=== PATIENT | male | born 1940 | race Caucasian/White ===

== ENCOUNTER → 2016-02-25 | Outpatient (CLI) | payer BC ==
[~2016-02-25] MED LIST: APOMINJ INJ; APOMINJ SC; ARC10 PO; ASPI81TA28 PO; BACL10TA PO; BCTCR/30 TD; BIMA0.01 OPB; BROM0.07 OPR; CARB25TA12 PO; CARB50TA3 PO; CITA20TA4 PO; CLZ750 PO; CRFUDL PO; DOCU-94 PO; DOCU100C31 PO; DUTA1CAP3 PO; ENTA200T PO; ERGO500037 PO; FERR325T5 PO; FLM4 PO; FLNIN/ NAE; FNTTP50 TD; GABA600T PO; GATI0.5S OPR; INSU3INJ3 SQ; LINA1CAP PO; LISI-461 PO; LORA-741 PO; LPD600 PO; LRS10 PO; MAGN400T6 PO; MULT-506 PO; NRN600 PO; NRV/10 PO; NTRGSL/4 SL; NVLGI SQ; ONDA4TAB46 PO; OXYC-57 PO; PANT40TA PO; POLY335019 PO; PRED1SUS3 OPR; PRT40 PO; RANI150T2 PO; RMR15 PO; RQP25 PO; RXC5 PO; SACC250C PO; SIMV-150 PO; TRIM300C14 PO; TRMO115 TOP
[2016-02-25 14:04] LABS: CHOLESTEROL/HDL RATIO 4.3
[2016-02-25 14:05] LABS: ESTIMATED AVERAGE GLUCOSE 163 mg/dl; HA1C FLAG Normal (Normal)
== END | disposition home or self-care (01) ==
LOC: C.LAB1850 12:25
PROVIDERS: ATTEND Nurse Practitioner Adult Health
DX: E11.8 Type 2 diabetes mellitus with unspecified complications (principal); E78.00 Pure hypercholesterolemia, unspecified; I10 Essential (primary) hypertension; L03.115 Cellulitis of right lower limb

== ENCOUNTER 2016-04-08 17:19 | Observation (INO) | payer BC, OTHER ==
[~2016-04-08] VITALS: Ht 177.8 cm; Wt 106.5 kg
[~2016-04-08 17:19] MED LIST changes: -APOMINJ INJ; -APOMINJ SC; -BACL10TA PO; -BCTCR/30 TD; -BROM0.07 OPR; -CRFUDL PO; -DOCU-94 PO; -ENTA200T PO; -ERGO500037 PO; -GATI0.5S OPR; -LINA1CAP PO; -LORA-741 PO; -ONDA4TAB46 PO; -OXYC-57 PO; -PANT40TA PO; -PRED1SUS3 OPR; -PRT40 PO; -TRIM300C14 PO; -TRMO115 TOP
[2016-04-08] MEDS ORDERED: SODIUM CHLORIDE 0.9% 1000ML 500 ML IV STA (18:03)
[2016-04-08] MEDS ORDERED: NITROGLYCERIN OINT 2% 1GM PACKET EXT STA (18:03)
[2016-04-08] MEDS ORDERED: OPTIRAY 320 IV PRN (18:15)
--- NOTE | 2016-04-08 18:22 | EMERGENCY ROOM VISIT NOTE ---
History Report prepared by Candice: Laly Stephenson Under the Supervision of: Dr. Amador Zepeda M.D. First contact with patient: 17:51 Stated Complaint: CHEST PAIN/SOB History of Present Illness The patient is a 75 year old male who presents to the Emergency Room with complaints of intermittent chest pain that began a few days ago. He currently rates his discomfort as a 7/10 in severity, but states that earlier today it was 8-9/10 in severity. The patient states that over the past few days he has had intermittent chest pain that he describes as a pressure and tightness and states that it worsened today. The patient additionally associates shortness of breath, weakness, and fatigue with his symptoms. He additionally notes nausea and abdominal pain today. The patient notes a cough, and notes a discoloration to his urine and dysuria. He denies his pain radiating to his neck, jaw or extremities. The patient denies any fever, diaphoresis, or difficulty eating. The patient states that he typically is constipated, but states that when he takes laxatives, he has bowel movements. The patient's states that the patient's bowel movements have been watery and loose recently. The patient notes a history of c-diff. The patient states that he was given 3 sprays of nitroglycerin and four baby aspirin which helped to alleviate his symptoms. The patient notes a history of a previous [place], but denies any history of lung diseases. Source of History: patient, spouse/significant other () Onset: few days ago Position: chest Symptom Intensity: 7/10 Quality: pressure, other (tightness) Timing: intermittent, worsening Associated Symptoms: + SOB, + abdominal pain, + fatigue, + nausea, + urinary symptoms, + weakness, No diaphoresis, No fevers, No neck pain Review of Systems See HPI for pertinent positives & negatives. A total of 10 systems reviewed and were otherwise negative. 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 Social History Smoking Status: Unknown if Ever Smoked Alcohol Use: none Drug Use: none Marital Status: Housing Status: lives with significant other Occupation Status: retired Current/Historical Medications Scheduled Amlodipine Besylate (Amlodipine Besylate), 10 MG PO DAILY Aspirin (Aspirin Ec), 81 MG PO HS Baclofen (Baclofen), 10 MG PO TID Balsalazide (Colazal), 1,500 MG PO TID Bimatoprost (Lumigan), 1 DROP OPB HS Carbidopa/Levodopa (Sinemet 25MG/100MG), 2.5 TABS PO QID Carbidopa/Levodopa (Sinemet Cr 50MG/200MG), 1 TAB PO QAM Citalopram Hydrobromide (Citalopram Hydrobromide), 20 MG PO DAILY Donepezil HCl (Donepezil HCl), 10 MG PO HS Dutasteride (Dutasteride), 0.5 MG PO QPM Fentanyl (Duragesic), 50 MCG TD [id number] Ferrous Sulfate (Ferrous Sulfate), 325 MG PO DAILY Gabapentin (Neurontin), 1,200 MG PO HS Gabapentin (Gabapentin), 600 MG PO QAM Gemfibrozil (Gemfibrozil), 600 MG PO BID Insulin Aspart (Novolog), 25 UNITS SC WM Insulin Detemir (Levemir Flextouch), 40 UNITS SQ BID Lisinopril (Lisinopril), 10 MG PO DAILY Magnesium Oxide (Mag-Ox), 400 MG PO BID Mirtazapine (Mirtazapine), 15 MG PO HS Multivitamin (Multivitamin), 1 TAB PO DAILY Polyethylene Glycol 3350 (Miralax), 17 GM PO DAILY Ranitidine HCl (Ranitidine HCl), 150 MG PO HS Ropinirole HCl (Ropinirole HCl), 0.25 MG PO TID Saccharomyces Boulardii (Florastor), 250 MG PO DAILY Simvastatin (Simvastatin), 10 MG PO HS Tamsulosin HCl (Tamsulosin HCl), 0.8 MG PO HS Scheduled PRN Docusate Sodium (Docusate Sodium), 100 MG PO BID PRN for Constipation Fluticasone Propionate (Fluticasone Propionate), 2 SPRAYS FARHEEN DAILY PRN for Allergy Symptoms Nitroglycerin (Nitrostat), 0.4 MG SL UD PRN for Chest Pain Oxycodone HCl (Oxycodone HCl), 10 MG PO Q4H PRN for Pain Allergies Coded Allergies: Diclofenac (Verified Adverse Reaction, Unknown, RASH, 08/24/15) Isopropyl Alcohol (Verified Adverse Reaction, Unknown, RASH, 06/30/15) Propylene Glycol (Verified Adverse Reaction, Unknown, RASH, 06/30/15) Physical Exam Vital Signs Date Time Temp Pulse Resp B/P Pulse Ox O2 Delivery O2 Flow Rate FiO2 04/08/16 21:00 53 16 132/64 94 Room Air 04/08/16 20:02 55 18 138/70 96 Room Air 04/08/16 19:00 55 16 152/67 96 Room Air 04/08/16 18:16 57 18 152/75 96 Room Air 04/08/16 17:38 60 04/08/16 17:34 36.7 63 18 141/68 97 Room Air 04/08/16 17:34 97 Room Air 04/08/16 17:34 96 Room Air Physical Exam GENERAL: Patient is in no acute distress. HEENT: No acute trauma, normocephalic atraumatic, mucous membranes moist, no nasal congestion, no scleral icterus. NECK: No stridor, no adenopathy, no meningismus, trachea is midline. CHEST: Tender across anterior chest wall. LUNGS: Clear to auscultation bilaterally, no wheeze, no rhonchi, breath sounds equal. HEART: Without murmurs gallops or rubs, regular rate and rhythm. ABDOMEN: Diffusely mildly tender. Soft, bowel sounds positive, no hernias, no peritonitis. EXTREMITIES: No cyanosis or edema, full range of motion of all the joints without pain or difficulty, no signs for acute trauma. NEUROLOGIC: Oriented x 3, no acute motor or sensory deficits, no focal weakness. SKIN: No rash, no jaundice, no diaphoresis. Medical Decision & Procedures ER Provider Diagnostic Interpretation: X ray results and stated below per my interpretation and radiologist interpretation. Other radiology results and stated below per my review and radiologist interpretation: SINGLE VIEW CHEST CLINICAL HISTORY: Atypical chest pain. FINDINGS: An AP, portable, upright chest radiograph is compared to study dated 12/15/2015. Correlation is made with chest CT dated the . The examination is degraded by portable technique, large body habitus, and patient rotation. The heart is enlarged. The pulmonary vasculature is noncongested. Chronic interstitial thickening similar to previous. No airspace consolidation or large pleural effusion is identified. No pneumothorax is seen. The skeletal structures are osteopenic. The bony thorax is grossly intact. Fusion hardware is noted in the lower cervical spine. IMPRESSION: Cardiomegaly with no acute cardiopulmonary abnormality. Electronically signed by: Aamdor Landers M.D. 04/08/2016 6:39 PM Dictated Date/Time: 04/08/2016 6:[address] SCAN OF THE ABDOMEN AND PELVIS WITH IV CONTRAST CLINICAL HISTORY: Generalized abdominal pain. COMPARISON STUDY: Multiple prior abdominal CT scans, most recently dated 12/29/2015. TECHNIQUE: Following the IV administration of 116 cc of Optiray 320, CT scan of the abdomen and pelvis is performed from the lung bases to the proximal femora. Images reviewed in the axial, sagittal, and coronal planes. IV contrast was administered without complication. CT DOSE: 1084.96 mGy.cm FINDINGS: Lung bases: The heart is enlarged and there is a small pericardial effusion. The coronary arteries are densely calcified. There is a small hiatal hernia. The lung bases are clear noting bibasilar atelectasis. Gynecomastia is noted. Liver: The contrast-enhanced liver is enlarged, measuring 19 cm in length. The liver demonstrates diffusely diminished attenuation consistent with hepatic steatosis. There is mild central intrahepatic biliary ductal dilatation, likely related to previous cholecystectomy. The hepatic veins and portal veins are patent. Gallbladder: Surgically absent noting clips in the gallbladder fossa. Spleen: Normal in size and attenuation. Pancreas: Moderately atrophic and grossly unremarkable. Adrenal glands: Unremarkable. Kidneys: The contrast-enhanced kidneys demonstrate cortical atrophy and are without hydronephrosis. The kidneys enhance symmetrically. Nonspecific perinephric stranding is unchanged from prior studies. Abdominal vasculature: The abdominal aorta is normal in course and caliber noting moderate atherosclerotic calcification. Bowel: Mild hyperemia and wall thickening is suggested in the distal stomach/proximal duodenum. Trace periduodenal stranding and fluid are suggested on axial image #140. There is no bowel obstruction. The appendix is well-visualized and normal. Peritoneum: There is no intraperitoneal free air or abdominal ascites. There is a small fat-containing umbilical hernia. Foci of induration within the ventral abdominal pannus are likely related to subcutaneous injections. Lymphadenopathy: Prominent lymph nodes in the mitch hepatis are unchanged from previous. Pelvic viscera: The bladder is partially decompressed but appears mildly trabeculated and circumferentially thick walled. The prostate gland is heterogeneous. There are bilateral fat-containing inguinal hernias. Skeletal structures: The skeletal structures are osteopenic. No lytic or blastic bony lesions are seen. There is mild to moderate lumbosacral spondylosis. Degenerative changes are also seen in the hips and sacroiliac joints. IMPRESSION: 1. Mild wall thickening and hyperemia are suggested in the distal stomach and proximal duodenum. Trace periduodenal stranding and fluid are suspected. This could represent a nonspecific gastritis/duodenitis or could be seen in the setting of ulcer disease. Clinical correlation will be required. Endoscopy may be required for definitive assessment. 2. No intraperitoneal free air or abdominal ascites is seen. 3. Hepatomegaly and hepatic steatosis. 4. Cardiomegaly and hiatal hernia. 5. Additional changes as detailed above. Electronically signed by: Amador Landers M.D. 04/08/2016 8:07 PM Dictated Date/Time: 04/08/2016 8:00 PM Laboratory Results 04/08/16 17:50 Red Blood Count 4.74, Mean Corpuscular Volume 90.9, Mean Corpuscular Hemoglobin 30.8, Mean Corpuscular Hemoglobin Concent 33.9, Mean Platelet Volume 10.1, Neutrophils (%) (Auto) 62.8, Lymphocytes (%) (Auto) 26.3, Monocytes (%) (Auto) 8.8, Eosinophils (%) (Auto) 1.5, Basophils (%) (Auto) 0.3, Neutrophils # (Auto) 4.77, Lymphocytes # (Auto) 1.99, Monocytes # (Auto) 0.67, Eosinophils # (Auto) 0.11, Basophils # (Auto) 0.02 04/08/16 17:50 Test 04/08/16 17:50 White Blood Count 7.58 K/uL (4.8-10.8) Red Blood Count 4.74 M/uL (4.7-6.1) Hemoglobin 14.6 g/dL (14.0-18.0) Hematocrit 43.1 % (42-52) Mean Corpuscular Volume 90.9 fL (80-100) Mean Corpuscular Hemoglobin 30.8 pg (25-34) Mean Corpuscular Hemoglobin Concent 33.9 g/dl (32-36) Platelet Count 297 K/uL (130-400) Mean Platelet Volume 10.1 fL (7.4-10.4) Neutrophils (%) (Auto) 62.8 % Lymphocytes (%) (Auto) 26.3 % Monocytes (%) (Auto) 8.8 % Eosinophils (%) (Auto) 1.5 % Basophils (%) (Auto) 0.3 % Neutrophils # (Auto) 4.77 K/uL (1.4-6.5) Lymphocytes # (Auto) 1.99 K/uL (1.2-3.4) Monocytes # (Auto) 0.67 K/uL (0.11-0.59) Eosinophils # (Auto) 0.11 K/uL (0-0.5) Basophils # (Auto) 0.02 K/uL (0-0.2) RDW Standard Deviation 41.1 fL (36.4-46.3) RDW Coefficient of Variation 12.3 % (11.5-14.5) Immature Granulocyte % (Auto) 0.3 % Immature Granulocyte # (Auto) 0.02 K/uL (0.00-0.02) Prothrombin Time 10.8 SECONDS (9.0-12.0) Prothromb Time International Ratio 1.0 (0.9-1.1) Activated Partial Thromboplast Time 26.6 SECONDS (21.0-31.0) Partial Thromboplastin Ratio 1.0 Urine Color DK YELLOW Urine Appearance CLEAR (CLEAR) Urine pH 7.5 (4.5-7.5) Urine Specific [place] 1.011 (1.000-1.030) Urine Protein NEG (NEG) Urine Glucose (UA) NEG (NEG) Urine Ketones NEG (NEG) Urine Occult Blood NEG (NEG) Urine Nitrite NEG (NEG) Urine Bilirubin NEG (NEG) Urine Urobilinogen NEG (NEG) Urine Leukocyte Esterase NEG (NEG) Anion Gap 9.0 mmol/L (3-11) Est Creatinine Clear Calc Drug Dose 97.5 ml/min Estimated GFR () 101.0 Estimated GFR (Non- 87.1 BUN/Creatinine Ratio 16.7 (10-20) Calcium Level 9.5 mg/dl (8.5-10.1) Magnesium Level 1.9 mg/dl (1.8-2.4) Total Bilirubin 0.3 mg/dl (0.2-1) Aspartate Amino Transf (AST/SGOT) 23 U/L (15-37) Alanine Aminotransferase (ALT/SGPT) 14 U/L (12-78) Alkaline Phosphatase 74 U/L (45-117) Total Protein 8.0 gm/dl (6.4-8.2) Albumin 4.0 gm/dl (3.4-5.0) Globulin 4.0 gm/dl (2.5-4.0) Albumin/Globulin Ratio 1.0 (0.9-2) Lipase 164 U/L (73-393) Thyroid Stimulating Hormone (TSH) 0.672 uIu/ml (0.300-4.500) Laboratory results reviewed by me. Medications Administered Medications (Trade) Dose Ordered Sig/Geovanny Route Start Time Stop Time Status Last Admin Dose Admin Sodium Chloride (Nss 1000ml) 500 ml @ 999 mls/hr Q31M STAT IV 04/08/16 18:03 04/08/16 18:33 DC 04/08/16 18:14 999 MLS/HR Nitroglycerin (Nitroglycerin 2% Oint) 1 inch NOW STAT EXT 04/08/16 18:03 04/08/16 18:08 DC 04/08/16 18:14 1 INCH Morphine Sulfate 4 mg 4 mg NOW STAT IV 04/08/16 19:46 04/08/16 19:47 DC 04/08/16 20:01 4 MG Pantoprazole Sodium/Dextrose (Protonix Inj/D5 100ml) 120 ml @ 400 mls/hr NOW STAT IV 04/08/16 20:22 04/08/16 20:39 DC 04/08/16 21:05 400 MLS/HR ECG Indication: chest pain, SOB/dyspnea Rate (beats per minute): 57 Rhythm: sinus bradycardia Findings: no acute ischemic change, other (old inferior infarct) ED Course 1752: The patient was evaluated in room B5. A complete history and physical exam was performed. 3: Ordered Nitroglycerin 1 inch EXT, Sodium Chloride 500 ml @ 999 mls/hr IV. 1945: Ordered Morphine Sulfate 4 mg IV. 2021: Ordered Pantoprazole Sodium 80 mg/Dextrose 120 ml @ 400 mls/hr IV. Medical Decision The patient is a 75 year old male who presents to the ED with complaints of chest pain. Differential diagnoses considered include dehydration, electrolyte imbalance, anemia, cardiac ischemia, [place], pneumothorax, CHF, UTI, c-diff colitis. There is no leukocytosis or concerning anemia. No significant electrolyte abnormality, kidney failure or hepatitis. There is no pancreatitis. EKG shows a sinus rhythm, no acute ischemia. Cardiac enzyme testing times one is not consistent with acute cardiac injury. Chest x-ray does not show pneumonia or CHF. There is no free air. Urinalysis does not show infection. Abdominal and pelvis CT shows inflammation around the stomach and duodenum consistent with possible gastritis or ulcer disease. The patient was given nitro paste, IV saline. He was given IV morphine for his abdominal pain. He received IV Protonix. The patient presents with some chest pain. His chest discomfort may actually be from the findings noted to the stomach and duodenum. He does have a history of coronary disease. I do think further care and workup in the hospital is warranted. I spoke with the patient and case management. The on-call hospitalist was consulted. Impression Primary Impression: Precordial chest pain Additional Impressions: Shortness of breath Gastritis Scribe Attestation The scribe's documentation has been prepared under my direction and personally reviewed by me in its entirety. I confirm that the note above accurately reflects all work, treatment, procedures, and medical decision making performed by me. Departure Information Dispostion Being Evaluated By Hospitalist (Dr. Ballard) Referrals RV. Thornton MD (PCP) Problem Qualifiers
[2016-04-08 18:25] LABS: BASO % 0.3 %; BASO ABS # 0.02 K/uL (0-0.2); COMPLETE YES; EOS % 1.5 %; HEMATOCRIT 43.1 % (42-52); IG% 0.3 %; LYMPH % 26.3 %; LYMPH ABS # 1.99 K/uL (1.2-3.4); MEAN CELL VOLUME 90.9 fL (80-100); MEAN CORPUSCULAR HEMOGLOBIN 30.8 pg (25-34); MEAN CORPUSCULAR HGB CONC 33.9 g/dl (32-36); MEAN PLATELET VOLUME 10.1 fL (7.4-10.4); MONO % 8.8 %; NEUT % 62.8 %; PLATELET COUNT 297 K/uL (130-400); RED BLOOD COUNT 4.74 M/uL (4.7-6.1); WHITE BLOOD COUNT 7.58 K/uL (4.8-10.8)
[2016-04-08 18:31] LABS: ALT/SGPT 14 U/L (12-78); AST/SGOT 23 U/L (15-37); BLOOD UREA NITROGEN 14 mg/dl (7-18); BUN/CREATININE RATIO 16.7 (10-20); CALCIUM 9.5 mg/dl (8.5-10.1); CARBON DIOXIDE 28 mmol/L (21-32); CHLORIDE 103 mmol/L (98-107); CREATININE 0.82 mg/dl (0.60-1.40); GLUCOSE 120 mg/dl (70-99); MAGNESIUM 1.9 mg/dl (1.8-2.4); POTASSIUM 3.9 mmol/L (3.5-5.1); SODIUM 140 mmol/L (136-145)
--- NOTE | 2016-04-08 18:40 | DIAGNOSTIC IMAGING REPORT ---
SINGLE VIEW CHEST CLINICAL HISTORY: Atypical chest pain. FINDINGS: An AP, portable, upright chest radiograph is compared to study dated 12/15/2015. Correlation is made with chest CT dated the . The examination is degraded by portable technique, large body habitus, and patient rotation. The heart is enlarged. The pulmonary vasculature is noncongested. Chronic interstitial thickening similar to previous. No airspace consolidation or large pleural effusion is identified. No pneumothorax is seen. The skeletal structures are osteopenic. The bony thorax is grossly intact. Fusion hardware is noted in the lower cervical spine. IMPRESSION: Cardiomegaly with no acute cardiopulmonary abnormality. Electronically signed by: Amador Landers M.D. 04/08/2016 6:39 PM Dictated Date/Time: 04/08/2016 6:38 PM
[2016-04-08 18:42] LABS: ALKALINE PHOSPHATASE 74 U/L (45-117); THYROID STIMULATING HORMONE 0.672 uIu/ml (0.300-4.500)
[2016-04-08 19:16] LABS: PROTHROMBIN TIME (PATIENT) 10.8 SECONDS (9.0-12.0)
[2016-04-08 19:25] LABS: URINE APPEARANCE CLEAR (CLEAR); URINE BILIRUBIN NEG (NEG); URINE COLOR DK YELLOW; URINE NITRITE NEG (NEG); URINE PH 7.5 (4.5-7.5); URINE SPECIFIC GRAVITY 1.011 (1.000-1.030); UROBILINOGEN NEG (NEG)
[2016-04-08 19:42] LABS: MANUAL MICROSCOPIC REQUIRED? NO; REVIEW REQ? NO
[2016-04-08] MEDS ORDERED: MoRPHine SULFATE 4 MG/ML 1 ML CARP\\VIAL IV STA (19:46)
--- NOTE | 2016-04-08 20:09 | DIAGNOSTIC IMAGING REPORT ---
CT SCAN OF THE ABDOMEN AND PELVIS WITH IV CONTRAST CLINICAL HISTORY: Generalized abdominal pain. COMPARISON STUDY: Multiple prior abdominal CT scans, most recently dated 12/29/2015. TECHNIQUE: Following the IV administration of 116 cc of Optiray 320, CT scan of the abdomen and pelvis is performed from the lung bases to the proximal femora. Images reviewed in the axial, sagittal, and coronal planes. IV contrast was administered without complication. CT DOSE: 1084.96 mGy.cm FINDINGS: Lung bases: The heart is enlarged and there is a small pericardial effusion. The coronary arteries are densely calcified. There is a small hiatal hernia. The lung bases are clear noting bibasilar atelectasis. Gynecomastia is noted. Liver: The contrast-enhanced liver is enlarged, measuring 19 cm in length. The liver demonstrates diffusely diminished attenuation consistent with hepatic steatosis. There is mild central intrahepatic biliary ductal dilatation, likely related to previous cholecystectomy. The hepatic veins and portal veins are patent. Gallbladder: Surgically absent noting clips in the gallbladder fossa. Spleen: Normal in size and attenuation. Pancreas: Moderately atrophic and grossly unremarkable. Adrenal glands: Unremarkable. Kidneys: The contrast-enhanced kidneys demonstrate cortical atrophy and are without hydronephrosis. The kidneys enhance symmetrically. Nonspecific perinephric stranding is unchanged from prior studies. Abdominal vasculature: The abdominal aorta is normal in course and caliber noting moderate atherosclerotic calcification. Bowel: Mild hyperemia and wall thickening is suggested in the distal stomach/proximal duodenum. Trace periduodenal stranding and fluid are suggested on axial image #140. There is no bowel obstruction. The appendix is well-visualized and normal. Peritoneum: There is no intraperitoneal free air or abdominal ascites. There is a small fat-containing umbilical hernia. Foci of induration within the ventral abdominal pannus are likely related to subcutaneous injections. Lymphadenopathy: Prominent lymph nodes in the mitch hepatis are unchanged from previous. Pelvic viscera: The bladder is partially decompressed but appears mildly trabeculated and circumferentially thick walled. The prostate gland is heterogeneous. There are bilateral fat-containing inguinal hernias. Skeletal structures: The skeletal structures are osteopenic. No lytic or blastic bony lesions are seen. There is mild to moderate lumbosacral spondylosis. Degenerative changes are also seen in the hips and sacroiliac joints. IMPRESSION: 1. Mild wall thickening and hyperemia are suggested in the distal stomach and proximal duodenum. Trace periduodenal stranding and fluid are suspected. This could represent a nonspecific gastritis/duodenitis or could be seen in the setting of ulcer disease. Clinical correlation will be required. Endoscopy may be required for definitive assessment. 2. No intraperitoneal free air or abdominal ascites is seen. 3. Hepatomegaly and hepatic steatosis. 4. Cardiomegaly and hiatal hernia. 5. Additional changes as detailed above. Electronically signed by: Amador Landers M.D. 04/08/2016 8:07 PM Dictated Date/Time: 04/08/2016 8:00 PM
[2016-04-08] MEDS ORDERED: PANTOprazole INJ 80 MG in DEXTROSE 5% 100ML 100 ML IV STA (20:22)
[2016-04-08] MEDS ORDERED: NITROGLYCERIN 0.4 MG SL PER TAB CHARGE SL PRN (21:45)
[2016-04-08] MEDS ORDERED: ALUMINUM/MAGNESIUM/SIMETH (MAALOX MAX) 30 ML UDC PO PRN (21:45)
[2016-04-08] MEDS ORDERED: MAGNESIUM HYDROXIDE SUSP 30 ML UDC PO PRN (21:45)
[2016-04-08] MEDS ORDERED: ONDANSETRON INJ 2 MG/ML 2 ML VIAL IV PRN (21:45)
--- NOTE | 2016-04-08 21:55 | History and Physical ---
History & Physical Date & Time of Service: Apr 08, 2016 at 21:48 Chief Complaint: Chest Pain/Sob Primary Care Physician: RV. Thornton MD History of Present Illness Source: patient 75 y/o M with an extensive medical history including UC, CAD, Parkinson's, morbid obesity, DMII, chronic generalized pain. Presents with intermittent epigastric or lower chest pain in addition to lower abdominal pain increasing in severity throughout the week. He states that this is accompanied by SOB and weakness. Denies radiation of the pain, nausea/vomiting or diaphoresis. His states that he is normally constipated but has had loose stools over the last 2-3 days. He was recently admitted for abdominal pain and generalized pain involving the R side of his body. He had a negative cardiac and GI workup at that time and the generalized pain was attributed to neuropathy. He does have a history of CAD and will be admitted primarily to r/o ACS. He also has a history of UC and C-diff. A CT of the abdomen was repeated in the ER revealing duodenal inflammation which was not present on a previous CT. Past Medical/Surgical History Medical Problems: (1) Cardiac stent placement Status: Resolved ACS 2013 leading to 2 LAD stents (2) Chronic acquired lymphedema Status: Chronic (3) Chronic UTI Status: Chronic (4) Ulcerative Colitis Status: Resolved (5) Coronary artery disease Status: Chronic (6) Diabetes mellitus type 2 Status: Chronic (7) Diverticulitis Status: Chronic (8) Glaucoma Status: Chronic (9) History of diverticulitis Status: Resolved (10) Hyperlipidemia Status: Chronic (11) Hypertension Status: Chronic (12) Hypertensive disorder, systemic arterial Status: Chronic (13) Morbid obesity Status: Chronic (14) Neuropathy Status: Chronic (15) Noninfectious gastroenteritis Status: Resolved (16) Urinary tract infection Status: Chronic Family History Patient reports no known family medical history. Social History Smoking Status: Never Smoker Drug Use: none Marital Status: Housing status: lives with family Occupational Status: retired Immunizations History of Influenza Vaccine: Yes Influenza Vaccine Date: Nov 16, 2012 History of Tetanus Vaccine?: Yes Tetanus Immunization Date: Jul 30, 2010 History of Pneumococcal: Yes Pneumococcal Date: Jan 17, 2008 History of Hepatitis B Vaccine: No Multi-Drug Resistant Organisms History of MDRO: Yes Type of MDRO: MRSA Allergies Coded Allergies: Diclofenac (Verified Adverse Reaction, Unknown, RASH, 7/17/16) Isopropyl Alcohol (Verified Adverse Reaction, Unknown, RASH, 06/30/15) Propylene Glycol (Verified Adverse Reaction, Unknown, RASH, 06/30/15) Home Medications Scheduled Amlodipine Besylate (Amlodipine Besylate), 10 MG PO DAILY Aspirin (Aspirin Ec), 81 MG PO HS Baclofen (Baclofen), 10 MG PO TID Balsalazide (Colazal), 1,500 MG PO TID Bimatoprost (Lumigan), 1 DROP OPB HS Carbidopa/Levodopa (Sinemet 25MG/100MG), 2.5 TABS PO QID Carbidopa/Levodopa (Sinemet Cr 50MG/200MG), 1 TAB PO QAM Citalopram Hydrobromide (Citalopram Hydrobromide), 20 MG PO DAILY Donepezil HCl (Donepezil HCl), 10 MG PO HS Dutasteride (Dutasteride), 0.5 MG PO QPM Fentanyl (Duragesic), 50 MCG TD [id number] Ferrous Sulfate (Ferrous Sulfate), 325 MG PO DAILY Gabapentin (Neurontin), 1,200 MG PO HS Gabapentin (Gabapentin), 600 MG PO QAM Gemfibrozil (Gemfibrozil), 600 MG PO BID Insulin Aspart (Novolog), 25 UNITS SC WM Insulin Detemir (Levemir Flextouch), 40 UNITS SQ BID Lisinopril (Lisinopril), 10 MG PO DAILY Magnesium Oxide (Mag-Ox), 400 MG PO BID Mirtazapine (Mirtazapine), 15 MG PO HS Multivitamin (Multivitamin), 1 TAB PO DAILY Polyethylene Glycol 3350 (Miralax), 17 GM PO DAILY Ranitidine HCl (Ranitidine HCl), 150 MG PO HS Ropinirole HCl (Ropinirole HCl), 0.25 MG PO TID Saccharomyces Boulardii (Florastor), 250 MG PO DAILY Simvastatin (Simvastatin), 10 MG PO HS Tamsulosin HCl (Tamsulosin HCl), 0.8 MG PO HS Scheduled PRN Docusate Sodium (Docusate Sodium), 100 MG PO BID PRN for Constipation Fluticasone Propionate (Fluticasone Propionate), 2 SPRAYS FARHEEN DAILY PRN for Allergy Symptoms Nitroglycerin (Nitrostat), 0.4 MG SL UD PRN for Chest Pain Oxycodone HCl (Oxycodone HCl), 10 MG PO Q4H PRN for Pain Review of Systems Constitutional: No chills, No fever, No sweats Eyes: No eye pain, No worsening of vision ENT: No hearing loss, No nasal symptoms, No unusual epistaxis Respiratory: + dyspnea at rest, + dyspnea on exertion, + shortness of breath, No cough, No sputum, No wheezing Cardiovascular: + chest pain, + edema, No PND, No orthopnea Abdomen: + diarrhea (loose stools), + pain, No nausea, No vomiting Musculoskeletal: + joint pain, + muscle pain (chronic) Genitourinary - Male: No dysuria, No hematuria, No urinary frequency, No urinary urgency Neurologic: + balance problems (due to PArkinson's and habitus), + weakness ( chronic), No memory loss Psychiatric: No depression symptoms Endocrine: + fatigue Hematologic / Lymphatic: No abnormal bleeding/bruising Integumentary: No rash Allergic / Immunologic: No environmental allergies Physical Exam Vital Signs Date Time Temp Pulse Resp B/P Pulse Ox O2 Delivery O2 Flow Rate FiO2 04/08/16 21:00 53 16 132/64 94 Room Air 04/08/16 20:02 55 18 138/70 96 Room Air 04/08/16 19:00 55 16 152/67 96 Room Air 04/08/16 18:16 57 18 152/75 96 Room Air 04/08/16 17:38 60 04/08/16 17:34 36.7 63 18 141/68 97 Room Air 04/08/16 17:34 97 Room Air 04/08/16 17:34 96 Room Air General Appearance: WD/WN, no apparent distress, + pertinent finding ( Overweight elderly male in no distress) Head: normocephalic, atraumatic Eyes: normal inspection, PERRL, EOMI ENT: normal ENT inspection, hearing grossly normal, TMs normal, pharynx normal Neck: supple, + pertinent finding (exam limited by habitus) Respiratory/Chest: chest non-tender, lungs clear, normal breath sounds Cardiovascular: regular rate, rhythm, no edema, no gallop, no JVD, + pertinent finding (marlene heart sounds) Abdomen/GI: normal bowel sounds, soft, + pertinent finding (could not elicit tenderness with palapation) Back: normal inspection, no CVA tenderness Neurologic/Psych: stock counter II-XII nml as tested, alert, normal mood/affect, oriented x 3, + pertinent finding (titubation noted ) Skin: normal color, warm/dry, no rash Diagnostics Laboratory Results Results Past 24 Hours Test 04/08/16 17:50 Range/Units White Blood Count 7.58 4.8-10.8 K/uL Red Blood Count 4.74 4.7-6.1 M/uL Hemoglobin 14.6 14.0-18.0 g/dL Hematocrit 43.1 42-52 % Mean Corpuscular Volume 90.9 80-100 fL Mean Corpuscular Hemoglobin 30.8 25-34 pg Mean Corpuscular Hemoglobin Concent 33.9 32-36 g/dl Platelet Count 297 130-400 K/uL Mean Platelet Volume 10.1 7.4-10.4 fL Neutrophils (%) (Auto) 62.8 % Lymphocytes (%) (Auto) 26.3 % Monocytes (%) (Auto) 8.8 % Eosinophils (%) (Auto) 1.5 % Basophils (%) (Auto) 0.3 % Neutrophils # (Auto) 4.77 1.4-6.5 K/uL Lymphocytes # (Auto) 1.99 1.2-3.4 K/uL Monocytes # (Auto) 0.67 0.11-0.59 K/uL Eosinophils # (Auto) 0.11 0-0.5 K/uL Basophils # (Auto) 0.02 0-0.2 K/uL RDW Standard Deviation 41.1 36.4-46.3 fL RDW Coefficient of Variation 12.3 11.5-14.5 % Immature Granulocyte % (Auto) 0.3 % Immature Granulocyte # (Auto) 0.02 0.00-0.02 K/uL Prothrombin Time 10.8 9.0-12.0 SECONDS Prothromb Time International Ratio 1.0 0.9-1.1 Activated Partial Thromboplast Time 26.6 21.0-31.0 SECONDS Partial Thromboplastin Ratio 1.0 Urine Color DK YELLOW Urine Appearance CLEAR CLEAR Urine pH 7.5 4.5-7.5 Urine Specific [place] 1.011 1.000-1.030 Urine Protein NEG NEG Urine Glucose (UA) NEG NEG Urine Ketones NEG NEG Urine Occult Blood NEG NEG Urine Nitrite NEG NEG Urine Bilirubin NEG NEG Urine Urobilinogen NEG NEG Urine Leukocyte Esterase NEG NEG Sodium Level 140 136-145 mmol/L Potassium Level 3.9 3.5-5.1 mmol/L Chloride Level 103 98-107 mmol/L Carbon Dioxide Level 28 21-32 mmol/L Anion Gap 9.0 3-11 mmol/L Blood Urea Nitrogen 14 7-18 mg/dl Creatinine 0.82 0.60-1.40 mg/dl Est Creatinine Clear Calc Drug Dose 97.5 ml/min Estimated GFR () 101.0 Estimated GFR (Non- 87.1 BUN/Creatinine Ratio 16.7 10-20 Random Glucose 120 70-99 mg/dl Calcium Level 9.5 8.5-10.1 mg/dl Magnesium Level 1.9 1.8-2.4 mg/dl Total Bilirubin 0.3 0.2-1 mg/dl Aspartate Amino Transf (AST/SGOT) 23 15-37 U/L Alanine Aminotransferase (ALT/SGPT) 14 12-78 U/L Alkaline Phosphatase 74 45-117 U/L Troponin I < 0.015 0-0.045 ng/ml Total Protein 8.0 6.4-8.2 gm/dl Albumin 4.0 3.4-5.0 gm/dl Globulin 4.0 2.5-4.0 gm/dl Albumin/Globulin Ratio 1.0 0.9-2 Lipase 164 73-393 U/L Thyroid Stimulating Hormone (TSH) 0.672 0.300-4.500 uIu/ml Diagnostic Radiology 1. Mild wall thickening and hyperemia are suggested in the distal stomach and proximal duodenum. Trace periduodenal stranding and fluid are suspected. This could represent a nonspecific gastritis/duodenitis or could be seen in the setting of ulcer disease. Clinical correlation will be required. Endoscopy may be required for definitive assessment. 2. No intraperitoneal free air or abdominal ascites is seen. 3. Hepatomegaly and hepatic steatosis. 4. Cardiomegaly and hiatal hernia. EKG NSR - borderline erika Impression Assessment and Plan 75 y/o M with an extensive medical history including UC, CAD, Parkinson's, morbid obesity, DM II, chronic generalized pain. Presents with intermittent epigastric or lower chest pain in addition to lower abdominal pain increasing in severity throughout the week. He states that this is accompanied by SOB and weakness. Denies radiation of the pain, nausea/vomiting or diaphoresis. His states that he is normally constipated but has had loose stools over the last 2-3 days. He was recently admitted for abdominal pain and generalized pain involving the R side of his body. He had a negative cardiac and GI workup at that time and the generalized pain was attributed to neuropathy. He does have a history of CAD and will be admitted primarily to r/o ACS. He also has a history of UC and C-diff. A CT of the abdomen was repeated in the ER revealing duodenal inflammation which was not present on a previous CT. 1) CP - will obtain serial troponins and monitor on telemetry - low suspicion for ACS at present and considering GI issues and CT findings we will hold ASA - cont Statin and NTG or Morphine as needed. He would not tolerate a B cruz. Cardiology consulted as this appears to be a chronic issue and he has a documented history of CAD. 2) Abdominal pain - 2 separate areas - CT reveals duodenal/gastric inflammation - gastritis vs ulcer. We will add an IV PPi to his Ranitidine and consult GI. Keep NPO after midnight. He additionally complains of lower abdominal pain which may be related to his UC however he does have loose stools and a history of C-diff so we will obtain a Toxin study. Cont Balsalazide 3) Parkinson's - cont Sinemet. 4) DM - sliding scale 5) HTN - cont Norvasc Full code - SCDs only due to potential ulcer Total time for this admit including review of extensive records, labs, imaging, EKG - discussion with ER MD and pt - 41 min Level of Care Telemetry Resuscitation Status FULL RESUSCITATION VTE Prophylaxis VTE Risk Assessment Done? Y/N: Yes Risk Level: Moderate Given or contraindicated: SCD's
[2016-04-08] MEDS ORDERED: GLUCAGON FOR INJ 1 MG VIAL SQ PRN (22:15)
[2016-04-08] MEDS ORDERED: DOCUSATE SODIUM 100 MG CAP PO PRN (22:15)
[2016-04-08] MEDS ORDERED: GLUCOSE 40% GEL 15 GM TUBE PO PRN (22:15)
[2016-04-08] MEDS ORDERED: DEXTROSE 50% 50 ML SYR IV PRN (22:15)
[2016-04-08] MEDS ORDERED: GLUCOSE 10 TABS/TUBE PO PRN (22:15)
[2016-04-08 22:35] VITALS: BP 153/56; PULSE 55; TEMP 36.7; O2SAT 97; BMI 33.8
[2016-04-08] MEDS ORDERED: IV FLUIDS COMPLETED PRN (22:45)
[2016-04-08] MEDS ORDERED: NSS + 20MEQ KCL 1000ML 1,000 ML IV SCH (23:00)
[2016-04-08] MEDS: CHECK FENTANYL PATCH PLACEMENT SCH (23:23)
[2016-04-08 23:36] VITALS: BP 120/54; PULSE 59; TEMP 36.8; O2SAT 95
[2016-04-09 04:01] VITALS: BP 126/56; PULSE 48; TEMP 36.8; O2SAT 94
[2016-04-09 06:52] VITALS: BP 140/61; PULSE 55; TEMP 36.8; O2SAT 95
[2016-04-09] MEDS: MAGNESIUM OXIDE 400 MG TAB PO SCH ×2 (07:46→20:22)
[2016-04-09] MEDS: CHECK FENTANYL PATCH PLACEMENT SCH ×2 (07:46→15:26)
[2016-04-09] MEDS: CARBIDOPA/LEVODOPA 25/100MG TAB PO SCH ×3 (07:47→20:23)
[2016-04-09] MEDS: GABAPENTIN 600 MG TAB PO SCH ×2 (07:47→20:21)
[2016-04-09] MEDS: LISINOPRIL 10 MG TAB PO SCH (07:47)
[2016-04-09] MEDS: AMLODIPINE BESYLATE 5 MG TAB PO SCH (07:47)
[2016-04-09] MEDS: BACLOFEN 10 MG TAB PO SCH ×3 (07:47→20:18)
[2016-04-09] MEDS: SACCHAROMYCES BOUL (FLORASTOR) 250 MG CAP PO SCH (07:48)
[2016-04-09] MEDS: CITALOPRAM 20 MG TAB PO SCH (07:48)
[2016-04-09] MEDS: ROPINIROLE HCL 0.25 MG TAB PO SCH ×3 (07:48→20:18)
[2016-04-09] MEDS: MoRPHine SULFATE 2 MG/ML CARP IV PRN ×3 (07:49→20:14)
[2016-04-09] MEDS: INSULIN DETEMIR FLEXPEN/FLEX TOUCH 100 UNITS/ML 3ML SQ SCH ×2 (08:03→20:00)
[2016-04-09] MEDS ORDERED: PANTOprazole SOD 40 MG TAB PO SCH (09:00)
[2016-04-09] MEDS ORDERED: BALSALAZIDE PO SCH (09:00)
[2016-04-09] MEDS ORDERED: CIPROFLOXACIN / D5W 400 MG in PREMIXED IN D5W 200 ML IV SCH (09:00)
[2016-04-09] MEDS ORDERED: METRONIDAZOLE 500 MG TAB PO SCH (09:00)
[2016-04-09] MEDS: CARBIDOPA/LEVODOPA 50/200MG EXT REL TAB PO SCH (09:22)
--- NOTE | 2016-04-09 09:28 | Cardiology Consultation ---
Cardiology Consultation Date of Consultation: Apr 09, 2016. Pt evaluation today including: conversation w/ patient, physical exam, chart review, lab review History of Present Illness THIS IS A PGY1 RESIDENT PROGRESS NOTE. THIS NOTE IS NOTE FINAL UNTIL SIGNED BY A CARDIOLOGY ATTENDING. DR. MUNIZ 75M with a PMHx of 2 LAD drug eluting stents in 2008, DM2, UC and Parkinson's presents with chest pain x 3 days rated as 7/10 that peaked at 9/10 on day of admission. Pt states that his abdominal cramping x 3 days is bothering him more and was the chief complaint that brought him into the hospital. Pt describes the chest pain as a tightness that occurs intermittently, is alleviated by rest and exacerbated by movement. The patient has also had SOB, fatigue, nausea and constipation. Pt's chest pain persists on exam this morning , he rates the pain as 7/10 now, says that nitroglycerin and morphine have a minimal effect on his chest pain. Pt states that his neck today has also started hurting him. Patient was seen and examined while on the commode. Pt reports being constipated and is hoping to find abdominal pain relief with a BM. ROS: Pt denies any swelling of the hands or feet, pt has limited mobility - uses a walker to ambulate. Cardiac Cath + Echo Report in 2013 Right radial access. 6Fr. system. LM: minimal disease. LAD: ostial 20% stenosis. Mid 50% stenosis prior to stents. Patent mid to distal LAD stents with minimal in stent stenosis. Septal 1: 99% stenosis. relatively small caliber vessel. LCx: mild luminal irregularities. OM2: large vessel. Mild luminal irregularities. Mid 30% stenosis. RCA: dominant. Large. Proximal 30%, mid 30% stenosis. RPDA: two separate 50% stenosis. LV gram: LVEF approximately 70%. No wall motion abnormalities. No MR or AI appreciated. Pt is followed as outpatient by Dr. Muniz, [facility] cardiology. Family History Patient reports no known family medical history. Social History Smoking Status: Never Smoker History of Alcohol Use: No Review of Systems Constitutional: No chills, No fever Respiratory: No cough, No sputum Cardiac: No chest pain Abdomen: + pain Allergies Coded Allergies: Diclofenac (Verified Adverse Reaction, Unknown, RASH, 08/24/15) Isopropyl Alcohol (Verified Adverse Reaction, Unknown, RASH, 06/30/15) Propylene Glycol (Verified Adverse Reaction, Unknown, RASH, 06/30/15) Medications Current Inpatient Medications Medications (Trade) Dose Ordered Sig/Geovanny Route Start Time Stop Time Status Last Admin Dose Admin Ioversol (Optiray 320) 125 ml UD PRN IV 04/08/16 18:15 04/12/16 18:14 Baclofen (Lioresal Tab) 10 mg TID PO 04/09/16 09:00 05/09/16 08:59 04/09/16 07:47 10 MG Carbidopa/Levodopa (Sinemet 25/ 100MG Tab) 1 tab QID PO 04/09/16 09:00 05/09/16 08:59 04/09/16 07:47 1 TAB Carbidopa/Levodopa (Sinemet Cr 50/ 200MG Tab) 1 tab QAM PO 04/09/16 09:00 05/09/16 08:59 Citalopram Hydrobromide (celeXA TAB) 20 mg DAILY PO 04/09/16 09:00 05/09/16 08:59 04/09/16 07:48 20 MG Docusate Sodium (coLACE CAP) 100 mg BID PRN PO 04/08/16 22:15 05/08/16 22:14 Donepezil HCl (Aricept Tab) 10 mg HS PO 04/09/16 21:00 05/09/16 20:59 Fentanyl (Duragesic Patch) 50 mcg Q3D@0900 TD 04/10/16 09:00 04/24/16 08:59 Gabapentin (Neurontin Tab) 600 mg QAM PO 04/09/16 09:00 05/09/16 08:59 04/09/16 07:47 600 MG Gabapentin (Neurontin Tab) 1,200 mg HS PO 04/09/16 21:00 05/09/16 20:59 Insulin Detemir (Levemir Flexpen/ FlexTouch) 40 unit BID SQ 04/09/16 09:00 05/09/16 08:59 04/09/16 08:03 40 UNIT Lisinopril (Zestril Tab) 10 mg DAILY PO 04/09/16 09:00 05/09/16 08:59 04/09/16 07:47 10 MG Magnesium Oxide (Mag-Ox Tab) 400 mg BID PO 04/09/16 09:00 05/09/16 08:59 04/09/16 07:46 400 MG Mirtazapine (Remeron Tab) 15 mg HS PO 04/09/16 21:00 05/09/16 20:59 Ranitidine HCl (zANTac TAB) 150 mg HS PO 04/09/16 21:00 05/09/16 20:59 Ropinirole HCl (Requip Tab) 0.25 mg TID PO 04/09/16 09:00 05/09/16 08:59 04/09/16 07:48 0.25 MG Saccharomyces Boulardii (Florastor Cap) 250 mg DAILY PO 04/09/16 09:00 05/09/16 08:59 04/09/16 07:48 250 MG Simvastatin (Zocor Tab) 10 mg HS PO 04/09/16 21:00 05/09/16 20:59 Tamsulosin HCl (Flomax Cap) 0.8 mg HS PO 04/09/16 21:00 05/09/16 20:59 Amlodipine Besylate (Norvasc Tab) 10 mg DAILY PO 04/09/16 09:00 05/09/16 08:59 04/09/16 07:47 10 MG Bimatoprost (Lumigan 0.01%) 1 drops HS OPB 04/09/16 21:00 05/09/16 20:59 Acetaminophen (Tylenol Tab) 650 mg Q4H PRN PO 04/08/16 21:45 05/08/16 21:44 Al Hydrox/Mg Hydrox/Simethicone (Maalox Max Susp) 15 ml Q4H PRN PO 04/08/16 21:45 05/08/16 21:44 04/09/16 08:06 15 ML Magnesium Hydroxide (Milk Of Magnesia Susp) 30 ml Q12H PRN PO 04/08/16 21:45 05/08/16 21:44 Ondansetron HCl (Zofran Inj) 4 mg Q6H PRN IV 04/08/16 21:45 05/08/16 21:44 Nitroglycerin (Nitrostat Tab) 0.4 mg UD PRN SL 04/08/16 21:45 05/08/16 21:44 04/09/16 07:09 0.4 MG Morphine Sulfate (MoRPHine SULFATE INJ) 2 mg Q30M PRN IV 04/08/16 21:45 04/22/16 21:44 04/09/16 07:49 2 MG Polyethylene 17 gm 17 gm DAILY PRN PO 04/08/16 21:45 05/08/16 21:44 Potassium Chloride/Sodium Chloride (Nss + 20meq KCl 1000ml) 1,000 ml @ 75 mls/hr [id number] IV 04/08/16 23:00 04/09/16 12:19 04/08/16 23:23 75 MLS/HR Pantoprazole Sodium (Protonix Tab) 40 mg QAM PO 04/09/16 09:00 05/09/16 08:59 04/09/16 07:48 40 MG Glucose (Glucose 40% Gel) 15-30 GRAMS 15 GRAMS... UD PRN PO 04/08/16 22:15 05/08/16 22:14 Glucose (Glucose Chew Tab) 4-8 Tablets 4 Tabl... UD PRN PO 04/08/16 22:15 05/08/16 22:14 Dextrose (Dextrose 50% 50ML Syringe) 25-50ML OF 50% DW IV FOR... UD PRN IV 04/08/16 22:15 05/08/16 22:14 Glucagon (Glucagon Inj) 1 mg UD PRN SQ 04/08/16 22:15 05/08/16 22:14 Miscellaneous (Iv Fluids Completed) 1 ea PRN PRN N/A 04/08/16 22:45 04/08/17 22:44 Miscellaneous Information (Order Awaiting Action) 1 ea QS N/A 04/09/16 00:00 05/09/16 00:00 Miscellaneous (Fentanyl Patch Remove & Waste) 1 ea Q3D@0859 N/A 04/10/16 08:59 05/10/16 08:58 Miscellaneous Information (Check Fentanyl Patch Placement) 1 ea QS N/A 04/09/16 00:00 05/09/16 00:00 04/09/16 07:46 1 EA Miscellaneous Information 1 ea 1 ea QS N/A 04/09/16 00:00 05/09/16 00:00 Ciprofloxacin/ Dextrose/Prmx (Cipro / D5w/ Premixed D5W) 200 ml @ 100 mls/hr Q12 IV 04/09/16 09:00 04/19/16 08:59 Metronidazole (Flagyl Tab) 500 mg BID PO 04/09/16 09:00 04/19/16 08:59 Physical Exam Vital Signs Past 12 Hours Date Time Temp Pulse Resp B/P Pulse Ox O2 Delivery O2 Flow Rate FiO2 04/09/16 06:52 36.8 55 18 140/61 95 Room Air 04/09/16 04:01 36.8 48 14 126/56 94 Room Air 04/09/16 04:00 Room Air 04/08/16 23:59 Room Air 04/08/16 23:36 36.8 59 18 120/54 95 Room Air 04/08/16 22:35 36.7 55 18 153/56 97 Room Air 04/08/16 22:00 54 18 146/68 96 Room Air Constitutional: General Apperance: heathly-appearing Level of Distress: NAD Psychiatric: Mental Status: active & alert, normal mood, normal affect Lungs: Respiratory effort: no dyspnea, good air movement Auscultation: breath sounds normal, no wheezing, no rales/crackles, no rhonchi Cardiovascular: Apical Impulse: not displaced Heart Auscultation: normal S1, normal S2, no murmurs, no rubs, no gallops, bradycardia Peripheral Pulses: Bruits: none appreciated Carotid Pulse: normal on the left, normal on the right Dorsalis Pedis Pulse: normal on the left, normal on the right Abdomen: Bowel Sounds: normal Inspection & Palpation: soft, non-distended, no tenderness, guarding & rebound Extremities: no cyanosis, no edema, no varicosities Neurologic: Gait & Station: normal gait Cranial Nerves: grossly intact Sensation: grossly intact Data Laboratory Results: Last 24 Hours Test 04/08/16 17:50 04/08/16 23:10 04/09/16 05:10 04/09/16 06:48 White Blood Count 7.58 K/uL Red Blood Count 4.74 M/uL Hemoglobin 14.6 g/dL Hematocrit 43.1 % Mean Corpuscular Volume 90.9 fL Mean Corpuscular Hemoglobin 30.8 pg Mean Corpuscular Hemoglobin Concent 33.9 g/dl Platelet Count 297 K/uL Mean Platelet Volume 10.1 fL Neutrophils (%) (Auto) 62.8 % Lymphocytes (%) (Auto) 26.3 % Monocytes (%) (Auto) 8.8 % Eosinophils (%) (Auto) 1.5 % Basophils (%) (Auto) 0.3 % Neutrophils # (Auto) 4.77 K/uL Lymphocytes # (Auto) 1.99 K/uL Monocytes # (Auto) 0.67 K/uL Eosinophils # (Auto) 0.11 K/uL Basophils # (Auto) 0.02 K/uL RDW Standard Deviation 41.1 fL RDW Coefficient of Variation 12.3 % Immature Granulocyte % (Auto) 0.3 % Immature Granulocyte # (Auto) 0.02 K/uL Prothrombin Time 10.8 SECONDS Prothromb Time International Ratio 1.0 Activated Partial Thromboplast Time 26.6 SECONDS Partial Thromboplastin Ratio 1.0 Urine Color DK YELLOW Urine Appearance CLEAR Urine pH 7.5 Urine Specific [place] 1.011 Urine Protein NEG Urine Glucose (UA) NEG Urine Ketones NEG Urine Occult Blood NEG Urine Nitrite NEG Urine Bilirubin NEG Urine Urobilinogen NEG Urine Leukocyte Esterase NEG Sodium Level 140 mmol/L Potassium Level 3.9 mmol/L Chloride Level 103 mmol/L Carbon Dioxide Level 28 mmol/L Anion Gap 9.0 mmol/L Blood Urea Nitrogen 14 mg/dl Creatinine 0.82 mg/dl Est Creatinine Clear Calc Drug Dose 97.5 ml/min Estimated GFR () 101.0 Estimated GFR (Non- 87.1 BUN/Creatinine Ratio 16.7 Random Glucose 120 mg/dl Calcium Level 9.5 mg/dl Magnesium Level 1.9 mg/dl Total Bilirubin 0.3 mg/dl Aspartate Amino Transf (AST/SGOT) 23 U/L Alanine Aminotransferase (ALT/SGPT) 14 U/L Alkaline Phosphatase 74 U/L Troponin I < 0.015 ng/ml < 0.015 ng/ml < 0.015 ng/ml Total Protein 8.0 gm/dl Albumin 4.0 gm/dl Globulin 4.0 gm/dl Albumin/Globulin Ratio 1.0 Lipase 164 U/L Thyroid Stimulating Hormone (TSH) 0.672 uIu/ml Bedside Glucose 113 mg/dl Imaging: EKG: Telemetry reviewed: Assessment & Plan 75M with a PMHx of 2 LAD drug eluting stents in 2008, DM2, UC and Parkinson's presents with chest pain x 3 days and abdominal cramping. Patient has chronic sinus bradycardia, confirmed by this visits telemetry monitoring. Troponins were neg x 3. EKG this AM was grossly normal. 1. Chest Pain, s/p 2 Drug Eluting Stents in 2008 - Troponins neg x 3. No new EKG changes. Cath in 2013 showed 99% septal stenosis and 50% LAD stenosis. - In light of normal troponins despite a 3 day history of chest pain, and minimal physical exam findings of heart failure including absence of any acute processes on X-ray and EKG it is unlikely that the pt's chest pain is cardiac in nature. - Pt is not on anti platelet agent, no recommendation to restart at this time. - OK to discharge from telemetry monitoring. 2. Bradycardia - Chart review reveals that patient has been asymptomatically bradycardic since 2006. Pt is not on any beta blockers. This may be secondary to opiate medication. There are no recommendations at this time. Has been followed by Dr. Muniz, [facility] as outpatient. 3. DM2 - c/w Simvastatin 10mg QHS and Aspirin 81mg. 4. HTN - c/w Lisinopril 10mg daily, Amlodipine 10mg daily and monitor. THIS IS A PGY1 PROGRESS NOTE, THIS NOTE IS NOTE FINAL UNTIL SIGNED BY DR. MUNIZ Resident Involvement: Resident Care Provided Care Provided: Adult Hospital Medicine
--- NOTE | 2016-04-09 09:52 | Progress Note ---
Subjective Date of Service: Apr 09, 2016. (Verónica Gaspar PA-C) Subjective Pt evaluation today including: conversation w/ patient, physical exam, chart review, lab review, review of studies, review of inpatient medication list Patient seen and evaluated. No acute events overnight. Complaining of epigastric and bilateral lower quadrant tenderness. Feels constipated. Feels the urge to void and defecate but at this point having difficulty. Reports history of BPH that results in urinary hesitancy but denies H/O phimosis. -- Unable to retract foreskin with multiple attempts due to pain -- Reports that his has been treating him for a fungal yeast infection with OTC fungal cream but unable to appreciate at this time. (Verónica Gaspar PA-C) Problem List Medical Problems: (1) Abdominal bloating Status: Acute (2) Abdominal pain Status: Acute (3) Acute chest pain Status: Acute (4) Ambulatory dysfunction Status: Acute (5) C. difficile colitis Status: Acute (6) C. difficile colitis Status: Acute (7) Cephalalgia Status: Acute (8) Decubitus ulcer of sacral region, stage 1 Status: Acute (9) Dehydration Status: Acute (10) Diarrhea Status: Acute (11) Diarrhea Status: Acute (12) Gastritis Status: Acute (13) Hypomagnesemia Status: Acute (14) Intractable abdominal pain Status: Acute (15) Intractable abdominal pain Status: Acute (16) Leukocytosis Status: Acute (17) LLQ abdominal pain Status: Acute (18) LLQ abdominal pain Status: Acute (19) Pancolitis Status: Acute (20) Precordial chest pain Status: Acute (21) Precordial chest pain Status: Acute (22) Shortness of breath Status: Acute (23) Viral illness Status: Acute (24) Weakness Status: Acute (25) Weakness Status: Acute (26) Weakness Status: Acute (Verónica Gaspar PA-C) Review of Systems Constitutional: No chills, No fever Respiratory: No shortness of breath Cardiac: + chest pain (radiation from epigastric region) Abdomen: + pain (epigastric and lower quadrants) Male : + problem reported (urinary hesitancy) Neurologic: + problem reported (H/O Parkinsons) (Chasity, Verónica M., PA-C) Medications Current Inpatient Medications Medications (Trade) Dose Ordered Sig/Geovanny Route Start Time Stop Time Status Last Admin Dose Admin Ioversol (Optiray 320) 125 ml UD PRN IV 04/08/16 18:15 04/12/16 18:14 Baclofen (Lioresal Tab) 10 mg TID PO 04/09/16 09:00 05/09/16 08:59 04/09/16 07:47 10 MG Carbidopa/Levodopa (Sinemet 25/ 100MG Tab) 1 tab QID PO 04/09/16 09:00 05/09/16 08:59 04/09/16 07:47 1 TAB Carbidopa/Levodopa (Sinemet Cr 50/ 200MG Tab) 1 tab QAM PO 04/09/16 09:00 05/09/16 08:59 04/09/16 09:22 1 TAB Citalopram Hydrobromide (celeXA TAB) 20 mg DAILY PO 04/09/16 09:00 05/09/16 08:59 04/09/16 07:48 20 MG Docusate Sodium (coLACE CAP) 100 mg BID PRN PO 04/08/16 22:15 05/08/16 22:14 Donepezil HCl (Aricept Tab) 10 mg HS PO 04/09/16 21:00 05/09/16 20:59 Fentanyl (Duragesic Patch) 50 mcg Q3D@0900 TD 04/10/16 09:00 04/24/16 08:59 Gabapentin (Neurontin Tab) 600 mg QAM PO 04/09/16 09:00 05/09/16 08:59 04/09/16 07:47 600 MG Gabapentin (Neurontin Tab) 1,200 mg HS PO 04/09/16 21:00 05/09/16 20:59 Insulin Detemir (Levemir Flexpen/ FlexTouch) 40 unit BID SQ 04/09/16 09:00 05/09/16 08:59 04/09/16 08:03 40 UNIT Lisinopril (Zestril Tab) 10 mg DAILY PO 04/09/16 09:00 05/09/16 08:59 04/09/16 07:47 10 MG Magnesium Oxide (Mag-Ox Tab) 400 mg BID PO 04/09/16 09:00 05/09/16 08:59 04/09/16 07:46 400 MG Mirtazapine (Remeron Tab) 15 mg HS PO 04/09/16 21:00 05/09/16 20:59 Ranitidine HCl (zANTac TAB) 150 mg HS PO 04/09/16 21:00 05/09/16 20:59 Ropinirole HCl (Requip Tab) 0.25 mg TID PO 04/09/16 09:00 05/09/16 08:59 04/09/16 07:48 0.25 MG Saccharomyces Boulardii (Florastor Cap) 250 mg DAILY PO 04/09/16 09:00 05/09/16 08:59 04/09/16 07:48 250 MG Simvastatin (Zocor Tab) 10 mg HS PO 04/09/16 21:00 05/09/16 20:59 Tamsulosin HCl (Flomax Cap) 0.8 mg HS PO 04/09/16 21:00 05/09/16 20:59 Amlodipine Besylate (Norvasc Tab) 10 mg DAILY PO 04/09/16 09:00 05/09/16 08:59 04/09/16 07:47 10 MG Bimatoprost (Lumigan 0.01%) 1 drops HS OPB 04/09/16 21:00 05/09/16 20:59 Acetaminophen (Tylenol Tab) 650 mg Q4H PRN PO 04/08/16 21:45 05/08/16 21:44 Al Hydrox/Mg Hydrox/Simethicone (Maalox Max Susp) 15 ml Q4H PRN PO 04/08/16 21:45 05/08/16 21:44 04/09/16 08:06 15 ML Magnesium Hydroxide (Milk Of Magnesia Susp) 30 ml Q12H PRN PO 04/08/16 21:45 05/08/16 21:44 Ondansetron HCl (Zofran Inj) 4 mg Q6H PRN IV 04/08/16 21:45 05/08/16 21:44 Nitroglycerin (Nitrostat Tab) 0.4 mg UD PRN SL 04/08/16 21:45 05/08/16 21:44 04/09/16 07:09 0.4 MG Morphine Sulfate (MoRPHine SULFATE INJ) 2 mg Q30M PRN IV 04/08/16 21:45 04/22/16 21:44 04/09/16 07:49 2 MG Polyethylene 17 gm 17 gm DAILY PRN PO 04/08/16 21:45 05/08/16 21:44 Potassium Chloride/Sodium Chloride (Nss + 20meq KCl 1000ml) 1,000 ml @ 75 mls/hr [id number] IV 04/08/16 23:00 04/09/16 12:19 04/08/16 23:23 75 MLS/HR Glucose (Glucose 40% Gel) 15-30 GRAMS 15 GRAMS... UD PRN PO 04/08/16 22:15 05/08/16 22:14 Glucose (Glucose Chew Tab) 4-8 Tablets 4 Tabl... UD PRN PO 04/08/16 22:15 05/08/16 22:14 Dextrose (Dextrose 50% 50ML Syringe) 25-50ML OF 50% DW IV FOR... UD PRN IV 04/08/16 22:15 05/08/16 22:14 Glucagon (Glucagon Inj) 1 mg UD PRN SQ 04/08/16 22:15 05/08/16 22:14 Miscellaneous (Iv Fluids Completed) 1 ea PRN PRN N/A 04/08/16 22:45 04/08/17 22:44 Miscellaneous Information (Order Awaiting Action) 1 ea QS N/A 04/09/16 00:00 05/09/16 00:00 Miscellaneous (Fentanyl Patch Remove & Waste) 1 ea Q3D@0859 N/A 04/10/16 08:59 05/10/16 08:58 Miscellaneous Information (Check Fentanyl Patch Placement) 1 ea QS N/A 04/09/16 00:00 05/09/16 00:00 04/09/16 07:46 1 EA Miscellaneous Information (Order Awaiting Action) 1 ea QS N/A 04/09/16 00:00 05/09/16 00:00 Pantoprazole Sodium (Protonix Tab) 40 mg BID PO 04/09/16 21:00 05/09/16 20:59 Sucralfate (Carafate Susp) 1 gm QID PO 04/09/16 13:00 05/09/16 12:59 (Verónica Gaspar, GAGE) Objective Vital Signs Date Time Temp Pulse Resp B/P Pulse Ox O2 Delivery O2 Flow Rate FiO2 04/09/16 08:00 Room Air 04/09/16 06:52 36.8 55 18 140/61 95 Room Air 04/09/16 04:01 36.8 48 14 126/56 94 Room Air 04/09/16 04:00 Room Air 04/08/16 23:59 Room Air 04/08/16 23:36 36.8 59 18 120/54 95 Room Air 04/08/16 22:35 36.7 55 18 153/56 97 Room Air 04/08/16 22:00 54 18 146/68 96 Room Air 04/08/16 21:00 53 16 132/64 94 Room Air 04/08/16 20:02 55 18 138/70 96 Room Air 04/08/16 19:00 55 16 152/67 96 Room Air 04/08/16 18:16 57 18 152/75 96 Room Air 04/08/16 17:38 60 04/08/16 17:34 36.7 63 18 141/68 97 Room Air 04/08/16 17:34 97 Room Air 04/08/16 17:34 96 Room Air (Verónica Gaspar, PA-C) Physical Exam General Appearance: WD/WN, no apparent distress Eyes: sclerae normal ENT: hearing grossly normal Neck: supple, no JVD, trachea midline Respiratory/Chest: lungs clear, normal breath sounds, no respiratory distress, no accessory muscle use Cardiovascular: regular rate, rhythm, no gallop, no murmur Abdomen: normal bowel sounds, soft, + distended, + tenderness Extremities: no pedal edema, no calf tenderness Neurologic/Psychiatric: alert, oriented x 3 Comments: Male Genitalia: no areas of redness or edema appreciated; presence of phimosis with difficulty retracting foreskin due to pain however no redness or drainage; glans unable to be visualized. (Verónica Gaspar PA-C) Laboratory Results Last 24 Hours Test 04/08/16 17:50 04/08/16 23:10 04/09/16 05:10 04/09/16 06:48 White Blood Count 7.58 K/uL Red Blood Count 4.74 M/uL Hemoglobin 14.6 g/dL Hematocrit 43.1 % Mean Corpuscular Volume 90.9 fL Mean Corpuscular Hemoglobin 30.8 pg Mean Corpuscular Hemoglobin Concent 33.9 g/dl Platelet Count 297 K/uL Mean Platelet Volume 10.1 fL Neutrophils (%) (Auto) 62.8 % Lymphocytes (%) (Auto) 26.3 % Monocytes (%) (Auto) 8.8 % Eosinophils (%) (Auto) 1.5 % Basophils (%) (Auto) 0.3 % Neutrophils # (Auto) 4.77 K/uL Lymphocytes # (Auto) 1.99 K/uL Monocytes # (Auto) 0.67 K/uL Eosinophils # (Auto) 0.11 K/uL Basophils # (Auto) 0.02 K/uL RDW Standard Deviation 41.1 fL RDW Coefficient of Variation 12.3 % Immature Granulocyte % (Auto) 0.3 % Immature Granulocyte # (Auto) 0.02 K/uL Prothrombin Time 10.8 SECONDS Prothromb Time International Ratio 1.0 Activated Partial Thromboplast Time 26.6 SECONDS Partial Thromboplastin Ratio 1.0 Urine Color DK YELLOW Urine Appearance CLEAR Urine pH 7.5 Urine Specific [place] 1.011 Urine Protein NEG Urine Glucose (UA) NEG Urine Ketones NEG Urine Occult Blood NEG Urine Nitrite NEG Urine Bilirubin NEG Urine Urobilinogen NEG Urine Leukocyte Esterase NEG Sodium Level 140 mmol/L Potassium Level 3.9 mmol/L Chloride Level 103 mmol/L Carbon Dioxide Level 28 mmol/L Anion Gap 9.0 mmol/L Blood Urea Nitrogen 14 mg/dl Creatinine 0.82 mg/dl Est Creatinine Clear Calc Drug Dose 97.5 ml/min Estimated GFR () 101.0 Estimated GFR (Non- 87.1 BUN/Creatinine Ratio 16.7 Random Glucose 120 mg/dl Calcium Level 9.5 mg/dl Magnesium Level 1.9 mg/dl Total Bilirubin 0.3 mg/dl Aspartate Amino Transf (AST/SGOT) 23 U/L Alanine Aminotransferase (ALT/SGPT) 14 U/L Alkaline Phosphatase 74 U/L Troponin I < 0.015 ng/ml < 0.015 ng/ml < 0.015 ng/ml Total Protein 8.0 gm/dl Albumin 4.0 gm/dl Globulin 4.0 gm/dl Albumin/Globulin Ratio 1.0 Lipase 164 U/L Thyroid Stimulating Hormone (TSH) 0.672 uIu/ml Bedside Glucose 113 mg/dl (Verónica Gaspar, PA-C) Assessment and Plan 75 y/o M with an extensive medical history including UC, CAD, Parkinson's, morbid obesity, DM II, chronic generalized pain. Presents with intermittent epigastric or lower chest pain in addition to lower abdominal pain increasing in severity throughout the week. He states that this is accompanied by SOB and weakness. Denies radiation of the pain, nausea/vomiting or diaphoresis. His states that he is normally constipated but has had loose stools over the last 2-3 days. He was recently admitted for abdominal pain and generalized pain involving the R side of his body. He had a negative cardiac and GI workup at that time and the generalized pain was attributed to neuropathy. He does have a history of CAD and will be admitted primarily to r/o ACS. He also has a history of UC and C-diff. A CT of the abdomen was repeated in the ER revealing duodenal inflammation which was not present on a previous CT. Chest Pain: Likely Related to GI Issues: H/O CAD S/P Stent - Serial enzymes negative with sinus erika on monitoring. Will be able to move to Med/Surg - Simvastatin 10 mg daily Abdominal Pain: Duodenal/Gastric Inflammation - Gastritis vs Ulcer - Patient with history of C. difficile. However stool is formed. Patient feels constipated. C. difficile toxin ran and negative. - Protonix 40 mg BID and Ranitidine 150 mg daily - Carafate 1 g 4 times a day - GI following - discussed case with [employer] - EGD later today Phimosis and BPH: - Flomax 0.8 mg daily - Unable to adequately retract foreskin - Discussed case with Urology -- Monitor UO and bladder scan as necessary pending this will consider further treatment - We will continue to monitor. Will place urology consult if indicated T2DM: - Levemir 40 units SC BID - SSI with goal range 100-160; CF of 35 HTN: - Amlodipine 10 mg daily and Lisinopril 10 mg daily Parkinson's: - Baclofen 10 mg 3 times a day - Sinemet XL 1 tablet daily and Sinemet 4 times a day - Aricept 10 mg at bedtime - Gabapentin 1200 mg daily DVT Prophylaxis: - SCDs - Withhold chemical prophylaxis pending EGD Code Status: FULL RESUSCITATION Disposition: - May need converted to full admission status - will await EGD results (Verónica Gaspar, ANGELAC) I have seen and examined patient this am. I have discussed plan of care in detail with GAGE and agree with plan as stated above. Patient had no acute issues. States he continues to have abdominal pain, denies fever, +BM Vitals-reviewed GEN- NAD CVS-RRR RESP-CTA ABD-+BS, firm EXT- no edema Labs-reviewed Abdominal pain with h/o UC Chest pain - appreciate GI input/EGD today - appreciate cardiology input re: chest pain (Verónica Villa MD)
--- NOTE | 2016-04-09 10:10 | CONSULTATION REPORT ---
DATE OF CONSULTATION: 04/09/2016 REFERRING PHYSICIAN: Dr. Venu Ballard. CONSULTING PHYSICIAN: Dr. Marcie Weldon. REASON FOR CONSULTATION: History of ulcerative colitis, epigastric abdominal pain. HISTORY OF PRESENT ILLNESS: Mr. Jackson is a 75-year-old male with past medical histories including ulcerative colitis, CAD, Parkinson's, morbid obesity, diabetes mellitus type 2, chronic generalized pain, who presented to the ED yesterday with complaints of epigastric abdominal pain as well as in the lower abdominal region. He states that he also has associated shortness of breath and weakness; however, denies any chest pain, diaphoreses, nausea, vomiting. He follows usually with [facility] gastroenterology group. He is currently not on any medications for his ulcerative colitis, but he does have histories of diverticulitis and C. diff, currently on Florastor. The patient states that he is normally constipated, but his reports that he has had loose stools over the last 2-3 days. Cardiac workup including EKG yesterday showed sinus erika with possible inferior infarct, but compared to previous EKG 12/2015, no changes found. His cardiac enzymes are normal. He has been afebrile, hemodynamically stable except for bradycardia with heart rate between 50s-60s. His labs did not show any leukocytosis, no coagulopathy. Urinalysis normal. CMP also unremarkable including normal LFTs and lipase. He did have a chest x-ray done yesterday that showed cardiomegaly with no acute cardiopulmonary abnormality. CT of the abdomen and pelvis showed mild wall thickening with hyperemia suggested in the distal stomach and proximal duodenum area, trace periduodenal stranding and fluid is suspected which could represent nonspecific gastritis or duodenitis, which could be seen also in the setting of ulcer disease, no intraperitoneal free air or abdominal ascites. He does have hepatomegaly and hepatic steatosis, cardiomegaly, and hiatal hernia. The patient has had an upper endoscopy most recently by Dr. Fine in 2012, which showed gastritis, otherwise unremarkable. His last colonoscopy was in 2013 with random biopsies. Biopsies are normal. He does have internal hemorrhoids and diverticulosis. This morning he has had a clear liquid diet. He is complaining of some nausea but no vomiting. He is complaining also of mid abdominal pain. Upon exam, he does have epigastric abdominal tenderness as well. He complains of constipation, has not had a bowel movement for many days, though yesterday his reported him to have loose stools. Denies any rectal bleeding. He admits to be taking oxycodone for generalized joint aches and pains on a daily basis. Denies any use of NSAIDs or aspirin. He states that he is also taking antibiotic, prescribed by Dr. Odom to prevent urinary tract infections; however, I could not find this in his home medications. Currently, he is already on Protonix 40 mg daily, Zantac 150 mg at bedtime. He was started on Cipro and Flagyl IV antibiotics by the admitting team. He is also currently on Florastor probiotic. PAST MEDICAL HISTORY: As noted in HPI above. PAST SURGICAL HISTORY: Unobtained. FAMILY HISTORY: Unrelated to current admission. SOCIAL HISTORY: Nonsmoker, no drug uses. ALLERGIES: DICLOFENAC, ISOPROPYL ALCOHOL, AND PROPYLENE GLYCOL. MEDICATIONS: Current medication list reviewed in his EMR. REVIEW OF SYSTEMS: Please see HPI above. Rest of 12 systems reviewed are negative. PHYSICAL EXAMINATION: VITAL SIGNS: Temperature 36.8, pulse 55, respiration 18, blood pressure 140/61, O2 sat 95% on room air. GENERAL: Mr. Jackson is a 75-year-old male, pleasant, cooperative, appears to be in mild distress given his nausea. CARDIOVASCULAR: Heart sounds S1 and S2 present. No murmur or gallops noted. PULMONARY: Bilateral lung sounds diminished, but no respiratory distress or accessory muscle use noted. GASTROINTESTINAL: Abdomen mildly distended, tender to palpation in the epigastric and mid abdominal region. Bowel sounds positive. LYMPHATIC: No edema in extremities. NEUROLOGIC: Awake, alert, oriented x3. No focal deficits noted. DIAGNOSTIC STUDIES: The patient's most recent imaging studies and lab results have all been reviewed in his EMR. ASSESSMENT AND PLAN: Mr. Jackson is a 75-year-old male with history of diverticulitis, Clostridium difficile, ulcerative colitis, currently not on med therapy, who presented to the ED with complaints of epigastric abdominal pain associated with nausea, progressive weakness for the last few days. He also has had some shortness of breath without chest pain. Cardiac studies have been negative. He denies any sick contact. He is currently on Florastor and also on chronic antibiotic per his report for urinary tract infection prevention; however, I do not see any antibiotic medication on his home med list. He reports to having constipation, though his notes that his bowels have been loose. CT of the abdomen and pelvis showed possible duodenitis versus gastritis, questionable ulcer disease. PLANS: 1. We will go ahead and increase his Protonix to 40 mg p.o. b.i.d. and add Carafate 1 gram q.i.d. 2. Obtain abdominal x-ray. If constipation is noted, we will start Relistor given his chronic narcotic use which may induce constipation. 3. If he is having diarrhea, we will obtain stool culture and C. diff. 4. Prefer to discontinue IV antibiotics if no clear indication given his history of C. diff. 5. We will keep n.p.o. for now and discuss with Dr. Weldon if upper endoscopy could be done today to rule out PUD. The above assessment has been reviewed with Dr. Weldon who is in agreement with the stated plan. I saw and evaluated the patient. He presents with a history of Epigastric pain , EGD requested to evaluation inflammatory changes seen in the stomach and small intestine. PE: nad, mild mid epigastric and LLQ tenderness. Plan EGD today MTDD
[2016-04-09 11:30] VITALS: BP 153/56; PULSE 58; TEMP 36.8; O2SAT 92
[2016-04-09 11:33] VITALS: BP 153/56; PULSE 58; TEMP 36.8; O2SAT 92
--- NOTE | 2016-04-09 12:25 | DIAGNOSTIC IMAGING REPORT ---
KUB CLINICAL HISTORY: Abdominal pain COMPARISON STUDY: 12/15/2015 FINDINGS: There are surgical clips within the right upper quadrant. There is gas present within nondilated colon and small bowel loops. There are no transition zones indicate bowel obstruction. There is no evidence of significant fecal retention. IMPRESSION: No evidence of pathologic bowel dilatation Electronically signed by: Tacos Arnold M.D. 04/09/2016 12:24 PM Dictated Date/Time: 04/09/2016 12:23 PM
[2016-04-09] MEDS ORDERED: MIDAZOLAM HCL 1 MG/ML 2ML VIAL ONE (12:37)
[2016-04-09] MEDS ORDERED: ONDANSETRON INJ 2 MG/ML 2 ML VIAL ONE (12:38)
[2016-04-09] MEDS ORDERED: LIDOCAINE HCL 2% 2 ML VIAL (20MG/ML) ONE (12:38)
[2016-04-09] MEDS ORDERED: PROPOFOL IV EMULSION 10 MG/ML 20 ML VIAL IV ONE (12:38)
[2016-04-09] MEDS: SUCRALFATE 1 GM/10 ML UDC PO SCH ×3 (13:15→20:22)
--- NOTE | 2016-04-09 13:48 | Anesthesiology Progress Note ---
Anesthesia Post Op Note Date & Time Apr 09, 2016 at 13:48 Vital Signs Pain Intensity: 0 Vital Signs Past 12 Hours Date Time Temp Pulse Resp B/P Pulse Ox O2 Delivery O2 Flow Rate FiO2 04/09/16 13:39 51 16 116/46 96 Room Air 04/09/16 13:24 46 16 110/43 98 Mask 3 04/09/16 13:09 47 20 93/31 96 Mask 7 04/09/16 12:40 36.9 52 20 140/56 93 0 04/09/16 12:00 Room Air 04/09/16 11:33 36.8 58 18 153/56 92 Room Air 04/09/16 11:30 36.8 58 18 153/56 92 Room Air 04/09/16 08:00 Room Air 04/09/16 06:52 36.8 55 18 140/61 95 Room Air 04/09/16 04:01 36.8 48 14 126/56 94 Room Air 04/09/16 04:00 Room Air Notes Mental Status: alert / awake / arousable, participated in evaluation Pt Amnestic to Procedure: Yes Nausea / Vomiting: adequately controlled Pain: adequately controlled Airway Patency, RR, SpO2: stable & adequate BP & HR: stable & adequate Hydration State: stable & adequate Anesthetic Complications: no major complications apparent
[2016-04-09 13:59] VITALS: BP 134/59; PULSE 59; TEMP 36.8; O2SAT 96
[2016-04-09] MEDS ORDERED: LIDOCAINE HCL 2% JELLY 30 ML TUBE EXT ONE (15:58)
[2016-04-09] MEDS: INSULIN ASPART 100 UNITS/ML 3 ML PEN SC SCH ×2 (19:02→22:22)
[2016-04-09] MEDS: POLYETHYLENE (MIRALAX) 17 GM PACK PO PRN (20:14)
[2016-04-09] MEDS: PANTOprazole SOD 40 MG TAB PO SCH (20:18)
[2016-04-09] MEDS: RANITIDINE HCL 150 MG TAB PO SCH (20:19)
[2016-04-09] MEDS: DONEPEZIL HCL 10 MG TAB PO SCH (20:19)
[2016-04-09] MEDS: SIMVASTATIN 10 MG TAB PO SCH (20:20)
[2016-04-09] MEDS: MIRTAZAPINE TAB 15 MG TAB PO SCH (20:20)
[2016-04-09] MEDS: TAMSULOSIN HCL 0.4 MG CAP PO SCH (20:22)
[2016-04-09] MEDS ORDERED: NON-FORMULARY MEDICATION (Dutasteride 0.5 MG) PO SCH (21:00)
[2016-04-09 22:07] VITALS: BP 125/68; PULSE 50; TEMP 36.7; O2SAT 97
[2016-04-09] MEDS: BIMATOPROST 0.01% OP SOLN 2.5 ML BTL OPB SCH (22:11)
--- NOTE | 2016-04-10 00:46 | GI REPORT ---
Procedure Date: 04/09/2016 12:56 PM Procedure: Upper GI endoscopy Indications: Epigastric abdominal pain, Abnormal CT of the GI tract Medicines: Monitored Anesthesia Care Complications: No immediate complications. Estimated blood loss: Minimal. Estimated Blood Loss: Estimated blood loss was minimal. Procedure: Pre-Anesthesia Assessment: - Prior to the procedure, a History and Physical was performed, and patient medications, allergies and sensitivities were reviewed. The patient's tolerance of previous anesthesia was reviewed. - The risks and benefits of the procedure and the sedation options and risks were discussed with the patient. All questions were answered and informed consent was obtained. - Patient identification and proposed procedure were verified prior to the procedure by the physician, the nurse and the sleeve separator. The procedure was verified in the procedure room. - Pre-procedure physical examination revealed no contraindications to sedation. - ASA Grade Assessment: III - A patient with severe systemic disease. - After reviewing the risks and benefits, the patient was deemed in satisfactory condition to undergo the procedure. - The anesthesia plan was to use monitored anesthesia care (MAC). - Immediately prior to administration of medications, the patient was re-assessed for adequacy to receive sedatives. - The heart rate, respiratory rate, oxygen saturations, blood pressure, adequacy of pulmonary ventilation, and response to care were monitored throughout the procedure. - The physical status of the patient was re-assessed after the procedure. After obtaining informed consent, the endoscope was passed under direct vision. Throughout the procedure, the patient's blood pressure, pulse, and oxygen saturations were monitored continuously. The Scope was introduced through the mouth, and advanced to the third part of duodenum. The upper GI endoscopy was accomplished without difficulty. The patient tolerated the procedure well. Findings: The examined esophagus was normal. The Z-line was regular and was found 38 cm from the incisors. Diffuse moderate inflammation characterized by congestion (edema), erythema and granularity was found in the entire examined stomach. Biopsies were taken with a cold forceps for histology. Estimated blood loss was minimal. The examined duodenum was normal. Biopsies were taken with a cold forceps for histology. Estimated blood loss: Minimal. Impression: - Normal esophagus. - Z-line regular, 38 cm from the incisors. - Diffuse gastritis, likely medication related. Biopsied. - Normal examined duodenum. Biopsied. Recommendation: - [facility] patient [facility] for [facility]. - Await pathology results. - Observe patient's clinical course following today's procedure with therapeutic intervention. Marcie Weldon D.O. Marcie Weldon, DO 04/09/2016 1:09:10 PM This report has been signed electronically. Note Initiated On: 04/09/2016 12:56 PM I attest to the content of the Intraoperative Record and orders documented therein, exceptions below
[2016-04-10 08:25] VITALS: BP 166/74; PULSE 51; TEMP 36.4; O2SAT 98
[2016-04-10] MEDS: CHECK FENTANYL PATCH PLACEMENT SCH ×3 (08:44→15:44)
[2016-04-10] MEDS: CARBIDOPA/LEVODOPA 50/200MG EXT REL TAB PO SCH (08:54)
[2016-04-10] MEDS: SUCRALFATE 1 GM/10 ML UDC PO SCH ×4 (08:54→21:14)
[2016-04-10] MEDS: FENTANYL 50 MCG/HR TDSY TD SCH (08:54)
[2016-04-10] MEDS: LISINOPRIL 10 MG TAB PO SCH (08:55)
[2016-04-10] MEDS: AMLODIPINE BESYLATE 5 MG TAB PO SCH (08:55)
[2016-04-10] MEDS: CARBIDOPA/LEVODOPA 25/100MG TAB PO SCH ×4 (08:55→21:15)
[2016-04-10] MEDS: PANTOprazole SOD 40 MG TAB PO SCH ×2 (08:55→21:16)
[2016-04-10] MEDS: ROPINIROLE HCL 0.25 MG TAB PO SCH ×3 (08:55→21:18)
[2016-04-10] MEDS: BACLOFEN 10 MG TAB PO SCH ×3 (08:56→21:17)
[2016-04-10] MEDS: GABAPENTIN 600 MG TAB PO SCH ×2 (08:56→21:15)
[2016-04-10] MEDS: SACCHAROMYCES BOUL (FLORASTOR) 250 MG CAP PO SCH (08:56)
[2016-04-10] MEDS: CITALOPRAM 20 MG TAB PO SCH (08:56)
[2016-04-10] MEDS: MAGNESIUM OXIDE 400 MG TAB PO SCH ×2 (08:56→21:18)
[2016-04-10] MEDS: INSULIN ASPART 100 UNITS/ML 3 ML PEN SC SCH ×4 (09:01→21:27)
[2016-04-10] MEDS: INSULIN DETEMIR FLEXPEN/FLEX TOUCH 100 UNITS/ML 3ML SQ SCH ×2 (09:01→21:28)
[2016-04-10] MEDS: FENTANYL PATCH REMOVE & WASTE SCH (09:02)
--- NOTE | 2016-04-10 13:36 | CARDIOLOGY PROGRESS NOTE ---
DATE: 04/10/2016 SUBJECTIVE: Mr. Jackson is resting comfortably in the bedside chair, complaining of abdominal discomfort. His presenting complaint of 3 days of chest discomfort with no EKG changes, and an undetectable troponin was discussed in detail. OBJECTIVE: VITAL SIGNS: Blood pressure is 160/70 with a regular pulse of 51. Respiratory rate is 20. The patient is afebrile at 36.4 degrees Celsius. Saturation is 98% on room air. NECK: Supple with full carotid upstrokes. There are no obvious bruits. Jugular venous pressure is difficult to assess. CARDIOVASCULAR: Reveals a regular rhythm with normal S1 and S2. Heart sounds are distant. No obvious murmurs. LUNGS: Clear without rales, rhonchi, or wheezes. ABDOMEN: Obese without bruits. EXTREMITIES: Reveal intact radial artery pulses bilaterally. There is no peripheral edema. LABORATORY DATA: Three troponin I levels are undetectable. Electrolytes on presentation were normal. CBC on presentation was also normal. IMPRESSION AND PLAN: 1. Noncardiac chest pain -- as before. Prolonged symptoms with no ischemic EKG changes, nor elevation of cardiac enzymes. 2. Known coronary artery disease -- history of mid LAD stents in 2008. These stents were patent at the time of his cardiac catheterization in December 2013. Did have 50% mid LAD stenosis, along with a 99% septal special services coordinator stenosis at the time of that most recent catheterization. Continue medical management. 3. Hypertension -- controlled. 4. Hypercholesterolemia. 5. 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 6. Cervical spine disease. 7. Obstructive sleep apnea. 8. Parkinson disease.
--- NOTE | 2016-04-10 14:20 | Gastroenterology Progress Note ---
Progress Note Date of Service: Apr 10, 2016 Subjective Pt evaluation today including: conversation w/ patient, physical exam, chart review, lab review, review of studies, review of inpatient medication list Contacted urgently this afternoon by medicine service to come back to see patient having abdominal pain. Patient resting comfortably. Tells me his pain is better. Has not required any PRN pain medication today per his nurse. Had 1 loose stool this AM. No blood or mucus. No nausea. Still having some lower abd pain that radiates up to the epigastrium. Reviewed with him the results of the T and the EGD. EGD showed diffuse gastritis. Biopsies for H pylori are pending. PPI was increased to BID yesterday. On H2RA at bedtime as well as carafate. He tells me he has had the same pain off and on for years. Has a history of C diff. On florastor at home. Usually has problems with constipation. Occasional loose stool at home. C diff here was negative on admission. CT without any evidence of colonic inflammation. Takes gas-ex at home and gets relief. Was only OOB in chair. No ambulation. Hungry. Asking for real food. On chronic pain meds at home for diffuse chronic pain syndrome. Has parkinsons and on many medications. Last colonoscopy was 2013 and was grossly and histologically normal without any evidence of active UC or microscopic colitis. Review of Systems 12 systems reviewed and negative except as noted Medications Current Inpatient Medications Medications (Trade) Dose Ordered Sig/Geovanny Route Start Time Stop Time Status Last Admin Dose Admin Ioversol (Optiray 320) 125 ml UD PRN IV 04/08/16 18:15 04/12/16 18:14 Baclofen (Lioresal Tab) 10 mg TID PO 04/09/16 09:00 05/09/16 08:59 04/10/16 13:50 10 MG Carbidopa/Levodopa (Sinemet 25/ 100MG Tab) 1 tab QID PO 04/09/16 09:00 05/09/16 08:59 04/10/16 12:03 1 TAB Carbidopa/Levodopa (Sinemet Cr 50/ 200MG Tab) 1 tab QAM PO 04/09/16 09:00 05/09/16 08:59 04/10/16 08:54 1 TAB Citalopram Hydrobromide (celeXA TAB) 20 mg DAILY PO 04/09/16 09:00 05/09/16 08:59 04/10/16 08:56 20 MG Docusate Sodium (coLACE CAP) 100 mg BID PRN PO 04/08/16 22:15 05/08/16 22:14 Donepezil HCl (Aricept Tab) 10 mg HS PO 04/09/16 21:00 05/09/16 20:59 04/09/16 20:19 10 MG Fentanyl (Duragesic Patch) 50 mcg Q3D@0900 TD 04/10/16 09:00 04/24/16 08:59 04/10/16 08:54 50 MCG Gabapentin (Neurontin Tab) 600 mg QAM PO 04/09/16 09:00 05/09/16 08:59 04/10/16 08:56 600 MG Gabapentin (Neurontin Tab) 1,200 mg HS PO 04/09/16 21:00 05/09/16 20:59 04/09/16 20:21 1,200 MG Insulin Detemir (Levemir Flexpen/ FlexTouch) 40 unit BID SQ 04/09/16 09:00 05/09/16 08:59 04/10/16 09:01 40 UNIT Lisinopril (Zestril Tab) 10 mg DAILY PO 04/09/16 09:00 05/09/16 08:59 04/10/16 08:55 10 MG Magnesium Oxide (Mag-Ox Tab) 400 mg BID PO 04/09/16 09:00 05/09/16 08:59 04/10/16 08:56 400 MG Mirtazapine (Remeron Tab) 15 mg HS PO 04/09/16 21:00 05/09/16 20:59 04/09/16 20:20 15 MG Ranitidine HCl (zANTac TAB) 150 mg HS PO 04/09/16 21:00 05/09/16 20:59 04/09/16 20:19 150 MG Ropinirole HCl (Requip Tab) 0.25 mg TID PO 04/09/16 09:00 05/09/16 08:59 04/10/16 13:50 0.25 MG Saccharomyces Boulardii (Florastor Cap) 250 mg DAILY PO 04/09/16 09:00 05/09/16 08:59 04/10/16 08:56 250 MG Simvastatin (Zocor Tab) 10 mg HS PO 04/09/16 21:00 05/09/16 20:59 04/09/16 20:20 10 MG Tamsulosin HCl (Flomax Cap) 0.8 mg HS PO 04/09/16 21:00 05/09/16 20:59 04/09/16 20:22 0.8 MG Amlodipine Besylate (Norvasc Tab) 10 mg DAILY PO 04/09/16 09:00 05/09/16 08:59 04/10/16 08:55 10 MG Bimatoprost (Lumigan 0.01%) 1 drops HS OPB 04/09/16 21:00 05/09/16 20:59 04/09/16 22:11 1 DROPS Acetaminophen (Tylenol Tab) 650 mg Q4H PRN PO 04/08/16 21:45 05/08/16 21:44 Al Hydrox/Mg Hydrox/Simethicone (Maalox Max Susp) 15 ml Q4H PRN PO 04/08/16 21:45 05/08/16 21:44 04/09/16 08:06 15 ML Magnesium Hydroxide (Milk Of Magnesia Susp) 30 ml Q12H PRN PO 04/08/16 21:45 05/08/16 21:44 Ondansetron HCl (Zofran Inj) 4 mg Q6H PRN IV 04/08/16 21:45 05/08/16 21:44 Nitroglycerin (Nitrostat Tab) 0.4 mg UD PRN SL 04/08/16 21:45 05/08/16 21:44 04/09/16 07:09 0.4 MG Morphine Sulfate (MoRPHine SULFATE INJ) 2 mg Q30M PRN IV 04/08/16 21:45 04/22/16 21:44 04/09/16 20:14 2 MG Polyethylene (Miralax Powder Packet) 17 gm DAILY PRN PO 04/08/16 21:45 05/08/16 21:44 04/09/16 20:14 17 GM Glucose (Glucose 40% Gel) 15-30 GRAMS 15 GRAMS... UD PRN PO 04/08/16 22:15 05/08/16 22:14 Glucose (Glucose Chew Tab) 4-8 Tablets 4 Tabl... UD PRN PO 04/08/16 22:15 4/1/17 22:14 Dextrose (Dextrose 50% 50ML Syringe) 25-50ML OF 50% DW IV FOR... UD PRN IV 04/08/16 22:15 05/08/16 22:14 Glucagon (Glucagon Inj) 1 mg UD PRN SQ 04/08/16 22:15 05/08/16 22:14 Miscellaneous (Iv Fluids Completed) 1 ea PRN PRN N/A 04/08/16 22:45 04/08/17 22:44 Miscellaneous Information (Order Awaiting Action) 1 ea QS N/A 04/09/16 00:00 05/09/16 00:00 Miscellaneous (Fentanyl Patch Remove & Waste) 1 ea Q3D@0859 N/A 04/10/16 08:59 05/10/16 08:58 04/10/16 09:02 1 EA Miscellaneous Information (Check Fentanyl Patch Placement) 1 ea QS N/A 04/09/16 00:00 05/09/16 00:00 04/10/16 08:44 1 EA Miscellaneous Information (Order Awaiting Action) 1 ea QS N/A 04/09/16 00:00 05/09/16 00:00 Pantoprazole Sodium (Protonix Tab) 40 mg BID PO 04/09/16 20:00 05/09/16 20:59 04/10/16 08:55 40 MG Sucralfate (Carafate Susp) 1 gm QID PO 04/09/16 12:52 05/09/16 12:59 04/10/16 12:03 1 GM Insulin Aspart (novoLOG ASPART) SLIDING SCALE G... ACHS SC 04/09/16 16:30 05/09/16 16:29 04/10/16 12:07 2 UNITS Objective Vital Signs Date Time Temp Pulse Resp B/P Pulse Ox O2 Delivery O2 Flow Rate FiO2 04/10/16 09:00 Room Air 04/10/16 08:25 36.4 51 20 166/74 98 Room Air 04/09/16 23:59 Room Air 04/09/16 22:07 36.7 50 20 125/68 97 Room Air 04/09/16 20:00 Room Air Physical Exam General Appearance: WD/WN, no apparent distress Eyes: normal inspection, PERRL ENT: normal ENT inspection, hearing grossly normal, pharynx normal Neck: supple, no JVD Respiratory/Chest: chest non-tender, lungs clear, normal breath sounds, no accessory muscle use Cardiovascular: regular rate, rhythm, no murmur Abdomen: normal bowel sounds, soft, + distended Extremities: normal range of motion, no pedal edema Neurologic/Psych: 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 H/o C diff but negative here. EGD showed diffuse gastritis. Bx for H pylori is pending. He may very well have viral gastroenteritis which needs to run its course. - Agree with BID oral PPI as well as H2RA at bedtime - OK to continue carafate for another day or 2 but then stop. - No role for antibiotics. - Advance diet to low fat diabetic and monitor symptoms. - Be sure he is on his home medication regimen. - If no improvement can consider repeating a colonoscopy, though not likely ot be high yield. - Conservative management with supportive care.
--- NOTE | 2016-04-10 15:49 | Hospitalist Progress Note ---
Hospitalist Progress Note Date of Service Apr 10, 2016. Subjective Pt evaluation today including: conversation w/ patient, physical exam, chart review, lab review, review of studies, review of inpatient medication list Patient had continued abdominal pain with radiation to chest Admits to 2-3 loose stools Denies fevers, SOB Constitutional: No chills, No fever Eyes: No worsening of vision ENT: No hearing loss Respiratory: No cough, No shortness of breath Cardiovascular: No chest pain Abdomen: + diarrhea, + pain, No constipation, No vomiting Musculoskeletal: No joint pain Male : No dysuria Neurologic: No memory loss Psychiatric: No depression symptoms Endo: No fatigue Skin: No rash Medications Current Inpatient Medications Medications (Trade) Dose Ordered Sig/Geovanny Route Start Time Stop Time Status Last Admin Dose Admin Ioversol (Optiray 320) 125 ml UD PRN IV 04/08/16 18:15 04/12/16 18:14 Baclofen (Lioresal Tab) 10 mg TID PO 04/09/16 09:00 05/09/16 08:59 04/10/16 13:50 10 MG Carbidopa/Levodopa (Sinemet 25/ 100MG Tab) 1 tab QID PO 04/09/16 09:00 05/09/16 08:59 04/10/16 12:03 1 TAB Carbidopa/Levodopa (Sinemet Cr 50/ 200MG Tab) 1 tab QAM PO 04/09/16 09:00 05/09/16 08:59 04/10/16 08:54 1 TAB Citalopram Hydrobromide (celeXA TAB) 20 mg DAILY PO 04/09/16 09:00 05/09/16 08:59 04/10/16 08:56 20 MG Docusate Sodium (coLACE CAP) 100 mg BID PRN PO 04/08/16 22:15 05/08/16 22:14 Donepezil HCl (Aricept Tab) 10 mg HS PO 04/09/16 21:00 05/09/16 20:59 04/09/16 20:19 10 MG Fentanyl (Duragesic Patch) 50 mcg Q3D@0900 TD 04/10/16 09:00 04/24/16 08:59 04/10/16 08:54 50 MCG Gabapentin (Neurontin Tab) 600 mg QAM PO 04/09/16 09:00 05/09/16 08:59 04/10/16 08:56 600 MG Gabapentin (Neurontin Tab) 1,200 mg HS PO 04/09/16 21:00 05/09/16 20:59 04/09/16 20:21 1,200 MG Insulin Detemir (Levemir Flexpen/ FlexTouch) 40 unit BID SQ 04/09/16 09:00 05/09/16 08:59 04/10/16 09:01 40 UNIT Lisinopril (Zestril Tab) 10 mg DAILY PO 04/09/16 09:00 05/09/16 08:59 04/10/16 08:55 10 MG Magnesium Oxide (Mag-Ox Tab) 400 mg BID PO 04/09/16 09:00 05/09/16 08:59 04/10/16 08:56 400 MG Mirtazapine (Remeron Tab) 15 mg HS PO 04/09/16 21:00 05/09/16 20:59 04/09/16 20:20 15 MG Ranitidine HCl (zANTac TAB) 150 mg HS PO 04/09/16 21:00 05/09/16 20:59 04/09/16 20:19 150 MG Ropinirole HCl (Requip Tab) 0.25 mg TID PO 04/09/16 09:00 05/09/16 08:59 04/10/16 13:50 0.25 MG Saccharomyces Boulardii (Florastor Cap) 250 mg DAILY PO 04/09/16 09:00 05/09/16 08:59 04/10/16 08:56 250 MG Simvastatin (Zocor Tab) 10 mg HS PO 04/09/16 21:00 05/09/16 20:59 04/09/16 20:20 10 MG Tamsulosin HCl (Flomax Cap) 0.8 mg HS PO 04/09/16 21:00 05/09/16 20:59 04/09/16 20:22 0.8 MG Amlodipine Besylate (Norvasc Tab) 10 mg DAILY PO 04/09/16 09:00 05/09/16 08:59 04/10/16 08:55 10 MG Bimatoprost (Lumigan 0.01%) 1 drops HS OPB 04/09/16 21:00 05/09/16 20:59 04/09/16 22:11 1 DROPS Acetaminophen (Tylenol Tab) 650 mg Q4H PRN PO 04/08/16 21:45 05/08/16 21:44 Al Hydrox/Mg Hydrox/Simethicone (Maalox Max Susp) 15 ml Q4H PRN PO 04/08/16 21:45 05/08/16 21:44 04/09/16 08:06 15 ML Magnesium Hydroxide (Milk Of Magnesia Susp) 30 ml Q12H PRN PO 04/08/16 21:45 05/08/16 21:44 Ondansetron HCl (Zofran Inj) 4 mg Q6H PRN IV 04/08/16 21:45 05/08/16 21:44 Nitroglycerin (Nitrostat Tab) 0.4 mg UD PRN SL 04/08/16 21:45 05/08/16 21:44 04/09/16 07:09 0.4 MG Morphine Sulfate (MoRPHine SULFATE INJ) 2 mg Q30M PRN IV 04/08/16 21:45 04/22/16 21:44 04/09/16 20:14 2 MG Polyethylene (Miralax Powder Packet) 17 gm DAILY PRN PO 04/08/16 21:45 05/08/16 21:44 04/09/16 20:14 17 GM Glucose (Glucose 40% Gel) 15-30 GRAMS 15 GRAMS... UD PRN PO 04/08/16 22:15 05/08/16 22:14 Glucose (Glucose Chew Tab) 4-8 Tablets 4 Tabl... UD PRN PO 04/08/16 22:15 05/08/16 22:14 Dextrose (Dextrose 50% 50ML Syringe) 25-50ML OF 50% DW IV FOR... UD PRN IV 04/08/16 22:15 05/08/16 22:14 Glucagon (Glucagon Inj) 1 mg UD PRN SQ 04/08/16 22:15 05/08/16 22:14 Miscellaneous (Iv Fluids Completed) 1 ea PRN PRN N/A 04/08/16 22:45 04/08/17 22:44 Miscellaneous Information (Order Awaiting Action) 1 ea QS N/A 04/09/16 00:00 05/09/16 00:00 Miscellaneous (Fentanyl Patch Remove & Waste) 1 ea Q3D@0859 N/A 04/10/16 08:59 05/10/16 08:58 04/10/16 09:02 1 EA Miscellaneous Information (Check Fentanyl Patch Placement) 1 ea QS N/A 04/09/16 00:00 05/09/16 00:00 04/10/16 08:44 1 EA Miscellaneous Information (Order Awaiting Action) 1 ea QS N/A 04/09/16 00:00 05/09/16 00:00 Pantoprazole Sodium (Protonix Tab) 40 mg BID PO 04/09/16 20:00 05/09/16 20:59 04/10/16 08:55 40 MG Sucralfate (Carafate Susp) 1 gm QID PO 04/09/16 12:52 05/09/16 12:59 04/10/16 12:03 1 GM Insulin Aspart (novoLOG ASPART) SLIDING SCALE G... ACHS SC 04/09/16 16:30 05/09/16 16:29 04/10/16 12:07 2 UNITS Objective Vital Signs Date Time Temp Pulse Resp B/P Pulse Ox O2 Delivery O2 Flow Rate FiO2 04/10/16 09:00 Room Air 04/10/16 08:25 36.4 51 20 166/74 98 Room Air 04/09/16 23:59 Room Air 04/09/16 22:07 36.7 50 20 125/68 97 Room Air 04/09/16 20:00 Room Air Physical Exam General Appearance: WD/WN, no apparent distress Eyes: normal inspection ENT: normal ENT inspection Neck: supple Respiratory/Chest: chest non-tender, lungs clear Cardiovascular: regular rate, rhythm, no edema Abdomen: normal bowel sounds, non tender, soft, + abnormal bowel sounds ( hypoactive) Extremities: normal range of motion, non-tender 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 Presents with intermittent epigastric or lower chest pain in addition to lower abdominal pain increasing in severity throughout the week. He states that this is accompanied by SOB and weakness. Denies radiation of the pain, nausea/vomiting or diaphoresis. His states that he is normally constipated but has had loose stools over the last 2-3 days. He was recently admitted for abdominal pain and generalized pain involving the R side of his body. He had a negative cardiac and GI workup at that time and the generalized pain was attributed to neuropathy. He does have a history of CAD and will be admitted primarily to r/o ACS. He also has a history of UC and C-diff. A CT of the abdomen was repeated in the ER revealing duodenal inflammation which was not present on a previous CT. Abdominal Pain: Duodenal/Gastric Inflammation - Gastritis vs Ulcer - Protonix 40 mg BID and Ranitidine 150 mg daily - Carafate 1 g 4 times a day - s/p EGD on 04.09.16 - gastric and duodenal biopsy pending - if symptoms persist may need colonoscopy per GI Chest Pain: Likely Related to GI Issues: H/O CAD S/P Stent - Serial enzymes negative with sinus erika on monitoring. Will be able to move to Med/Surg - Simvastatin 10 mg daily Phimosis and BPH: - Flomax 0.8 mg daily - Monitor UO and bladder scan as necessary pending this will consider further treatment T2DM: - Levemir 40 units SC BID - SSI with goal range 100-160; CF of 35 HTN: - Amlodipine 10 mg daily and Lisinopril 10 mg daily Parkinson's: - Baclofen 10 mg 3 times a day - Sinemet XL 1 tablet daily and Sinemet 4 times a day - Aricept 10 mg at bedtime - Gabapentin 1200 mg daily DVT Prophylaxis: - SCDs - Withhold chemical prophylaxis pending EGD Code Status: FULL RESUSCITATION Disposition: -1-2 days
[2016-04-10 15:51] VITALS: BP 164/73; PULSE 55; TEMP 36.6; O2SAT 97
[2016-04-10] MEDS: BIMATOPROST 0.01% OP SOLN 2.5 ML BTL OPB SCH (21:14)
[2016-04-10] MEDS: DONEPEZIL HCL 10 MG TAB PO SCH (21:16)
[2016-04-10] MEDS: SIMVASTATIN 10 MG TAB PO SCH (21:16)
[2016-04-10] MEDS: MIRTAZAPINE TAB 15 MG TAB PO SCH (21:16)
[2016-04-10] MEDS: RANITIDINE HCL 150 MG TAB PO SCH (21:17)
[2016-04-10] MEDS: TAMSULOSIN HCL 0.4 MG CAP PO SCH (21:18)
[2016-04-10 23:40] VITALS: BP 127/72; PULSE 59; TEMP 36.6; O2SAT 98
[2016-04-11] MEDS: CHECK FENTANYL PATCH PLACEMENT SCH ×3 (08:03→15:40)
[2016-04-11] MEDS: INSULIN ASPART 100 UNITS/ML 3 ML PEN SC SCH ×4 (08:08→20:59)
[2016-04-11] MEDS: LISINOPRIL 10 MG TAB PO SCH (08:09)
[2016-04-11] MEDS: CARBIDOPA/LEVODOPA 50/200MG EXT REL TAB PO SCH (08:09)
[2016-04-11] MEDS: ROPINIROLE HCL 0.25 MG TAB PO SCH ×3 (08:09→20:53)
[2016-04-11] MEDS: CARBIDOPA/LEVODOPA 25/100MG TAB PO SCH ×4 (08:09→20:52)
[2016-04-11] MEDS: SUCRALFATE 1 GM/10 ML UDC PO SCH ×4 (08:10→20:55)
[2016-04-11] MEDS: SACCHAROMYCES BOUL (FLORASTOR) 250 MG CAP PO SCH (08:10)
[2016-04-11] MEDS: GABAPENTIN 600 MG TAB PO SCH ×2 (08:10→20:54)
[2016-04-11] MEDS: CITALOPRAM 20 MG TAB PO SCH (08:10)
[2016-04-11] MEDS: PANTOprazole SOD 40 MG TAB PO SCH ×2 (08:10→20:53)
[2016-04-11] MEDS: MAGNESIUM OXIDE 400 MG TAB PO SCH ×2 (08:10→20:54)
[2016-04-11] MEDS: BACLOFEN 10 MG TAB PO SCH ×3 (08:10→20:52)
[2016-04-11] MEDS: AMLODIPINE BESYLATE 5 MG TAB PO SCH (08:10)
[2016-04-11] MEDS: ACETAMINOPHEN 325 MG TAB PO PRN (08:12)
[2016-04-11] MEDS: INSULIN DETEMIR FLEXPEN/FLEX TOUCH 100 UNITS/ML 3ML SQ SCH ×2 (08:14→20:59)
[2016-04-11 09:03] VITALS: BP 162/71; PULSE 61; TEMP 36.4; O2SAT 97
--- NOTE | 2016-04-11 13:56 | Hospitalist Progress Note ---
Hospitalist Progress Note Date of Service Apr 11, 2016. Subjective Pt evaluation today including: conversation w/ patient, physical exam, chart review, lab review, review of studies, review of inpatient medication list Patient had continued abdominal pain Worse with food 4 bowel loose BM yesterday Constitutional: No fever Eyes: No worsening of vision ENT: No hearing loss Respiratory: No cough, No shortness of breath Cardiovascular: No chest pain Abdomen: No constipation, No pain, No vomiting Musculoskeletal: No joint pain Male : No dysuria Neurologic: No memory loss Psychiatric: No depression symptoms Heme: No abnormal bleeding/bruising Endo: No fatigue Skin: No itch, No rash, No see HPI Medications Current Inpatient Medications Medications (Trade) Dose Ordered Sig/Geovanny Route Start Time Stop Time Status Last Admin Dose Admin Ioversol (Optiray 320) 125 ml UD PRN IV 04/08/16 18:15 04/12/16 18:14 Baclofen (Lioresal Tab) 10 mg TID PO 04/09/16 09:00 05/09/16 08:59 04/11/16 13:38 10 MG Carbidopa/Levodopa (Sinemet 25/ 100MG Tab) 1 tab QID PO 04/09/16 09:00 05/09/16 08:59 04/11/16 11:48 1 TAB Carbidopa/Levodopa (Sinemet Cr 50/ 200MG Tab) 1 tab QAM PO 04/09/16 09:00 05/09/16 08:59 04/11/16 08:09 1 TAB Citalopram Hydrobromide (celeXA TAB) 20 mg DAILY PO 04/09/16 09:00 05/09/16 08:59 04/11/16 08:10 20 MG Docusate Sodium (coLACE CAP) 100 mg BID PRN PO 04/08/16 22:15 05/08/16 22:14 Donepezil HCl (Aricept Tab) 10 mg HS PO 04/09/16 21:00 05/09/16 20:59 04/10/16 21:16 10 MG Fentanyl (Duragesic Patch) 50 mcg Q3D@0900 TD 04/10/16 09:00 04/24/16 08:59 04/10/16 08:54 50 MCG Gabapentin (Neurontin Tab) 600 mg QAM PO 04/09/16 09:00 05/09/16 08:59 04/11/16 08:10 600 MG Gabapentin (Neurontin Tab) 1,200 mg HS PO 04/09/16 21:00 05/09/16 20:59 04/10/16 21:15 1,200 MG Insulin Detemir (Levemir Flexpen/ FlexTouch) 40 unit BID SQ 04/09/16 09:00 05/09/16 08:59 04/11/16 08:14 40 UNIT Lisinopril (Zestril Tab) 10 mg DAILY PO 04/09/16 09:00 05/09/16 08:59 04/11/16 08:09 10 MG Magnesium Oxide (Mag-Ox Tab) 400 mg BID PO 04/09/16 09:00 05/09/16 08:59 04/11/16 08:10 400 MG Mirtazapine (Remeron Tab) 15 mg HS PO 04/09/16 21:00 05/09/16 20:59 04/10/16 21:16 15 MG Ranitidine HCl (zANTac TAB) 150 mg HS PO 04/09/16 21:00 05/09/16 20:59 04/10/16 21:17 150 MG Ropinirole HCl (Requip Tab) 0.25 mg TID PO 04/09/16 09:00 05/09/16 08:59 04/11/16 13:38 0.25 MG Saccharomyces Boulardii (Florastor Cap) 250 mg DAILY PO 04/09/16 09:00 05/09/16 08:59 04/11/16 08:10 250 MG Simvastatin (Zocor Tab) 10 mg HS PO 04/09/16 21:00 05/09/16 20:59 04/10/16 21:16 10 MG Tamsulosin HCl (Flomax Cap) 0.8 mg HS PO 04/09/16 21:00 05/09/16 20:59 04/10/16 21:18 0.8 MG Amlodipine Besylate (Norvasc Tab) 10 mg DAILY PO 04/09/16 09:00 05/09/16 08:59 04/11/16 08:10 10 MG Bimatoprost (Lumigan 0.01%) 1 drops HS OPB 04/09/16 21:00 05/09/16 20:59 04/10/16 21:14 1 DROPS Acetaminophen (Tylenol Tab) 650 mg Q4H PRN PO 04/08/16 21:45 05/08/16 21:44 04/11/16 08:12 650 MG Al Hydrox/Mg Hydrox/Simethicone (Maalox Max Susp) 15 ml Q4H PRN PO 04/08/16 21:45 05/08/16 21:44 04/09/16 08:06 15 ML Magnesium Hydroxide (Milk Of Magnesia Susp) 30 ml Q12H PRN PO 04/08/16 21:45 05/08/16 21:44 Ondansetron HCl (Zofran Inj) 4 mg Q6H PRN IV 04/08/16 21:45 05/08/16 21:44 04/11/16 09:49 4 MG Nitroglycerin (Nitrostat Tab) 0.4 mg UD PRN SL 04/08/16 21:45 05/08/16 21:44 04/09/16 07:09 0.4 MG Morphine Sulfate (MoRPHine SULFATE INJ) 2 mg Q30M PRN IV 04/08/16 21:45 04/22/16 21:44 04/09/16 20:14 2 MG Polyethylene (Miralax Powder Packet) 17 gm DAILY PRN PO 04/08/16 21:45 05/08/16 21:44 04/09/16 20:14 17 GM Glucose (Glucose 40% Gel) 15-30 GRAMS 15 GRAMS... UD PRN PO 04/08/16 22:15 05/08/16 22:14 Glucose (Glucose Chew Tab) 4-8 Tablets 4 Tabl... UD PRN PO 04/08/16 22:15 05/08/16 22:14 Dextrose (Dextrose 50% 50ML Syringe) 25-50ML OF 50% DW IV FOR... UD PRN IV 04/08/16 22:15 05/08/16 22:14 Glucagon (Glucagon Inj) 1 mg UD PRN SQ 04/08/16 22:15 05/08/16 22:14 Miscellaneous (Iv Fluids Completed) 1 ea PRN PRN N/A 04/08/16 22:45 04/08/17 22:44 Miscellaneous Information (Order Awaiting Action) 1 ea QS N/A 04/09/16 00:00 05/09/16 00:00 Miscellaneous (Fentanyl Patch Remove & Waste) 1 ea Q3D@0859 N/A 04/10/16 08:59 05/10/16 08:58 04/10/16 09:02 1 EA Miscellaneous Information (Check Fentanyl Patch Placement) 1 ea QS N/A 04/09/16 00:00 05/09/16 00:00 04/11/16 08:03 1 EA Miscellaneous Information (Order Awaiting Action) 1 ea QS N/A 04/09/16 00:00 05/09/16 00:00 Pantoprazole Sodium (Protonix Tab) 40 mg BID PO 04/09/16 20:00 05/09/16 20:59 04/11/16 08:10 40 MG Sucralfate (Carafate Susp) 1 gm QID PO 04/09/16 12:52 05/09/16 12:59 04/11/16 11:48 1 GM Insulin Aspart (novoLOG ASPART) SLIDING SCALE G... ACHS SC 04/09/16 16:30 05/09/16 16:29 04/11/16 12:02 4 UNITS Objective Vital Signs Date Time Temp Pulse Resp B/P Pulse Ox O2 Delivery O2 Flow Rate FiO2 04/11/16 09:03 36.4 61 20 162/71 97 Room Air 04/11/16 09:00 Room Air 04/10/16 23:59 Room Air 04/10/16 23:40 36.6 59 18 127/72 98 Room Air 04/10/16 20:00 Room Air 04/10/16 15:51 36.6 55 20 164/73 97 Room Air Physical Exam General Appearance: WD/WN, no apparent distress Eyes: normal inspection ENT: normal ENT inspection Neck: supple Respiratory/Chest: chest non-tender, lungs clear Cardiovascular: regular rate, rhythm, no edema Abdomen: normal bowel sounds, non tender, soft Extremities: normal range of motion, non-tender Neurologic/Psychiatric: fruit thinner II-XII nml as tested, no motor/sensory deficits, alert Skin: normal color, warm/dry, no rash Lymphatic: no adenopathy Laboratory Results Last 24 Hours Test 04/10/16 16:31 04/10/16 20:21 04/11/16 08:04 04/11/16 11:57 Bedside Glucose 207 mg/dl 246 mg/dl 119 mg/dl 273 mg/dl Assessment and Plan 75 y/o M with an extensive medical history including UC, CAD, Parkinson's, morbid obesity, DM II, chronic generalized pain. Presents with intermittent epigastric or lower chest pain in addition to lower abdominal pain increasing in severity throughout the week. He states that this is accompanied by SOB and weakness. Denies radiation of the pain, nausea/vomiting or diaphoresis. His states that he is normally constipated but has had loose stools over the last 2-3 days. He was recently admitted for abdominal pain and generalized pain involving the R side of his body. He had a negative cardiac and GI workup at that time and the generalized pain was attributed to neuropathy. He does have a history of CAD and will be admitted primarily to r/o ACS. He also has a history of UC and C-diff. A CT of the abdomen was repeated in the ER revealing duodenal inflammation which was not present on a previous CT. Abdominal Pain: Duodenal/Gastric Inflammation - Gastritis vs Ulcer - does not seem to be improving - per GI ? viral enteritis - if symptoms persist may need colonoscopy per GI/would appreciate GI input on colonoscopy in am - Protonix 40 mg BID and Ranitidine 150 mg daily - Carafate 1 g 4 times a day - s/p EGD on 04.09.16 - gastric and duodenal biopsy pending Chest Pain: Likely Related to GI Issues: H/O CAD S/P Stent - Serial enzymes negative with sinus erika on monitoring. Will be able to move to Med/Surg - Simvastatin 10 mg daily Phimosis and BPH: - Flomax 0.8 mg daily T2DM: - Levemir 40 units SC BID - SSI with goal range 100-160; CF of 35 HTN: - Amlodipine 10 mg daily and Lisinopril 10 mg daily Parkinson's: - Baclofen 10 mg 3 times a day - Sinemet XL 1 tablet daily and Sinemet 4 times a day - Aricept 10 mg at bedtime - Gabapentin 1200 mg daily DVT Prophylaxis: - SCDs Code Status: FULL RESUSCITATION Disposition: -1-2 days
[2016-04-11] MEDS: MoRPHine SULFATE 2 MG/ML CARP IV PRN (15:00)
[2016-04-11 16:41] VITALS: BP 161/67; PULSE 68; TEMP 36.6; O2SAT 97
[2016-04-11] MEDS: RANITIDINE HCL 150 MG TAB PO SCH (20:52)
[2016-04-11] MEDS: DONEPEZIL HCL 10 MG TAB PO SCH (20:52)
[2016-04-11] MEDS: TAMSULOSIN HCL 0.4 MG CAP PO SCH (20:54)
[2016-04-11] MEDS: MIRTAZAPINE TAB 15 MG TAB PO SCH (20:54)
[2016-04-11] MEDS: BIMATOPROST 0.01% OP SOLN 2.5 ML BTL OPB SCH (20:55)
[2016-04-11] MEDS: SIMVASTATIN 10 MG TAB PO SCH (20:55)
[2016-04-12 00:18] VITALS: BP 132/74; PULSE 56; TEMP 37.2; O2SAT 96
[2016-04-12 06:14] LABS: HEMATOCRIT 38.3 % (42-52); MEAN CELL VOLUME 90.8 fL (80-100); MEAN CORPUSCULAR HEMOGLOBIN 30.8 pg (25-34); MEAN CORPUSCULAR HGB CONC 33.9 g/dl (32-36); MEAN PLATELET VOLUME 9.7 fL (7.4-10.4); PLATELET COUNT 250 K/uL (130-400); RED BLOOD COUNT 4.22 M/uL (4.7-6.1); WHITE BLOOD COUNT 9.43 K/uL (4.8-10.8)
[2016-04-12 06:41] LABS: BUN/CREATININE RATIO 20.6 (10-20); CALCIUM 8.6 mg/dl (8.5-10.1); CREATININE 0.84 mg/dl (0.60-1.40); POTASSIUM 3.5 mmol/L (3.5-5.1)
[2016-04-12 07:56] VITALS: BP 166/78; PULSE 57; TEMP 36.7; O2SAT 98
[2016-04-12] MEDS: CHECK FENTANYL PATCH PLACEMENT SCH ×3 (08:00→16:00)
--- NOTE | 2016-04-12 09:18 | Progress Note ---
Subjective Date of Service: Apr 12, 2016. (Fabien Hermosillo M.D.) Subjective pts biggest concerns are continued abdominal pain but overall feels has not had a complete bowel movement for some time (Fabien Hermosillo M.D.) Pt evaluation today including: conversation w/ patient, physical exam, chart review, lab review, review of studies, review of inpatient medication list Patient continues to complain of abdominal pain in the left upper and left lower quadrant. The pain is unchanged. He describes as a burning sensation. Also is feeling nauseated. Denies any vomiting. Last bowel movement 2 days ago. Denies any chest pain or chest pressure. No shortness of breath. (Maddie Gonzales PA-C) Problem List Medical Problems: (1) Abdominal bloating Status: Acute (2) Abdominal pain Status: Acute (3) Acute chest pain Status: Acute (4) Ambulatory dysfunction Status: Acute (5) C. difficile colitis Status: Acute (6) C. difficile colitis Status: Acute (7) Cephalalgia Status: Acute (8) Decubitus ulcer of sacral region, stage 1 Status: Acute (9) Dehydration Status: Acute (10) Diarrhea Status: Acute (11) Diarrhea Status: Acute (12) Gastritis Status: Acute (13) Hypomagnesemia Status: Acute (14) Intractable abdominal pain Status: Acute (15) Intractable abdominal pain Status: Acute (16) Leukocytosis Status: Acute (17) LLQ abdominal pain Status: Acute (18) LLQ abdominal pain Status: Acute (19) Pancolitis Status: Acute (20) Precordial chest pain Status: Acute (21) Precordial chest pain Status: Acute (22) Shortness of breath Status: Acute (23) Viral illness Status: Acute (24) Weakness Status: Acute (25) Weakness Status: Acute (26) Weakness Status: Acute (Fabien Hermosillo M.D.) Review of Systems Constitutional: + weakness, No chills, No fever Respiratory: No cough, No shortness of breath Cardiac: No chest pain, No edema Abdomen: + constipation, + pain (Fabien Hermosillo M.D.) 6 system review negative. Please see pertinent positives in the history of present illness section. (Maddie Gonzales PA-C) Objective Vital Signs Date Time Temp Pulse Resp B/P Pulse Ox O2 Delivery O2 Flow Rate FiO2 04/12/16 07:56 36.7 57 17 166/78 98 Room Air 04/12/16 00:18 37.2 56 20 132/74 96 Room Air 04/11/16 23:59 Room Air 04/11/16 20:00 Room Air 04/11/16 17:00 Room Air 04/11/16 16:41 36.6 68 20 161/67 97 Room Air (Fabien Hermosillo M.D.) Physical Exam General Appearance: WD/WN, + mild distress Neck: supple, no JVD Respiratory/Chest: chest non-tender, lungs clear Cardiovascular: regular rate, rhythm, no murmur Abdomen: soft, + guarding, + tenderness (Fabien Hermosillo M.D.) General Appearance: + mild distress (mild discomfort) Eyes: EOMI ENT: + pertinent finding (oral mucosa fairly moist. No exudate noted.) Neck: no JVD Respiratory/Chest: lungs clear Cardiovascular: regular rate, rhythm Abdomen: normal bowel sounds, soft, + pertinent finding (mild tenderness to palpation noted in the left upper quadrant) Extremities: non-tender, no pedal edema Neurologic/Psychiatric: no motor/sensory deficits, oriented x 3 Skin: warm/dry (Maddie Gonzales, PAHaliC) Laboratory Results Last 24 Hours Test 04/11/16 11:57 04/11/16 16:39 04/11/16 20:08 04/12/16 05:56 Bedside Glucose 273 mg/dl 331 mg/dl 321 mg/dl White Blood Count 9.43 K/uL Red Blood Count 4.22 M/uL Hemoglobin 13.0 g/dL Hematocrit 38.3 % Mean Corpuscular Volume 90.8 fL Mean Corpuscular Hemoglobin 30.8 pg Mean Corpuscular Hemoglobin Concent 33.9 g/dl RDW Standard Deviation 40.7 fL RDW Coefficient of Variation 12.2 % Platelet Count 250 K/uL Mean Platelet Volume 9.7 fL Sodium Level 143 mmol/L Potassium Level 3.5 mmol/L Chloride Level 106 mmol/L Carbon Dioxide Level 27 mmol/L Anion Gap 10.0 mmol/L Blood Urea Nitrogen 17 mg/dl Creatinine 0.84 mg/dl Est Creatinine Clear Calc Drug Dose 94.3 ml/min Estimated GFR () 100.0 Estimated GFR (Non- 86.3 BUN/Creatinine Ratio 20.6 Random Glucose 128 mg/dl Calcium Level 8.6 mg/dl Test 04/12/16 07:53 Bedside Glucose 149 mg/dl (Fabien Heromsillo M.D.) 04/12/16 05:56 04/12/16 05:56 Test 04/12/16 05:56 04/12/16 11:12 Red Blood Count 4.22 M/uL (4.7-6.1) Mean Corpuscular Volume 90.8 fL (80-100) Mean Corpuscular Hemoglobin 30.8 pg (25-34) Mean Corpuscular Hemoglobin Concent 33.9 g/dl (32-36) RDW Standard Deviation 40.7 fL (36.4-46.3) RDW Coefficient of Variation 12.2 % (11.5-14.5) Mean Platelet Volume 9.7 fL (7.4-10.4) Anion Gap 10.0 mmol/L (3-11) Est Creatinine Clear Calc Drug Dose 94.3 ml/min Estimated GFR () 100.0 Estimated GFR (Non- 86.3 BUN/Creatinine Ratio 20.6 (10-20) Calcium Level 8.6 mg/dl (8.5-10.1) Bedside Glucose 284 mg/dl (70-99) (Maddie Gonzales, PAHaliC) Assessment and Plan 75 y/o with abdominal pain, did have CAD ruled out and EGD 04/09 suggests some duodenitis as seen on CT, no real improvement and possible colonoscopy 04/12 as does have history of UC Abdominal Pain: Duodenal/Gastric Inflammation - Protonix 40 mg BID and Ranitidine 150 mg daily - Carafate 1 g 4 times a day- s/p EGD on 04.09.16 gastric and duodenal biopsy results pending, persistent pain maybe from constipation, did have good results from milk and molasses enema are recommended by nursing, will follow for improvement non cardiac Chest Pain: Serial enzymes negative Simvastatin 10 mg daily for risk reduction, treat HTN with amlodipine and lisinopril Daibetes- Levemir 40 units SC BID plus ssi with acceptable control Parkinson's:Baclofen 10 mg 3 times a day Sinemet XL 1 tablet daily and Sinemet 4 times a day Aricept 10 mg at bedtime Gabapentin 1200 mg daily Phimosis and BPH:stble and voiding - Flomax 0.8 mg daily (Fabien Hermosillo M.D.) please refer to Dr Hermosillo's plan in addition: -Constipation: Milk of molasses enema prn. First dose now. DVT prophylaxis -chemical means on hold d/t gastritis -AMBULATE IN [place] -DAILY, SCDs CODE STATUS -LEVEL I FULL CODE (Maddie Gonzales, PAHaliC)
[2016-04-12] MEDS: AMLODIPINE BESYLATE 5 MG TAB PO SCH (10:09)
[2016-04-12] MEDS: INSULIN DETEMIR FLEXPEN/FLEX TOUCH 100 UNITS/ML 3ML SQ SCH ×2 (10:10→22:06)
[2016-04-12] MEDS: GABAPENTIN 600 MG TAB PO SCH ×2 (10:11→21:48)
[2016-04-12] MEDS: SACCHAROMYCES BOUL (FLORASTOR) 250 MG CAP PO SCH (10:12)
[2016-04-12] MEDS: CARBIDOPA/LEVODOPA 50/200MG EXT REL TAB PO SCH (10:12)
[2016-04-12] MEDS: MAGNESIUM OXIDE 400 MG TAB PO SCH ×2 (10:12→21:43)
[2016-04-12] MEDS: ROPINIROLE HCL 0.25 MG TAB PO SCH ×3 (10:12→21:44)
[2016-04-12] MEDS: CITALOPRAM 20 MG TAB PO SCH (10:13)
[2016-04-12] MEDS: CARBIDOPA/LEVODOPA 25/100MG TAB PO SCH ×4 (10:13→21:45)
[2016-04-12] MEDS: BACLOFEN 10 MG TAB PO SCH ×3 (10:13→21:43)
[2016-04-12] MEDS: PANTOprazole SOD 40 MG TAB PO SCH ×2 (10:13→21:43)
[2016-04-12] MEDS: LISINOPRIL 10 MG TAB PO SCH (10:14)
[2016-04-12] MEDS: SUCRALFATE 1 GM/10 ML UDC PO SCH ×4 (10:14→21:42)
[2016-04-12] MEDS: INSULIN ASPART 100 UNITS/ML 3 ML PEN SC SCH ×4 (10:15→21:56)
[2016-04-12 12:02] VITALS: BMI 33.7
[2016-04-12 12:10] VITALS: BMI 33.7
[2016-04-12] MEDS ORDERED: MILK AND MOLASSES ENEMA PR ONE (13:30)
--- NOTE | 2016-04-12 14:29 | Gastroenterology Progress Note ---
Progress Note Date of Service: Apr 12, 2016 Subjective Pt evaluation today including: conversation w/ patient, physical exam, chart review, lab review, review of studies 75yo male with hx of parkinson's being followed for chronic abdominal pain. Notes hx of chronic constipation, denies diarrhea. States last BM was 2 days ago but nursing reports 2 yesterday and 4 BMs daily on the 2 days prior. He is currently ordered Miralax PRN. Pt's only c/o today is mid abdominal pain and gas pain radiating to lower chest, appears similar c/o over last few days. Denies N/V. Currently resting comfortably in bed. Reviewed his current regimen for his gastritis, now on BID PPI, H2RA at bedtime and carafate. EGD path pending. note hx of chronic pain meds at home Last colonoscopy was 2014 and was grossly and histologically normal without any evidence of active UC or microscopic colitis. (diverticular disease and internal hemorrhoids) C diff negative this admission Review of Systems Constitutional: No chills, No fever Eyes: No worsening of vision ENT: No hearing loss Respiratory: No cough Cardiac: No chest pain, No edema Abdomen: + see HPI Musculoskeletal: + problem reported (chronic pain syndrome reported) Male : No dysuria Neuro: + see HPI Psych: No anxiety Heme: No abnormal bleeding/bruising Skin: No rash Medications Current Inpatient Medications Medications (Trade) Dose Ordered Sig/Geovanny Route Start Time Stop Time Status Last Admin Dose Admin Ioversol (Optiray 320) 125 ml UD PRN IV 04/08/16 18:15 04/12/16 18:14 Baclofen (Lioresal Tab) 10 mg TID PO 04/09/16 09:00 05/09/16 08:59 04/12/16 10:13 10 MG Carbidopa/Levodopa (Sinemet 25/ 100MG Tab) 1 tab QID PO 04/09/16 09:00 05/09/16 08:59 04/12/16 12:24 1 TAB Carbidopa/Levodopa (Sinemet Cr 50/ 200MG Tab) 1 tab QAM PO 04/09/16 09:00 05/09/16 08:59 04/12/16 10:12 1 TAB Citalopram Hydrobromide (celeXA TAB) 20 mg DAILY PO 04/09/16 09:00 05/09/16 08:59 04/12/16 10:13 20 MG Docusate Sodium (coLACE CAP) 100 mg BID PRN PO 04/08/16 22:15 05/08/16 22:14 Donepezil HCl (Aricept Tab) 10 mg HS PO 04/09/16 21:00 05/09/16 20:59 04/11/16 20:52 10 MG Fentanyl (Duragesic Patch) 50 mcg Q3D@0900 TD 04/10/16 09:00 04/24/16 08:59 04/10/16 08:54 50 MCG Gabapentin (Neurontin Tab) 600 mg QAM PO 04/09/16 09:00 05/09/16 08:59 04/12/16 10:11 600 MG Gabapentin (Neurontin Tab) 1,200 mg HS PO 04/09/16 21:00 05/09/16 20:59 04/11/16 20:54 1,200 MG Insulin Detemir (Levemir Flexpen/ FlexTouch) 40 unit BID SQ 04/09/16 09:00 05/09/16 08:59 04/12/16 10:10 40 UNIT Lisinopril (Zestril Tab) 10 mg DAILY PO 04/09/16 09:00 05/09/16 08:59 04/12/16 10:14 10 MG Magnesium Oxide (Mag-Ox Tab) 400 mg BID PO 04/09/16 09:00 05/09/16 08:59 04/12/16 10:12 400 MG Mirtazapine (Remeron Tab) 15 mg HS PO 04/09/16 21:00 05/09/16 20:59 04/11/16 20:54 15 MG Ranitidine HCl (zANTac TAB) 150 mg HS PO 04/09/16 21:00 05/09/16 20:59 04/11/16 20:52 150 MG Ropinirole HCl (Requip Tab) 0.25 mg TID PO 04/09/16 09:00 05/09/16 08:59 04/12/16 10:12 0.25 MG Saccharomyces Boulardii (Florastor Cap) 250 mg DAILY PO 04/09/16 09:00 05/09/16 08:59 04/12/16 10:12 250 MG Simvastatin (Zocor Tab) 10 mg HS PO 04/09/16 21:00 05/09/16 20:59 04/11/16 20:55 10 MG Tamsulosin HCl (Flomax Cap) 0.8 mg HS PO 04/09/16 21:00 05/09/16 20:59 04/11/16 20:54 0.8 MG Amlodipine Besylate (Norvasc Tab) 10 mg DAILY PO 04/09/16 09:00 05/09/16 08:59 04/12/16 10:09 10 MG Bimatoprost (Lumigan 0.01%) 1 drops HS OPB 04/09/16 21:00 05/09/16 20:59 04/11/16 20:55 1 DROPS Acetaminophen (Tylenol Tab) 650 mg Q4H PRN PO 04/08/16 21:45 05/08/16 21:44 04/11/16 08:12 650 MG Al Hydrox/Mg Hydrox/Simethicone (Maalox Max Susp) 15 ml Q4H PRN PO 04/08/16 21:45 05/08/16 21:44 04/09/16 08:06 15 ML Magnesium Hydroxide (Milk Of Magnesia Susp) 30 ml Q12H PRN PO 04/08/16 21:45 05/08/16 21:44 Ondansetron HCl (Zofran Inj) 4 mg Q6H PRN IV 04/08/16 21:45 05/08/16 21:44 04/11/16 09:49 4 MG Nitroglycerin (Nitrostat Tab) 0.4 mg UD PRN SL 04/08/16 21:45 05/08/16 21:44 04/09/16 07:09 0.4 MG Morphine Sulfate (MoRPHine SULFATE INJ) 2 mg Q30M PRN IV 04/08/16 21:45 04/22/16 21:44 04/11/16 15:00 2 MG Polyethylene (Miralax Powder Packet) 17 gm DAILY PRN PO 04/08/16 21:45 05/08/16 21:44 04/09/16 20:14 17 GM Glucose (Glucose 40% Gel) 15-30 GRAMS 15 GRAMS... UD PRN PO 04/08/16 22:15 05/08/16 22:14 Glucose (Glucose Chew Tab) 4-8 Tablets 4 Tabl... UD PRN PO 04/08/16 22:15 05/08/16 22:14 Dextrose (Dextrose 50% 50ML Syringe) 25-50ML OF 50% DW IV FOR... UD PRN IV 04/08/16 22:15 05/08/16 22:14 Glucagon (Glucagon Inj) 1 mg UD PRN SQ 04/08/16 22:15 05/08/16 22:14 Miscellaneous (Iv Fluids Completed) 1 ea PRN PRN N/A 04/08/16 22:45 04/08/17 22:44 Miscellaneous Information (Order Awaiting Action) 1 ea QS N/A 04/09/16 00:00 05/09/16 00:00 Miscellaneous (Fentanyl Patch Remove & Waste) 1 ea Q3D@0859 N/A 04/10/16 08:59 05/10/16 08:58 04/10/16 09:02 1 EA Miscellaneous Information (Check Fentanyl Patch Placement) 1 ea QS N/A 04/09/16 00:00 05/09/16 00:00 04/12/16 08:00 1 EA Miscellaneous Information (Order Awaiting Action) 1 ea QS N/A 04/09/16 00:00 05/09/16 00:00 Pantoprazole Sodium (Protonix Tab) 40 mg BID PO 04/09/16 20:00 05/09/16 20:59 04/12/16 10:13 40 MG Sucralfate (Carafate Susp) 1 gm QID PO 04/09/16 12:52 05/09/16 12:59 04/12/16 12:24 1 GM Insulin Aspart (novoLOG ASPART) SLIDING SCALE G... ACHS SC 04/09/16 16:30 05/09/16 16:29 04/12/16 12:28 4 UNITS Objective Vital Signs Date Time Temp Pulse Resp B/P Pulse Ox O2 Delivery O2 Flow Rate FiO2 04/12/16 10:49 Room Air 04/12/16 07:56 36.7 57 17 166/78 98 Room Air 04/12/16 00:18 37.2 56 20 132/74 96 Room Air 04/11/16 23:59 Room Air 04/11/16 20:00 Room Air 04/11/16 17:00 Room Air 04/11/16 16:41 36.6 68 20 161/67 97 Room Air Physical Exam General Appearance: WD/WN, no apparent distress Eyes: normal inspection ENT: hearing grossly normal Neck: supple Respiratory/Chest: normal breath sounds, no respiratory distress Cardiovascular: regular rate, rhythm Abdomen: non tender, soft, no organomegaly (nondistened) Extremities: no pedal edema Neurologic/Psych: alert, oriented x 3 Skin: normal color Laboratory Results Last 24 Hours Test 04/11/16 16:39 04/11/16 20:08 04/12/16 05:56 04/12/16 07:53 Bedside Glucose 331 mg/dl 321 mg/dl 149 mg/dl White Blood Count 9.43 K/uL Red Blood Count 4.22 M/uL Hemoglobin 13.0 g/dL Hematocrit 38.3 % Mean Corpuscular Volume 90.8 fL Mean Corpuscular Hemoglobin 30.8 pg Mean Corpuscular Hemoglobin Concent 33.9 g/dl RDW Standard Deviation 40.7 fL RDW Coefficient of Variation 12.2 % Platelet Count 250 K/uL Mean Platelet Volume 9.7 fL Sodium Level 143 mmol/L Potassium Level 3.5 mmol/L Chloride Level 106 mmol/L Carbon Dioxide Level 27 mmol/L Anion Gap 10.0 mmol/L Blood Urea Nitrogen 17 mg/dl Creatinine 0.84 mg/dl Est Creatinine Clear Calc Drug Dose 94.3 ml/min Estimated GFR () 100.0 Estimated GFR (Non- 86.3 BUN/Creatinine Ratio 20.6 Random Glucose 128 mg/dl Calcium Level 8.6 mg/dl Test 04/12/16 11:12 Bedside Glucose 284 mg/dl Assessment and Plan 75 yo male with parkinsons as well as chronic pain on multiple medications admitted with acute on chronic abdominal pain Discussed the fact that doing colonoscopy will likely provide low yield and not give us an answer to his chronic abdominal pain Pt has chronic constipation and gas, now c/o more constipation - recommend continued conservative measures GI recommends regular bowel regimen - Miralax daily, increase to BID if necessary May use OTC simethicone for gas symptoms seems to be tolerating diet Continue BID PPI and H2RA at bedtime stop carafate after 1-2 days no plans for colonoscopy at this time as last colonoscopy was in 2014 with no acute findings. GI will sign off, please call with questions
[2016-04-12 15:52] VITALS: BP 145/74; PULSE 65; TEMP 36.9; O2SAT 99
[2016-04-12] MEDS: ACETAMINOPHEN 325 MG TAB PO PRN (21:41)
[2016-04-12] MEDS: BIMATOPROST 0.01% OP SOLN 2.5 ML BTL OPB SCH (21:46)
[2016-04-12] MEDS: TAMSULOSIN HCL 0.4 MG CAP PO SCH (21:47)
[2016-04-12] MEDS: DONEPEZIL HCL 10 MG TAB PO SCH (21:47)
[2016-04-12] MEDS: RANITIDINE HCL 150 MG TAB PO SCH (21:48)
[2016-04-12] MEDS: MIRTAZAPINE TAB 15 MG TAB PO SCH (21:48)
[2016-04-12] MEDS: SIMVASTATIN 10 MG TAB PO SCH (21:49)
[2016-04-12 23:51] VITALS: BP 142/68; PULSE 55; TEMP 36.9; O2SAT 96
[2016-04-13] MEDS: CHECK FENTANYL PATCH PLACEMENT SCH ×4 (00:04→23:46)
[2016-04-13 06:58] LABS: HEMATOCRIT 37.2 % (42-52); MEAN CELL VOLUME 90.3 fL (80-100); MEAN CORPUSCULAR HEMOGLOBIN 30.8 pg (25-34); MEAN CORPUSCULAR HGB CONC 34.1 g/dl (32-36); MEAN PLATELET VOLUME 9.6 fL (7.4-10.4); PLATELET COUNT 255 K/uL (130-400); RED BLOOD COUNT 4.12 M/uL (4.7-6.1); WHITE BLOOD COUNT 9.77 K/uL (4.8-10.8)
[2016-04-13 07:19] VITALS: BP 125/72; PULSE 54; TEMP 36.5; TEMP 39.5; O2SAT 95
[2016-04-13 07:25] LABS: BUN/CREATININE RATIO 20.9 (10-20); CALCIUM 8.6 mg/dl (8.5-10.1); CREATININE 0.77 mg/dl (0.60-1.40); POTASSIUM 3.3 mmol/L (3.5-5.1)
[2016-04-13] MEDS ORDERED: POTASSIUM CHLORIDE 20 MEQ TABCR PO STA (07:56)
[2016-04-13] MEDS: INSULIN DETEMIR FLEXPEN/FLEX TOUCH 100 UNITS/ML 3ML SQ SCH ×2 (08:24→20:56)
[2016-04-13] MEDS: BACLOFEN 10 MG TAB PO SCH ×3 (08:24→20:47)
[2016-04-13] MEDS: AMLODIPINE BESYLATE 5 MG TAB PO SCH (08:25)
[2016-04-13] MEDS: CITALOPRAM 20 MG TAB PO SCH (08:25)
[2016-04-13] MEDS: GABAPENTIN 600 MG TAB PO SCH ×2 (08:25→21:01)
[2016-04-13] MEDS: ROPINIROLE HCL 0.25 MG TAB PO SCH ×3 (08:25→20:48)
[2016-04-13] MEDS: MAGNESIUM OXIDE 400 MG TAB PO SCH ×2 (08:26→20:48)
[2016-04-13] MEDS: PANTOprazole SOD 40 MG TAB PO SCH ×2 (08:26→20:48)
[2016-04-13] MEDS: SACCHAROMYCES BOUL (FLORASTOR) 250 MG CAP PO SCH (08:26)
[2016-04-13] MEDS: CARBIDOPA/LEVODOPA 25/100MG TAB PO SCH ×4 (08:26→20:49)
[2016-04-13] MEDS: CARBIDOPA/LEVODOPA 50/200MG EXT REL TAB PO SCH (08:27)
[2016-04-13] MEDS: LISINOPRIL 10 MG TAB PO SCH (08:27)
[2016-04-13] MEDS: SUCRALFATE 1 GM/10 ML UDC PO SCH ×4 (08:27→20:46)
[2016-04-13] MEDS: INSULIN ASPART 100 UNITS/ML 3 ML PEN SC SCH ×4 (08:30→20:59)
[2016-04-13] MEDS: FENTANYL PATCH REMOVE & WASTE SCH (08:59)
[2016-04-13] MEDS: POLYETHYLENE (MIRALAX) 17 GM PACK PO PRN (09:29)
[2016-04-13] MEDS: FENTANYL 50 MCG/HR TDSY TD SCH (09:29)
[2016-04-13 10:06] VITALS: BP 182/70; PULSE 62; TEMP 36.6; O2SAT 92
[2016-04-13 11:25] VITALS: BP 129/66
--- NOTE | 2016-04-13 13:06 | Hospitalist Progress Note ---
Hospitalist Progress Note Date of Service Apr 13, 2016. Subjective Pt evaluation today including: conversation w/ patient, physical exam, chart review, lab review, review of inpatient medication list Patient continues to complain of left-sided chest pain and left lower abdominal pain. His symptoms somewhat improved after having a large BM this morning. Denies any nausea or vomiting. No shortness of breath. No heart palpitations or dizziness. Had multiple bowel movements since yesterday. No fever or chills. Additional Comments: 6 system review negative. Please see pertinent positives in the history of present illness section. Objective Vital Signs Date Time Temp Pulse Resp B/P Pulse Ox O2 Delivery O2 Flow Rate FiO2 04/13/16 11:25 129/66 04/13/16 10:06 36.6 62 19 182/70 92 Room Air 04/13/16 08:00 Room Air 04/13/16 07:19 36.5 54 18 125/72 95 Room Air 04/13/16 00:00 Room Air 04/12/16 23:51 36.9 55 20 142/68 96 Room Air 04/12/16 16:30 Room Air 04/12/16 15:52 36.9 65 20 145/74 99 Room Air Physical Exam General Appearance: + mild distress Neck: no JVD Respiratory/Chest: lungs clear Cardiovascular: regular rate, rhythm Abdomen: normal bowel sounds, non tender, soft Extremities: non-tender, no pedal edema Neurologic/Psychiatric: no motor/sensory deficits, oriented x 3, + pertinent finding (overall weakness noted.) Skin: warm/dry Laboratory Results 04/13/16 06:44 04/13/16 06:44 Test 04/13/16 06:44 04/13/16 11:23 Red Blood Count 4.12 M/uL (4.7-6.1) Mean Corpuscular Volume 90.3 fL (80-100) Mean Corpuscular Hemoglobin 30.8 pg (25-34) Mean Corpuscular Hemoglobin Concent 34.1 g/dl (32-36) RDW Standard Deviation 39.8 fL (36.4-46.3) RDW Coefficient of Variation 12.2 % (11.5-14.5) Mean Platelet Volume 9.6 fL (7.4-10.4) Anion Gap 11.0 mmol/L (3-11) Est Creatinine Clear Calc Drug Dose 102.9 ml/min Estimated GFR () 103.6 Estimated GFR (Non- 89.4 BUN/Creatinine Ratio 20.9 (10-20) Calcium Level 8.6 mg/dl (8.5-10.1) Bedside Glucose 268 mg/dl (70-99) Last 24 Hours Test 04/12/16 16:21 04/12/16 20:03 04/13/16 06:44 04/13/16 07:39 Bedside Glucose 238 mg/dl 304 mg/dl 123 mg/dl White Blood Count 9.77 K/uL Red Blood Count 4.12 M/uL Hemoglobin 12.7 g/dL Hematocrit 37.2 % Mean Corpuscular Volume 90.3 fL Mean Corpuscular Hemoglobin 30.8 pg Mean Corpuscular Hemoglobin Concent 34.1 g/dl RDW Standard Deviation 39.8 fL RDW Coefficient of Variation 12.2 % Platelet Count 255 K/uL Mean Platelet Volume 9.6 fL Sodium Level 144 mmol/L Potassium Level 3.3 mmol/L Chloride Level 106 mmol/L Carbon Dioxide Level 27 mmol/L Anion Gap 11.0 mmol/L Blood Urea Nitrogen 16 mg/dl Creatinine 0.77 mg/dl Est Creatinine Clear Calc Drug Dose 102.9 ml/min Estimated GFR () 103.6 Estimated GFR (Non- 89.4 BUN/Creatinine Ratio 20.9 Random Glucose 113 mg/dl Calcium Level 8.6 mg/dl Test 04/13/16 11:23 Bedside Glucose 268 mg/dl Assessment and Plan 75-year-old male with a history of coronary artery disease, Parkinson's and ulcerative colitis admitted for complaints of left-sided chest pain and left lower abdominal pain. Symptoms are ongoing, but mildly improved. Chest pain/hx CAD-ACS ruled out. Troponin x 3 remained negative. Likely related to gastritis -Pantoprazole 40 mg BID -Continue current medical management for coronary dz: Jorje, ASA...unsure why pt is not on B cruz Lower abdominal pain-thought to be secondary to constipation. Improving. -GI following. No need for inpatient colonoscopy -Continue docusate 100 mg po BID-->should probably be scheduled since pt is on chronic narcs -Good results from a milk of molasses enema yesterday -MiraLAX prn -GI f/u arranged History of Parkinson's disease -Continue Sinemet at outpt dosing DM II-BSG's elevated -Continue Levemir 40 units BID -NovoLog sliding scale added with carb coverage today Phimosis-urinating w/o difficulty -Patient given outpatient follow-up with urology DVT prophylaxis -chemical means on hold d/t gastritis -AMBULATE -TEDS, SCDs CODE STATUS -LEVEL I FULL CODE DISPO -pt seems unwilling to go to SNF, however this was strongly suggested. Wants acute rehab at [facility]-->don't think he could tolerate this -PT/OT eval pending -d/w Josue from [facility]
[2016-04-13 15:19] VITALS: Ht 177.8 cm; Wt 106.5 kg
[2016-04-13 15:27] VITALS: BP 164/71; PULSE 63; TEMP 36.7; O2SAT 97
--- NOTE | 2016-04-13 18:33 | Progress Note ---
Subjective Date of Service: Apr 13, 2016. Problem List Medical Problems: (1) Abdominal bloating Status: Acute (2) Abdominal pain Status: Acute (3) Acute chest pain Status: Acute (4) Ambulatory dysfunction Status: Acute (5) C. difficile colitis Status: Acute (6) C. difficile colitis Status: Acute (7) Cephalalgia Status: Acute (8) Decubitus ulcer of sacral region, stage 1 Status: Acute (9) Dehydration Status: Acute (10) Diarrhea Status: Acute (11) Diarrhea Status: Acute (12) Gastritis Status: Acute (13) Hypomagnesemia Status: Acute (14) Intractable abdominal pain Status: Acute (15) Intractable abdominal pain Status: Acute (16) Leukocytosis Status: Acute (17) LLQ abdominal pain Status: Acute (18) LLQ abdominal pain Status: Acute (19) Pancolitis Status: Acute (20) Precordial chest pain Status: Acute (21) Precordial chest pain Status: Acute (22) Shortness of breath Status: Acute (23) Viral illness Status: Acute (24) Weakness Status: Acute (25) Weakness Status: Acute (26) Weakness Status: Acute Objective Vital Signs Date Time Temp Pulse Resp B/P Pulse Ox O2 Delivery O2 Flow Rate FiO2 04/13/16 15:27 36.7 63 17 164/71 97 Room Air 04/13/16 11:25 129/66 04/13/16 10:06 36.6 62 19 182/70 92 Room Air 04/13/16 08:00 Room Air 04/13/16 07:19 36.5 54 18 125/72 95 Room Air 04/13/16 00:00 Room Air 04/12/16 23:51 36.9 55 20 142/68 96 Room Air Laboratory Results Last 24 Hours Test 04/12/16 20:03 04/13/16 06:44 04/13/16 07:39 04/13/16 11:23 Bedside Glucose 304 mg/dl 123 mg/dl 268 mg/dl White Blood Count 9.77 K/uL Red Blood Count 4.12 M/uL Hemoglobin 12.7 g/dL Hematocrit 37.2 % Mean Corpuscular Volume 90.3 fL Mean Corpuscular Hemoglobin 30.8 pg Mean Corpuscular Hemoglobin Concent 34.1 g/dl RDW Standard Deviation 39.8 fL RDW Coefficient of Variation 12.2 % Platelet Count 255 K/uL Mean Platelet Volume 9.6 fL Sodium Level 144 mmol/L Potassium Level 3.3 mmol/L Chloride Level 106 mmol/L Carbon Dioxide Level 27 mmol/L Anion Gap 11.0 mmol/L Blood Urea Nitrogen 16 mg/dl Creatinine 0.77 mg/dl Est Creatinine Clear Calc Drug Dose 102.9 ml/min Estimated GFR () 103.6 Estimated GFR (Non- 89.4 BUN/Creatinine Ratio 20.9 Random Glucose 113 mg/dl Calcium Level 8.6 mg/dl Test 04/13/16 16:43 Bedside Glucose 242 mg/dl Assessment and Plan 75 y/o with abdominal pain, did have CAD ruled out and EGD 04/09 suggests some duodenitis as seen on CT, no real improvement and possible colonoscopy 04/12 as does have history of UC, did have good bowel movement with enema, improved pain but still minor pain present Abdominal Pain: Duodenal/Gastric Inflammation - Protonix 40 mg BID and Ranitidine 150 mg daily - Carafate 1 g 4 times a day- s/p EGD on 04.09.16 gastric and duodenal biopsy results pending, pain improved with bowel movement may have some residual non cardiac Chest Pain: has resolved Simvastatin 10 mg daily for risk reduction , treat HTN with amlodipine and lisinopril Daibetes poor contorl ssi was too loose, tightened up 04/13- Levemir 40 units SC BID Parkinson's:Baclofen 10 mg 3 times a day Sinemet XL 1 tablet daily and Sinemet 4 times a day Aricept 10 mg at bedtime Gabapentin 1200 mg daily Phimosis and BPH:stble and voiding - Flomax 0.8 mg daily
[2016-04-13] MEDS: DOCUSATE SODIUM 100 MG CAP PO SCH (20:47)
[2016-04-13] MEDS: BIMATOPROST 0.01% OP SOLN 2.5 ML BTL OPB SCH (20:59)
[2016-04-13] MEDS: DONEPEZIL HCL 10 MG TAB PO SCH (21:00)
[2016-04-13] MEDS: TAMSULOSIN HCL 0.4 MG CAP PO SCH (21:00)
[2016-04-13] MEDS: MIRTAZAPINE TAB 15 MG TAB PO SCH (21:01)
[2016-04-13] MEDS: RANITIDINE HCL 150 MG TAB PO SCH (21:02)
[2016-04-13] MEDS: SIMVASTATIN 10 MG TAB PO SCH (21:02)
[2016-04-13 23:36] VITALS: BP 166/68; PULSE 59; TEMP 36.7; O2SAT 96
[2016-04-14 07:40] VITALS: BP 153/71; PULSE 57; TEMP 36.3; O2SAT 98
[2016-04-14] MEDS: CHECK FENTANYL PATCH PLACEMENT SCH (08:00)
[2016-04-14] MEDS: CITALOPRAM 20 MG TAB PO SCH (09:04)
[2016-04-14] MEDS: SUCRALFATE 1 GM/10 ML UDC PO SCH ×2 (09:04→12:00)
[2016-04-14] MEDS: SACCHAROMYCES BOUL (FLORASTOR) 250 MG CAP PO SCH (09:05)
[2016-04-14] MEDS: BACLOFEN 10 MG TAB PO SCH ×2 (09:05→13:39)
[2016-04-14] MEDS: MAGNESIUM OXIDE 400 MG TAB PO SCH (09:05)
[2016-04-14] MEDS: DOCUSATE SODIUM 100 MG CAP PO SCH (09:05)
[2016-04-14] MEDS: PANTOprazole SOD 40 MG TAB PO SCH (09:06)
[2016-04-14] MEDS: AMLODIPINE BESYLATE 5 MG TAB PO SCH (09:06)
[2016-04-14] MEDS: ROPINIROLE HCL 0.25 MG TAB PO SCH ×2 (09:06→13:39)
[2016-04-14] MEDS: GABAPENTIN 600 MG TAB PO SCH (09:06)
[2016-04-14] MEDS: CARBIDOPA/LEVODOPA 50/200MG EXT REL TAB PO SCH (09:07)
[2016-04-14] MEDS: CARBIDOPA/LEVODOPA 25/100MG TAB PO SCH ×2 (09:07→11:59)
[2016-04-14] MEDS: LISINOPRIL 10 MG TAB PO SCH (09:08)
[2016-04-14] MEDS: ACETAMINOPHEN 325 MG TAB PO PRN (09:09)
[2016-04-14] MEDS: INSULIN ASPART 100 UNITS/ML 3 ML PEN SC SCH ×2 (09:17→12:24)
[2016-04-14] MEDS: INSULIN DETEMIR FLEXPEN/FLEX TOUCH 100 UNITS/ML 3ML SQ SCH (09:18)
[2016-04-14] MEDS ORDERED: DOCU100C31 PO (10:30)
[2016-04-14] MEDS ORDERED: PRT40 PO (10:30)
[2016-04-14] MEDS ORDERED: CRFUDL PO (10:30)
--- NOTE | 2016-04-14 10:42 | Discharge Instructions ---
Discharge Instructions Date of Service Apr 14, 2016. Admission Reason for Admission: Chest Pain, Epigastric Pain Discharge Discharge Diagnosis / Problem: Gastritis, constipation Discharge Goals Goal(s): Improve function, Diagnostic testing Activity Recommendations Activity Limitations: resume your previous activity please use a walker at all times when you are up moving around . Instructions / Follow-Up Instructions / Follow-Up You have been treated in the hospital for chest and abdominal pain. This is thought to be coming from gastritis-inflammation of your stomach The following changes/additions have been made to your medication list: -carafate 1 dose 4 times daily until you follow up with the GI doctor -Protonix 40 mg 1 tab by mouth twice daily -PLEASE HOLD YOUR ASPIRIN UNTIL YOU FOLLOW UP WITH THE GI DOCTOR-->RESUME WHEN OK WITH THEM -Please take docusate 100 mg tab 1 by mouth twice daily every day as opposed to as needed -You may take Miralax daily in addition to this for constipation -PLEASE AVOID NSAIDS (OVER THE COUNTER PAIN MEDICATION) SUCH NAPROSYN, ALEVE , IBUPROFEN, MOTRIN, ADVIL. IT IS OK TO TAKE TYLENOL FOR PAIN. FOLLOW INSTRUCTIONS ON THE BOTTLE continue your home diabetes regimen as previously prescribed. Continue to follow your blood sugar 4 times daily Please follow up with the GI doctor and the urology doctor as scheduled Please follow up with your primary care doctor within the next week Call your doctor or return to the emergency department if you have any of the following symptoms: -inability to urinate -Fever of 101F or greater -Persistent vomiting -Lethargy -Severe or new Chest pain -Shortness of breath -severe dizziness -weakness on one side of your body Current Hospital Diet Patient's current hospital diet: Diabetes Type 2 Diet Discharge Diet Recommended Diet: Diabetes Type 2 Diet (low acidic foods-limit caffeine and alchol) Procedures Procedures Performed: EGD WITH BIOPSY-GASTRITIS Pending Studies Studies pending at discharge: no Laboratory Results Hemoglobin A1c Test 02/25/16 12:29 Range/Units Estimated Average Glucose 163 mg/dl Hemoglobin A1c 7.3 H 4.5-5.6 % Lipid Panel Test 02/25/16 12:29 Range/Units Triglycerides Level 161 H 0-150 mg/dl Cholesterol Level 142 0-200 mg/dl HDL Cholesterol 33 mg/dl Cholesterol/HDL Ratio 4.3 LDL Cholesterol, Calculated 77 mg/dl Medical Emergencies . Who to Call and When: Medical Emergencies: If at any time you feel your situation is an emergency, please call 911 immediately. . Non-Emergent Contact Non-Emergency issues call your: Primary Care Provider . . "Provider Documentation" section prepared by Maddie Gonzales. VTE Core Measure Inpt VTE Proph given/why not?: T.E.D. Stockings, SCD's, Contraindicated
[2016-04-14 10:51] VITALS: BP 153/71; PULSE 57; TEMP 36.3; O2SAT 98
[2016-04-14] MEDS ORDERED: INSULIN HUMAN 70% NPH/30% REGULAR SC SCH (12:00)
[2016-04-14 12:38] VITALS: BP 111/66; PULSE 57; TEMP 36.2; O2SAT 98
--- NOTE | 2016-04-14 13:17 | Discharge Summary ---
Discharge Summary Date of Service Apr 14, 2016. (Maddie Gonzales PA-C) Discharge Summary Admission Date: Apr 08, 2016 at 21:40 Discharge Date: Apr 14, 2016 Discharge Disposition: Home with services Principal Diagnosis: gastritis, constipation Problems/Secondary Diagnoses: CAD UC parkinson's disease Immunizations: Have You Had Influenza Vaccine: Yes Influenza Vaccine Date: Nov 16, 2012 History of Tetanus Vaccine?: Yes Tetanus Immunization Date: Jul 30, 2010 History of Pneumococcal: Yes Pneumococcal Date: Jan 17, 2008 History of Hepatitis B Vaccine: No Procedures: EGD Impression: - Normal esophagus. - Z-line regular, 38 cm from the incisors. - Diffuse gastritis, likely medication related. Biopsied. - Normal examined duodenum. Biopsied. Consultations: GI cardiology (Maddie Gonzales PA-C) Medication Reconciliation New Medications: Pantoprazole (Pantoprazole Sodium) 40 Mg Tab 40 MG PO BID for 30 Days, #60 TAB Sucralfate (Sucralfate) 1 Gm/10 Ml Susp 1 GM PO QID for 30 Days, #120 DOSE Continued Medications: Amlodipine Besylate (Amlodipine Besylate) 10 Mg Tab 10 MG PO DAILY Baclofen (Baclofen) 10 Mg Tab 10 MG PO TID for 30 Days, #90 TAB Balsalazide (Colazal) 750 Mg Cap 1500 MG PO TID Bimatoprost (Lumigan) 0.01 % Leandra 1 DROP OPB HS, ML Carbidopa/Levodopa (Sinemet 25MG/100MG) Tab 2.5 TABS PO QID, TAB Carbidopa/Levodopa (Sinemet Cr 50MG/200MG) Tabcr 1 TAB PO QAM, TAB Citalopram Hydrobromide (Citalopram Hydrobromide) 20 Mg Tab 20 MG PO DAILY, TAB Docusate Sodium (Docusate Sodium) 100 Mg Cap 100 MG PO BID for 30 Days, #60 CAP (This prescription has been renewed) Donepezil HCl (Donepezil HCl) 10 Mg Tab 10 MG PO HS Dutasteride (Dutasteride) 0.5 Mg Cap 0.5 MG PO QPM Fentanyl (Duragesic) 50 Mcg Tdsy 50 MCG TD CQ72HR, PATCH Ferrous Sulfate (Ferrous Sulfate) 325 Mg Tab 325 MG PO DAILY Fluticasone Propionate (Fluticasone Propionate) 120 Sprays/6000 Mcg Inha 2 SPRAYS FARHEEN DAILY PRN for Allergy Symptoms Gabapentin (Neurontin) 600 Mg Tab 1200 MG PO HS, TAB Gabapentin (Gabapentin) 600 Mg Tab 600 MG PO QAM Gemfibrozil (Gemfibrozil) 600 Mg Tab 600 MG PO BID TAKE THIS MEDICATION 30 MINUTES BEFORE BREAKFAST AND EVENING MEALS Insulin Aspart (Novolog) 100 Unit/ Inj 25 UNITS SC WM, BTL PLUS SLIDING SCALE Insulin Detemir (Levemir Flextouch) 100 Unit/Ml Inj 40 UNITS SQ BID Lisinopril (Lisinopril) 10 Mg Tab 10 MG PO DAILY Magnesium Oxide (Mag-Ox) 400 Mg Tab 400 MG PO BID, TAB Mirtazapine (Mirtazapine) 15 Mg Tab 15 MG PO HS Multivitamin (Multivitamin) Tab 1 TAB PO DAILY, TAB Nitroglycerin (Nitrostat) 0.4 Mg Tab 0.4 MG SL UD PRN for Chest Pain PLACE ONE TABLET UNDER THE TONGUE EVERY 5 MINUTES FOR UP TO 3 DOSES IF NEEDED FOR CHEST PAIN. Oxycodone HCl (Oxycodone HCl) 5 Mg Tab 10 MG PO Q4H PRN for Pain for 3 Days, #24 TAB Polyethylene Glycol 3350 (Miralax) 1 Pow Pow 17 GM PO DAILY, GM Ranitidine HCl (Ranitidine HCl) 150 Mg Tab 150 MG PO HS Ropinirole HCl (Ropinirole HCl) 0.25 Mg Tab 0.25 MG PO TID Saccharomyces Boulardii (Florastor) 250 Mg Cap 250 MG PO DAILY Simvastatin (Simvastatin) 10 Mg Tab 10 MG PO HS Tamsulosin HCl (Tamsulosin HCl) 0.4 Mg Cap 0.8 MG PO HS Discontinued Medications: Aspirin (Aspirin Ec) 81 Mg Tab 81 MG PO HS Referrals At Discharge Follow up Referrals: Dietitian Assistant Referral - Within a Month with Marcie Weldon, Urologist Referral - Within a Month with Niall Garcia M.D. Discharge Exam Still c/o LLQ abd pain and mild mid chest discomfort-->improved from yesterday. Denies nausea, no dizziness. + BM Review of Systems: Constitutional: No fever Respiratory: No shortness of breath Abdomen: No nausea Genitourinary - Female: No urinary retention Physical Exam: General Appearance: no apparent distress (on the bedside commode during exam ) Eyes: EOMI Neck: no JVD Respiratory/Chest: lungs clear Cardiovascular: regular rate, rhythm Abdomen / GI: normal bowel sounds, non tender, soft Extremities: no calf tenderness, no pedal edema Neurologic/Psychiatric: oriented x 3 Skin: warm/dry (Maddie Gonzales PA-C) Hospital Course 75-year-old male with a history of coronary artery disease, Parkinson's and ulcerative colitis admitted for complaints of left-sided chest pain and left lower abdominal pain. Symptoms are ongoing, but improved. Chest pain/hx CAD-ACS ruled out. Troponin x 3 remained negative. Likely related to gastritis -GI/cards consulted -EGD done-->gastritis path neg for malignancy. Chronic gastritis -Pantoprazole 40 mg BID started in addition to raniditine -Carafate 1 G QID -Continue current medical management for coronary dz: Jorje, statin -ASA on hold til f/u with GI -not on B cruz d/t asymptomatic bradycardia Lower abdominal pain-thought to be secondary to constipation. Improving. -GI following. No need for inpatient colonoscopy -Continue docusate 100 mg po BID-->should probably be scheduled since pt is on chronic narcs -Good results from a milk of molasses enema and MiraLAX prn -GI f/u arranged History of Parkinson's disease -Continue Sinemet at outpt dosing DM II-BSG's elevated -Continue Levemir 40 units BID -Outpt dose of novolog 25 u TID with meals was not ordered because of NPO status upon admission, which explains why BSGs were running high -NovoLog sliding scale added with carb coverage added during hospital stay -BSGs elevated but not critically Chronic pain -Continue fentanyl patch Phimosis-urinating w/o difficulty -Patient given outpatient follow-up with urology BPH -Flomax 0.8 mg daily DVT prophylaxis -chemical means on hold d/t gastritis -AMBULATE -TEDS, SCDs CODE STATUS -LEVEL I FULL CODE DISPO -pt unwilling to go to SNF -PT/OT eval: ok for home with home health care and help from family Total Time Spent: Greater than 30 minutes This includes examination of the patient, discharge planning, medication reconciliation, and communication with other providers. (Maddie Gonzales PA-C) PA Physician Supervision Note: I interviewed and examined the patient. Discussed with Maddie Gonzales PAC and agree with findings and plan as documented in the note. Any exceptions or clarifications are listed here: None pt is feeling better having good bowel movements but still with some minor abdominal pain vitals reviewed abd is soft, no guarding and nabs will have home on treatment of duodenitis with close GI medicine follow up and encourage good bowel maintainence Documented By: Fabien Hermosillo (Fabien Hermosillo M.D.) Discharge Instructions Please refer to the electronic Patient Visit Report (Discharge Instructions) for additional information. (Maddie Gonzales PA-C) Follow-Up GI-2-4 weeks PCP 1 week cardiology in 1 month (Maddie Gonzales PA-C) Additional Copies To RV. Thornton MD; Marcie Weldon, ; Reuben Muniz M.D.; Hilario Dickerson MD, Urology
[2016-04-14] MEDS ORDERED: ONDA4TAB46 PO (14:03)
[2016-06-28] MEDS ORDERED: DOCU-94 PO (15:35)
[2016-06-28] MEDS ORDERED: ONDA4TAB46 PO (15:35)
[2016-06-28] MEDS ORDERED: BACL10TA PO (15:35)
[2016-06-28] MEDS ORDERED: OXYC-57 PO (15:35)
[2016-06-28] MEDS ORDERED: LORA-741 PO (15:35)
[2016-06-28] MEDS ORDERED: PANT40TA PO (15:35)
[2016-06-28] MEDS ORDERED: SACC250C PO (15:35)
[2016-06-28] MEDS ORDERED: APOMINJ SC (15:35)
[2016-06-28] MEDS ORDERED: ENTA200T PO (15:35)
[2016-06-28] MEDS ORDERED: TRIM300C14 PO (15:35)
[2016-07-15] MEDS ORDERED: PRED1SUS3 OPR (10:12)
[2016-07-15] MEDS ORDERED: GATI0.5S OPR (10:12)
[2016-07-15] MEDS ORDERED: BROM0.07 OPR (10:12)
[2016-07-19] MEDS ORDERED: OXYC-57 PO (09:51)
[2016-07-19] MEDS ORDERED: POLY335019 PO (09:51)
[2016-07-19] MEDS ORDERED: LORA-741 PO (09:51)
[2016-08-03] MEDS ORDERED: ERGO500037 PO (07:22)
[2016-08-03] MEDS ORDERED: LINA1CAP PO (07:22)
== END 2016-04-14 14:24 | disposition home health service (06) ==
LOC: ENRESERVDT → ENRESERVTM → EDBD 17:19 → C.EDB 17:20 → C.2E 21:40 → EDBEDREQ 21:44 → C.4E 04-09 12:52
PROVIDERS: ADMIT Internal Medicine; ATTEND Internal Medicine
DX: K29.50 Unspecified chronic gastritis without bleeding (principal); K59.00 Constipation, unspecified; R07.89 Other chest pain; R06.02 Shortness of breath; R19.5 Other fecal abnormalities; N47.1 Phimosis; I25.10 Atherosclerotic heart disease of native coronary artery without angina pectoris; E11.9 Type 2 diabetes mellitus without complications; K51.90 Ulcerative colitis, unspecified, without complications; I11.9 Hypertensive heart disease without heart failure; G20 Parkinson's disease; E78.5 Hyperlipidemia, unspecified; H40.9 Unspecified glaucoma; E11.40 Type 2 diabetes mellitus with diabetic neuropathy, unspecified; E66.01 Morbid (severe) obesity due to excess calories; N40.0 Benign prostatic hyperplasia without lower urinary tract symptoms; Z79.899 Other long term (current) drug therapy; Z79.4 Long term (current) use of insulin; Z79.82 Long term (current) use of aspirin; Z95.5 Presence of coronary angioplasty implant and graft; Z87.440 Personal history of urinary (tract) infections; Z86.19 Personal history of other infectious and parasitic diseases; Z87.19 Personal history of other diseases of the digestive system; Z68.33 Body mass index [BMI] 33.0-33.9, adult; Z86.14 Personal history of Methicillin resistant Staphylococcus aureus infection

== ENCOUNTER → 2016-06-03 | Outpatient (CLI) | payer BC ==
[~2016-06-03] MED LIST changes: +APOMINJ INJ; +APOMINJ SC; -ASPI81TA28 PO; +BACL10TA PO; +BCTCR/30 TD; +BROM0.07 OPR; +CRFUDL PO; +DOCU-94 PO; +ENTA200T PO; +ERGO500037 PO; +GATI0.5S OPR; +LINA1CAP PO; +LORA-741 PO; +ONDA4TAB46 PO; +OXYC-57 PO; +PANT40TA PO; +PRED1SUS3 OPR; +PRT40 PO; +TRIM300C14 PO; +TRMO115 TOP
[2016-06-03 14:51] LABS: BLOOD UREA NITROGEN 12 mg/dl (7-18); BUN/CREATININE RATIO 13.5 (10-20)
== END | disposition home or self-care (01) ==
LOC: C.LAB1850 12:02
PROVIDERS: ATTEND Urology
DX: R32 Unspecified urinary incontinence (principal)

== ENCOUNTER → 2016-07-01 | Outpatient (CLI) | payer BC ==
[~2016-07-01] MED LIST changes: -CRFUDL PO; -DOCU100C31 PO; -FERR325T5 PO; -LRS10 PO; -PRT40 PO; -RXC5 PO
[2016-07-02 06:32] LABS: ESTIMATED AVERAGE GLUCOSE 160 mg/dl; HA1C FLAG Normal (Normal)
== END | disposition home or self-care (01) ==
LOC: C.LAB1850 14:21
PROVIDERS: ATTEND Nurse Practitioner Adult Health
DX: E11.49 Type 2 diabetes mellitus with other diabetic neurological complication (principal); Z79.4 Long term (current) use of insulin

== ENCOUNTER → 2016-07-07 | Outpatient (CLI) | payer BC | END | disposition home or self-care (01) | LOC: C.LABSPEC 17:03 | PROVIDERS: ATTEND Urology | DX: R32 Unspecified urinary incontinence (principal) ==

== ENCOUNTER 2016-07-16 23:58 | Observation (INO) | payer BC ==
[~2016-07-16] VITALS: Ht 177.8 cm; Wt 112.3 kg
[~2016-07-16 23:58] MED LIST changes: -APOMINJ INJ; -BCTCR/30 TD; -CITA20TA4 PO; -ERGO500037 PO; -LINA1CAP PO; -TRMO115 TOP
--- NOTE | 2016-07-17 00:22 | EMERGENCY ROOM VISIT NOTE ---
History Report prepared by Candice: Oli Gillis Under the Supervision of: Dr. Micky Trujillo D.O. First contact with patient: 23:59 Chief Complaint: KNEEPAIN Stated Complaint: KNEE PAIN/WEAKNESS History of Present Illness The patient is a 75 year old male who presents to the Emergency Room via EMS with complaints of worsening bilateral knee pain that began 6 weeks ago. He rates his pain moderate in severity. The patient had cataract surgery yesterday , and noticed the pain had worsened after getting in and out of the car. He has not been walking much over this time secondary to increased weakness. He states that he has a history of diabetic neuropathy in his feet. He notes that he is mildly constipated and has been having trouble urinating. Source of History: patient Onset: 6 weeks ago Position: knee (bilateral) Symptom Intensity: moderate Quality: ache Timing: worsening Associated Symptoms: + urinary symptoms, + weakness Note: He has mild constipation. He denies any upper leg pain. Review of Systems See HPI for pertinent positives and negatives. A total of ten systems were reviewed and were otherwise negative. 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 Social History Smoking Status: Never Smoker Alcohol Use: none Drug Use: none Marital Status: Housing Status: lives with significant other Occupation Status: retired Current/Historical Medications Scheduled Amlodipine Besylate (Amlodipine Besylate), 10 MG PO QAM Baclofen (Lioresal), 10 MG PO TID Balsalazide (Colazal), 1,500 MG PO TID Bimatoprost (Lumigan), 1 DROP OPB HS Carbidopa/Levodopa (Sinemet 25MG/100MG), 2.5 TABS PO QID Carbidopa/Levodopa (Sinemet Cr 50MG/200MG), 1 TAB PO QAM Citalopram Hydrobromide (Citalopram Hydrobromide), 20 MG PO DAILY Donepezil HCl (Donepezil HCl), 10 MG PO HS Dutasteride (Dutasteride), 0.5 MG PO QPM Entacapone (Comtan), 200 MG PO QID Fentanyl (Duragesic), 50 MCG TD CQ72HR Fluticasone Propionate (Fluticasone Propionate), 2 SPRAYS FARHEEN QAM Gabapentin (Neurontin), 1,200 MG PO HS Gabapentin (Gabapentin), 600 MG PO QAM Gatifloxacin (Ophth) (Zymaxid), 1 DROPS OPR QID Gemfibrozil (Gemfibrozil), 600 MG PO BID Insulin Aspart (Novolog), 25 UNITS SQ WM Insulin Detemir (Levemir Flextouch), 45 UNITS SQ BID Lisinopril (Lisinopril), 10 MG PO QAM Magnesium Oxide (Mag-Ox), 400 MG PO BID Mirtazapine (Mirtazapine), 15 MG PO HS Multivitamin (Multivitamin), 1 TAB PO QAM Mupirocin 2% (Bactroban 2%), 1 APPLN TD TID Pantoprazole (Protonix), 40 MG PO BID Polyethylene Glycol 3350 (Miralax), 17 GM PO QAM Prednisolone Acetate (Ophth) (Pred Forte 1% Oph), 1 DROPS OPR QID Ranitidine HCl (Ranitidine HCl), 150 MG PO HS Ropinirole HCl (Ropinirole HCl), 0.25 MG PO TID Saccharomyces Boulardii (Florastor), 250 MG PO QAM Simvastatin (Simvastatin), 10 MG PO HS Tamsulosin HCl (Tamsulosin HCl), 0.8 MG PO HS Scheduled PRN Apomorphine Hydrochloride (Apokyn), 30 MG SC UD PRN for SHAKING Apomorphine Hydrochloride (Apokyn), 5 ML INJ DAILY PRN for PARKINSON'S Docusate Sodium (Colace), 100 MG PO BID PRN for Constipation Lorazepam (Ativan), 0.5-1 MG PO DAILY PRN for Anxiety Nitroglycerin (Nitrostat), 0.4 MG SL UD PRN for Chest Pain Ondansetron Hcl (Zofran), 4 MG PO QAM PRN for Nausea Oxycodone/Acetaminophen 5MG/325MG (Percocet 5MG/325MG), 1-2 TABS PO DAILY PRN for Pain Trimethobenzamide Hcl (Tigan), 1 CAP PO TID PRN for Nausea Miscellaneous Medications Bromfenac Sodium (Ophth) (Prolensa) Allergies Coded Allergies: Diclofenac (Verified Adverse Reaction, Unknown, RASH, 07/15/16) Isopropyl Alcohol (Verified Adverse Reaction, Unknown, RASH, 07/15/16) Propylene Glycol (Verified Adverse Reaction, Unknown, RASH, 07/15/16) Physical Exam Vital Signs Date Time Temp Pulse Resp B/P (MAP) Pulse Ox O2 Delivery O2 Flow Rate FiO2 07/17/16 00:26 97 Room Air 07/17/16 00:01 36.8 62 18 143/74 97 Room Air Physical Exam GENERAL: Awake, alert, well-appearing, in no distress HENT: Normocephalic, atraumatic. Oropharynx unremarkable. EYES: Normal conjunctiva. Sclera non-icteric. NECK: Supple. No nuchal rigidity. FROM. No JVD. RESPIRATORY: Clear to auscultation. CARDIAC: Regular rate, normal rhythm. Extremities warm and well perfused. Pulses equal. ABDOMEN: Soft, distended. No tenderness to palpation. No rebound or guarding. No masses. RECTAL: Deferred. MUSCULOSKELETAL: Chest examination reveals no tenderness. The back is symmetrical on inspection without obvious abnormality. There is no CVA tenderness to palpation. No joint edema. LOWER EXTREMITIES: Bilateral knees are in vijaya wraps. Right ankle is in a brace. He has weakness bilaterally. Mild 2+ pitting edema bilaterally. Calves are non- tender. No discoloration. Able to lift legs off of the bed and bend at the knees. NEURO: Normal sensorium. No sensory or motor deficits noted. SKIN: No rash or jaundice noted. Medical Decision & Procedures Laboratory Results 07/17/16 00:20 Red Blood Count 4.48, Mean Corpuscular Volume 92.6, Mean Corpuscular Hemoglobin 29.2, Mean Corpuscular Hemoglobin Concent 31.6, Mean Platelet Volume 9.8, Neutrophils (%) (Auto) 71.6, Lymphocytes (%) (Auto) 17.3, Monocytes (%) (Auto) 9.0, Eosinophils (%) (Auto) 1.6, Basophils (%) (Auto) 0.3, Neutrophils # (Auto) 6.20, Lymphocytes # (Auto) 1.50, Monocytes # (Auto) 0.78, Eosinophils # (Auto) 0.14, Basophils # (Auto) 0.03 07/17/16 00:20 Test 07/17/16 00:20 07/17/16 01:34 White Blood Count 8.67 K/uL (4.8-10.8) Red Blood Count 4.48 M/uL (4.7-6.1) Hemoglobin 13.1 g/dL (14.0-18.0) Hematocrit 41.5 % (42-52) Mean Corpuscular Volume 92.6 fL (80-100) Mean Corpuscular Hemoglobin 29.2 pg (25-34) Mean Corpuscular Hemoglobin Concent 31.6 g/dl (32-36) Platelet Count 262 K/uL (130-400) Mean Platelet Volume 9.8 fL (7.4-10.4) Neutrophils (%) (Auto) 71.6 % Lymphocytes (%) (Auto) 17.3 % Monocytes (%) (Auto) 9.0 % Eosinophils (%) (Auto) 1.6 % Basophils (%) (Auto) 0.3 % Neutrophils # (Auto) 6.20 K/uL (1.4-6.5) Lymphocytes # (Auto) 1.50 K/uL (1.2-3.4) Monocytes # (Auto) 0.78 K/uL (0.11-0.59) Eosinophils # (Auto) 0.14 K/uL (0-0.5) Basophils # (Auto) 0.03 K/uL (0-0.2) RDW Standard Deviation 41.8 fL (36.4-46.3) RDW Coefficient of Variation 12.4 % (11.5-14.5) Immature Granulocyte % (Auto) 0.2 % Immature Granulocyte # (Auto) 0.02 K/uL (0.00-0.02) Prothrombin Time 11.0 SECONDS (9.0-12.0) Prothromb Time International Ratio 1.0 (0.9-1.1) Activated Partial Thromboplast Time 25.1 SECONDS (21.0-31.0) Partial Thromboplastin Ratio 1.0 Anion Gap 9.0 mmol/L (3-11) Est Creatinine Clear Calc Drug Dose 96.8 ml/min Estimated GFR () 100.0 Estimated GFR (Non- 86.3 BUN/Creatinine Ratio 16.6 (10-20) Calcium Level 8.1 mg/dl (8.5-10.1) Magnesium Level 1.9 mg/dl (1.8-2.4) Total Bilirubin 0.3 mg/dl (0.2-1) Direct Bilirubin 0.1 mg/dl (0-0.2) Aspartate Amino Transf (AST/SGOT) 21 U/L (15-37) Alanine Aminotransferase (ALT/SGPT) 10 U/L (12-78) Alkaline Phosphatase 84 U/L (45-117) Total Protein 6.5 gm/dl (6.4-8.2) Albumin 3.3 gm/dl (3.4-5.0) Lipase 136 U/L (73-393) Thyroid Stimulating Hormone (TSH) 0.961 uIu/ml (0.300-4.500) Urine Color DK YELLOW Urine Appearance CLEAR (CLEAR) Urine pH 7.0 (4.5-7.5) Urine Specific [place] 1.011 (1.000-1.030) Urine Protein NEG (NEG) Urine Glucose (UA) NEG (NEG) Urine Ketones NEG (NEG) Urine Occult Blood NEG (NEG) Urine Nitrite NEG (NEG) Urine Bilirubin NEG (NEG) Urine Urobilinogen NEG (NEG) Urine Leukocyte Esterase NEG (NEG) Laboratory results reviewed by me ECG Indication: weakness Rate (beats per minute): 57 Rhythm: sinus bradycardia Findings: no acute ischemic change, other (Age undetermined inferior VA, normal axis, normal intervals) ED Course 235: The patient was evaluated in room B12B. A complete history and physical exam was performed. 0202: Upon reexamination, the patient was resting. I discussed the test results and treatment plan with him. The patient will be evaluated by Dr. Elio HAWLEY, for further management. Medical Decision Differential diagnoses include but are not limited to; electrolyte abnormality, diabetic neuropathy, deconditioning, and sciatica. Medication Reconciliation: I attest that I have personally reviewed the patient' s current medication list. Blood pressure screening: Patient was found to have normal blood pressure on screening and does not require follow-up Patient is having difficulty ambulating at home due to neuropathy and weakness in the legs. Patient is able to move his legs however states that he is weak. Patient has been in rehabilitation in the past and states he believes he needs rehabilitation as well as potential for skilled nursing admission due to the fact his cannot take care of him any further. Patient's case was discussed with amount in the hospitalist for admission at 2:05 AM. Consults Time Called: 0158 Consulting Physician: Dr. Elio HAWLEY Returned Call: [phone] He will be evaluating the patient for further care and management. Impression Primary Impression: Weakness Additional Impression: Neuropathy Scribe Attestation The scribe's documentation has been prepared under my direction and personally reviewed by me in its entirety. I confirm that the note above accurately reflects all work, treatment, procedures, and medical decision making performed by me. Departure Information Dispostion Being Evaluated By Hospitalist Referrals RV. Thornton MD (PCP) Patient Instructions My [facility] Problem Qualifiers
[2016-07-17 00:34] LABS: BASO % 0.3 %; BASO ABS # 0.03 K/uL (0-0.2); COMPLETE YES; EOS % 1.6 %; HEMATOCRIT 41.5 % (42-52); IG% 0.2 %; LYMPH % 17.3 %; MEAN CELL VOLUME 92.6 fL (80-100); MEAN CORPUSCULAR HEMOGLOBIN 29.2 pg (25-34); MEAN CORPUSCULAR HGB CONC 31.6 g/dl (32-36); MEAN PLATELET VOLUME 9.8 fL (7.4-10.4); NEUT % 71.6 %; PLATELET COUNT 262 K/uL (130-400); RED BLOOD COUNT 4.48 M/uL (4.7-6.1); WHITE BLOOD COUNT 8.67 K/uL (4.8-10.8)
[2016-07-17 00:51] LABS: BUN/CREATININE RATIO 16.6 (10-20); CALCIUM 8.1 mg/dl (8.5-10.1); CREATININE 0.84 mg/dl (0.60-1.40); MAGNESIUM 1.9 mg/dl (1.8-2.4); POTASSIUM 3.9 mmol/L (3.5-5.1)
[2016-07-17 01:02] LABS: THYROID STIMULATING HORMONE 0.961 uIu/ml (0.300-4.500)
[2016-07-17] MEDS ORDERED: APOMINJ INJ (01:29)
[2016-07-17] MEDS ORDERED: CITA20TA4 PO (01:38)
[2016-07-17] MEDS ORDERED: SACC250C PO (01:45)
[2016-07-17 01:48] LABS: URINE APPEARANCE CLEAR (CLEAR); URINE BILIRUBIN NEG (NEG); URINE COLOR DK YELLOW; URINE NITRITE NEG (NEG); URINE SPECIFIC GRAVITY 1.011 (1.000-1.030); UROBILINOGEN NEG (NEG)
[2016-07-17 01:54] LABS: MANUAL MICROSCOPIC REQUIRED? NO; REVIEW REQ? NO
[2016-07-17] MEDS ORDERED: BCTCR/30 TD (01:59)
[2016-07-17] MEDS ORDERED: TRMO115 TOP (02:10)
[2016-07-17] MEDS ORDERED: TRIM300C14 PO (02:14)
[2016-07-17] MEDS ORDERED: ACETAMINOPHEN 325 MG TAB PO PRN (05:15)
[2016-07-17] MEDS ORDERED: POLYETHYLENE (MIRALAX) 17 GM PACK PO PRN (05:15)
[2016-07-17] MEDS ORDERED: MAGNESIUM HYDROXIDE SUSP 30 ML UDC PO PRN (05:15)
[2016-07-17] MEDS ORDERED: ALUMINUM/MAGNESIUM/SIMETH (MAALOX MAX) 30 ML UDC PO PRN (05:15)
--- NOTE | 2016-07-17 05:17 | History and Physical ---
History & Physical Date & Time of Service: Jul 17, 2016 at 05:10 Chief Complaint: Knee Pain/Weakness Primary Care Physician: RV. Thornton MD History of Present Illness Source: patient 75 y/o M with an extensive medical history including UC, CAD, Parkinson's, morbid obesity, DM II, chronic generalized pain. Presents with progressive lower extremity weakness and resultant ambulatory dysfunction. He states he can normally ambulate with a walker although he also uses a wheelchair. He could not walk or transfer over the past day. He has a degree of generalized weakness as well and complains of pain in his LEs, penis and lower back. Approximately at midnight, the pt decided that he will be needing rehab and called EMS to arrange transport to the hospital. He denies CP, SOB, N/V/D, or fevers. Past Medical/Surgical History Medical Problems: (1) Cardiac stent placement Status: Resolved (2) Chronic acquired lymphedema Status: Chronic (3) Chronic UTI Status: Chronic (4) Colitis Status: Resolved (5) Coronary artery disease Status: Chronic (6) Diabetes mellitus type 2 Status: Chronic (7) Diverticulitis Status: Chronic (8) Glaucoma Status: Chronic (9) History of diverticulitis Status: Resolved (10) Hyperlipidemia Status: Chronic (11) Hypertension Status: Chronic (12) Hypertensive disorder, systemic arterial Status: Chronic (13) Morbid obesity Status: Chronic (14) Neuropathy Status: Chronic (15) Noninfectious gastroenteritis Status: Resolved (16) Urinary tract infection Status: Chronic Surgical Problems: (1) Stented coronary artery Status: Chronic Family History Patient reports no known family medical history. Noncontributory due to pts age Social History Smoking Status: Never Smoker Drug Use: none Marital Status: Housing status: lives with family Occupational Status: retired Immunizations History of Influenza Vaccine: Yes Influenza Vaccine Date: Nov 16, 2012 History of Tetanus Vaccine?: Yes Tetanus Immunization Date: Jul 30, 2010 History of Pneumococcal: Yes Pneumococcal Date: Jan 17, 2008 History of Hepatitis B Vaccine: No Multi-Drug Resistant Organisms History of MDRO: Yes Type of MDRO: MRSA Allergies Coded Allergies: Diclofenac (Verified Adverse Reaction, Unknown, RASH, 07/15/16) Isopropyl Alcohol (Verified Adverse Reaction, Unknown, RASH, 07/15/16) Propylene Glycol (Verified Adverse Reaction, Unknown, RASH, 07/15/16) Home Medications Scheduled Amlodipine Besylate (Amlodipine Besylate), 10 MG PO QAM Baclofen (Lioresal), 10 MG PO TID Balsalazide (Colazal), 1,500 MG PO TID Bromfenac Sodium (Ophth) (Prolensa), 1 DROP OPR DAILY Carbidopa/Levodopa (Sinemet 25MG/100MG), 2.5 TABS PO QID Carbidopa/Levodopa (Sinemet Cr 50MG/200MG), 1 TAB PO QAM Citalopram Hydrobromide (Citalopram Hydrobromide), 20 MG PO DAILY Donepezil HCl (Donepezil HCl), 10 MG PO HS Dutasteride (Dutasteride), 0.5 MG PO QPM Entacapone (Comtan), 200 MG PO QID Fentanyl (Duragesic), 50 MCG TD [id number] Fluticasone Propionate (Fluticasone Propionate), 2 SPRAYS FARHEEN QAM Gabapentin (Neurontin), 1,200 MG PO HS Gabapentin (Gabapentin), 600 MG PO QAM Gatifloxacin (Ophth) (Zymaxid), 1 DROP OPR TID Insulin Aspart (Novolog), 25 UNITS SQ WM Insulin Detemir (Levemir Flextouch), 45 UNITS SQ BID Lisinopril (Lisinopril), 10 MG PO QAM Magnesium Oxide (Mag-Ox), 400 MG PO BID Mirtazapine (Mirtazapine), 15 MG PO HS Multivitamin (Multivitamin), 1 TAB PO QAM Mupirocin 2% (Bactroban 2%), 1 APPLN TD TID Pantoprazole (Protonix), 40 MG PO BID Polyethylene Glycol 3350 (Miralax), 17 GM PO QAM Prednisolone Acetate (Ophth) (Pred Forte 1% Oph), 1 DROP OPR QID Ranitidine HCl (Ranitidine HCl), 150 MG PO HS Ropinirole HCl (Ropinirole HCl), 0.25 MG PO TID Saccharomyces Boulardii (Florastor), 250 MG PO QAM Simvastatin (Simvastatin), 10 MG PO HS Tamsulosin HCl (Tamsulosin HCl), 0.8 MG PO HS Triamcinolone Acet (Triamcinolone Acetonide), 1 APPLN TOP BID Scheduled PRN Apomorphine Hydrochloride (Apokyn), 5 ML INJ DAILY PRN for PARKINSON'S Docusate Sodium (Colace), 100 MG PO BID PRN for Constipation Lorazepam (Ativan), 0.5-1 MG PO DAILY PRN for Anxiety Nitroglycerin (Nitrostat), 0.4 MG SL UD PRN for Chest Pain Ondansetron Hcl (Zofran), 4 MG PO QAM PRN for Nausea Oxycodone/Acetaminophen 5MG/325MG (Percocet 5MG/325MG), 1-2 TABS PO DAILY PRN for Pain Trimethobenzamide Hcl (Tigan), 300 MG PO TID PRN for Nausea Review of Systems Constitutional: + weakness, + fatigue, No fever, No chills, No sweats Eyes: No worsening of vision, No eye pain ENT: No hearing loss, No unusual epistaxis, No nasal symptoms Respiratory: No cough, No sputum, No wheezing Cardiovascular: No chest pain, No orthopnea, No PND Abdomen: + pain (chronic), + nausea (chronic), No vomiting Musculoskeletal: No joint pain, No muscle pain Genitourinary - Male: No hematuria, No dysuria, No urinary frequency, No urinary urgency Neurologic: No memory loss, No paralysis, No weakness Psychiatric: No depression symptoms Endocrine: No fatigue Hematologic / Lymphatic: No abnormal bleeding/bruising Integumentary: No rash Allergic / Immunologic: No environmental allergies Physical Exam Vital Signs Date Time Temp Pulse Resp B/P (MAP) Pulse Ox O2 Delivery O2 Flow Rate FiO2 07/17/16 03:15 60 14 130/66 99 Room Air 07/17/16 02:10 61 18 137/68 95 Room Air 07/17/16 00:26 97 Room Air 07/17/16 00:01 36.8 62 18 143/74 97 Room Air General Appearance: WD/WN, no apparent distress Head: normocephalic, atraumatic Eyes: normal inspection, PERRL, EOMI ENT: normal ENT inspection, pharynx normal Neck: supple, no JVD Respiratory/Chest: chest non-tender, lungs clear, normal breath sounds, no respiratory distress, no accessory muscle use Cardiovascular: regular rate, rhythm, no edema, no gallop, no JVD, no murmur, normal peripheral pulses Abdomen/GI: normal bowel sounds, non tender, soft Genitourinary - Male: normal male genitalia, no genital lesions, no urethral discharge, + pertinent finding (Mild redness of the glans ) Back: normal inspection, no CVA tenderness, no muscle spasm, normal range of motion Extremities/Musculoskelatal: normal inspection, no calf tenderness, normal capillary refill, no pedal edema, normal range of motion Neurologic/Psych: telephone lines repairer II-XII nml as tested, no motor/sensory deficits, alert, oriented x 3 Skin: normal color, warm/dry, no rash Diagnostics Laboratory Results Results Past 24 Hours Test 07/17/16 00:20 07/17/16 01:34 Range/Units White Blood Count 8.67 4.8-10.8 K/uL Red Blood Count 4.48 4.7-6.1 M/uL Hemoglobin 13.1 14.0-18.0 g/dL Hematocrit 41.5 42-52 % Mean Corpuscular Volume 92.6 80-100 fL Mean Corpuscular Hemoglobin 29.2 25-34 pg Mean Corpuscular Hemoglobin Concent 31.6 32-36 g/dl Platelet Count 262 130-400 K/uL Mean Platelet Volume 9.8 7.4-10.4 fL Neutrophils (%) (Auto) 71.6 % Lymphocytes (%) (Auto) 17.3 % Monocytes (%) (Auto) 9.0 % Eosinophils (%) (Auto) 1.6 % Basophils (%) (Auto) 0.3 % Neutrophils # (Auto) 6.20 1.4-6.5 K/uL Lymphocytes # (Auto) 1.50 1.2-3.4 K/uL Monocytes # (Auto) 0.78 0.11-0.59 K/uL Eosinophils # (Auto) 0.14 0-0.5 K/uL Basophils # (Auto) 0.03 0-0.2 K/uL RDW Standard Deviation 41.8 36.4-46.3 fL RDW Coefficient of Variation 12.4 11.5-14.5 % Immature Granulocyte % (Auto) 0.2 % Immature Granulocyte # (Auto) 0.02 0.00-0.02 K/uL Prothrombin Time 11.0 9.0-12.0 SECONDS Prothromb Time International Ratio 1.0 0.9-1.1 Activated Partial Thromboplast Time 25.1 21.0-31.0 SECONDS Partial Thromboplastin Ratio 1.0 Sodium Level 143 136-145 mmol/L Potassium Level 3.9 3.5-5.1 mmol/L Chloride Level 107 98-107 mmol/L Carbon Dioxide Level 27 21-32 mmol/L Anion Gap 9.0 3-11 mmol/L Blood Urea Nitrogen 14 7-18 mg/dl Creatinine 0.84 0.60-1.40 mg/dl Est Creatinine Clear Calc Drug Dose 96.8 ml/min Estimated GFR () 100.0 Estimated GFR (Non- 86.3 BUN/Creatinine Ratio 16.6 10-20 Random Glucose 215 70-99 mg/dl Calcium Level 8.1 8.5-10.1 mg/dl Magnesium Level 1.9 1.8-2.4 mg/dl Total Bilirubin 0.3 0.2-1 mg/dl Direct Bilirubin 0.1 0-0.2 mg/dl Aspartate Amino Transf (AST/SGOT) 21 15-37 U/L Alanine Aminotransferase (ALT/SGPT) 10 12-78 U/L Alkaline Phosphatase 84 45-117 U/L Total Protein 6.5 6.4-8.2 gm/dl Albumin 3.3 3.4-5.0 gm/dl Lipase 136 73-393 U/L Thyroid Stimulating Hormone (TSH) 0.961 0.300-4.500 uIu/ml Urine Color DK YELLOW Urine Appearance CLEAR CLEAR Urine pH 7.0 4.5-7.5 Urine Specific [place] 1.011 1.000-1.030 Urine Protein NEG NEG Urine Glucose (UA) NEG NEG Urine Ketones NEG NEG Urine Occult Blood NEG NEG Urine Nitrite NEG NEG Urine Bilirubin NEG NEG Urine Urobilinogen NEG NEG Urine Leukocyte Esterase NEG NEG Microbiology Results 07/17/16 Urine Culture, Received Pending Impression Assessment and Plan 75 y/o M with an extensive medical history including UC, CAD, Parkinson's, morbid obesity, DM II, chronic generalized pain. Presents with progressive lower extremity weakness and resultant ambulatory dysfunction. He states he can normally ambulate with a walker although he also uses a wheelchair. He could not walk or transfer over the past day. He has a degree of generalized weakness as well and complains of pain in his LEs, penis and lower back. Approximately at midnight, the pt decided that he will be needing rehab and called EMS to arrange transport to the hospital. He denies CP, SOB, N/V/D, or fevers. 1) Generalized weakness and ambulatory dysfunction - We will consult PT, OT and case management. Etiology is unclear - may be due to progression of his Parkinson disease. He may in this case require permanent placement. There is no evidence of acute infectious etiology. 2) Parkinson - cont Sinemet, Entacapone 3) CAD - no evidence of ACS - NTG PRN, cont Statin 4) Chronic pain - cont Fantanyl TD and PRN Oxycodone. 5) DM - SS 6) UC - cont Balsalazide It is noted that the pt has an obscenely long medication list which deserves review and streamlining where possible - he may be suffering the effects of polypharmacy Full code - Heparin prophylaxis Total time for this admit including review of labs, meds, records - discussion with pt and ER attending - 37 min Level of Care Med/Surg Resuscitation Status FULL RESUSCITATION VTE Prophylaxis Given or contraindicated: Unfractionated heparin SQ
[2016-07-17] MEDS ORDERED: LORAZEPAM 0.5 MG TAB PO PRN (05:30)
[2016-07-17] MEDS ORDERED: NITROGLYCERIN 0.4 MG SL PER TAB CHARGE SL PRN (05:30)
[2016-07-17] MEDS ORDERED: IV FLUIDS COMPLETED PRN (05:30)
[2016-07-17] MEDS ORDERED: DOCUSATE SODIUM 100 MG CAP PO PRN (05:30)
[2016-07-17 06:36] VITALS: BP 141/75; PULSE 57; TEMP 36.7; O2SAT 96; Ht 177.8 cm; Wt 112.3 kg
[2016-07-17 07:32] VITALS: BP 159/71; PULSE 72; TEMP 36.7; O2SAT 96
[2016-07-17] MEDS ORDERED: PrednisoLONE ACET 1% OP SUSP 5 ML BTL OPR SCH (08:00)
[2016-07-17] MEDS ORDERED: GATIFLOXACIN 0.5% OP SOLN 2.5 ML BTL OPR SCH (08:00)
[2016-07-17] MEDS: AVODART~ORDER AWAITING ACTION SCH ×2 (08:41→16:00)
[2016-07-17] MEDS: CHECK FENTANYL PATCH PLACEMENT SCH ×2 (08:43→16:18)
[2016-07-17] MEDS: MUPIROCIN 2% OINT 22 GM TUBE EXT SCH ×3 (08:50→20:07)
[2016-07-17] MEDS: TRIAMCINOLONE ACET 0.1% OINT 15 GM TUBE TOP SCH ×2 (08:50→19:57)
[2016-07-17] MEDS: BACITRACIN OINT 15 GM TUBE EXT SCH (08:50)
[2016-07-17] MEDS: FLUTICASONE PROPIONATE NA SPR 16 GM BTL NAE SCH (08:50)
[2016-07-17] MEDS: LISINOPRIL 10 MG TAB PO SCH (08:51)
[2016-07-17] MEDS: ROPINIROLE HCL 0.25 MG TAB PO SCH ×3 (08:51→19:54)
[2016-07-17] MEDS: CARBIDOPA/LEVODOPA 50/200MG EXT REL TAB PO SCH (08:51)
[2016-07-17] MEDS: PANTOprazole SOD 40 MG TAB PO SCH ×2 (08:51→19:53)
[2016-07-17] MEDS: MAGNESIUM OXIDE 400 MG TAB PO SCH ×2 (08:52→19:55)
[2016-07-17] MEDS: GABAPENTIN 600 MG TAB PO SCH ×2 (08:52→20:14)
[2016-07-17] MEDS: BACLOFEN 10 MG TAB PO SCH ×3 (08:52→19:52)
[2016-07-17] MEDS: SACCHAROMYCES BOUL (FLORASTOR) 250 MG CAP PO SCH (08:52)
[2016-07-17] MEDS: AMLODIPINE BESYLATE 5 MG TAB PO SCH (08:52)
[2016-07-17] MEDS: PREDNISOLONE ACET 1% OPR SCH ×4 (08:53→20:08)
[2016-07-17] MEDS: CITALOPRAM 20 MG TAB PO SCH (08:53)
[2016-07-17] MEDS: ENTACAPONE 200 MG TAB PO SCH ×4 (08:53→19:50)
[2016-07-17] MEDS: PROLENSA 0.07% OP SCH (08:54)
[2016-07-17] MEDS: GATIFLOXACIN 0.5% OP SOLN 2.5 ML BTL OPR SCH ×3 (08:54→20:10)
[2016-07-17] MEDS: CARBIDOPA/LEVODOPA 25/100MG TAB PO SCH ×4 (08:55→19:55)
[2016-07-17] MEDS: INSULIN DETEMIR FLEXPEN/FLEX TOUCH 100 UNITS/ML 3ML SQ SCH ×2 (08:56→21:55)
[2016-07-17] MEDS ORDERED: PREDNISOLONE ACET 1% OPR SCH (09:00)
[2016-07-17] MEDS ORDERED: PHARMACY GLYCEMIC MGMT CONSULT PRN (12:15)
--- NOTE | 2016-07-17 12:46 | Pharmacy Progress Note ---
Glycemic Control Intl Consult Date of Service Jul 17, 2016. Scope Glycemic Pharmacist consulted by Dr Kimble on 07/17/16 for glycemic control and to write orders per [facility] inpatient glycemic control protocol Objective Weight (Kilograms): 112.300 Accuchecks BSG (last 24hrs): Test 07/17/16 00:20 07/17/16 07:46 07/17/16 11:33 Random Glucose 215 mg/dl (70-99) Bedside Glucose 129 mg/dl (70-99) 197 mg/dl (70-99) Laboratory Data (last 24hrs) Test 07/17/16 00:20 Anion Gap 9.0 mmol/L BUN/Creatinine Ratio 16.6 Blood Urea Nitrogen 14 mg/dl Creatinine 0.84 mg/dl Potassium Level 3.9 mmol/L Sodium Level 143 mmol/L White Blood Count 8.67 K/uL Red Blood Count 4.48 M/uL Hemoglobin 13.1 g/dL Hematocrit 41.5 % Mean Corpuscular Volume 92.6 fL Mean Corpuscular Hemoglobin 29.2 pg Mean Corpuscular Hemoglobin Concent 31.6 g/dl Platelet Count 262 K/uL Mean Platelet Volume 9.8 fL Neutrophils (%) (Auto) 71.6 % Lymphocytes (%) (Auto) 17.3 % Monocytes (%) (Auto) 9.0 % Eosinophils (%) (Auto) 1.6 % Basophils (%) (Auto) 0.3 % Neutrophils # (Auto) 6.20 K/uL Lymphocytes # (Auto) 1.50 K/uL Monocytes # (Auto) 0.78 K/uL Eosinophils # (Auto) 0.14 K/uL Basophils # (Auto) 0.03 K/uL HbA1c 7.2% 07/17/16 Recent Pertinent Medications Outpatient Anti-diabetic Regimen: * Levemir 45 units BID * Novolog 25 units SQ w/ each meal * A1c = 7.2 % 07/17/16 The patient is currently receiving: * Basal insulin: Levemir 45 units every 12 hours * Correctional Insulin: None currently * Prandial insulin: None currently * Oral Agents: None currently Risk Factors for Insulin Resistance: * Diet: ordered T2DM/AHA diet Assessment & Plan ASSESSMENT: 07/17/16: * Type 2 diabetic admitted w/ weakness and ambulatory dysfunction * His level of glycemic control prior to admission likely was near goal given recent A1c of 7.2% and current comorbidities * He appears 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 It is interesting to note that his level of insulin resistance has increased substantially over a period of 2 years...from requiring ~50-60 units per day to ~150 units/day on last admission. Out-pt regimen would provide ~165 units/day. * I agree with continuing the outpt Levemir regimen as ordered for time being, however if patient's diet is poor today we may need to reduce this dose by up to 20% as a precaution. * Will add a Novolog scale ACHS and based the CF and CR upon an anticipated total daily insulin requirement of ~100 units initially PLAN FOR INPATIENT GLYCEMIC CONTROL: * Continuing Levemir units 45 SQ BID * Novolog SQ ACHS * Correction factor 15 mg/dl/unit * Carb ratio 1 unit per 6 grams CHO consumed * Goal range Low 110 mg/dL - High 140 mg/dL * Please note that the plan above was derived based on current level of insulin resistance and hospital stress. These recommendations are appropriate for inpatient admission only. Plan of care upon discharge will need to be reassessed to avoid potential outpatient hypo/hyperglycemia. Thank you.
[2016-07-17] MEDS: INSULIN ASPART 100 UNITS/ML 3 ML PEN SC SCH ×3 (12:48→21:55)
[2016-07-17] MEDS: HEPARIN SOD 5000 UNIT/0.5 ML CARP SQ SCH ×2 (14:27→21:56)
[2016-07-17 15:20] VITALS: BP 152/72; PULSE 57; TEMP 36.7; O2SAT 94
--- NOTE | 2016-07-17 15:37 | Progress Note ---
Subjective Date of Service: Jul 17, 2016. Subjective Pt evaluation today including: conversation w/ patient, physical exam, chart review, lab review, review of studies, review of inpatient medication list Pain: pain is 2-3/10 mild Voiding: no voiding problems Pt is seen and examined by me, still feeling weak in his bilateral lower extremities and feeling that his lower extremities are stiff. Pt denies cp, sob , dizziness, and palpitation.Pt has good appetite and sleep. Problem List Medical Problems: (1) Abdominal bloating Status: Acute (2) Abdominal pain Status: Acute (3) Acute chest pain Status: Acute (4) Ambulatory dysfunction Status: Acute (5) C. difficile colitis Status: Acute (6) C. difficile colitis Status: Acute (7) Cephalalgia Status: Acute (8) Decubitus ulcer of sacral region, stage 1 Status: Acute (9) Dehydration Status: Acute (10) Diarrhea Status: Acute (11) Diarrhea Status: Acute (12) Gastritis Status: Acute (13) Hypomagnesemia Status: Acute (14) Intractable abdominal pain Status: Acute (15) Intractable abdominal pain Status: Acute (16) Leukocytosis Status: Acute (17) LLQ abdominal pain Status: Acute (18) LLQ abdominal pain Status: Acute (19) Neuropathy Status: Chronic (20) Pancolitis Status: Acute (21) Precordial chest pain Status: Acute (22) Precordial chest pain Status: Acute (23) Shortness of breath Status: Acute (24) Viral illness Status: Acute (25) Weakness Status: Acute (26) Weakness Status: Acute (27) Weakness Status: Acute (28) Weakness Status: Acute Review of Systems Constitutional: + weakness, + fatigue, No fever, No chills, No sweats Respiratory: No cough, No sputum, No wheezing Cardiovascular: No chest pain, No orthopnea, No PND Abdomen: + pain (chronic), + nausea (chronic), No vomiting Musculoskeletal: No joint pain, No muscle pain Genitourinary - Male: No hematuria, No dysuria, No urinary frequency, No urinary urgency Neurologic: No memory loss, No paralysis, No weakness Psychiatric: No depression symptoms Medications Medications (Trade) Dose Ordered Sig/Geovanny Route Start Time Stop Time Status Last Admin Dose Admin Heparin Sodium (Porcine) (Heparin Sq 5000 Unit/0.5ml) 5,000 unit Q8H SQ 07/17/16 14:00 08/16/16 13:59 07/17/16 14:27 5,000 UNIT Baclofen (Lioresal Tab) 10 mg TID PO 07/17/16 08:00 08/16/16 08:59 07/17/16 14:25 10 MG Carbidopa/Levodopa (Sinemet 25/ 100MG Tab) 1 tab QID PO 07/17/16 08:00 08/16/16 08:59 07/17/16 12:20 1 TAB Carbidopa/Levodopa (Sinemet Cr 50/ 200MG Tab) 1 tab QAM PO 07/17/16 08:00 08/16/16 08:59 07/17/16 08:51 1 TAB Citalopram Hydrobromide (celeXA TAB) 20 mg DAILY PO 07/17/16 08:00 08/16/16 08:59 07/17/16 08:53 20 MG Fluticasone Propionate (Flonase Nasal [place]) 2 sprays QAM FARHEEN 07/17/16 08:00 08/16/16 08:59 07/17/16 08:50 2 SPRAYS Gabapentin (Neurontin Tab) 600 mg QAM PO 07/17/16 08:00 08/16/16 08:59 07/17/16 08:52 600 MG Insulin Detemir (Levemir Flexpen/ FlexTouch) 45 unit BID SQ 07/17/16 08:00 08/16/16 08:59 07/17/16 08:56 45 UNIT Lisinopril (Zestril Tab) 10 mg QAM PO 07/17/16 08:00 08/16/16 08:59 07/17/16 08:51 10 MG Magnesium Oxide (Mag-Ox Tab) 400 mg BID PO 07/17/16 08:00 08/16/16 08:59 07/17/16 08:52 400 MG Pantoprazole Sodium (Protonix Tab) 40 mg BID PO 07/17/16 08:00 08/16/16 08:59 07/17/16 08:51 40 MG Ropinirole HCl (Requip Tab) 0.25 mg TID PO 07/17/16 08:00 08/16/16 08:59 07/17/16 14:25 0.25 MG Saccharomyces Boulardii (Florastor Cap) 250 mg QAM PO 07/17/16 08:00 08/16/16 08:59 07/17/16 08:52 250 MG Triamcinolone Acetonide (Kenalog 0.1% Oint) 1 appln BID TOP 07/17/16 08:00 08/16/16 08:59 07/17/16 08:50 1 APPLN Amlodipine Besylate (Norvasc Tab) 10 mg QAM PO 07/17/16 08:00 08/16/16 08:59 07/17/16 08:52 10 MG Entacapone (Comtan) 200 mg QID PO 07/17/16 08:00 08/16/16 08:59 07/17/16 12:20 200 MG Mupirocin (Bactroban 2% Oint) 1 appln TID EXT 07/17/16 08:00 08/16/16 07:59 07/17/16 14:25 1 APPLN Bacitracin (Bacitracin Oint) 1 appln DAILY EXT 07/17/16 08:00 08/16/16 08:59 07/17/16 08:50 1 APPLN Gatifloxacin (Zymaxid) 1 drops TID OPR 07/17/16 09:00 08/16/16 08:59 07/17/16 14:25 1 DROPS Prednisolone Acetate (Pred Forte 1% Oph Susp) 1 drops QID OPR 07/17/16 09:00 08/16/16 08:59 07/17/16 12:21 1 DROPS Non-Formulary Medication (Non-Formulary Patient'S Own Med) 1 ea DAILY OP 07/17/16 09:00 08/16/16 08:59 07/17/16 08:54 1 EA Insulin Aspart (novoLOG ASPART) SLIDING SCALE ACHS SC 07/17/16 12:30 08/16/16 12:29 07/17/16 12:48 13 UNITS Objective Vital Signs Date Time Temp Pulse Resp B/P (MAP) Pulse Ox O2 Delivery O2 Flow Rate FiO2 07/17/16 15:20 36.7 57 18 152/72 (98) 94 Room Air 07/17/16 08:15 Room Air 07/17/16 07:32 36.7 72 18 159/71 (100) 96 Room Air 07/17/16 06:36 36.7 57 20 141/75 96 Room Air 07/17/16 06:00 36.8 61 18 153/67 95 07/17/16 05:55 61 18 153/67 95 Room Air 07/17/16 03:15 60 14 130/66 99 Room Air 07/17/16 02:10 61 18 137/68 95 Room Air 07/17/16 00:26 97 Room Air 07/17/16 00:01 36.8 62 18 143/74 97 Room Air Physical Exam Comments: General Appearance: WD/WN, no apparent distress Head: normocephalic, atraumatic Neck: supple Respiratory/Chest: chest non-tender, lungs clear, normal breath sounds, no respiratory distress, no accessory muscle use Cardiovascular: regular rate, rhythm, no edema, no gallop, no JVD, no murmur, normal peripheral pulses Abdomen/GI: normal bowel sounds, non tender, soft Genitourinary - Male: normal male genitalia, no genital lesions, no urethral discharge, + pertinent finding (Mild redness of the glans ) Back: normal inspection, no CVA tenderness, no muscle spasm, normal range of motion Extremities/Musculoskelatal: normal inspection, no calf tenderness, normal capillary refill, no pedal edema, normal range of motion 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, no motor/sensory deficits, alert, oriented x 3 Skin: normal color, warm/dry, no rash Laboratory Results Last 24 Hours Test 07/17/16 00:20 07/17/16 01:34 07/17/16 07:46 07/17/16 11:33 White Blood Count 8.67 K/uL Red Blood Count 4.48 M/uL Hemoglobin 13.1 g/dL Hematocrit 41.5 % Mean Corpuscular Volume 92.6 fL Mean Corpuscular Hemoglobin 29.2 pg Mean Corpuscular Hemoglobin Concent 31.6 g/dl Platelet Count 262 K/uL Mean Platelet Volume 9.8 fL Neutrophils (%) (Auto) 71.6 % Lymphocytes (%) (Auto) 17.3 % Monocytes (%) (Auto) 9.0 % Eosinophils (%) (Auto) 1.6 % Basophils (%) (Auto) 0.3 % Neutrophils # (Auto) 6.20 K/uL Lymphocytes # (Auto) 1.50 K/uL Monocytes # (Auto) 0.78 K/uL Eosinophils # (Auto) 0.14 K/uL Basophils # (Auto) 0.03 K/uL RDW Standard Deviation 41.8 fL RDW Coefficient of Variation 12.4 % Immature Granulocyte % (Auto) 0.2 % Immature Granulocyte # (Auto) 0.02 K/uL Prothrombin Time 11.0 SECONDS Prothromb Time International Ratio 1.0 Activated Partial Thromboplast Time 25.1 SECONDS Partial Thromboplastin Ratio 1.0 Sodium Level 143 mmol/L Potassium Level 3.9 mmol/L Chloride Level 107 mmol/L Carbon Dioxide Level 27 mmol/L Anion Gap 9.0 mmol/L Blood Urea Nitrogen 14 mg/dl Creatinine 0.84 mg/dl Est Creatinine Clear Calc Drug Dose 96.8 ml/min Estimated GFR () 100.0 Estimated GFR (Non- 86.3 BUN/Creatinine Ratio 16.6 Random Glucose 215 mg/dl Calcium Level 8.1 mg/dl Magnesium Level 1.9 mg/dl Total Bilirubin 0.3 mg/dl Direct Bilirubin 0.1 mg/dl Aspartate Amino Transf (AST/SGOT) 21 U/L Alanine Aminotransferase (ALT/SGPT) 10 U/L Alkaline Phosphatase 84 U/L Total Protein 6.5 gm/dl Albumin 3.3 gm/dl Lipase 136 U/L Thyroid Stimulating Hormone (TSH) 0.961 uIu/ml Urine Color DK YELLOW Urine Appearance CLEAR Urine pH 7.0 Urine Specific [place] 1.011 Urine Protein NEG Urine Glucose (UA) NEG Urine Ketones NEG Urine Occult Blood NEG Urine Nitrite NEG Urine Bilirubin NEG Urine Urobilinogen NEG Urine Leukocyte Esterase NEG Bedside Glucose 129 mg/dl 197 mg/dl Assessment and Plan 75 y/o M with an extensive medical history including UC, CAD, Parkinson's, morbid obesity, DM II, chronic generalized pain. Presents with progressive lower extremity weakness and resultant ambulatory dysfunction. He states he can normally ambulate with a walker although he also uses a wheelchair. He could not walk or transfer over the past day. He has a degree of generalized weakness as well and complains of pain in his LEs, penis and lower back. Approximately at midnight, the pt decided that he will be needing rehab and called EMS to arrange transport to the hospital. He denies CP, SOB, N/V/D, or fevers. 1) Generalized weakness and ambulatory dysfunction - PT, OT and case management on case. Etiology is unclear - may be due to progression of his Parkinson disease. He may in this case require permanent placement. There is no evidence of acute infectious etiology. 2) Parkinson - cont Sinemet, Entacapone 3) CAD - no evidence of ACS - NTG PRN, cont Statin 4) Chronic pain - cont Fantanyl TD and PRN Oxycodone. 5) DM - as per Pharmacy. 6) UC - cont Balsalazide Full code - Heparin prophylaxis Continued [facility] stay due to: home environment unsafe for pt Discharge planning: [facility] facility
[2016-07-17] MEDS: ONDANSETRON INJ 2 MG/ML 2 ML VIAL IV PRN (19:46)
[2016-07-17] MEDS: MIRTAZAPINE TAB 15 MG TAB PO SCH (20:13)
[2016-07-17] MEDS: TAMSULOSIN HCL 0.4 MG CAP PO SCH (20:14)
[2016-07-17] MEDS: RANITIDINE HCL 150 MG TAB PO SCH (20:15)
[2016-07-17] MEDS: SIMVASTATIN 10 MG TAB PO SCH (20:15)
[2016-07-17] MEDS: DONEPEZIL HCL 10 MG TAB PO SCH (20:15)
[2016-07-17] MEDS: [UNRECOGNIZED DRUG - OTHER] SC PRN (22:04)
[2016-07-18 00:01] VITALS: BP 125/68; PULSE 54; TEMP 36.5; O2SAT 94
[2016-07-18] MEDS: HEPARIN SOD 5000 UNIT/0.5 ML CARP SQ SCH ×3 (05:55→21:02)
[2016-07-18 07:03] VITALS: BP 184/84; PULSE 51; TEMP 36.4; O2SAT 97
[2016-07-18] MEDS: AVODART~ORDER AWAITING ACTION SCH ×4 (08:00→23:57)
[2016-07-18] MEDS: MAGNESIUM OXIDE 400 MG TAB PO SCH ×2 (08:23→20:20)
[2016-07-18] MEDS: ENTACAPONE 200 MG TAB PO SCH ×4 (08:23→20:20)
[2016-07-18] MEDS: AMLODIPINE BESYLATE 5 MG TAB PO SCH (08:24)
[2016-07-18] MEDS: CARBIDOPA/LEVODOPA 25/100MG TAB PO SCH ×4 (08:24→20:19)
[2016-07-18] MEDS: GABAPENTIN 600 MG TAB PO SCH ×2 (08:24→20:54)
[2016-07-18] MEDS: CARBIDOPA/LEVODOPA 50/200MG EXT REL TAB PO SCH (08:24)
[2016-07-18] MEDS: BACLOFEN 10 MG TAB PO SCH ×3 (08:24→20:20)
[2016-07-18] MEDS: LISINOPRIL 10 MG TAB PO SCH (08:24)
[2016-07-18] MEDS: CITALOPRAM 20 MG TAB PO SCH (08:25)
[2016-07-18] MEDS: ROPINIROLE HCL 0.25 MG TAB PO SCH ×3 (08:25→20:21)
[2016-07-18] MEDS: SACCHAROMYCES BOUL (FLORASTOR) 250 MG CAP PO SCH (08:25)
[2016-07-18] MEDS: PANTOprazole SOD 40 MG TAB PO SCH ×2 (08:26→20:19)
[2016-07-18] MEDS: FLUTICASONE PROPIONATE NA SPR 16 GM BTL NAE SCH (08:26)
[2016-07-18] MEDS: GATIFLOXACIN 0.5% OP SOLN 2.5 ML BTL OPR SCH ×3 (08:26→20:18)
[2016-07-18] MEDS: PREDNISOLONE ACET 1% OPR SCH ×4 (08:26→20:18)
[2016-07-18] MEDS: TRIAMCINOLONE ACET 0.1% OINT 15 GM TUBE TOP SCH ×2 (08:27→20:50)
[2016-07-18] MEDS: CHECK FENTANYL PATCH PLACEMENT SCH ×3 (08:27→16:04)
[2016-07-18] MEDS: BACITRACIN OINT 15 GM TUBE EXT SCH (08:28)
[2016-07-18] MEDS: MUPIROCIN 2% OINT 22 GM TUBE EXT SCH ×3 (08:28→20:51)
[2016-07-18] MEDS: PROLENSA 0.07% OP SCH (08:28)
[2016-07-18] MEDS: [UNRECOGNIZED DRUG - OTHER] SC PRN ×2 (08:30→13:51)
[2016-07-18] MEDS: INSULIN ASPART 100 UNITS/ML 3 ML PEN SC SCH ×4 (08:33→20:56)
[2016-07-18] MEDS: INSULIN DETEMIR FLEXPEN/FLEX TOUCH 100 UNITS/ML 3ML SQ SCH ×2 (08:34→20:25)
--- NOTE | 2016-07-18 13:32 | Progress Note ---
Subjective Date of Service: Jul 18, 2016. Subjective Pt evaluation today including: conversation w/ patient, physical exam, chart review, lab review, review of studies, review of inpatient medication list Pain: no pain Voiding: no voiding problems Pt fail both physical and occupational therapy, and was recommended for inpatient rehab for both. Problem List Medical Problems: (1) Abdominal bloating Status: Acute (2) Abdominal pain Status: Acute (3) Acute chest pain Status: Acute (4) Ambulatory dysfunction Status: Acute (5) C. difficile colitis Status: Acute (6) C. difficile colitis Status: Acute (7) Cephalalgia Status: Acute (8) Decubitus ulcer of sacral region, stage 1 Status: Acute (9) Dehydration Status: Acute (10) Diarrhea Status: Acute (11) Diarrhea Status: Acute (12) Gastritis Status: Acute (13) Hypomagnesemia Status: Acute (14) Intractable abdominal pain Status: Acute (15) Intractable abdominal pain Status: Acute (16) Leukocytosis Status: Acute (17) LLQ abdominal pain Status: Acute (18) LLQ abdominal pain Status: Acute (19) Neuropathy Status: Chronic (20) Pancolitis Status: Acute (21) Precordial chest pain Status: Acute (22) Precordial chest pain Status: Acute (23) Shortness of breath Status: Acute (24) Viral illness Status: Acute (25) Weakness Status: Acute (26) Weakness Status: Acute (27) Weakness Status: Acute (28) Weakness Status: Acute Review of Systems All Other Systems: Reviewed and Negative Medications Medications (Trade) Dose Ordered Sig/Geovanny Route Start Time Stop Time Status Last Admin Dose Admin Heparin Sodium (Porcine) (Heparin Sq 5000 Unit/0.5ml) 5,000 unit Q8H SQ 07/17/16 14:00 08/16/16 13:59 07/18/16 05:55 5,000 UNIT Donepezil HCl (Aricept Tab) 10 mg HS PO 07/17/16 21:00 08/16/16 20:59 07/17/16 20:15 10 MG Gabapentin (Neurontin Tab) 1,200 mg HS PO 07/17/16 21:00 08/16/16 20:59 07/17/16 20:14 1,200 MG Mirtazapine (Remeron Tab) 15 mg HS PO 07/17/16 21:00 08/16/16 20:59 07/17/16 20:13 15 MG Ranitidine HCl (zANTac TAB) 150 mg HS PO 07/17/16 21:00 08/16/16 20:59 07/17/16 20:15 150 MG Simvastatin (Zocor Tab) 10 mg HS PO 07/17/16 21:00 08/16/16 20:59 07/17/16 20:15 10 MG Tamsulosin HCl (Flomax Cap) 0.8 mg HS PO 07/17/16 21:00 08/16/16 20:59 07/17/16 20:14 0.8 MG Objective Vital Signs Date Time Temp Pulse Resp B/P (MAP) Pulse Ox O2 Delivery O2 Flow Rate FiO2 07/18/16 08:00 Room Air 07/18/16 07:03 36.4 51 20 184/84 (117) 97 Room Air 07/18/16 00:01 36.5 54 20 125/68 (87) 94 Room Air 07/17/16 23:59 Room Air 07/17/16 20:00 Room Air 07/17/16 16:00 Room Air 07/17/16 15:20 36.7 57 18 152/72 (98) 94 Room Air Physical Exam General Appearance: no apparent distress Neck: supple Respiratory/Chest: chest non-tender, lungs clear, no respiratory distress Cardiovascular: regular rate, rhythm, no edema, no murmur Abdomen: normal bowel sounds, soft Extremities: non-tender, no pedal edema, no calf tenderness Neurologic/Psychiatric: alert, normal mood/affect, oriented x 3 Skin: no rash Lymphatic: no adenopathy Laboratory Results Last Resulted CBC 07/17/16 00:20 Red Blood Count 4.48, Mean Corpuscular Volume 92.6, Mean Corpuscular Hemoglobin 29.2, Mean Corpuscular Hemoglobin Concent 31.6, Mean Platelet Volume 9.8, Neutrophils (%) (Auto) 71.6, Lymphocytes (%) (Auto) 17.3, Monocytes (%) (Auto) 9.0, Eosinophils (%) (Auto) 1.6, Basophils (%) (Auto) 0.3, Neutrophils # (Auto) 6.20, Lymphocytes # (Auto) 1.50, Monocytes # (Auto) 0.78, Eosinophils # (Auto) 0.14, Basophils # (Auto) 0.03 Last Resulted BMP 07/17/16 00:20 Last 24 Hours Test 07/17/16 16:38 07/17/16 20:12 07/18/16 07:32 07/18/16 11:57 Bedside Glucose 195 mg/dl 169 mg/dl 125 mg/dl 231 mg/dl Assessment and Plan 75 y/o M with an extensive medical history including UC, CAD, Parkinson's, morbid obesity, DM II, chronic generalized pain. Presents with progressive lower extremity weakness and resultant ambulatory dysfunction. He states he can normally ambulate with a walker although he also uses a wheelchair. He could not walk or transfer over the past day. He has a degree of generalized weakness as well and complains of pain in his LEs, penis and lower back. Approximately at midnight, the pt decided that he will be needing rehab and called EMS to arrange transport to the hospital. He denies CP, SOB, N/V/D, or fevers. 1) Generalized weakness and ambulatory dysfunction - PT, OT and case management on case. Etiology is unclear - may be due to progression of his Parkinson disease. He may in this case require permanent placement. There is no evidence of acute infectious etiology. Case management provided pt with discharge choices. Pt is agreeable to a referral to [facility]. He states to me that he feels he may need permanent placement at this point as his is no longer able to care for him. Referral faxed to [facility]. Pt will need to participate in therapy and will need insurance authorization prior to transfer. Awaiting determination of acceptance. 2) Parkinson - cont Sinemet, Entacapone 3) CAD - no evidence of ACS - NTG PRN, cont Statin 4) Chronic pain - cont Fantanyl TD and PRN Oxycodone. 5) DM - as per Pharmacy. 6) UC - cont Balsalazide Full code - Heparin prophylaxis Continued [facility] stay due to: home environment unsafe for pt Discharge planning: fdc facility
[2016-07-18] MEDS: OXYCODONE/ACETAMINOPHEN 5-325 TAB PO PRN (13:49)
--- NOTE | 2016-07-18 14:18 | Pharmacy Progress Note ---
Glycemic Control: Progress Nt Date of Service Jul 18, 2016. Scope Glycemic Pharmacist consulted by Dr Kimble on 07/17/16 for glycemic control and to write orders per [facility] inpatient glycemic control protocol. Objective Accuchecks BSG (last 24hrs): Test 07/17/16 16:38 07/17/16 20:12 07/18/16 07:32 07/18/16 11:57 Bedside Glucose 195 mg/dl (70-99) 169 mg/dl (70-99) 125 mg/dl (70-99) 231 mg/dl (70-99) HbA1c: 7.2% 07/01/16 Recent Pertinent Medications Outpatient Anti-diabetic Regimen: * Levemir 45 units BID * Novolog 25 units SQ w/ each meal * A1c = 7.2 % 07/17/16 The patient is currently receiving: * Basal insulin: Levemir 45 units every 12 hours * Correctional Insulin: Novolog SQ ACHS Goal Range: 110 - 140mg/dL Correction Factor: 15mg/dL/unit * Prandial insulin: 1 unit per 6 grams CHO consumed * Oral Agents: None currently Risk Factors for Insulin Resistance: * Diet: ordered T2DM/AHA diet Assessment & Plan ASSESSMENT: 07/17/16: * Type 2 diabetic admitted w/ weakness and ambulatory dysfunction * His level of glycemic control prior to admission likely was near goal given recent A1c of 7.2% and current comorbidities * He appears 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 It is interesting to note that his level of insulin resistance has increased substantially over a period of 2 years...from requiring ~50-60 units per day to ~150 units/day on last admission. Out-pt regimen would provide ~165 units/day. * I agree with continuing the outpt Levemir regimen as ordered for time being, however if patient's diet is poor today we may need to reduce this dose by up to 20% as a precaution. * Will add a Novolog scale ACHS and based the CF and CR upon an anticipated total daily insulin requirement of ~100 units initially 07/18/16 * Glycemic control fairly good for the first 24 hr of hospitalization; BSGs had ranged 129-197 over the last 24 hrs, but did jump to 231 pre-lunch today * Fasting BSG at goal this AM (FBS 125) with 90 units Levemir on board (home dose). Plan to continue with the same dose another 24 hrs given good PO intake. * Post-prandial BSGs mildly elevated yesterday, however jumped significantly after lunch today. Of note, he has required larger prandial insulin doses on prior hospitalizations, also his home prandial insulin dose is quite large. Will adjust the Novolog order to allow for larger prandial doses. PLAN FOR INPATIENT GLYCEMIC CONTROL: * Continuing Levemir units 45 SQ BID * Changing correction factor to 12 mg/dl/unit * Changing carb ratio to 1 unit per 4 grams CHO consumed * Continue goal range Low 110 mg/dL - High 140 mg/dL * Please note that the plan above was derived based on current level of insulin resistance and hospital stress. These recommendations are appropriate for inpatient admission only. Plan of care upon discharge will need to be reassessed to avoid potential outpatient hypo/hyperglycemia. Thank you.
[2016-07-18 15:57] VITALS: BP 143/62; PULSE 60; TEMP 36.5; O2SAT 98
[2016-07-18] MEDS: ONDANSETRON INJ 2 MG/ML 2 ML VIAL IV PRN (17:34)
[2016-07-18] MEDS: SIMVASTATIN 10 MG TAB PO SCH (20:51)
[2016-07-18] MEDS: RANITIDINE HCL 150 MG TAB PO SCH (20:51)
[2016-07-18] MEDS: DONEPEZIL HCL 10 MG TAB PO SCH (20:51)
[2016-07-18] MEDS: MIRTAZAPINE TAB 15 MG TAB PO SCH (20:52)
[2016-07-18] MEDS: TAMSULOSIN HCL 0.4 MG CAP PO SCH (20:53)
[2016-07-18] MEDS ORDERED: FENTANYL PATCH REMOVE & WASTE SCH (20:59)
[2016-07-18] MEDS ORDERED: FENTANYL 50 MCG/HR TDSY TD SCH (21:00)
[2016-07-18 23:44] VITALS: BP 150/75; PULSE 54; TEMP 36.6; O2SAT 95
[2016-07-19] MEDS: CHECK FENTANYL PATCH PLACEMENT SCH ×2 (00:02→08:18)
[2016-07-19] MEDS: HEPARIN SOD 5000 UNIT/0.5 ML CARP SQ SCH ×2 (05:40→14:59)
[2016-07-19] MEDS: [UNRECOGNIZED DRUG - OTHER] SC PRN ×2 (05:46→16:02)
[2016-07-19 07:12] VITALS: BP 165/74; PULSE 56; TEMP 36.5; O2SAT 94
[2016-07-19] MEDS: MUPIROCIN 2% OINT 22 GM TUBE EXT SCH ×2 (08:16→15:53)
[2016-07-19] MEDS: BACITRACIN OINT 15 GM TUBE EXT SCH (08:17)
[2016-07-19] MEDS: BACLOFEN 10 MG TAB PO SCH ×2 (08:18→15:52)
[2016-07-19] MEDS: PANTOprazole SOD 40 MG TAB PO SCH (08:18)
[2016-07-19] MEDS: AMLODIPINE BESYLATE 5 MG TAB PO SCH (08:18)
[2016-07-19] MEDS: SACCHAROMYCES BOUL (FLORASTOR) 250 MG CAP PO SCH (08:19)
[2016-07-19] MEDS: ENTACAPONE 200 MG TAB PO SCH ×2 (08:19→12:39)
[2016-07-19] MEDS: GABAPENTIN 600 MG TAB PO SCH (08:19)
[2016-07-19] MEDS: MAGNESIUM OXIDE 400 MG TAB PO SCH (08:19)
[2016-07-19] MEDS: CARBIDOPA/LEVODOPA 25/100MG TAB PO SCH ×2 (08:19→12:39)
[2016-07-19] MEDS: CARBIDOPA/LEVODOPA 50/200MG EXT REL TAB PO SCH (08:20)
[2016-07-19] MEDS: ROPINIROLE HCL 0.25 MG TAB PO SCH ×2 (08:20→15:52)
[2016-07-19] MEDS: LISINOPRIL 10 MG TAB PO SCH (08:20)
[2016-07-19] MEDS: CITALOPRAM 20 MG TAB PO SCH (08:20)
[2016-07-19] MEDS: TRIAMCINOLONE ACET 0.1% OINT 15 GM TUBE TOP SCH (08:21)
[2016-07-19] MEDS: FLUTICASONE PROPIONATE NA SPR 16 GM BTL NAE SCH (08:22)
[2016-07-19] MEDS: PREDNISOLONE ACET 1% OPR SCH ×2 (08:22→12:40)
[2016-07-19] MEDS: PROLENSA 0.07% OP SCH (08:24)
[2016-07-19] MEDS: GATIFLOXACIN 0.5% OP SOLN 2.5 ML BTL OPR SCH ×2 (08:25→15:51)
[2016-07-19 08:30] VITALS: O2SAT 94
[2016-07-19] MEDS: OXYCODONE/ACETAMINOPHEN 5-325 TAB PO PRN (08:35)
[2016-07-19] MEDS: AVODART~ORDER AWAITING ACTION SCH (08:46)
[2016-07-19] MEDS: INSULIN ASPART 100 UNITS/ML 3 ML PEN SC SCH ×2 (09:10→12:47)
[2016-07-19] MEDS: INSULIN DETEMIR FLEXPEN/FLEX TOUCH 100 UNITS/ML 3ML SQ SCH (09:11)
[2016-07-19] MEDS ORDERED: POLYETHYLENE (MIRALAX) 17 GM PACK PO ONE (09:45)
[2016-07-19] MEDS ORDERED: LORA-741 PO (09:51)
[2016-07-19] MEDS ORDERED: OXYC-57 PO (09:51)
[2016-07-19] MEDS ORDERED: POLY335019 PO (09:51)
--- NOTE | 2016-07-19 09:55 | Discharge Instructions ---
Discharge Instructions Date of Service Jul 19, 2016. Admission Reason for Admission: Gait Abnormality, Generalized Weakness Discharge Discharge Diagnosis / Problem: weakness, deconditioning, chronic pain Discharge Goals Goal(s): Improve function, Increase independence, Therapeutic intervention Activity Recommendations Activity Level: Assistance Required Therapies: Physical Therapy, Occupational Therapy . Additional Information Patient informed of condition: Yes Advance Directives: Yes DNR: No Level of Care: Skilled Communicable Disease: Yes (contact for MRSA) Prognosis: Stable Current Hospital Diet Patient's current hospital diet: AHA Diet (Heart Healthy), Diabetes Type 2 Diet Discharge Diet Recommended Diet: AHA Diet (Heart Healthy), Diabetes Type 2 Diet Pending Studies Studies pending at discharge: no Laboratory Results Hemoglobin A1c Test 07/01/16 14:26 Range/Units Estimated Average Glucose 160 mg/dl Hemoglobin A1c 7.2 H 4.5-5.6 % Medical Emergencies . Who to Call and When: Medical Emergencies: If at any time you feel your situation is an emergency, please call 911 immediately. . Non-Emergent Contact Non-Emergency issues call your: Primary Care Provider . . "Provider Documentation" section prepared by Charlie Guzman. . Core Measure Problem Core Measures: None
[2016-07-19 13:56] VITALS: BP 165/74; PULSE 56; TEMP 36.5; O2SAT 94
--- NOTE | 2016-07-19 18:09 | Discharge Summary ---
Discharge Summary Date of Service Jul 19, 2016. Discharge Summary Admission Date: Jul 17, 2016 at 05:20 Discharge Date: Jul 19, 2016 Discharge Disposition: longterm facility Principal Diagnosis: weakness Problems/Secondary Diagnoses: (1) Neuropathy Status: Chronic Immunizations: Have You Had Influenza Vaccine: Yes Influenza Vaccine Date: Nov 16, 2012 History of Tetanus Vaccine?: Yes Tetanus Immunization Date: Jul 30, 2010 History of Pneumococcal: Yes Pneumococcal Date: Jan 17, 2008 History of Hepatitis B Vaccine: No Discharge Exam Physical Exam: General Appearance: no apparent distress Eyes: EOMI ENT: hearing grossly normal Neck: trachea midline Respiratory/Chest: no respiratory distress, no accessory muscle use Abdomen / GI: non tender (mildly distended), soft Extremities: normal inspection 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 Presents with progressive lower extremity weakness and resultant ambulatory dysfunction. He states he can normally ambulate with a walker although he also uses a wheelchair. He could not walk or transfer over the past day. He has a degree of generalized weakness as well and complains of pain in his LEs, penis and lower back. Approximately at midnight, the pt decided that he will be needing rehab and called EMS to arrange transport to the hospital. He denies CP, SOB, N/V/D, or fevers. 1) Generalized weakness and ambulatory dysfunction - PT, OT and case management on case. Etiology is unclear - may be due to progression of his Parkinson disease vs deconditioning vs both. He may in this case require permanent placement. There is no evidence of acute infectious etiology. Case management provided pt with discharge choices. Pt is agreeable to a referral to [facility]. He states to me that he feels he may need permanent placement at this point as his is no longer able to care for him. Referral faxed to [facility]. Pt will need to participate in therapy and will need insurance authorization prior to transfer. Awaiting determination of acceptance. 2) Parkinson - cont Sinemet, Entacapone 3) CAD - no evidence of ACS - NTG PRN, cont Statin 4) Chronic pain - cont Fantanyl TD and PRN Oxycodone. 5) DM - as per Pharmacy. 6) UC - cont Balsalazide 7) abdominal pain - most c/w constipation - miralax 17g daily (hold for loose stools) and additional dose if needed for BM Full code - Heparin prophylaxis Total Time Spent: Less than 30 minutes This includes examination of the patient, discharge planning, medication reconciliation, and communication with other providers. Discharge Instructions Please refer to the electronic Patient Visit Report (Discharge Instructions) for additional information. Additional Copies To [place] [place]
[2016-08-03] MEDS ORDERED: ERGO500037 PO (07:22)
[2016-08-03] MEDS ORDERED: LINA1CAP PO (07:22)
== END 2016-07-19 16:45 ==
LOC: EDBD 23:58 → C.EDB 23:58 → C.4E 07-17 05:20 → EDBEDREQ 07-17 05:24 → ENRESERV 07-17 05:36
PROVIDERS: ADMIT Internal Medicine; ATTEND Family Medicine
DX: R53.1 Weakness (principal); G62.9 Polyneuropathy, unspecified; I25.10 Atherosclerotic heart disease of native coronary artery without angina pectoris; G20 Parkinson's disease; E11.9 Type 2 diabetes mellitus without complications; G89.29 Other chronic pain; K51.90 Ulcerative colitis, unspecified, without complications; H40.9 Unspecified glaucoma; E78.5 Hyperlipidemia, unspecified; I10 Essential (primary) hypertension; E66.01 Morbid (severe) obesity due to excess calories; Z98.49 Cataract extraction status, unspecified eye; Z79.899 Other long term (current) drug therapy; Z79.4 Long term (current) use of insulin

== ENCOUNTER → 2016-07-22 | Outpatient (CLI) | payer BC ==
[~2016-07-22] MED LIST changes: +APOMINJ INJ; -APOMINJ SC; +BCTCR/30 TD; -BIMA0.01 OPB; +CITA20TA4 PO; +ERGO500037 PO; +LINA1CAP PO; -LPD600 PO; +TRMO115 TOP
[2016-07-22 09:21] LABS: CREATININE 0.87 mg/dl (0.60-1.40)
== END ==
LOC: C.LABCC 08:11
PROVIDERS: ATTEND Internal Medicine
DX: R53.1 Weakness (principal); Z51.81 Encounter for therapeutic drug level monitoring; Z79.899 Other long term (current) drug therapy

== ENCOUNTER → 2016-08-19 | Day surgery (SDC) | payer BC ==
[2016-07-30 13:25] VITALS: Ht 177.8 cm; Wt 108.2 kg
--- NOTE | 2016-08-03 11:14 | PAT Medication Instructions ---
Service Date Aug 03, 2016. Current Home Medication List Amlodipine Besylate (Amlodipine Besylate), 10 MG PO QAM Apomorphine Hydrochloride (Apokyn), 0.3 ML INJ DAILY PRN for PARKINSON'S Baclofen (Lioresal), 10 MG PO TID Balsalazide (Colazal), 1,500 MG PO TID Bromfenac Sodium (Ophth) (Prolensa), 1 DROP OPR DAILY Carbidopa/Levodopa (Sinemet 25MG/100MG), 2.5 TABS PO QID Carbidopa/Levodopa (Sinemet Cr 50MG/200MG), 1 TAB PO QAM Citalopram Hydrobromide (Citalopram Hydrobromide), 20 MG PO DAILY Docusate Sodium (Colace), 100 MG PO BID PRN for Constipation Donepezil HCl (Donepezil HCl), 10 MG PO HS Dutasteride (Dutasteride), 0.5 MG PO QPM Entacapone (Comtan), 200 MG PO QID Ergocalciferol (Vitamin D 75777 Unit), 50,000 UNIT PO WK Fentanyl (Duragesic), 50 MCG TD CQ72HR Fluticasone Propionate (Fluticasone Propionate), 2 SPRAYS FARHEEN QAM Gabapentin (Neurontin), 1,200 MG PO HS Gabapentin (Gabapentin), 600 MG PO QAM Gatifloxacin (Ophth) (Zymaxid), 1 DROP OPR TID Insulin Aspart (Novolog), 25 UNITS SQ WM Insulin Detemir (Levemir Flextouch), 45 UNITS SQ BID Linaclotide (Linzess), 1 CAP PO QAM Lisinopril (Lisinopril), 10 MG PO QAM Lorazepam (Ativan), 0.5 MG PO DAILY PRN for Anxiety Magnesium Oxide (Mag-Ox), 400 MG PO BID Mirtazapine (Mirtazapine), 15 MG PO HS Multivitamin (Multivitamin), 1 TAB PO QAM Mupirocin 2% (Bactroban 2%), 1 APPLN TD TID Nitroglycerin (Nitrostat), 0.4 MG SL UD PRN for Chest Pain Ondansetron Hcl (Zofran), 4 MG PO QAM PRN for Nausea Oxycodone/Acetaminophen 5MG/325MG (Percocet 5MG/325MG), 1 TABS PO DAILY PRN for Pain Pantoprazole (Protonix), 40 MG PO BID Polyethylene Glycol 3350 (Miralax), 17 GM PO QAM Prednisolone Acetate (Ophth) (Pred Forte 1% Oph), 1 DROP OPR QID Ranitidine HCl (Ranitidine HCl), 150 MG PO HS Ropinirole HCl (Ropinirole HCl), 0.25 MG PO TID Saccharomyces Boulardii (Florastor), 250 MG PO QAM Simvastatin (Simvastatin), 10 MG PO HS Tamsulosin HCl (Tamsulosin HCl), 0.8 MG PO HS Triamcinolone Acet (Triamcinolone Acetonide), 1 APPLN TOP BID Trimethobenzamide Hcl (Tigan), 300 MG PO TID PRN for Nausea Medication Instructions For Your Scheduled Surgery - Check with surgeon for instructions: Bromfenac Sodium (Ophth) (Prolensa), 1 DROP OPR DAILY Gatifloxacin (Ophth) (Zymaxid), 1 DROP OPR TID Prednisolone Acetate (Ophth) (Pred Forte 1% Oph), 1 DROP OPR QID - Continue as directed: Nitroglycerin (Nitrostat), 0.4 MG SL UD PRN for Chest Pain Fentanyl (Duragesic), 50 MCG TD CQ72HR - Do not take after NOON the day prior to surgery OR the morning of surgery: Ropinirole HCl (Ropinirole HCl), 0.25 MG PO TID - Hold the following medications 24 hours prior to surgery: Mupirocin 2% (Bactroban 2%), 1 APPLN TD TID Triamcinolone Acet (Triamcinolone Acetonide), 1 APPLN TOP BID - Hold the following medications the morning of surgery: Apomorphine Hydrochloride (Apokyn), 0.3 ML INJ DAILY PRN for PARKINSON'S Baclofen (Lioresal), 10 MG PO TID Lisinopril (Lisinopril), 10 MG PO QAM Insulin Aspart (Novolog), 25 UNITS SQ WM Docusate Sodium (Colace), 100 MG PO BID PRN for Constipation Magnesium Oxide (Mag-Ox), 400 MG PO BID Linaclotide (Linzess), 1 CAP PO QAM Multivitamin (Multivitamin), 1 TAB PO QAM Polyethylene Glycol 3350 (Miralax), 17 GM PO QAM Saccharomyces Boulardii (Florastor), 250 MG PO QAM Ergocalciferol (Vitamin D 21274 Unit), 50,000 UNIT PO WK - Take the following medications the morning of surgery with a sip of water OTHERWISE NOTHING TO EAT OR DRINK AFTER MIDNIGHT: Fluticasone Propionate (Fluticasone Propionate), 2 SPRAYS FARHEEN QAM Gabapentin (Gabapentin), 600 MG PO QAM Amlodipine Besylate (Amlodipine Besylate), 10 MG PO QAM Carbidopa/Levodopa (Sinemet Cr 50MG/200MG), 1 TAB PO QAM Carbidopa/Levodopa (Sinemet 25MG/100MG), 2.5 TABS PO QID Balsalazide (Colazal), 1,500 MG PO TID Citalopram Hydrobromide (Citalopram Hydrobromide), 20 MG PO DAILY Oxycodone/Acetaminophen 5MG/325MG (Percocet 5MG/325MG), 1 TABS PO DAILY PRN for Pain (may take if needed up to 4 hours prior to surgery) Pantoprazole (Protonix), 40 MG PO BID Entacapone (Comtan), 200 MG PO QID Lorazepam (Ativan), 0.5 MG PO DAILY PRN for Anxiety Trimethobenzamide Hcl (Tigan), 300 MG PO TID PRN for Nausea Ondansetron Hcl (Zofran), 4 MG PO QAM PRN for Nausea - For Insulin Dependent Diabetic patients: Test blood sugar A.M. of surgery. - If Blood Sugar is GREATER THAN 150, take half of your regular dose of: Insulin Detemir (Levemir Flextouch) - If Blood Sugar is LESS THAN 150, do not take any: Insulin Detemir ( Levemir Flextouch) - Take the following medications as scheduled the night before surgery: Donepezil HCl (Donepezil HCl), 10 MG PO HS Dutasteride (Dutasteride), 0.5 MG PO QPM Gabapentin (Neurontin), 1,200 MG PO HS Ranitidine HCl (Ranitidine HCl), 150 MG PO HS Simvastatin (Simvastatin), 10 MG PO HS Tamsulosin HCl (Tamsulosin HCl), 0.8 MG PO HS Baclofen (Lioresal), 10 MG PO TID Carbidopa/Levodopa (Sinemet 25MG/100MG), 2.5 TABS PO QID Balsalazide (Colazal), 1,500 MG PO TID Insulin Aspart (Novolog), 25 UNITS SQ WM Insulin Detemir (Levemir Flextouch), 45 UNITS SQ BID Oxycodone/Acetaminophen 5MG/325MG (Percocet 5MG/325MG), 1 TABS PO DAILY PRN for Pain Pantoprazole (Protonix), 40 MG PO BID Entacapone (Comtan), 200 MG PO QID Docusate Sodium (Colace), 100 MG PO BID PRN for Constipation Magnesium Oxide (Mag-Ox), 400 MG PO BID Lorazepam (Ativan), 0.5 MG PO DAILY PRN for Anxiety Trimethobenzamide Hcl (Tigan), 300 MG PO TID PRN for Nausea Mirtazapine (Mirtazapine), 15 MG PO HS If you have any questions please call us at [phone] or [phone] or [phone]
[~2016-08-19] VITALS: Ht 177.8 cm; Wt 108.2 kg
[~2016-08-19] MED LIST changes: +500ML BSS 0.3ML EPI 1:1000PF IRRIG ONE; +ACETAMINOPHEN 325 MG TAB PO PRN; +AMVISC PLUS 0.8ML SYRINGE INT OCU ONE; +ATROPINE SULFATE 0.1 MG/ML 5ML SYR IV PRN; +BSS FLUSH ONE; +EpHEDrine SULFATE INJ 50 MG/ML AMP IV PRN; +EpINEphrine INJ 1MG/ML AMP 1 MG/ML AMP ONE; +LACTATED RINGER'S 1000ML 500 ML IV SCH; +LIDOCAINE 3.5% OPH GEL PER APPLICATION CHARGE ONE; +LIDOCAINE HCL 1% MPF 2 ML VIAL ONE; +MIDAZOLAM HCL 1 MG/ML 2ML VIAL ONE; +OCUCOAT 1 ML SOLN IO ONE; +ONDANSETRON INJ 2 MG/ML 2 ML VIAL IV PRN; +PHENYLEPHRINE HCL 10% OP SOLN PER DROP CHARGE OPL SCH; +POVIDONE-IODINE OP SOLN 30 ML BTL ONE; +PROPARACAINE 0.5% OP SOLN PER DROP CHARGE OPL SCH; +TOBRAMYCIN/DEXAMETHASONE OPH OINT PER APPLN CHARGE ONE
[2016-08-19] MEDS: PHENYLEPHRINE HCL 2.5% OP SOLN PER DROP CHARGE OPL SCH ×2 (06:47→07:04)
[2016-08-19] MEDS: TROPICAMIDE 1% OP SOLN PER DROP CHARGE OPL SCH ×2 (06:49→07:05)
[2016-08-19] MEDS: CYCLOPENTOLATE HCL 1% OP SOLN PER DROP CHARGE OPL SCH ×2 (06:50→07:06)
[2016-08-19] MEDS: KETOROLAC 0.5% OP SOLN PER DROP CHARGE OPL SCH ×2 (06:52→07:09)
[2016-08-19] MEDS: GATIFLOXACIN OP SOLN PER DROP CHARGE OPL SCH ×2 (06:54→07:11)
--- NOTE | 2016-08-19 06:56 | History & Physical Bridge - SC ---
H&P Re-Evaluation Bridge Note: I have examined the patient, reviewed the History & Physical and in the interval since the performance of the History & Physical I have noted the following changes of clinical significance: No changes noted
--- NOTE | 2016-08-19 07:54 | Discharge Instructions-SurgCtr ---
Discharge Instructions Date of Service Aug 19, 2016. Visit Reason for Visit: Cataract Left Eye Discharge Discharge Diagnosis / Problem: cataract Discharge Goals Goal(s): Improve function Activity Recommendations Activity Limitations: per Instructions/Follow-up section Anesthesia . Post Anesthesia Instructions: If you have had General Anesthesia or IV Sedation: * Do not drive today. * Resume driving when surgeon permits. * Do not make important decisions or sign legal documents today. * Call surgeon for: 1. Temperature elevations greater than 101 degrees F. 2. Uncontrollable pain. 3. Excessive bleeding. 4. Persistent nausea and vomiting. 5. Medication intolerance (nausea, vomiting or rash). * For nausea and vomiting use only clear liquids such as: tea, soda, bouillon until nausea subsides, then gradually increase diet as tolerated. * If you have any concerns or questions, call your surgeon's office. If physician is unavailable and it is an emergency, call 911 or go to the nearest emergency room. . Instructions / Follow-Up Instructions / Follow-Up ACTIVITY RECOMMENDATIONS: * No strenuous lifting, jogging or running for 4 days * No swimming or yard work for 1 week. * Limited bending is permitted, such as putting on shoes. RETURN TO SCHOOL/WORK: No work until seen by physician in office. MEDICATIONS: Resume previous medications unless instructed otherwise by your surgeon. This includes eye drops for glaucoma. Zymaxid/Gatifloxacin (pelletier cap) - one drop every 2 hours until bedtime Nevanac/Ilevro/Prolensa/Ketorolac (bolden cap) - one drop every 4 hours until bedtime Prednisolone/Durezol (white/pink cap, SHAKE WELL) - one drop every 2 hours until bedtime Starting tomorrow - all 3 drops every 4 hours until seen in the office Optive drops - as needed for discomfort SPECIAL CARE INSTRUCTIONS: * Wear eyeshield when sleeping, for four nights. * You may wear your own glasses or sunglasses while awake. * You may read or watch TV * You may shower and wash your face, but be gentle around the eye and pat dry. * Blurry vision and mild irritation are normal. * Call office if pain is more severe or vision becomes dark at . FOLLOW UP VISIT: Follow-up with Dr Singer tomorrow. Diet Recommendations Home Diet: resume previous diet Procedures Procedures Performed: Left Cataract Phacoemulsification With Intraocular Lens Implant Pending Studies Studies pending at discharge: no Medical Emergencies . Who to Call and When: Medical Emergencies: If at any time you feel your situation is an emergency, please call 911 immediately. . Non-Emergent Contact Non-Emergency issues call your: Jig Hand . . "Provider Documentation" section prepared by Froylan Singer. .
--- NOTE | 2016-08-19 07:56 | [facility] Operative Report ---
Operative Report Date of Service Aug 19, 2016. Operative Report 1. PREOPERATIVE DIAGNOSIS: Cataract of the left eye. 2. POSTOPERATIVE DIAGNOSIS: Same. 3. PROCEDURE: Phacoemulsification with intraocular lens implantation of the left eye. SURGEON: Dr. Froylan Singer. ANESTHESIA: Topical Lidocaine gel, 1% Non- Preserved intracameral Lidocaine, and monitored intravenous sedation. INDICATIONS FOR THE PROCEDURE: The patient is a 75 - year-old male with a history of cataract of the left eye causing significant visual impairment. The details of the proposed procedure were explained to the patient who asked appropriate questions and following discussion of all risks, benefits and alternatives agreed to have the procedure done. The patient dilated poorly and therefore plans were made preoperatively to use a pupil dilating device. 4. OPERATION AND FINDINGS: DESCRIPTION OF PROCEDURE: After informed consent was obtained, the patient was brought to the Operating Room at the [facility]. The patient was placed in a supine position and then the left eye was prepped and draped in the usual sterile fashion for intraocular surgery. A drop of topical Lidocaine gel was placed in the operative eye. A wire lid speculum was then placed in the fornices. A corneal paracentesis was then created temporally. The Non-Preserved Lidocaine was then instilled into the anterior chamber. The anterior chamber was then pressurized with viscoelastic. A 2.0 mm clear corneal incision was then created temporally. A mayulgin ring was inserted to dilate and stabilize the pupil. A cystotome was inserted into the anterior chamber and used to create a tear in the anterior lens capsule. This capsular tear was then used to create a small flap and the flap was dragged in a counterclockwise direction in order to create a continuous curvilinear capsulorrhexis. Hydrodissection was accomplished with balanced salt solution. Phacoemulsification of the lens nucleus was then performed in a standard divide- and-conquer technique. The phaco time was 34 seconds with an average power of 15 %. The remaining cortical material was removed using irrigation aspiration. The capsular bag was then filled with viscoelastic. A B[employer]ch [employer] Lomb MI60L + 21.0 diopters lens was then loaded into the injector and injected into the capsular bag. The ring was removed. The remaining viscoelastic was removed with the irrigation aspiration handpiece. The wound was hydrated and then checked and found to be watertight. The intraocular pressure was checked and found to be adequate. The wire lid speculum was removed and the patient's face was cleaned and dried. TobraDex ointment was placed in the inferior fornix. The patient was discharged to the Recovery Room having tolerated the procedure well. There were no complications. The patient will be seen tomorrow in the office for follow-up. I attest to the content of the Intraoperative Record and any orders documented therein. Any exceptions are noted below.
[2016-08-19 07:57] VITALS: TEMP 36.9
--- NOTE | 2016-08-19 08:07 | Anesthesia Progress Nt - [facility] ---
Anesthesia Post Op Note Date & Time Aug 19, 2016 at 08:06 Vital Signs Pain Intensity: 0 Vital Signs Past 12 Hours Date Time Temp Pulse Resp B/P (MAP) Pulse Ox O2 Delivery O2 Flow Rate FiO2 08/19/16 07:57 36.9 50 18 110/64 (79) 95 Room Air 08/19/16 06:22 36.7 51 16 125/66 (85) 92 Room Air Notes Mental Status: alert / awake / arousable, participated in evaluation Pt Amnestic to Procedure: Yes Nausea / Vomiting: adequately controlled Pain: adequately controlled Airway Patency, RR, SpO2: stable & adequate BP & HR: stable & adequate Hydration State: stable & adequate Anesthetic Complications: no major complications apparent
[2016-08-19 08:14] VITALS: BP 116/66; PULSE 52; O2SAT 95
== END | disposition home or self-care (01) ==
LOC: X.SURG 06:04
PROVIDERS: ATTEND Ophthalmology
DX: H26.9 Unspecified cataract (principal); E11.9 Type 2 diabetes mellitus without complications; Z86.73 Personal history of transient ischemic attack (TIA), and cerebral infarction without residual deficits

== ENCOUNTER → 2016-09-20 | Outpatient (CLI) | payer BC ==
[~2016-09-20] MED LIST changes: -500ML BSS 0.3ML EPI 1:1000PF IRRIG ONE; -ACETAMINOPHEN 325 MG TAB PO PRN; -AMVISC PLUS 0.8ML SYRINGE INT OCU ONE; -ATROPINE SULFATE 0.1 MG/ML 5ML SYR IV PRN; -BSS FLUSH ONE; -EpHEDrine SULFATE INJ 50 MG/ML AMP IV PRN; -EpINEphrine INJ 1MG/ML AMP 1 MG/ML AMP ONE; -LACTATED RINGER'S 1000ML 500 ML IV SCH; -LIDOCAINE 3.5% OPH GEL PER APPLICATION CHARGE ONE; -LIDOCAINE HCL 1% MPF 2 ML VIAL ONE; -MIDAZOLAM HCL 1 MG/ML 2ML VIAL ONE; -OCUCOAT 1 ML SOLN IO ONE; -ONDANSETRON INJ 2 MG/ML 2 ML VIAL IV PRN; -PHENYLEPHRINE HCL 10% OP SOLN PER DROP CHARGE OPL SCH; -POVIDONE-IODINE OP SOLN 30 ML BTL ONE; -PROPARACAINE 0.5% OP SOLN PER DROP CHARGE OPL SCH; -TOBRAMYCIN/DEXAMETHASONE OPH OINT PER APPLN CHARGE ONE
[2016-09-20 10:09] LABS: BASO % 0.3 %; BASO ABS # 0.04 K/uL (0-0.2); COMPLETE YES; EOS % 3.8 %; IG% 0.3 %; LYMPH ABS # 2.89 K/uL (1.2-3.4); MEAN CORPUSCULAR HEMOGLOBIN 30.7 pg (25-34); MEAN PLATELET VOLUME 10.2 fL (7.4-10.4); MONO % 9.1 %; NEUT % 61.5 %; PLATELET COUNT 291 K/uL (130-400); RED BLOOD COUNT 4.27 M/uL (4.7-6.1); WHITE BLOOD COUNT 11.55 K/uL (4.8-10.8)
[2016-09-20 10:14] LABS: ALT/SGPT 19 U/L (12-78); BLOOD UREA NITROGEN 13 mg/dl (7-18); BUN/CREATININE RATIO 16.1 (10-20); CALCIUM 8.6 mg/dl (8.5-10.1); CARBON DIOXIDE 31 mmol/L (21-32); CHLORIDE 104 mmol/L (98-107); CHOLESTEROL 130 mg/dl (0-200); CREATININE 0.82 mg/dl (0.60-1.40); GLUCOSE 134 mg/dl (70-99); POTASSIUM 4.1 mmol/L (3.5-5.1); SODIUM 141 mmol/L (136-145)
[2016-09-20 10:17] LABS: ALB/GLOB RATIO 0.9 (0.9-2); ALKALINE PHOSPHATASE 76 U/L (45-117); AST/SGOT 20 U/L (15-37); CHOLESTEROL/HDL RATIO 4.2; HDL CHOLESTEROL 31 mg/dl; LDL CHOLESTEROL CALCULATED 75 mg/dl; TRIGLYCERIDES 121 mg/dl (0-150); VERY LOW DENSITY LIPOPROT CALC 24 mg/dl
[2016-09-20 10:34] LABS: ESTIMATED AVERAGE GLUCOSE 157 mg/dl; HA1C FLAG Normal (Normal)
== END | disposition home or self-care (01) ==
LOC: C.LABCC 09:32
PROVIDERS: ATTEND Internal Medicine
DX: E78.5 Hyperlipidemia, unspecified (principal); E11.9 Type 2 diabetes mellitus without complications

== ENCOUNTER → 2016-09-24 | Outpatient (CLI) | payer BC ==
--- NOTE | 2016-10-02 06:45 | CODING QUERY NO DIAGNOSIS ---
TREATMENT RENDERED WITHOUT A DIAGNOSIS To promote full compliance with coding requirements relating to patient care, physician participation is requested in all cases of health center associate uncertainty. Please assist us with providing a diagnosis/symptom for the test(s) below: A diagnosis/symptom was not documented on your Order. A valid diagnosis/symptom is required to bill all insurances. Please remember that we are unable to code a diagnosis of rule out, probable, possible, questionable, or suspected. Tests that require a diagnosis: DOS 09/24 * Vitamin D DIAGNOSIS: Provider Signature: Date: Thank you Julia Garber Health Information Management Once completed, please kindly fax back to [phone] For questions please call [phone]
== END ==
LOC: C.LABCC 08:24
PROVIDERS: ATTEND Internal Medicine
DX: E55.9 Vitamin D deficiency, unspecified (principal)

== ENCOUNTER → 2016-09-28 | Outpatient (CLI) | payer BC ==
[2016-09-28 12:31] LABS: BASO % 0.4 %; BASO ABS # 0.04 K/uL (0-0.2); COMPLETE YES; EOS % 2.9 %; HEMATOCRIT 40.1 % (42-52); IG% 0.3 %; LYMPH % 26.7 %; MEAN CELL VOLUME 97.3 fL (80-100); MEAN CORPUSCULAR HEMOGLOBIN 31.1 pg (25-34); MEAN CORPUSCULAR HGB CONC 31.9 g/dl (32-36); MEAN PLATELET VOLUME 10.2 fL (7.4-10.4); MONO % 9.8 %; NEUT % 59.9 %; PLATELET COUNT 305 K/uL (130-400); RED BLOOD COUNT 4.12 M/uL (4.7-6.1); WHITE BLOOD COUNT 11.24 K/uL (4.8-10.8)
== END ==
LOC: C.LABCC 12:54
PROVIDERS: ATTEND Internal Medicine
DX: D72.829 Elevated white blood cell count, unspecified (principal)

== ENCOUNTER → 2016-10-12 | Outpatient (CLI) | payer BC ==
[2016-10-12 19:01] LABS: URINE APPEARANCE CLOUDY (CLEAR); URINE BILIRUBIN NEG (NEG); URINE COLOR DK YELLOW; URINE EPITHELIAL CELL AUTO 0-5 /lpf (0-5); URINE NITRITE POS (NEG); URINE PH 7.5 (4.5-7.5); URINE SPECIFIC GRAVITY 1.022 (1.000-1.030); UROBILINOGEN NEG (NEG)
[2016-10-12 19:03] LABS: MANUAL MICROSCOPIC REQUIRED? NO; REVIEW REQ? NO
== END ==
LOC: C.LABCC 17:59
PROVIDERS: ATTEND Internal Medicine
DX: R30.0 Dysuria (principal)

== ENCOUNTER → 2016-10-21 | Outpatient (CLI) | payer BC ==
[2016-10-21 09:23] LABS: BLOOD UREA NITROGEN 10 mg/dl (7-18); BUN/CREATININE RATIO 14.2 (10-20); CALCIUM 8.8 mg/dl (8.5-10.1); CARBON DIOXIDE 29 mmol/L (21-32); CHLORIDE 105 mmol/L (98-107); CREATININE 0.71 mg/dl (0.60-1.40); GLUCOSE 121 mg/dl (70-99); POTASSIUM 3.7 mmol/L (3.5-5.1); SODIUM 141 mmol/L (136-145)
[2016-10-21 09:54] LABS: ESTIMATED AVERAGE GLUCOSE 160 mg/dl; HA1C FLAG Normal (Normal)
== END ==
LOC: C.LABCC 07:47
PROVIDERS: ATTEND Internal Medicine
DX: E11.9 Type 2 diabetes mellitus without complications (principal); I25.10 Atherosclerotic heart disease of native coronary artery without angina pectoris

== ENCOUNTER → 2016-10-28 | Outpatient (CLI) | payer BC | END | disposition home or self-care (01) | LOC: C.LABSPEC 17:14 | PROVIDERS: ATTEND Podiatrist Foot & Ankle Surgery | DX: L97.509 Non-pressure chronic ulcer of other part of unspecified foot with unspecified severity (principal) ==

== ENCOUNTER → 2016-10-29 | Outpatient (CLI) | payer BC ==
[2016-10-29 08:19] LABS: BASO % 0.4 %; BASO ABS # 0.04 K/uL (0-0.2); COMPLETE YES; EOS % 3.8 %; HEMATOCRIT 39.6 % (42-52); IG% 0.4 %; LYMPH ABS # 2.82 K/uL (1.2-3.4); MEAN CELL VOLUME 95.9 fL (80-100); MEAN CORPUSCULAR HEMOGLOBIN 29.5 pg (25-34); MEAN CORPUSCULAR HGB CONC 30.8 g/dl (32-36); MEAN PLATELET VOLUME 10.3 fL (7.4-10.4); MONO % 11.1 %; NEUT % 55.3 %; PLATELET COUNT 282 K/uL (130-400); RED BLOOD COUNT 4.13 M/uL (4.7-6.1); WHITE BLOOD COUNT 9.73 K/uL (4.8-10.8)
== END ==
LOC: C.LABCC 08:04
PROVIDERS: ATTEND Internal Medicine
DX: D72.829 Elevated white blood cell count, unspecified (principal)

== ENCOUNTER → 2017-01-05 | Outpatient (CLI) | payer BC ==
[2017-01-05 18:06] LABS: URINE APPEARANCE CLEAR (CLEAR); URINE BILIRUBIN NEG (NEG); URINE COLOR YELLOW; URINE NITRITE NEG (NEG); UROBILINOGEN NEG (NEG); ZZUR CULT IF INDIC CLEAN CATCH NO
[2017-01-05 18:13] LABS: MANUAL MICROSCOPIC REQUIRED? NO; REVIEW REQ? NO
== END ==
LOC: C.LABCC 17:38
PROVIDERS: ATTEND Internal Medicine
DX: R30.0 Dysuria (principal)

== ENCOUNTER → 2017-02-17 | Outpatient (CLI) | payer BC ==
[2017-02-17 08:53] LABS: HEMOGLOBIN A1C 7.1 % (4.5-5.6)
== END ==
LOC: C.LABCC 07:41
PROVIDERS: ATTEND Internal Medicine
DX: E11.9 Type 2 diabetes mellitus without complications (principal)

== ENCOUNTER → 2017-05-09 | Outpatient (CLI) | payer BC ==
[2017-05-09 08:20] LABS: BASO % 0.5 %; BASO ABS # 0.04 K/uL (0-0.2); EOS % 4.6 %; EOS ABS # 0.34 K/uL (0-0.5); HEMOGLOBIN 13.5 g/dL (14.0-18.0); IG# 0.02 K/uL (0.00-0.02); LYMPH % 26.9 %; LYMPH ABS # 1.98 K/uL (1.2-3.4); MEAN CELL VOLUME 93.6 fL (80-100); MEAN CORPUSCULAR HEMOGLOBIN 30.8 pg (25-34); MEAN CORPUSCULAR HGB CONC 32.9 g/dl (32-36); MEAN PLATELET VOLUME 10.1 fL (7.4-10.4); MONO % 11.4 %; MONO ABS # 0.84 K/uL (0.11-0.59); NEUT % 56.3 %; NEUT ABS # 4.15 K/uL (1.4-6.5); PLATELET COUNT 223 K/uL (130-400); RED CELL DISTRIBUTION WIDTH CV 12.9 % (11.5-14.5); RED CELL DISTRIBUTION WIDTH SD 44.3 fL (36.4-46.3); WHITE BLOOD COUNT 7.37 K/uL (4.8-10.8)
[2017-05-09 08:37] LABS: ALBUMIN 3.2 gm/dl (3.4-5.0); ALT/SGPT 16 U/L (12-78); AST/SGOT 21 U/L (15-37); BLOOD UREA NITROGEN 11 mg/dl (7-18); CALCIUM 8.6 mg/dl (8.5-10.1); CARBON DIOXIDE 28 mmol/L (21-32); CREATININE 0.78 mg/dl (0.60-1.40); GLUCOSE 198 mg/dl (70-99); LIPASE 120 U/L (73-393); POTASSIUM 3.7 mmol/L (3.5-5.1); SODIUM 139 mmol/L (136-145)
[2017-05-09 08:47] LABS: ALKALINE PHOSPHATASE 75 U/L (45-117); TOTAL PROTEIN 6.3 gm/dl (6.4-8.2)
== END ==
LOC: C.LABCC 07:40
PROVIDERS: ATTEND Internal Medicine
DX: R11.0 Nausea (principal); K59.00 Constipation, unspecified

== ENCOUNTER → 2017-05-17 | Outpatient (CLI) | payer BC | LOC: C.LABCC 08:38 | PROVIDERS: ATTEND Internal Medicine | DX: R30.0 Dysuria (principal) ==

== ENCOUNTER → 2017-05-22 | Outpatient (CLI) | payer BC ==
--- NOTE | 2017-05-24 07:59 | PAP/PSG TECHNICIAN REPORT ---
[facility] Exercise Equipment Repair Technician Polysomnogram Report Study name: None Report date: 05/23/2017 Study date: 05/22/2017 Referring Physician: KEENAN TRIMBLE M.D. Name: AMISHA WAGNER Interpreting Physician: Sylvester Jones D.O. Date of : 1940 Exercise Equipment Repair Technician: Chani Kelsey, PSGT. Sex: Male Age: 76 StudyType: PSG Weight: 245 lbs Height: 76 years, Height 71" BMI: 34.17 Medications: SEE LIST OF 42 MEDICATIONS LISTED IN CHART..... Patient History 75 year old male from [facility] brought in on a stretcher. Patient has Parkinson's disease along with multicable health issues. A nurse will be with him tonight for any needs that he may need. He is here for a titration sleep study. Patient complains of morning headaches, and fatigue. His c-pap machine is set at 11 cm, he wears nasal pillows which he did not have for this study. Parameters Monitored NPSG: E1-M2, E2-M1, Fp1-M2, Fp2-M1, F3-M2, F4-M2, F4-M1, C3-M2, C4-M2, C4-M1, O1-M2, O2-M2, O2-M1, T3-M2, T4-M1, P3-M2, P4-M1, CHIN1, CHIN2, HR, EKG, Legs, PFLOW, SNOR, FLOW, CFLOW, Tidal Volume, THOR, ABDO, SpO2, PLTH, CPRESS, ETCO2 Wave, ETCO2, pH Sleep Architecture Sleep Stages Time at Lights Off 9:12:40 PM STAGES Time (min.) TST (%) Time at Lights On 6:05:40 AM Wake 301.5 -- Total Recording Time (TRT) 532.50 min. N1 48.5 21 Total Sleep Period (TSP) 503.0 min. N2 141.5 61 Total Sleep Time (TST) 231.0min. N3 0.0 0 Awake Time 301.5 min. REM 41.0 18 Wake after Sleep Onset 272.0 min. Sleep Efficiency (SE) 43 % Sleep Onset Latency (TALITA) 30.0 min. Number of Stage 1 Shifts None Awakenings 15 Stage Changes 63 Number of REM periods 1 REM 41.0 18 REM Latency 415.0 min. NREM 190.0 82 Body Position Analysis Supine Right Left Side Prone Vertical Total Sleep Time (min.) 532.5 0.0 0.0 0.00 0.0 0.0 Total Sleep Time (%) 100% 0% 0% 0 0% N/A% Total Sleep Time REM (min.) 41.0 0.0 0.0 None 0.0 0.0 Total Sleep Time NREM (min.) 190.0 0.0 0.0 None 0.0 0.0 Intermittent Wake (min.) 301.5 0.0 0.0 None 0.0 0.0 Total Sleep Period (%) 100% None None None None None Arousals Myoclonus (PLM) * Events Count Index Events Count Index Spontaneous 50 13 Events Awake (PLMW) 0 0.0 Respiratory 3 0.8 Events Asleep w/ Arousal (PLMA) 2 0.5 PLM 2 1 Events Asleep w/o Arousal (PLMS) 56 14.5 Snoring 4 1 Total Asleep 58 15.1 Total 59 15 Total 58 7 Respiratory Analysis * CA OA MA CH H RERA Total Count 54 4 0 0 41 0 99 Index 14.0 1.0 0.0 0 10.6 0 25.7 Mean Duration 15.5 12.3 0.0 0.00 17.8 0.0 16.4 Longest Duration 32.0 21.6 0.0 0.00 0.0 0.0 32.0 Respiratory Event Summary Total Supine ~Supine Right Left Prone REM NREM Apneas Count 58 58 N/A N/A N/A N/A 0 58 Index 15.1 15 N/A N/A N/A N/A 0 18 Hypopneas (4% Desat) Count 41 41 N/A N/A N/A N/A 1 40 Index 10.6 10.6 N/A N/A N/A N/A 1.5 12.6 Apneas & All Hypopneas Count 99 99 N/A N/A N/A N/A 1 98 Index 25.7 26 N/A N/A N/A N/A 1.5 30.9 Respiratory Events (Story Editor+All Hyp+RERA) Count 99 99 N/A N/A N/A N/A 1 98 Index 25.7 26 N/A N/A N/A N/A 1.5 30.9 Respiratory Related Arousal Count 3 99 N/A N/A N/A N/A 0 3 Index 0.8 1 N/A N/A N/A N/A 0 1 Snoring Analysis Supine Right Left Prone REM NREM Total Snore duration 2.1 min Snores count 67 N/A N/A N/A 1 66 67 Snore mean duration 1.9 Sec Snores index 17 N/A N/A N/A 1.5 20.8 17.4 TST with snoring (%) 0.9% Desaturation Event Summary: Minimum %SpO2 Event Count Mean/Min/Max Duration(sec.) Desaturation Index % Time In Bed > 90 78 22.5 / 12.3 / 39.0 8.8 99.8 86 - 90 0 N/A 0.0 0.2 81 - 85 0 N/A 0.0 0.0 76 - 80 0 N/A 0.0 0.0 71 - 75 0 N/A 0.0 0.0 66 - 70 0 N/A 0.0 0.0 61 - 65 0 N/A 0.0 0.0 56 - 60 0 N/A 0.0 0.0 51 - 55 0 N/A 0.0 0.0 < 50 0 N/A 0.0 0.0 Total REM NREM Awake <50% 0.0 min. 0.0 min. 0.0 min. 0.0 min. 51 - 60% 0.0 min. 0.0 min. 0.0 min. 0.0 min. 61 - 70% 0.0 min. 0.0 min. 0.0 min. 0.0 min. 71 - 80% 0.0 min. 0.0 min. 0.0 min. 0.0 min. 81 - 90% 1.3 min. 0.0 min. 0.6 min. 0.7 min. 91 - 100% 530.8 min. 41.0 min. 189.4 min. 300.4 min. Average 95 95 95 95 Minimum SpO2 89 91 90 89 Desaturation Event Index 8.8 1.5 24.3 0.0 # Desat. Events below 89% N/A N/A N/A N/A Time(%) with Saturation below 89% 0.0 0.0 0.0 0.0 Time(min.) with Saturation below 89% 0.0 0.0 0.0 0.0 Heart Rate Analysis End Tidal CO2 Analysis Min (bpm) Max (bpm) Average (bpm) TSP (mins) % of TSP Awake 47 89 56 Above 55 mmHg 0.0 0.0 NREM 45 86 51 50-55 mmHg 0.0 0.0 REM 47 59 52 45-50 mmHg 231.0 100.0 Overall 45 86 52 40-45 mmHg 0.0 0.0 35-40 mmHg 0.0 0.0 30-35 mmHg 0.0 0.0 Average ETCO2 0.0 Supplemental O2 Values Minimum O2 level: None Value Start Time End Time Exercise Equipment Repair Technician Comments PAP Study: Mr. Wagner slept in the supine position. No cardiac arrhythmia or PLM's noted. No bruxism noted. CPAP was initiated at +4 CMH2O and up-titrated to an optimal level of +15 CMH2O, At 4:30 am Bi-Pap was initiated @ Ipap 8, Epap 4 . up titrated to Ipap 11 Epap 5 with a rate of 10. A Res Med Mirage nasal mask, was used during titration awoke to use the restroom two times during the night. Mr. Wagner stated, I did not sleep as well as I do when I am in my own bed. The final report will be interpreted and signed by a sleep physician. The completed physician report will then be placed in the patient medical record. Mr. Wagner woke often to eat candy and crackers throughout the night, At 4:30 am Bi-Pap was started due to central apneas'. Renetta was difficult to titrate due to his sleep hygiene states that he wears nasal pillows but did not bring them with him for this study. He wore a nasal mask but would have better results with a full-face mask. [facility] came to pick patient up @ 6:15 am. Test ended at that time. Therapy Event: Therapy (cm H20) 4 6 8 10 12 14 Total Time at Pressure (min.) 139.0 14.1 30.0 40.1 13.5 5.3 TST at Pressure (min.) 29.5 14.1 28.9 12.7 13.0 5.3 # Periods 1 1 1 1 1 1 Sleep Onset (min.) 30.0 0.0 0.0 23.4 0.0 0.0 REM Onset (min.) N/A N/A N/A N/A N/A N/A Sleep Efficiency % 21 100 96 31 96 100 Wakefulness (%) 78.8 0.0 3.6 68.4 3.7 0.0 Wakefulness (min.) 109.5 0.0 1.1 27.4 0.5 0.0 NREM 1 (%) 5.0 24.8 15.0 11.2 14.9 0.0 NREM 1 (min.) 7.0 3.5 4.5 4.5 2.0 0.0 NREM 2 (%) 16.2 75.2 81.4 20.4 81.4 100.0 NREM 2 (min.) 22.5 10.6 24.4 8.2 11.0 5.3 NREM 3 (%) 0.0 0.0 0.0 0.0 0.0 0.0 NREM 3 (min.) 0.0 0.0 0.0 0.0 0.0 0.0 REM (%) 0.0 0.0 0.0 0.0 0.0 0.0 REM (min.) 0.0 0.0 0.0 0.0 0.0 0.0 # Arousals 2 1 3 3 6 2 Arousal Index 4.1 4.3 6.2 14.2 27.8 22.7 # Snore 7 3 0 7 6 1 Snore Index 14.3 12.8 0.0 33.2 27.8 11.3 AHI 44.8 42.5 27.0 28.4 18.5 34.0 AHI Supine 44.8 42.5 27.0 28.4 18.5 34.0 AHI Non-Supine N/A N/A N/A N/A N/A N/A NREM AHI 44.8 42.5 27.0 28.4 18.5 34.0 REM AHI N/A N/A N/A N/A N/A N/A RDI 44.8 42.5 27.0 28.4 18.5 34.0 # Obstructive 1 1 0 0 1 0 # Central Ap 5 6 2 4 2 3 # Mixed 0 0 0 0 0 0 # Hypopneas 16 3 11 2 1 0 RERAS 0 0 0 0 0 0 Total Respiratory Events 22 10 13 6 4 3 Time Below SpO2 89.00% (min.) 0.0 0.0 0.0 0.0 0.0 0.0 Mean NREM SpO2 (%) 94 93 94 94 94 95 Mean REM SpO2 (%) N/A N/A N/A N/A N/A N/A Mean Sleep SpO2 (%) 94 93 94 94 94 95 Min NREM SpO2 (%) 90 90 90 92 91 93 Min REM SpO2 (%) N/A N/A N/A N/A N/A N/A Position Supine (min.) 29.5 14.1 28.9 12.7 13.0 5.3 Position Non-supine (min.) 0.0 0.0 0.0 0.0 0.0 0.0 LM Index Sleep 24.4 12.8 35.3 37.9 27.8 34.0 LM Index NREM 24.4 12.8 35.3 37.9 27.8 34.0 LM Index REM N/A N/A N/A N/A N/A N/A Mean Heart Rate (bpm) 53 52 52 52 51 51 Min Heart Rate (bpm) 50 49 49 49 49 49 Therapy (cm H20) 15 8/4 9/4 10/4 11/5 Total Time at Pressure (min.) 199.1 5.9 62.6 15.4 7.6 TST at Pressure (min.) 48.6 5.9 50.1 15.4 7.6 # Periods 1 1 1 1 1 Sleep Onset (min.) 0.0 0.0 0.0 0.1 0.0 REM Onset (min.) N/A 4.0 0.0 N/A N/A Sleep Efficiency % 24 100 80 100 100 Wakefulness (%) 75.6 0.0 20.0 0.0 0.0 Wakefulness (min.) 150.5 0.0 12.5 0.0 0.0 NREM 1 (%) 11.6 0.0 6.4 0.0 0.0 NREM 1 (min.) 23.0 0.0 4.0 0.0 0.0 NREM 2 (%) 12.9 67.3 11.2 100.0 100.0 NREM 2 (min.) 25.6 4.0 7.0 15.4 7.6 NREM 3 (%) 0.0 0.0 0.0 0.0 0.0 NREM 3 (min.) 0.0 0.0 0.0 0.0 0.0 REM (%) 0.0 32.7 62.4 0.0 0.0 REM (min.) 0.0 1.9 39.1 0.0 0.0 # Arousals 22 2 14 1 3 Arousal Index 27.2 20.3 16.8 3.9 23.7 # Snore 38 0 2 1 2 Snore Index 46.9 0.0 2.4 3.9 15.8 AHI 9.9 10.1 14.4 58.5 39.4 AHI Supine 9.9 10.1 14.4 58.5 39.4 AHI Non-Supine N/A N/A N/A N/A N/A NREM AHI 9.9 0.0 65.5 58.5 39.4 REM AHI N/A 31.1 0.0 N/A N/A RDI 9.9 10.1 14.4 58.5 39.4 # Obstructive 1 0 0 0 0 # Central Ap 7 0 11 11 3 # Mixed 0 0 0 0 0 # Hypopneas 0 1 1 4 2 RERAS 0 0 0 0 0 Total Respiratory Events 8 1 12 15 5 Time Below SpO2 89.00% (min.) 0.0 0.0 0.0 0.0 0.0 Mean NREM SpO2 (%) 96 95 95 96 95 Mean REM SpO2 (%) N/A 95 95 N/A N/A Mean Sleep SpO2 (%) 96 95 95 96 95 Min NREM SpO2 (%) 93 93 91 92 92 Min REM SpO2 (%) N/A 93 91 N/A N/A Position Supine (min.) 48.6 5.9 50.1 15.4 7.6 Position Non-supine (min.) 0.0 0.0 0.0 0.0 0.0 LM Index Sleep 11.1 0.0 0.0 0.0 0.0 LM Index NREM 11.1 0.0 0.0 0.0 0.0 LM Index REM N/A 0.0 0.0 N/A N/A Mean Heart Rate (bpm) 51 50 52 49 49 Min Heart Rate (bpm) 45 47 47 46 45
--- NOTE | 2017-05-28 12:08 | POLYSOMNOGRAPH REPORT ---
CLINICAL DATA: The patient is a 76-year-old male who has Parkinson's disease. He has a history of sleep apnea dating back to 2006. The initial apnea hypopnea index was moderately severe at 36.5 events per hour. He had a CPAP titration at that time and initially was treated with CPAP of 9. Subsequently, his pressures were increased up to 13. In the past several months, he has had morning headaches, daytime sleepiness, and his apnea hypopnea index have been significantly elevated despite adjustment of the CPAP. He was then tried with auto CPAP without benefit. He is referred by Karen Mcleod PA-C for a titration study. The patient resides at [facility]. SLEEP ARCHITECTURE: The total sleep period was 503 minutes. The total sleep time was only 231 minutes. The sleep efficiency was severely reduced to 43%. The sleep latency was prolonged to 30 minutes. Wake after sleep onset was prolonged to 272 minutes. The REM latency was prolonged to 415 minutes. There was only 1 REM period during the night. Sleep consisted of stage N1 21%, stage N2 61%, stage N3 0%, stage REM 18%. AROUSAL DATA: The patient had 59 arousals including 50 spontaneous arousals, 3 respiratory arousals, 2 PLM arousals, and 4 snoring arousals. The arousal index was 15. PLM DATA: The patient had a total of 58 periodic limb movements of sleep for a PLM index of 15.1. There were only 2 arousals associated with limb movements for a PLM arousal index of 0.5. EKG: The underlying cardiac rhythm appeared to be normal sinus. The cardiac rates ranged from 45-86 beats per minute with an average heart rate of 52 beats per minute. RESPIRATORY DATA: The patient's respiratory events were initially treated with CPAP and then with BiPAP because of the onset of central apneas. He had a total of 99 respiratory events including 54 central apneas, 4 obstructive apneas, and 41 hypopneas. Hypopneas were scored according to the 4% desaturation rule. The longest apnea was 32 seconds. The mean duration of the hypopneas was 17.8 seconds. The overall apnea-hypopnea index was elevated at 25.7 events per hour. This would reflect moderate sleep apnea with the majority being centrals. Thus, he has complex sleep apnea. OXIMETRY DATA: The average saturation for the night was 95%. The minimum saturation was 89%. SCRAP CRANE OPERATOR COMMENTS: The patient slept in the supine position. No cardiac arrhythmia noted. No bruxism noted. CPAP was initiated at 4 cm and up titrated to 15 cm. At 4:30 a.m., BiPAP was initiated at 8/4 due to central apneas. This was titrated up to a final pressure of 11/5. The patient normally wears nasal pillows, but he did not bring them with him for this study. He wore a nasal mask, but would have better results with a full facemask. Alexandria Orlando came to chicken picker the patient at 6:15 a.m. IMPRESSION: 1. Complex sleep apnea. 2. Underlying obstructive sleep apnea. 3. Insomnia. COMMENTS: The patient did poorly with this titration. He does develop central sleep apnea. This may be the reason that his apnea hypopnea index as assessed by compliance data was significantly elevated. He did not respond to BiPAP alone. The patient also was frequently opening his mouth. It would appear that he would need a full facemask. RECOMMENDATIONS: 1. It would be advised that the patient be treated with auto BiPAP with a backup rate of 12. Would suggest setting the maximum pressure at 20 and the minimum at 6. 2. It is suggested that the patient be given a full face mask of choice in light of the fact he is continuously opening his mouth. The alternative if he would be opposed to that would be utilizing the nasal pillows, but with a chin strap. 3. The patient needs to have frequent evaluations of his compliance data to help determine if the events are being resolved. 4. The patient did sleep supine exclusively at least during the night of this study. If possible, it would be advised that he avoids sleeping supine where there are typically increased respiratory events. 5. Weight loss would be advised in light of the elevation of body mass index. MTDD
== END | disposition home or self-care (01) ==
LOC: C.NEUR 20:00
PROVIDERS: ATTEND Physician Assistant
DX: G47.33 Obstructive sleep apnea (adult) (pediatric) (principal)

== ENCOUNTER → 2017-06-09 | Outpatient (CLI) | payer BC ==
[~2017-06-09] VITALS: Ht 177.8 cm; Wt 118.7 kg
[2017-06-09 14:57] VITALS: BP 117/66; PULSE 64; Ht 177.8 cm; Wt 118.7 kg
== END | disposition home or self-care (01) ==
LOC: C.NEUR 13:55
PROVIDERS: ATTEND Physician Assistant
DX: G47.33 Obstructive sleep apnea (adult) (pediatric) (principal); E11.9 Type 2 diabetes mellitus without complications; G31.83 Neurocognitive disorder with Lewy bodies; F02.80 Dementia in other diseases classified elsewhere, unspecified severity, without behavioral disturbance, psychotic disturbance, mood disturbance, and anxiety; N40.0 Benign prostatic hyperplasia without lower urinary tract symptoms

== ENCOUNTER → 2017-06-17 | Outpatient (CLI) | payer BC ==
[2017-06-17 10:00] LABS: HEMOGLOBIN A1C 7.4 % (4.5-5.6)
== END ==
LOC: C.LABCC 08:16
PROVIDERS: ATTEND Internal Medicine
DX: E11.9 Type 2 diabetes mellitus without complications (principal)

== ENCOUNTER → 2017-09-08 | Outpatient (CLI) | payer BC ==
[~2017-09-08] VITALS: Ht 152.4 cm; Wt 112.3 kg
[~2017-09-08] MED LIST changes: +DUTA1CAP17 PO; -DUTA1CAP3 PO
[2017-09-08 13:49] VITALS: BP 121/66; PULSE 63; Ht 152.4 cm; Wt 112.3 kg
== END ==
LOC: C.NEUR 12:39
PROVIDERS: ATTEND Physician Assistant
DX: G47.30 Sleep apnea, unspecified (principal); G47.52 REM sleep behavior disorder; G20 Parkinson's disease; Z88.6 Allergy status to analgesic agent; Z88.8 Allergy status to other drugs, medicaments and biological substances

== ENCOUNTER → 2017-10-03 | Outpatient (CLI) | payer BC ==
[~2017-10-03] MED LIST changes: +ASPI81TA28 PO; +MIRA1TAB3 PO
[2017-10-03 09:14] LABS: HEP C IGG 13 YRS+OLDER_RFLX NEG (NEG)
== END ==
LOC: C.LABCC 07:47
PROVIDERS: ATTEND Internal Medicine
DX: T14.90XA Injury, unspecified, initial encounter (principal); W46.1XXA Contact with contaminated hypodermic needle, initial encounter

== ENCOUNTER 2018-04-11 10:12 | Inpatient (IN) ==
[2018-04-11] MEDS ORDERED: SODIUM CHLORIDE 0.9% 500 ML IV SCH (11:30)
--- NOTE | 2018-04-11 11:41 | Emergency Department Note ---
Entered by Leann Perry acting as a scribe for Rory Reynoso DO History of Present Illness General Chief complaint: Rectal Bleed History of Present Illness Maximum Pain Intensity: 7 The patient is a 77 year old male who presents to the Emergency Room with complaints of Home Medications Home Medications Medication Instructions Recorded Confirmed Type Saccharomyces boulardii 250 mg 250 mg PO BID 10/24/17 03/14/18 History capsule amlodipine 10 mg tablet 10 mg PO DAILY 10/24/17 03/14/18 History apomorphine 10 mg/mL subcutaneous 0.3 ml SQ DAILY 10/24/17 03/14/18 History cartridge aspirin 81 mg tablet,delayed 81 mg PO DAILY 10/24/17 03/14/18 History release baclofen 10 mg tablet 10 mg PO TID 10/24/17 03/14/18 History balsalazide 750 mg capsule 1,500 mg PO TID cap 10/24/17 03/14/18 History bromfenac 0.07 % eye drops 1 drops OP DAILY 10/24/17 03/14/18 History carbidopa 25 mg-levodopa 100 mg 2.5 tab PO QID tab 10/24/17 03/14/18 History tablet carbidopa ER 50 mg-levodopa 200 mg 1 tab PO QAM tab 10/24/17 03/14/18 History tablet,extended release cholecalciferol (vitamin D3) 50,000 units PO DAILY 10/24/17 03/14/18 History 50,000 unit capsule citalopram 20 mg tablet 20 mg PO DAILY 10/24/17 03/14/18 History docusate sodium 100 mg capsule 100 mg PO BID 10/24/17 03/14/18 History donepezil 10 mg tablet 10 mg PO DAILY 10/24/17 03/14/18 History dutasteride 0.5 mg capsule 0.5 mg PO DAILY 10/24/17 03/14/18 History entacapone 200 mg tablet 200 mg PO QID 10/24/17 03/14/18 History fentanyl 50 mcg/hr transdermal 1 patch TD Q72H 10/24/17 03/14/18 History patch fluticasone 50 mcg/actuation nasal 2 sprays INTNAS DAILY 10/24/17 03/14/18 History spray,suspension gabapentin 600 mg tablet 1,200 mg PO HS tab 10/24/17 03/14/18 History gabapentin 600 mg tablet 600 mg PO QAM tab 10/24/17 03/14/18 History gatifloxacin 0.5 % eye drops 1 drops OPHTHALMIC (EYE) TID 10/24/17 03/14/18 History insulin aspart U- 100 100 unit/mL 28 units SQ TID ml 10/24/17 03/14/18 History subcutaneous solution insulin detemir (U-100) 100 50 units SQ BID ml 10/24/17 03/14/18 History unit/mL (3 mL) subcutaneous pen linaclotide 145 mcg capsule 145 mcg PO DAILY 10/24/17 03/14/18 History lisinopril 10 mg tablet 10 mg PO DAILY 10/24/17 03/14/18 History lorazepam 0.5 mg tablet 0.5 mg PO DAILY 10/24/17 03/14/18 History magnesium oxide 400 mg capsule 400 mg PO DAILY cap 10/24/17 03/14/18 History mirabegron ER 50 mg 50 mg PO DAILY 10/24/17 03/14/18 History tablet,extended release 24 hr mirtazapine 15 mg tablet 15 mg PO DAILY 10/24/17 03/14/18 History multivitamin tablet 1 tab PO QAM 10/24/17 03/14/18 History mupirocin 2 % topical cream 1 appln TOP BID 10/24/17 03/14/18 History nitroglycerin 0.4 mg sublingual 0.4 mg SL Q5M PRN 10/24/17 03/14/18 History tablet ondansetron HCl 4 mg tablet 4 mg PO .am PRN tab 10/24/17 03/14/18 History oxycodone-acetaminophen 5 mg-325 1 tab PO DAILY tab 10/24/17 03/14/18 History mg tablet pantoprazole 40 mg tablet,delayed 40 mg PO BID 10/24/17 03/14/18 History release polyethylene glycol 3350 17 gram 17 gm PO DAILY 10/24/17 03/14/18 History oral powder packet ranitidine 150 mg capsule 150 mg PO DAILY 10/24/17 03/14/18 History ropinirole 0.25 mg tablet 0.25 mg PO TID 10/24/17 03/14/18 History simvastatin 10 mg tablet 10 mg PO QPM 10/24/17 03/14/18 History tamsulosin 0.4 mg capsule 0.4 mg PO DAILY 10/24/17 03/14/18 History triamcinolone acetonide 0.025 % 1 appln TOP BID 10/24/17 03/14/18 History topical cream trimethobenzamide 300 mg capsule 300 mg PO Q6H PRN 10/24/17 03/14/18 History Allergies Allergy/AdvReac Type Severity Reaction Status Date / Time capsaicin AdvReac Unknown RASH Verified 03/14/18 13:17 diclofenac AdvReac Unknown RASH Verified 03/14/18 13:17 Diclopak AdvReac Unknown RASH Verified 08/19/16 06:44 isopropyl alcohol AdvReac Unknown RASH Verified 03/14/18 13:17 propylene glycol AdvReac Unknown RASH Verified 03/14/18 13:17 Past Med/Surg History Medical History Flexion contracture (Chronic) Right upper extremity Chronic acquired lymphedema (Chronic 10/29/10) Hypertensive disorder, systemic arterial (Chronic 10/29/10) Morbid obesity (Chronic 10/29/10) Obstructive sleep apnea syndrome (Acute 10/29/10) Neuropathy (Chronic 09/28/12) Hyperlipidemia (Chronic) Coronary artery disease (Chronic 10/29/10) Social History Preferred Language: Croatian Communication Ability: Effective Beliefs That Will Affect Care: None marital status: Current Living Situation: [facility] current occupational status: retired Feels Safe at Home: Yes Smoking Status: Unknown if ever smoked Hx Alcohol Use: No Hx Substance Use: No Physical Exam Vital Signs Vital Signs - 24 hr 04/11/18 10:22 Temperature 37.5 C Temperature Source Oral Sepsis Recent Fever Within 48 Hours No Sepsis Action Taken by Nursing No Action Required Pulse Rate 82 Pulse Rhythm Regular Pulse Strength Normal Respiratory Rate 18 Respiratory Effort / Characteristics Non-Labored Respiratory Depth Normal Respiratory Pattern Regular Blood Pressure 157/61 H Blood Pressure Mean 93 Blood Pressure Position Lying Pulse Oximetry 95 Oxygen Delivery Method Room Air Course 1119: The patient was evaluated by Dr. Heaton-Resident. Discharge Plan Visit Data Chief Complaint: Rectal Bleed ED Provider: Rory Reynoso Prescriptions Prescriptions: No Action multivitamin tablet 1 tab PO QAM RF: 0 fentanyl 50 mcg/hr patch 72 hour 1 patch TD Q72H RF: 0 gabapentin 600 mg tablet 1,200 mg PO HS RF: 0 gabapentin 600 mg tablet 600 mg PO QAM RF: 0 polyethylene glycol 3350 [Miralax] 17 gram powder in packet 17 gm PO DAILY RF: 0 donepezil 10 mg tablet 10 mg PO DAILY RF: 0 ondansetron HCl [Zofran] 4 mg tablet 4 mg PO .am PRNRF: 0 carbidopa-levodopa [Sinemet CR] 50-200 mg tablet extended release 1 tab PO QAM RF: 0 simvastatin 10 mg tablet 10 mg PO QPM RF: 0 aspirin [Adult Aspirin Regimen] 81 mg tablet,delayed release (DR/EC) 81 mg PO DAILY RF: 0 oxycodone-acetaminophen 5-325 mg tablet 1 tab PO DAILY RF: 0 entacapone [Comtan] 200 mg tablet 200 mg PO QID RF: 0 citalopram 20 mg tablet 20 mg PO DAILY RF: 0 lorazepam [Ativan] 0.5 mg tablet 0.5 mg PO DAILY RF: 0 triamcinolone acetonide 0.025 % cream 1 appln TOP BID RF: 0 tamsulosin 0.4 mg capsule 0.4 mg PO DAILY RF: 0 ropinirole 0.25 mg tablet 0.25 mg PO TID RF: 0 baclofen 10 mg tablet 10 mg PO TID RF: 0 amlodipine 10 mg tablet 10 mg PO DAILY RF: 0 insulin aspart U-100 [Novolog U-100 Insulin aspart] 100 unit/mL solution 28 units SQ TID RF: 0 pantoprazole [Protonix] 40 mg tablet,delayed release (DR/EC) 40 mg PO BID RF: 0 lisinopril 10 mg tablet 10 mg PO DAILY RF: 0 nitroglycerin [Nitrostat] 0.4 mg tablet, sublingual 0.4 mg SL Q5M PRNRF: 0 mupirocin calcium [Bactroban] 2 % cream 1 appln TOP BID RF: 0 docusate sodium [Colace] 100 mg capsule 100 mg PO BID RF: 0 balsalazide [Colazal] 750 mg capsule 1,500 mg PO TID RF: 0 ranitidine HCl 150 mg capsule 150 mg PO DAILY RF: 0 mirtazapine 15 mg tablet 15 mg PO DAILY RF: 0 carbidopa-levodopa [Sinemet] 25-100 mg tablet 2.5 tab PO QID RF: 0 fluticasone [Allergy Relief (fluticasone)] 50 mcg/actuation spray,suspension 2 sprays INTNAS DAILY RF: 0 trimethobenzamide [Tigan] 300 mg capsule 300 mg PO Q6H PRNRF: 0 dutasteride 0.5 mg capsule 0.5 mg PO DAILY RF: 0 Saccharomyces boulardii [Florastor] 250 mg capsule 250 mg PO BID RF: 0 apomorphine [APOKYN] 10 mg/mL cartridge 0.3 ml SQ DAILY RF: 0 insulin detemir U-100 [Levemir FlexTouch U-100 Insuln] 100 unit/mL (3 mL) insulin pen 50 units SQ BID RF: 0 cholecalciferol (vitamin D3) 50,000 unit capsule 50,000 units PO DAILY RF: 0 gatifloxacin [Zymaxid] 0.5 % drops 1 drops ophthalmic (eye) TID RF: 0 magnesium oxide 400 mg capsule 400 mg PO DAILY RF: 0 mirabegron 50 mg tablet extended release 24 hr 50 mg PO DAILY RF: 0 linaclotide [Linzess] 145 mcg capsule 145 mcg PO DAILY RF: 0 bromfenac [Prolensa] 0.07 % drops 1 drops OP DAILY RF: 0
[2018-04-11 11:44] LABS: Basophils # (auto) 0.02 K/uL (0-0.2); Basophils % (auto) 0.1 %; Eosinophils # (auto) 0.02 K/uL (0-0.5); Eosinophils % (auto) 0.1 %; Hematocrit (blood only) 42.9 % (42-52); Hemoglobin 14.1 g/dL (14.0-18.0); Immature Granulocytes # (auto) 0.06 K/uL (0.00-0.02); Immature Granulocytes % (auto) 0.3 %; Lymphocytes # (auto) 1.06 K/uL (1.2-3.4); Lymphocytes % (auto) 5.9 %; Mean Corpuscular Hgb Conc 32.9 g/dL (32-36); Mean Corpuscular Volume 90.3 fL (80-100); Mean Platelet Volume 11.3 fL (7.4-10.4); Monocytes # (auto) 1.64 K/uL (0.11-0.59); Monocytes % (auto) 9.1 %; Neutrophils # (auto) 15.25 K/uL (1.4-6.5); Neutrophils % (auto) 84.5 %; Platelet Count 264 K/uL (130-400); RDW Coefficient of Variation 13.1 % (11.5-14.5); RDW Standard Deviation 43.3 fL (36.4-46.3); Red Blood Count 4.75 M/uL (4.7-6.1); White Blood Count 18.05 K/uL (4.8-10.8)
[2018-04-11 11:51] LABS: INR 1.1 (0.9-1.1); Prothrombin Time 11.1 Seconds (9.0-12.0)
[2018-04-11 11:52] LABS: Albumin Level 3.3 gm/dl (3.4-5.0); BUN Creatinine Ratio 20.2 (10-20); Calcium 8.9 mg/dl (8.5-10.1); Creatinine Clr Calc Pharmacy 80.8 ml/min; Est GFR (African American) 83.4; Est GFR (Non-African American) 71.9; Potassium 3.9 mmol/L (3.5-5.1)
[2018-04-11 11:55] LABS: Albumin Globulin Ratio 0.9 (0.9-2); Bilirubin,Total 0.6 mg/dl (0.2-1); Globulin 3.9 gm/dl (2.5-4.0); Total Protein 7.2 gm/dl (6.4-8.2)
--- NOTE | 2018-04-11 12:41 | XRay Report ---
XR [facility] CLINICAL HISTORY: eval for constipation pain COMPARISON STUDY: 04/09/2016 FINDINGS: Mild generalized nonobstructive ileus. Air-filled loops of colon as well as small bowel are present. There are no secondary signs of free air. There are degenerative changes of the lumbar spin e as well as pelvis. IMPRESSION: Generalized nonobstructive ileus. The above report was generated using voice recognition software. It may contain grammatical, syntax or spelling errors. Electronically signed by: Shadi James M.D. 04/11/2018 12:39 PM
[2018-04-11] MEDS ORDERED: IOVERSOL 100ml IV PRN (13:34)
--- NOTE | 2018-04-11 14:05 | CT Scan Report ---
ABDOMEN AND PELVIS CT WITH IV CONTRAST CT DOSE: 1127.41 mGycm HISTORY: lower abd pain/bleeding eval for divertic TECHNIQUE: Multiaxial CT images of the abdomen and pelvis were performed following the use of intrave nous contrast. A dose lowering technique was utilized adhering to the principles of ALARA. COMPARISON STUDY: Abdomen and pelvis CT 04/08/2016. FINDINGS: Bibasilar linear densities consistent with subsegmental atelectasis. A 5 mm nodular density within the left lower lobe in image 24. No pneumoperitoneum. No pneumatosis. The bones are osteopeni c. 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 This appears chronic and is not significantly changed. No suspicious lytic or blastic osseous lesions. Stable line ar low density structure abutting the lateral wall of the duodenum best seen on image 138. This is li poppy chronic and may be due to the prior cholecystectomy. Heterogeneous enhancement of the left hepat ic lobe. No definite hepatic masses. Trace perisplenic fluid. The spleen, adrenal glands, and pancrea s are unremarkable. Subcentimeter retroperitoneal lymph nodes have slightly increased in size. These may be reactive. No hydronephrosis. Mild bilateral perinephric edema. The heart is mildly enlarged. B arnoldo wall edema is noted. The bladder is mildly distended. Severe bowel wall thickening involving the majority of the sigmoid colon and rectum with adjacent pericolonic fat stranding. No perforation or a bscess at this time. No evidence for bowel obstruction. No evidence for acute appendicitis. There are are a few scattered colonic diverticula. IMPRESSION: 1. Severe bowel wall thickening involving the sigmoid colon and rectum. This is consistent with a non specific proctocolitis and favors an infectious or inflammatory process. Ischemic colitis could also have a similar appearance in the appropriate clinical setting. 2. Heterogeneous enhancement within the left hepatic lobe without definite mass. 3. No evidence for bowel obstruction. 4. Additional findings as described above. Electronically signed by: Colt Moore M.D. 04/11/2018 2:04 PM
[2018-04-11] MEDS ORDERED: PIPERACILLIN/TAZOBACTAM 4.5 GM/120 ML BAG IV ONE (14:24)
[2018-04-11] MEDS ORDERED: PIPERACILL/TAZOBAC CONSULT ACTIVE PRN (14:24)
--- NOTE | 2018-04-11 14:45 | Emergency Department Note ---
ED Visit Note I contributed to the care of this patient under the supervision of . . Resident Activity Tracking Resident Involvement: Resident Care Provided Care Provided: Adult ED
--- NOTE | 2018-04-11 17:36 | Emergency Department Note ---
Entered by Yovani Garza acting as a scribe for History of Present Illness General Chief complaint: Rectal Bleed Source: patient Limitations: no limitations History of Present Illness Provider complaint: Consipation/Rectal bleed Onset (ago): week(s) (1) Location: buttocks Pain Consistency: + intermittent Maximum Pain Intensity: 7 Quality: + other (rectal bleed) Associated symptoms: no chest pain and no shortness of breath Treatments prior to arrival: other (Suppository, enema ) The patient is a 77 year old male who presents to the Emergency Room with complaints of intermittent rectal bleeding. The patient states that he has been having difficulty with constipation for the past week. He does have issues with constipation chronically and is treated with suppositories by [facility] where he resides. The patient notes that he received a suppository last night, which did not produce any stool. He was then given an enema which "cleaned him out" s ignificantly. There were multiple bowel movements produced last night, which were non-bloody. The patient notes that at 0230 today he had a bowel movement which had "bright red blood." He has Parkinson's Disease and is unable to clean himself, but [facility] staff noted blood on an additional 3-4 bloody bowel movements from 0230 until now. The patient does have a history of external hemorrhoids, but has never had bleeding hemorrhoids. He denies any history of GI bleed, ulcers, or bleeding/clotting disorders. The patient denies any chest pain or shortness of breath but does describe a "pressure" over his abdomen as though he is still constipated. The patent has not had any rectal pain with his recent bowel movements. The patient does currently complain of nausea. Home Medications Home Medications Medication Instructions Recorded Confirmed Type Saccharomyces boulardii 250 mg 250 mg PO QAM 10/24/17 04/11/18 History capsule amlodipine 10 mg tablet 10 mg PO QAM 10/24/17 04/11/18 History apomorphine 10 mg/mL subcutaneous 0.3 ml SQ DAILY PRN 10/24/17 04/11/18 History cartridge baclofen 10 mg tablet 10 mg PO TID 10/24/17 04/11/18 History balsalazide 750 mg capsule 1,500 mg PO TID cap 10/24/17 04/11/18 History bromfenac 0.07 % eye drops 1 drops OP QAM 10/24/17 04/11/18 History carbidopa 25 mg-levodopa 100 mg 2.5 tab PO QID tab 10/24/17 04/11/18 History tablet carbidopa ER 50 mg-levodopa 200 mg 1 tab PO QAM tab 10/24/17 04/11/18 History tablet,extended release citalopram 20 mg tablet 20 mg PO QAM 10/24/17 04/11/18 History docusate sodium 100 mg capsule 100 mg PO BID PRN 10/24/17 04/11/18 History donepezil 10 mg tablet 10 mg PO HS 10/24/17 04/11/18 History dutasteride 0.5 mg capsule 0.5 mg PO HS 10/24/17 04/11/18 History entacapone 200 mg tablet 200 mg PO QID 10/24/17 04/11/18 History fentanyl 50 mcg/hr transdermal 1 patch TD Q72H 10/24/17 04/11/18 History patch fluticasone 50 mcg/actuation nasal 2 sprays INTNAS QAM 10/24/17 04/11/18 History spray,suspension gabapentin 600 mg tablet 1,200 mg PO HS tab 10/24/17 04/11/18 History gabapentin 600 mg tablet 600 mg PO QAM tab 10/24/17 04/11/18 History gatifloxacin 0.5 % eye drops 1 drops OPHTHALMIC (EYE) TID 10/24/17 04/11/18 History insulin aspart U- 100 100 unit/mL 25 units SQ TIDM ml 10/24/17 04/11/18 History subcutaneous solution insulin detemir (U-100) 100 45 units SQ Q12 ml 10/24/17 04/11/18 History unit/mL (3 mL) subcutaneous pen lisinopril 10 mg tablet 10 mg PO QAM 10/24/17 04/11/18 History lorazepam 0.5 mg tablet 0.5 mg PO DAILY PRN 10/24/17 04/11/18 History magnesium oxide 400 mg capsule 400 mg PO BID cap 10/24/17 04/11/18 History mirtazapine 15 mg tablet 15 mg PO HS 10/24/17 04/11/18 History multivitamin tablet 1 tab PO QAM 10/24/17 04/11/18 History nitroglycerin 0.4 mg sublingual 0.4 mg SL Q5M PRN 10/24/17 04/11/18 History tablet ondansetron HCl 4 mg tablet 4 mg PO QAM PRN tab 10/24/17 04/11/18 History oxycodone-acetaminophen 5 mg-325 1 tab PO DAILY PRN tab 10/24/17 04/11/18 History mg tablet pantoprazole 40 mg tablet,delayed 40 mg PO BID 10/24/17 04/11/18 History release polyethylene glycol 3350 17 gram 17 gm PO DAILY PRN 10/24/17 04/11/18 History oral powder packet ranitidine 150 mg capsule 150 mg PO HS 10/24/17 04/11/18 History ropinirole 0.25 mg tablet 0.25 mg PO TID 10/24/17 04/11/18 History simvastatin 10 mg tablet 10 mg PO HS 10/24/17 04/11/18 History tamsulosin 0.4 mg capsule 0.8 mg PO HS 10/24/17 04/11/18 History trimethobenzamide 300 mg capsule 300 mg PO TID PRN 10/24/17 04/11/18 History Allergies Allergy/AdvReac Type Severity Reaction Status Date / Time capsaicin AdvReac Unknown RASH Verified 04/11/18 13:59 diclofenac AdvReac Unknown RASH Verified 04/11/18 13:59 Diclopak AdvReac Unknown RASH Verified 08/19/16 06:44 isopropyl alcohol AdvReac Unknown RASH Verified 04/11/18 13:59 propylene glycol AdvReac Unknown RASH Verified 04/11/18 13:59 Past Med/Surg History Medical History Flexion contracture (Chronic) Right upper extremity Chronic acquired lymphedema (Chronic 10/29/10) Hypertensive disorder, systemic arterial (Chronic 10/29/10) Morbid obesity (Chronic 10/29/10) Obstructive sleep apnea syndrome (Acute 10/29/10) Neuropathy (Chronic 09/28/12) Hyperlipidemia (Chronic) Coronary artery disease (Chronic 10/29/10) Social History Preferred Language: Ivorian Communication Ability: Effective Television Anchor Required: No Beliefs That Will Affect Care: None marital status: Current Living Situation: [facility] current occupational status: retired Other Information That Helps Us Care for You: No Feels Safe at Home: Yes Safety Concerns: Feels Safe At This Time Smoking Status: Never smoker Hx Alcohol Use: No Hx Substance Use: No Review of Systems See HPI for pertinent positives & negatives. and A total of 10 systems reviewed and were otherwise negative Physical Exam Vital Signs Vital Signs - 24 hr 04/11/18 10:22 04/11/18 11:35 04/11/18 11:43 Temperature 37.5 C Temperature Source Oral Sepsis Recent Fever Within 48 Hours No Sepsis Action Taken by Nursing No Action Required Pulse Rate 82 Pulse Rate [Apical] 74 Pulse Rhythm Regular Pulse Strength Normal Respiratory Rate 18 18 Respiratory Effort / Characteristics Non-Labored Non-Labored Spontaneous Respiratory Depth Normal Normal Respiratory Pattern Regular Regular Blood Pressure 157/61 H Blood Pressure [Right Arm] 137/55 L Blood Pressure Mean 93 Blood Pressure Mean [Right Arm] 82 Blood Pressure Position Lying Blood Pressure Position [Right Arm] Sitting Pulse Oximetry 95 95 95 Oxygen Delivery Method Room Air Room Air Room Air 04/11/18 13:16 04/11/18 13:44 04/11/18 15:50 Temperature Temperature Source Sepsis Recent Fever Within 48 Hours Sepsis Action Taken by Nursing Pulse Rate Pulse Rate [Apical] 71 65 65 Pulse Rhythm Pulse Strength Respiratory Rate 18 18 18 Respiratory Effort / Characteristics Non-Labored Spontaneous Non-Labored Spontaneous Non-Labored Spontaneous Respiratory Depth Normal Normal Normal Respiratory Pattern Regular Regular Regular Blood Pressure Blood Pressure [Right Arm] 129/64 160/60 H 158/64 H Blood Pressure Mean Blood Pressure Mean [Right Arm] 85 93 95 Blood Pressure Position Blood Pressure Position [Right Arm] Sitting Sitting Sitting Pulse Oximetry 95 93 93 Oxygen Delivery Method Room Air Room Air Room Air 04/11/18 16:17 04/11/18 17:10 04/11/18 17:14 Temperature Temperature Source Sepsis Recent Fever Within 48 Hours Sepsis Action Taken by Nursing Pulse Rate Pulse Rate [Apical] 61 63 Pulse Rhythm Pulse Strength Respiratory Rate 18 18 Respiratory Effort / Characteristics Non-Labored Spontaneous Non-Labored Spontaneous Respiratory Depth Normal Normal Respiratory Pattern Regular Regular Regular Blood Pressure Blood Pressure [Right Arm] 158/64 H 161/61 H Blood Pressure Mean Blood Pressure Mean [Right Arm] 95 94 Blood Pressure Position Blood Pressure Position [Right Arm] Sitting Sitting Pulse Oximetry 95 95 Oxygen Delivery Method Room Air Room Air Room Air Constitutional: Vital signs reviewed. Eyes: Pupils are equal round reactive to light. Conjunctiva are noninjected. ENT: Pharynx is clear without erythema or exudate. Mucous membranes are moist. Neck supple without meningeal signs. Respiratory: Clear to auscultation bilaterally. Breath sounds are equal bilaterally. Cardiovascular: Regular rate and rhythm. No rubs or gallops. GI: Soft, nondistended with lower abdominal tenderness to palpation, no guardi ng. Bowel sounds are present. Musculoskeletal: No peripheral edema. No lower extremity tenderness. Integumentary: No cyanosis. Neurological: The patient is awake and alert. No focal deficits. Psychiatric: Normal affect. Rectal: Rectal exam per Dr. Heaton - Scant bright red blood, tenderness with exam. Non-bleeding external hemorrhoid present. Course 1154: Past medical records reviewed. The patient was evaluated in room A9B, and a complete history and physical examination were performed. 1328: I checked on the patient. He is still having lower abdominal discomfort. I discussed test results. I will order CT scan. 1421: [place]. Venu Ballard [place] [facility] [place] was made aware of the patient at this time. Administered Medications Ioversol (Optiray 320 100ml) 94 ml IV ONCE PRN PRN Reason: Interaction Checking Stop: 04/15/18 13:33 Last Admin: 04/11/18 13:35 Dose: 94 ml Documented by: [id number] Discontinued Medications Sodium Chloride (Nss) 500 mls @ 999 mls/hr IV .Q31M BLAS Stop: 04/11/18 12:00 Last Infusion: 04/11/18 12:36 Dose: 0 mls/hr Documented by: [id number] Admin: 04/11/18 11:43 Dose: 999 mls/hr Documented by: [id number] Piperacillin Sod/Tazobactam Sod (Zosyn) 4.5 gm in 120 mls @ 240 mls/hr IV NOW ONE Stop: 04/11/18 14:53 Last Infusion: 04/11/18 16:20 Dose: 0 mls/hr Documented by: [id number] Admin: 04/11/18 15:50 Dose: 240 mls/hr Documented by: [id number] . Medical Decision Making Differential Diagnosis Differential Diagnosis includes: Colitis, diverticulitis, GI Bleed, Hemorrhoid, anal fissure, fecal impaction. Medical Records Attestation: I reviewed the patient's medical records. Laboratory Data Attestation: I reviewed the patient's lab results. Result diagrams: 04/11/18 10:25 04/11/18 10:25 Lab Results 04/11/18 04/11/18 04/11/18 Range/Units 10:25 10:25 10:25 WBC 18.05 H (4.8-10.8) K/uL RBC 4.75 (4.7-6.1) M/uL Hgb 14.1 (14.0-18.0) g/dL Hct 42.9 (42-52) % MCV 90.3 (80-100) fL MCH 29.7 (25-34) pg MCHC 32.9 (32-36) g/dL RDW Std Deviation 43.3 (36.4-46.3) fL RDW Coeff of Lucie 13.1 (11.5-14.5) % Plt Count 264 (130-400) K/uL MPV 11.3 H (7.4-10.4) fL Immature Gran % (Auto) 0.3 % Neut % (Auto) 84.5 % Lymph % (Auto) 5.9 % Caswell % (Auto) 9.1 % Eos % (Auto) 0.1 % Baso % (Auto) 0.1 % Immature Gran # (Auto) 0.06 H (0.00-0.02) K/uL Neut # (Auto) 15.25 H (1.4-6.5) K/uL Lymph # (Auto) 1.06 L (1.2-3.4) K/uL Caswell # (Auto) 1.64 H (0.11-0.59) K/uL Eos # (Auto) 0.02 (0-0.5) K/uL Baso # (Auto) 0.02 (0-0.2) K/uL PT 11.1 (9.0-12.0) Seconds INR 1.1 (0.9-1.1) APTT 27.0 (21.0-31.0) Seconds PTT Ratio 1.0 Sodium 134 L (136-145) mmol/L Potassium 3.9 (3.5-5.1) mmol/L Chloride 99 (98-107) mmol/L Carbon Dioxide 25 (21-32) mmol/L Anion Gap 10.0 (3-11) BUN 20 H (7-18) mg/dl Creatinine 1.01 (0.6-1.4) mg/dl Est Cr Clr Drug Dosing 80.8 ml/min Est GFR ( Amer) 83.4 Est GFR (Non-Af Amer) 71.9 BUN/Creatinine Ratio 20.2 H (10-20) Glucose 256 H (70-99) mg/dl Lactate (0.4-2.0) mmol/L Calcium 8.9 (8.5-10.1) mg/dl Total Bilirubin 0.6 (0.2-1) mg/dl AST 10 L (15-37) U/L ALT 9 L (12-78) U/L Alkaline Phosphatase 65 (45-117) U/L Total Protein 7.2 (6.4-8.2) gm/dl Albumin 3.3 L (3.4-5.0) gm/dl Globulin 3.9 (2.5-4.0) gm/dl Albumin/Globulin Ratio 0.9 (0.9-2) Blood Type Antibody Screen 04/11/18 04/11/18 Range/Units 11:40 15:46 WBC (4.8-10.8) K/uL RBC (4.7-6.1) M/uL Hgb (14.0-18.0) g/dL Hct (42-52) % MCV (80-100) fL MCH (25-34) pg MCHC (32-36) g/dL RDW Std Deviation (36.4-46.3) fL RDW Coeff of Lucie (11.5-14.5) % Plt Count (130-400) K/uL MPV (7.4-10.4) fL Immature Gran % (Auto) % Neut % (Auto) % Lymph % (Auto) % Caswell % (Auto) % Eos % (Auto) % Baso % (Auto) % Immature Gran # (Auto) (0.00-0.02) K/uL Neut # (Auto) (1.4-6.5) K/uL Lymph # (Auto) (1.2-3.4) K/uL Caswell # (Auto) (0.11-0.59) K/uL Eos # (Auto) (0-0.5) K/uL Baso # (Auto) (0-0.2) K/uL PT (9.0-12.0) Seconds INR (0.9-1.1) APTT (21.0-31.0) Seconds PTT Ratio Sodium (136-145) mmol/L Potassium (3.5-5.1) mmol/L Chloride (98-107) mmol/L Carbon Dioxide (21-32) mmol/L Anion Gap (3-11) BUN (7-18) mg/dl Creatinine (0.6-1.4) mg/dl Est Cr Clr Drug Dosing ml/min Est GFR ( Amer) Est GFR (Non-Af Amer) BUN/Creatinine Ratio (10-20) Glucose (70-99) mg/dl Lactate 1.7 (0.4-2.0) mmol/L Calcium (8.5-10.1) mg/dl Total Bilirubin (0.2-1) mg/dl AST (15-37) U/L ALT (12-78) U/L Alkaline Phosphatase (45-117) U/L Total Protein (6.4-8.2) gm/dl Albumin (3.4-5.0) gm/dl Globulin (2.5-4.0) gm/dl Albumin/Globulin Ratio (0.9-2) Blood Type O Positive Antibody Screen NEGATIVE Imaging Data Attestation: I personally reviewed and interpreted this imaging study as follows: Radiologist's Impression: ABDOMEN AND PELVIS CT WITH IV CONTRAST CT DOSE: 1127.41 mGycm HISTORY: lower abd pain/bleeding eval for divertic TECHNIQUE: Multiaxial CT images of the abdomen and pelvis were performed following the use of intravenous contrast. A dose lowering technique was utilized adhering to the principles of ALARA. COMPARISON STUDY: Abdomen and pelvis CT 04/08/2016. FINDINGS: Bibasilar linear densities consistent with subsegmental atelectasis. A 5 mm nodular density within the left lower lobe in image 24. No pneumoperitoneum. No pneumatosis. The bones are osteopenic. 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 This appears chronic and is not significantly changed. No suspicious lytic or blastic osseous lesions. Stable linear low density structure abutting the lateral wall of the duodenum best seen on image 138. This is likely chronic and may be due to the prior cholecystectomy. Heterogeneous enhancement of the left hepatic lobe. No definite hepatic masses. Trace perisplenic fluid. The spleen, adrenal glands, and pancreas are unremarkable. Subcentimeter retroperitoneal lymph nodes have slightly increased in size. These may be reactive. No hydronephrosis. Mild bilateral perinephric edema. The heart is mildly enlarged. Body wall edema is noted. The bladder is mildly distended. Severe bowel wall thickening involving the majority of the sigmoid colon and rectum with adjacent pericolonic fat stranding. No perforation or abscess at this time. No evidence for bowel obstruction. No evidence for acute appendicitis. There are are a few scattered colonic diverticula. IMPRESSION: 1. Severe bowel wall thickening involving the sigmoid colon and rectum. This is consistent with a nonspecific proctocolitis and favors an infectious or inflammatory process. Ischemic colitis could also have a similar appearance in the appropriate clinical setting. 2. Heterogeneous enhancement within the left hepatic lobe without definite mass. 3. No evidence for bowel obstruction. 4. Additional findings as described above. Electronically signed by: Colt Moore M.D. 04/11/2018 2:04 PM XR [facility] CLINICAL HISTORY: eval for constipation pain COMPARISON STUDY: 04/09/2016 FINDINGS: Mild generalized nonobstructive ileus. Air-filled loops of colon as well as small bowel are present. There are no secondary signs of free air. There are degenerative changes of the lumbar spine as well as pelvis. IMPRESSION: Generalized nonobstructive ileus. The above report was generated using voice recognition software. It may contain grammatical, syntax or spelling errors. Electronically signed by: Shadi James M.D. 04/11/2018 12:39 PM ECG Data Attestation: I personally reviewed and interpreted this ECG as follows: Indication: other (Rectal bleed protocol) Rate (beats per minute): 73 Rhythm: normal sinus Findings: + Q waves (Lead 3); no PVC and no ST elevation Blood Pressure Blood Pressure Findings: Elevated blood pressure Blood Pressure Disposition: Referred to patients primary care provider MDM Narrative I did perform a limited focused review of portions of the patient's old chart on the electronic medical record. The patient has had no recent pertinent visits to this hospital. Resident Physician Supervision Note: I did evaluate and examine this patient myself. I did guide management for the patient. I agree with the resident's (Dr. Heaton ) assessment as discussed. I did evaluate the patient as noted above. IV access was established. The patient was placed on a continuous periodicals clerk. I did order and personally review the patient's KUB x-ray as described above. He does appear to have significantly dilated bowel in an ileus without obstruction. I did order and review the patient's blood work as noted in the electronic medical record. His white blood cell count is significantly elevated. He is hyperglycemic. I did discuss the blood test with him. I did recommend CT scanning. I did order a CT of the abdomen and pelvis. I did review the images myself as well as the radiology report as described above. He does have a significant proctocolitis. I did treat him with Zosyn IV. The case was discussed with the hospitalist and welfare case worker. Impression & Plan Proctocolitis Discharge Plan Visit Data Chief Complaint: Rectal Bleed ED Provider: Fabien Oneal ED Midlevel Provider: Mitchell Heaton Discharge Problem: Proctocolitis Patient Disposition: Being Evaluated by Hospitalist Forms Stand Alone Forms: My [facility], Important Visit Information Prescriptions Prescriptions: No Action multivitamin tablet 1 tab PO QAM RF: 0 fentanyl 50 mcg/hr patch 72 hour 1 patch TD Q72H RF: 0 gabapentin 600 mg tablet 1,200 mg PO HS RF: 0 gabapentin 600 mg tablet 600 mg PO QAM RF: 0 polyethylene glycol 3350 [Miralax] 17 gram powder in packet 17 gm PO DAILY PRN (Reason: Constipation) RF: 0 donepezil [Aricept] 10 mg tablet 10 mg PO HS RF: 0 ondansetron HCl [Zofran] 4 mg tablet 4 mg PO QAM PRN (Reason: Nausea) RF: 0 carbidopa-levodopa [Sinemet CR] 50-200 mg tablet extended release 1 tab PO QAM RF: 0 simvastatin [Zocor] 10 mg tablet 10 mg PO HS RF: 0 oxycodone-acetaminophen [Percocet] 5-325 mg tablet 1 tab PO DAILY PRN (Reason: Pain) RF: 0 entacapone [Comtan] 200 mg tablet 200 mg PO QID RF: 0 citalopram 20 mg tablet 20 mg PO QAM RF: 0 lorazepam [Ativan] 0.5 mg tablet 0.5 mg PO DAILY PRN (Reason: Anxiety) RF: 0 tamsulosin 0.4 mg capsule 0.8 mg PO HS RF: 0 ropinirole 0.25 mg tablet 0.25 mg PO TID RF: 0 baclofen 10 mg tablet 10 mg PO TID RF: 0 amlodipine 10 mg tablet 10 mg PO QAM RF: 0 insulin aspart U-100 [Novolog U-100 Insulin aspart] 100 unit/mL solution 25 units SQ TIDM RF: 0 pantoprazole [Protonix] 40 mg tablet,delayed release (DR/EC) 40 mg PO BID RF: 0 lisinopril 10 mg tablet 10 mg PO QAM RF: 0 nitroglycerin [Nitrostat] 0.4 mg tablet, sublingual 0.4 mg SL Q5M PRN (Reason: Chest Pain) RF: 0 docusate sodium [Colace] 100 mg capsule 100 mg PO BID PRN (Reason: Constipation) RF: 0 balsalazide [Colazal] 750 mg capsule 1,500 mg PO TID RF: 0 ranitidine HCl 150 mg capsule 150 mg PO HS RF: 0 mirtazapine [Remeron] 15 mg tablet 15 mg PO HS RF: 0 carbidopa-levodopa [Sinemet] 25-100 mg tablet 2.5 tab PO QID RF: 0 fluticasone [Allergy Relief (fluticasone)] 50 mcg/actuation spray,suspension 2 sprays INTNAS QAM RF: 0 trimethobenzamide [Tigan] 300 mg capsule 300 mg PO TID PRN (Reason: Nausea) RF: 0 dutasteride [Avodart] 0.5 mg capsule 0.5 mg PO HS RF: 0 Saccharomyces boulardii [Florastor] 250 mg capsule 250 mg PO QAM RF: 0 apomorphine [APOKYN] 10 mg/mL cartridge 0.3 ml SQ DAILY PRN (Reason: PARKINSON SYMPTOMS) RF: 0 insulin detemir U-100 [Levemir FlexTouch U-100 Insuln] 100 unit/mL (3 mL) insulin pen 45 units SQ Q12 RF: 0 gatifloxacin [Zymaxid] 0.5 % drops 1 drops ophthalmic (eye) TID RF: 0 magnesium oxide 400 mg capsule 400 mg PO BID RF: 0 bromfenac [Prolensa] 0.07 % drops 1 drops OP QAM RF: 0 Referrals Referrals: Greenlee,[place] [Primary Care Provider] - The scribe's documentation has been prepared under my direction and personally reviewed by me in its entirety. I confirm that the note above accurately reflects all work, treatment, procedures, and medical decision making performed by me.
--- NOTE | 2018-04-11 19:05 | History & Physical Report ---
Date of Service April 11, 2018 Assessment & Plan (1) Proctocolitis: 77 y/o m hx Parkinson's, DM II, CAD, Chronic neck pain, HTN, HLD, CAD, JORGE LUIS, morbidly obese. Pt presents with rectal bleeding. He resides in a care home where it was reported that he had 4 grossly bloody bowel movements starting at 2:00 PM. He states he has some mild abdominal pain and has otherwise been asymptomatic. He denies nausea, vomiting or fevers. He is normally constipated and has a history of hemorrhoids, although he denies a history of GI bleeding. A CT of the abdomen demonstrated severe proctocolitis. 1) Proctocolitis - pt placed on Cipro/Flagyl, NPO until AM. Stool cultures pending. Consider GI consult if bleeding persists or if colitis does not resolve with antibiotics. Lactic acid is negative so this is less likely to be ishemic than infectious. 2) CAD - no evidence of ACS - cont Statin and NTG as need - does not take ASA or a B cruz 3) Parkinson's - cont Sinemet, Ropinirole 4) DM - placed on SS 5) HTN - cont Amlodipine, Lisinopril 6) JORGE LUIS - CPAP provided Full code SCDs Total time for this admit including review of labs, meds, imaging, records - discussion with pt and ER attending - 40 min History of Present Illness Primary Care Provider: [facility] 77 y/o m hx Parkinson's, DM II, CAD, Chronic neck pain, HTN, HLD, CAD, JORGE LUIS, morbidly obese. Pt presents with rectal bleeding. He resides in a care home where it was reported that he had 4 grossly bloody bowel movements starting at 2:00 PM. He states he has some mild abdominal pain and has otherwise been a symptomatic. He denies nausea, vomiting or fevers. He is normally constipated and has a history of hemorrhoids, although he denies a history of GI bleeding. A CT of the abdomen demonstrated severe proctocolitis. PMH: 1) Morbid obesity 2) HTN 3) HLD 4) CAD 5) Chronic neck pain 6) Parkinson's disease 7) Dementia 8) BPH 9) Diverticulitis 10) JORGE LUIS 11) Glaucoma 12) DM II Surgical: 1) Neck fusion 2) Coronary stents Social: Does not smoke or drink - resides in [facility] Family: Noncontributory Allergies Allergy/AdvReac Type Severity Reaction Status Date / Time capsaicin AdvReac Unknown RASH Verified 04/11/18 13:59 diclofenac AdvReac Unknown RASH Verified 04/11/18 13:59 Diclopak AdvReac Unknown RASH Verified 08/19/16 06:44 isopropyl alcohol AdvReac Unknown RASH Verified 04/11/18 13:59 propylene glycol AdvReac Unknown RASH Verified 04/11/18 13:59 Home Medications Home Medications Medication Instructions Recorded Confirmed Type Saccharomyces boulardii 250 mg 250 mg PO QAM 10/24/17 04/11/18 History capsule amlodipine 10 mg tablet 10 mg PO QAM 10/24/17 04/11/18 History apomorphine 10 mg/mL subcutaneous 0.3 ml SQ DAILY PRN 10/24/17 04/11/18 History cartridge baclofen 10 mg tablet 10 mg PO TID 10/24/17 04/11/18 History balsalazide 750 mg capsule 1,500 mg PO TID cap 10/24/17 04/11/18 History bromfenac 0.07 % eye drops 1 drops OP QAM 10/24/17 04/11/18 History carbidopa 25 mg-levodopa 100 mg 2.5 tab PO QID tab 10/24/17 04/11/18 History tablet carbidopa ER 50 mg-levodopa 200 mg 1 tab PO QAM tab 10/24/17 04/11/18 History tablet,extended release citalopram 20 mg tablet 20 mg PO QAM 10/24/17 04/11/18 History docusate sodium 100 mg capsule 100 mg PO BID PRN 10/24/17 04/11/18 History donepezil 10 mg tablet 10 mg PO HS 10/24/17 04/11/18 History dutasteride 0.5 mg capsule 0.5 mg PO HS 10/24/17 04/11/18 History entacapone 200 mg tablet 200 mg PO QID 10/24/17 04/11/18 History fentanyl 50 mcg/hr transdermal 1 patch TD Q72H 10/24/17 04/11/18 History patch fluticasone 50 mcg/actuation nasal 2 sprays INTNAS QAM 10/24/17 04/11/18 History spray,suspension gabapentin 600 mg tablet 1,200 mg PO HS tab 10/24/17 04/11/18 History gabapentin 600 mg tablet 600 mg PO QAM tab 10/24/17 04/11/18 History gatifloxacin 0.5 % eye drops 1 drops OPHTHALMIC (EYE) TID 10/24/17 04/11/18 History insulin aspart U- 100 100 unit/mL 25 units SQ TIDM ml 10/24/17 04/11/18 History subcutaneous solution insulin detemir (U-100) 100 45 units SQ Q12 ml 10/24/17 04/11/18 History unit/mL (3 mL) subcutaneous pen lisinopril 10 mg tablet 10 mg PO QAM 10/24/17 04/11/18 History lorazepam 0.5 mg tablet 0.5 mg PO DAILY PRN 10/24/17 04/11/18 History magnesium oxide 400 mg capsule 400 mg PO BID cap 10/24/17 04/11/18 History mirtazapine 15 mg tablet 15 mg PO HS 10/24/17 04/11/18 History multivitamin tablet 1 tab PO QAM 10/24/17 04/11/18 History nitroglycerin 0.4 mg sublingual 0.4 mg SL Q5M PRN 10/24/17 04/11/18 History tablet ondansetron HCl 4 mg tablet 4 mg PO QAM PRN tab 10/24/17 04/11/18 History oxycodone-acetaminophen 5 mg-325 1 tab PO DAILY PRN tab 10/24/17 04/11/18 History mg tablet pantoprazole 40 mg tablet,delayed 40 mg PO BID 10/24/17 04/11/18 History release polyethylene glycol 3350 17 gram 17 gm PO DAILY PRN 10/24/17 04/11/18 History oral powder packet ranitidine 150 mg capsule 150 mg PO HS 10/24/17 04/11/18 History ropinirole 0.25 mg tablet 0.25 mg PO TID 10/24/17 04/11/18 History simvastatin 10 mg tablet 10 mg PO HS 10/24/17 04/11/18 History tamsulosin 0.4 mg capsule 0.8 mg PO HS 10/24/17 04/11/18 History trimethobenzamide 300 mg capsule 300 mg PO TID PRN 10/24/17 04/11/18 History Past Med/Surg History Medical History Flexion contracture (Chronic) Right upper extremity Chronic acquired lymphedema (Chronic 10/29/10) Hypertensive disorder, systemic arterial (Chronic 10/29/10) Morbid obesity (Chronic 10/29/10) Obstructive sleep apnea syndrome (Acute 10/29/10) Neuropathy (Chronic 09/28/12) Hyperlipidemia (Chronic) Coronary artery disease (Chronic 10/29/10) Social History Preferred Language: Ivorian Communication Ability: Effective 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 Beliefs That Will Affect Care: None marital status: Current Living Situation: Half-Way current occupational status: retired Other Information That Helps Us Care for You: No Feels Safe at Home: Yes Safety Concerns: Feels Safe At This Time Smoking Status: Never smoker Hx Alcohol Use: No Hx Substance Use: No Review of Systems Gen: Denies fevers, night sweats, rigors, fatigue, malaise, weight loss/gain ENT: Denies congestion, throat pain, hearing loss Eyes: Denies acute visual changes CV: Denies CP, palpitations Pulmonary: Denies SOB, cough, wheezing GI: $ episodes of BRBPR and lower abdominal pain Neuro: Chronic rigidity, tremor and impaired gait Musculoskeletal: Denies joint pain, inflammation Endocrine: Denies polydipsia, polyuria Skin: Denies acute rashes or ulcers Physical Exam Vital Signs (Past 24 Hours): Last Vital Signs Temp 37.5 C 04/11/18 10:22 Pulse 63 04/11/18 17:10 Resp 18 04/11/18 17:10 BP 161/61 H 04/11/18 17:10 Pulse Ox 95 04/11/18 17:10 Physical Exam: General: AAO x 3, no distress ENT: No erythema or exudates, no thrush Eyes: ELIZA, EOMI Head and neck: Normocephalic, atraumatic, neck is supple. Chest/heart: Nontender, S1,2, RRR, no murmurs, no gallops Lungs: CTAB, no wheezing or crackles Abdomen: There is mild tenderness to palpation of the lower quadrants. Neuro: AAO x 3, speech is clear - there is a tremor noted on the L - gait was not tested Musculoskeletal: No joint inflammation, muscle tenderness, FROM Skin: No acute rashes or ulcers Extremities: No clubbing, cyanosis - minimal edema Results & Data Diagnostic Findings CT abdomen/pelvis 1. Severe bowel wall thickening involving the sigmoid colon and rectum. This is consistent with a nonspecific proctocolitis and favors an infectious or inflammatory process. Ischemic colitis could also have a similar appearance in the appropriate clinical setting. 2. Heterogeneous enhancement within the left hepatic lobe without definite mass. 3. No evidence for bowel obstruction.
[2018-04-11] MEDS ORDERED: NITROGLYCERIN SL 0.4 MG/TAB TAB SL PRN (21:44)
[2018-04-11] MEDS ORDERED: LORazepam 0.5 MG TAB PO PRN (21:44)
[2018-04-11] MEDS ORDERED: MoRPHine SULFATE 4 MG/ML 1 ML CARP\\VIAL IV PRN (21:44)
[2018-04-11] MEDS ORDERED: LACTATED RINGER'S 1,000 ML IV SCH (21:44)
[2018-04-11] MEDS: CARBIDOPA/LEVODOPA 25/100MG TAB PO SCH (23:20)
[2018-04-11] MEDS: ROPINIROLE HCL 0.25 MG TABLET PO SCH (23:21)
[2018-04-11] MEDS: ENTACAPONE 200 MG TAB PO SCH (23:21)
[2018-04-11] MEDS: GABAPENTIN 600 MG TAB PO SCH (23:22)
[2018-04-11] MEDS: TAMSULOSIN HCL 0.4 MG CAP PO SCH (23:23)
[2018-04-11] MEDS: SIMVASTATIN 10 MG TAB PO SCH (23:23)
[2018-04-11] MEDS: MIRTAZAPINE TAB 15 MG TAB PO SCH (23:24)
[2018-04-11] MEDS: PANTOprazole 40 MG TAB PO SCH (23:24)
[2018-04-11] MEDS: BACLOFEN 10 MG TAB PO SCH (23:25)
[2018-04-11] MEDS: DONEPEZIL HCL 10 MG TAB PO SCH (23:25)
[2018-04-11] MEDS: AVODART-ORDER AWAITING ACTION SCH (23:31)
[2018-04-12] MEDS: INSULIN ASPART 100 UNITS/ML 3 ML PEN SC SCH ×4 (00:01→18:47)
[2018-04-12] MEDS: ONDANSETRON INJ 2 MG/ML 2 ML VIAL IV PRN ×2 (08:04→21:11)
[2018-04-12] MEDS: AVODART-ORDER AWAITING ACTION SCH ×3 (08:06→23:36)
[2018-04-12] MEDS: BACLOFEN 10 MG TAB PO SCH ×3 (08:07→21:20)
[2018-04-12] MEDS: CITALOPRAM 20 MG TAB PO SCH (08:07)
[2018-04-12] MEDS: LISINOPRIL 10 MG TAB PO SCH (08:07)
[2018-04-12] MEDS: PANTOprazole 40 MG TAB PO SCH ×2 (08:08→21:21)
[2018-04-12] MEDS: GABAPENTIN 600 MG TAB PO SCH ×2 (08:08→21:21)
[2018-04-12] MEDS: CARBIDOPA/LEVODOPA 50/200MG EXT REL TAB PO SCH (08:08)
[2018-04-12] MEDS: CARBIDOPA/LEVODOPA 25/100MG TAB PO SCH ×4 (08:09→21:23)
[2018-04-12] MEDS: ROPINIROLE HCL 0.25 MG TABLET PO SCH ×3 (08:09→21:24)
[2018-04-12] MEDS: ENTACAPONE 200 MG TAB PO SCH ×4 (08:09→21:19)
[2018-04-12] MEDS: AMLODIPINE BESYLATE 5 MG TAB PO SCH (08:10)
[2018-04-12] MEDS: fentaNYL 50 MCG/HR TDSY TD SCH (08:11)
[2018-04-12] MEDS: CHECK FENTANYL PATCH PLACEMENT SCH ×3 (08:13→17:16)
[2018-04-12] MEDS ORDERED: AMLODIPINE BESYLATE 5 MG TAB PO SCH (09:00)
[2018-04-12 10:42] LABS: Basophils # (auto) 0.02 K/uL (0-0.2); Basophils % (auto) 0.1 %; Eosinophils # (auto) 0.05 K/uL (0-0.5); Eosinophils % (auto) 0.3 %; Hematocrit (blood only) 36.1 % (42-52); Hemoglobin 11.5 g/dL (14.0-18.0); Immature Granulocytes # (auto) 0.06 K/uL (0.00-0.02); Immature Granulocytes % (auto) 0.4 %; Lymphocytes # (auto) 1.16 K/uL (1.2-3.4); Lymphocytes % (auto) 7.8 %; Mean Corpuscular Hgb Conc 31.9 g/dL (32-36); Mean Corpuscular Volume 91.6 fL (80-100); Mean Platelet Volume 10.6 fL (7.4-10.4); Monocytes % (auto) 8.8 %; Neutrophils # (auto) 12.24 K/uL (1.4-6.5); Neutrophils % (auto) 82.6 %; Platelet Count 225 K/uL (130-400); RDW Coefficient of Variation 13.4 % (11.5-14.5); RDW Standard Deviation 45.1 fL (36.4-46.3); Red Blood Count 3.94 M/uL (4.7-6.1); White Blood Count 14.83 K/uL (4.8-10.8)
[2018-04-12 10:58] LABS: BUN Creatinine Ratio 21.5 (10-20); Calcium 8.2 mg/dl (8.5-10.1); Creatinine Clr Calc Pharmacy 94.9 ml/min; Est GFR (African American) 97.6; Est GFR (Non-African American) 84.2; Potassium 4.2 mmol/L (3.5-5.1)
--- NOTE | 2018-04-12 14:29 | Hospitalist Progress Note ---
Date of Service April 12, 2018 Assessment & Plan (1) Proctocolitis: This patient is a 77 y/o m hx Parkinson's, DM II, CAD, Chronic neck pain, HTN, HLD, CAD, JORGE LUIS, morbidly obese who presents with rectal bleeding. He was constipated for 1 week and has chronic constipation. He was given a bowel regimen and then had a grossly bloody bowel movements along with left lower quadrant abdominal pain. He is also having some nausea without vomiting.. A CT of the abdomen demonstrated severe proctocolitis. Ischemic colitis not likely as lactate is negative but is possible. Could be stercoral colitis as well as infectious. He has a history of colitis and C. difficile diarrhea. He is also currently on balsalazide listed as a "anti-inflammatory" on his snf records. -Continue Cipro/Flagyl -Check stool culture when can give sample -Hemoglobin with slight drop as below-follow CBC -Consult GI given his history of colitis and with rectal bleeding -Pain control with morphine as needed and home pain meds -Keep n.p.o. with sips and chips for now -Restart IV fluids for hydration while n.p.o. (2) Rectal bleeding: Secondary to colitis With hemoglobin drop of about 3 g -Follow CBC -GI consult (3) Abdominal pain: In the left lower quadrant-secondary to his severe sigmoid-proctocolitis -Pain control as needed -Treating with antibiotics as above (4) Coronary artery disease: - no evidence of ACS - cont Statin and NTG as need - -aspirin on hold for rectal bleeding He does not take a beta-cruz (5) Parkinson's disease: Fairly severe, bedbound and requires hoist lift to chair -Cont Sinemet, Ropinirole, Copaxone, baclofen, donepezil -Continue pain control with fentanyl patches, gabapentin (6) Acute blood loss anemia: Hemoglobin dropped from 14 down to 11 today secondary to rectal bleeding -Follow CBC -Consult GI -Transfuse if continues to drop less than 8 -Check orthostatics (7) Diabetes mellitus: On long-term insulin, here with hyperglycemia despite being n.p.o. -Restart long-acting insulin with Lantus 20 units SQ twice daily -Tighten sliding scale insulin NovoLog (8) Obstructive sleep apnea syndrome: Continue home CPAP (9) Neuropathy: -Continue home gabapentin (10) Hyperlipidemia: -Continue statin (11) History of stroke: With residual right-sided weakness -Holding aspirin for rectal bleeding -Continue statin (12) HTN (hypertension), benign: Blood pressures are mildly elevated -Continue home amlodipine, lisinopril (13) Depression: Stable -Continue home mirtazapine, Celexa (14) BPH (benign prostatic hyperplasia): Stable -Continue tamsulosin and dutasteride (15) GERD (gastroesophageal reflux disease): Continue H2 cruz and PPI (16) DVT prophylaxis: SCDs only given rectal bleeding Disposition-remain on medical floor Eventually back to snf Subjective Patient reporting nausea and dry heaves but no vomiting. He still having left lower quadrant abdominal pain that radiates a little bit to the right lower quadrant. Had a small bowel movement this morning but is unsure if it had blood in it. He reports he was constipated for 1 week prior to admission. He has a history of colitis in the past. Last colonoscopy as per review of records was 2014. Review of Systems All systems reviewed & are unremarkable except as noted in HPI & below Physical Exam Vital Signs (Past 24 Hours): Last Vital Signs Temp 37.2 C 04/12/18 07:54 Pulse 85 04/12/18 07:54 Resp 12 04/12/18 07:54 BP 159/76 H 04/12/18 07:54 Pulse Ox 96 04/12/18 07:54 Constitutional: WD/WN, vitals as above + obese Eyes: PERRL, conjunctivae normal, anicteric sclerae ENMT: Ears: no hearing impairment Mouth: + oral mucosal abnormality (Dry) Neck: trachea midline, no thyromegaly Respiratory: normal respiratory effort, lungs clear to auscultation Cardiovascular: RRR, no murmur, no edema Gastrointestinal (Abdomen): Inspection/Auscultation: + abdomen distended (Mildly) and normal bowel sounds Percussion/Palpation: + abdomen tender (Left lower quadrant without guarding or rebound tenderness) and abdomen soft Musculoskeletal: Extremities: + extremities abnormal to inspection (Flexion contracture in the right hand and wrist), no cyanosis and no clubbing Skin: no rashes, warm and dry Neurologic: + focal motor deficit (Weakness in the right upper extremity) and awake Psychiatric: A+Ox3, euthymic affect Results & Data Laboratory Results 04/12/18 04/12/18 04/12/18 Range/Units 11:43 10:29 10:29 WBC (4.8-10.8) K/uL RBC (4.7-6.1) M/uL Hgb (14.0-18.0) g/dL Hct (42-52) % MCV (80-100) fL MCH (25-34) pg MCHC (32-36) g/dL RDW Std Deviation (36.4-46.3) fL RDW Coeff of Lucie (11.5-14.5) % Plt Count (130-400) K/uL MPV (7.4-10.4) fL Immature Gran % (Auto) % Neut % (Auto) % Lymph % (Auto) % Piute % (Auto) % Eos % (Auto) % Baso % (Auto) % Immature Gran # (Auto) (0.00-0.02) K/uL Neut # (Auto) (1.4-6.5) K/uL Lymph # (Auto) (1.2-3.4) K/uL Piute # (Auto) (0.11-0.59) K/uL Eos # (Auto) (0-0.5) K/uL Baso # (Auto) (0-0.2) K/uL Sodium 135 L (136-145) mmol/L Potassium 4.2 (3.5-5.1) mmol/L Chloride 102 (98-107) mmol/L Carbon Dioxide 27 (21-32) mmol/L Anion Gap 6.0 (3-11) BUN 19 H (7-18) mg/dl Creatinine 0.86 (0.6-1.4) mg/dl Est Cr Clr Drug Dosing 94.9 ml/min Est GFR ( Amer) 97.6 Est GFR (Non-Af Amer) 84.2 BUN/Creatinine Ratio 21.5 H (10-20) Glucose 268 H (70-99) mg/dl POC Glucose 294 H (70-99) Lactate 1.0 (0.4-2.0) mmol/L Calcium 8.2 L (8.5-10.1) mg/dl 04/12/18 04/12/18 04/12/18 Range/Units 10:29 06:04 03:44 WBC 14.83 H (4.8-10.8) K/uL RBC 3.94 L (4.7-6.1) M/uL Hgb 11.5 L 12.1 L (14.0-18.0) g/dL Hct 36.1 L (42-52) % MCV 91.6 (80-100) fL MCH 29.2 (25-34) pg MCHC 31.9 L (32-36) g/dL RDW Std Deviation 45.1 (36.4-46.3) fL RDW Coeff of Lucie 13.4 (11.5-14.5) % Plt Count 225 (130-400) K/uL MPV 10.6 H (7.4-10.4) fL Immature Gran % (Auto) 0.4 % Neut % (Auto) 82.6 % Lymph % (Auto) 7.8 % Piute % (Auto) 8.8 % Eos % (Auto) 0.3 % Baso % (Auto) 0.1 % Immature Gran # (Auto) 0.06 H (0.00-0.02) K/uL Neut # (Auto) 12.24 H (1.4-6.5) K/uL Lymph # (Auto) 1.16 L (1.2-3.4) K/uL Piute # (Auto) 1.30 H (0.11-0.59) K/uL Eos # (Auto) 0.05 (0-0.5) K/uL Baso # (Auto) 0.02 (0-0.2) K/uL Sodium (136-145) mmol/L Potassium (3.5-5.1) mmol/L Chloride (98-107) mmol/L Carbon Dioxide (21-32) mmol/L Anion Gap (3-11) BUN (7-18) mg/dl Creatinine (0.6-1.4) mg/dl Est Cr Clr Drug Dosing ml/min Est GFR ( Amer) Est GFR (Non-Af Amer) BUN/Creatinine Ratio (10-20) Glucose (70-99) mg/dl POC Glucose 215 H (70-99) Lactate (0.4-2.0) mmol/L Calcium (8.5-10.1) mg/dl 04/11/18 04/11/18 04/11/18 Range/Units 23:37 22:19 15:46 WBC (4.8-10.8) K/uL RBC (4.7-6.1) M/uL Hgb 12.9 L (14.0-18.0) g/dL Hct (42-52) % MCV (80-100) fL MCH (25-34) pg MCHC (32-36) g/dL RDW Std Deviation (36.4-46.3) fL RDW Coeff of Lucie (11.5-14.5) % Plt Count (130-400) K/uL MPV (7.4-10.4) fL Immature Gran % (Auto) % Neut % (Auto) % Lymph % (Auto) % Piute % (Auto) % Eos % (Auto) % Baso % (Auto) % Immature Gran # (Auto) (0.00-0.02) K/uL Neut # (Auto) (1.4-6.5) K/uL Lymph # (Auto) (1.2-3.4) K/uL Piute # (Auto) (0.11-0.59) K/uL Eos # (Auto) (0-0.5) K/uL Baso # (Auto) (0-0.2) K/uL Sodium (136-145) mmol/L Potassium (3.5-5.1) mmol/L Chloride (98-107) mmol/L Carbon Dioxide (21-32) mmol/L Anion Gap (3-11) BUN (7-18) mg/dl Creatinine (0.6-1.4) mg/dl Est Cr Clr Drug Dosing ml/min Est GFR ( Amer) Est GFR (Non-Af Amer) BUN/Creatinine Ratio (10-20) Glucose (70-99) mg/dl POC Glucose 244 H (70-99) Lactate 1.7 (0.4-2.0) mmol/L Calcium (8.5-10.1) mg/dl
[2018-04-12] MEDS: metroNIDAZOLE 500 MG/100 ML BAG IV SCH ×2 (14:33→22:31)
[2018-04-12] MEDS: CIPROFLOXACIN 400 MG/200 ML BAG IV SCH (14:34)
[2018-04-12] MEDS ORDERED: APOKYN SQ PRN (14:46)
--- NOTE | 2018-04-12 15:47 | Gastrointestinal Consultation ---
Date of Consultation April 12, 2018 Assessment & Plan (1) Proctocolitis: His rectal bleeding is most suggestive of a stercoral ulcer/colitis: constipation, with rectal bleeding, and now , after passing a large BM, is passing small amts of pink mucoid discharge rectally. Also considered is ischemic colitis, though that is more typically located in the splenic flexure and descending colon vs. Sigmoid and rectum. He continues with abdominal distention, though tells me this is improved. Plan: 1. Will prep for possible colonoscopy tomorrow. 2. Clear liquids po. NPO after midnight. 3. Continue to follow Hb; close documentation of BMs. 4. Antiemetics. 4. Recheck KUB tomorrow morning. 5. Continue to follow Hb. 6. Will consider colonoscopy based on progress with laxatives and if dramatic drop in Hb. (2) Chronic constipation: Supervising Physician Co-Signing Physician Notes I have performed a history and physical examination of this patient and reviewed the electronic medical record. Specifically, on physical examination there is moderate abdominal distention. I have discussed the case with CHAMP Borden. The above note reflects my findings, conclusions, and recommendations. Reuben Lim MD History of Present Illness Reason for Consultation: Colitis, rectal bleeding Requesting Physician: Dr. Jeffers Attending Physician: María Jeffers MD History of Present Illness Mr. Raymond Jcakson is a 77 yr old male with a hx of Parkinson's, DM, CVA, HTN, BPH, GERD and depression. He was [facility] to [facility] yesterday for bloody BMs, having p assed 4 with bright red blood yesterday afternoon. On arrival, A non contrast CT was suggestive of severe bowel wall thickening of the sigmoid and rectum. Hb on arrival was 12.9 and is now 11.5. BUN 19, Cr. 1.86. INR 1.1. The pt tells me that he has chronic constipation and that he felt very constipated prior to the onset of his rectal bleeding. He continues with moderate abdominal distention but tells me that one of the BMs yesterday was large and he has felt less constipated since that time. Allergies Allergy/AdvReac Type Severity Reaction Status Date / Time capsaicin AdvReac Unknown RASH Verified 04/11/18 13:59 diclofenac AdvReac Unknown RASH Verified 04/11/18 13:59 Diclopak AdvReac Unknown RASH Verified 08/19/16 06:44 isopropyl alcohol AdvReac Unknown RASH Verified 04/11/18 13:59 propylene glycol AdvReac Unknown RASH Verified 04/11/18 13:59 Home Medications Home Medications Medication Instructions Recorded Confirmed Type Saccharomyces boulardii 250 mg 250 mg PO QAM 10/24/17 04/11/18 History capsule amlodipine 10 mg tablet 10 mg PO QAM 10/24/17 04/11/18 History apomorphine 10 mg/mL subcutaneous 0.3 ml SQ DAILY PRN 10/24/17 04/11/18 History cartridge baclofen 10 mg tablet 10 mg PO TID 10/24/17 04/11/18 History balsalazide 750 mg capsule 1,500 mg PO TID cap 10/24/17 04/11/18 History bromfenac 0.07 % eye drops 1 drops OP QAM 10/24/17 04/11/18 History carbidopa 25 mg-levodopa 100 mg 2.5 tab PO QID tab 10/24/17 04/11/18 History tablet carbidopa ER 50 mg-levodopa 200 mg 1 tab PO QAM tab 10/24/17 04/11/18 History tablet,extended release citalopram 20 mg tablet 20 mg PO QAM 10/24/17 04/11/18 History docusate sodium 100 mg capsule 100 mg PO BID PRN 10/24/17 04/11/18 History donepezil 10 mg tablet 10 mg PO HS 10/24/17 04/11/18 History dutasteride 0.5 mg capsule 0.5 mg PO HS 10/24/17 04/11/18 History entacapone 200 mg tablet 200 mg PO QID 10/24/17 04/11/18 History fentanyl 50 mcg/hr transdermal 1 patch TD Q72H 10/24/17 04/11/18 History patch fluticasone 50 mcg/actuation nasal 2 sprays INTNAS QAM 10/24/17 04/11/18 History spray,suspension gabapentin 600 mg tablet 1,200 mg PO HS tab 10/24/17 04/11/18 History gabapentin 600 mg tablet 600 mg PO QAM tab 10/24/17 04/11/18 History gatifloxacin 0.5 % eye drops 1 drops OPHTHALMIC (EYE) TID 10/24/17 04/11/18 History insulin aspart U- 100 100 unit/mL 25 units SQ TIDM ml 10/24/17 04/11/18 History subcutaneous solution insulin detemir (U-100) 100 45 units SQ Q12 ml 10/24/17 04/11/18 History unit/mL (3 mL) subcutaneous pen lisinopril 10 mg tablet 10 mg PO QAM 10/24/17 04/11/18 History lorazepam 0.5 mg tablet 0.5 mg PO DAILY PRN 10/24/17 04/11/18 History magnesium oxide 400 mg capsule 400 mg PO BID cap 10/24/17 04/11/18 History mirtazapine 15 mg tablet 15 mg PO HS 10/24/17 04/11/18 History multivitamin tablet 1 tab PO QAM 10/24/17 04/11/18 History nitroglycerin 0.4 mg sublingual 0.4 mg SL Q5M PRN 10/24/17 04/11/18 History tablet ondansetron HCl 4 mg tablet 4 mg PO QAM PRN tab 10/24/17 04/11/18 History oxycodone-acetaminophen 5 mg-325 1 tab PO DAILY PRN tab 10/24/17 04/11/18 History mg tablet pantoprazole 40 mg tablet,delayed 40 mg PO BID 10/24/17 04/11/18 History release polyethylene glycol 3350 17 gram 17 gm PO DAILY PRN 10/24/17 04/11/18 History oral powder packet ranitidine 150 mg capsule 150 mg PO HS 10/24/17 04/11/18 History ropinirole 0.25 mg tablet 0.25 mg PO TID 10/24/17 04/11/18 History simvastatin 10 mg tablet 10 mg PO HS 10/24/17 04/11/18 History tamsulosin 0.4 mg capsule 0.8 mg PO HS 10/24/17 04/11/18 History trimethobenzamide 300 mg capsule 300 mg PO TID PRN 10/24/17 04/11/18 History Patient History Medical History Flexion contracture (Chronic) Right upper extremity Chronic acquired lymphedema (Chronic 10/29/10) Hypertensive disorder, systemic arterial (Chronic 10/29/10) Morbid obesity (Chronic 10/29/10) Obstructive sleep apnea syndrome (Acute 10/29/10) Neuropathy (Chronic 09/28/12) Hyperlipidemia (Chronic) Coronary artery disease (Chronic 10/29/10) Social History Communication Ability: Effective Beliefs That Will Affect Care: None marital status: Current Living Situation: [facility] current occupational status: retired Other Information That Helps Us Care for You: No Feels Safe at Home: Yes Safety Concerns: Feels Safe At This Time Smoking Status: Never smoker Hx Alcohol Use: No Hx Substance Use: No Review of Systems Gen: Denies fever, weakness, weight loss, CP or SOB Eyes: no vision changes, no eye redness or pain Respiratory: No SOB, no cough Cardiovascular: No irregular heartbeats or chest pain Abdomen: + constipation, bloating, mild nausea, no vomiting; + rectal bleeding, diffuse abdominal pain. Ext: No edema Hem: No excessive bruising/bleeding Physical Exam Vital Signs (Past 24 Hours): Last Vital Signs Temp 37.0 C 04/12/18 15:03 Pulse 85 04/12/18 07:54 Resp 18 04/12/18 15:03 BP 159/76 H 04/12/18 07:54 Pulse Ox 94 04/12/18 15:03 Constitutional: well developed, well nourished, + acute distress, + obese and cooperative chronically ill appearing Eyes: PERRL, conjunctivae normal, anicteric sclerae Respiratory: normal respiratory effort, lungs clear to auscultation normal respiratory effort and able to speak in complete sentences; no respiratory distress, no labored breathing, does not use accessory muscles and no cough Cardiovascular: RRR, no murmur, no edema Gastrointestinal (Abdomen): Inspection/Auscultation: + abdomen distended and normal bowel sounds Percussion/Palpation: + abdomen tender (moderate RUQ tenderness, mild tenderness elsewhere); abdomen not rigid Rectal exam with an empty rectal vault. No blood on return. Skin: no rashes, warm and dry normal turgor Neurologic: PERRL, EOMI, accommodation nl, no face palsy, no dysarthria awake; not confused Psychiatric: A+Ox3, euthymic affect Orientation: alert, oriented x 3 and cooperative Lymphatic: no cervical or axillary lymphadenopathy Results & Data Laboratory Results WBC 14.8, Hb 11.5, Hct 36.1, glucose 225, Na 135, K 4.2, Ch 107, CO2 27, BUN 19, Cr 0.[address] abd/pelvis with IV, no oral contrast 04/11/18: Severe bowel wall thickening involving the sigmoid colon and rectum. This is consistent with a nonspecific proctocolitis and favors an infectious or inflammatory process. Ischemic colitis could also have a similar appearance in the appropriate clinical setting. 2. Heterogeneous enhancement within the left hepatic lobe without definite mass. 3. No evidence for bowel obstruction. 4. Additional findings as described above KUB 04/11/18: Generalized nonobstructive ileus.
[2018-04-12] MEDS ORDERED: VANCOMYCIN CONSULT ACTIVE PRN (16:27)
[2018-04-12] MEDS ORDERED: VANCOMYCIN HCL 1,000 MG in SODIUM CHLORIDE 0.9% 250 ML IV SCH (16:30)
[2018-04-12] MEDS: SODIUM CHLORIDE 0.45 % 1,000 ML IV SCH (17:16)
[2018-04-12] MEDS ORDERED: VANCOMYCIN HCL 2,750 MG in SODIUM CHLORIDE 0.9% 500 ML IV ONE (17:45)
[2018-04-12] MEDS ORDERED: LAVAGE SOLUTION 4000ML PO SCH (20:00)
[2018-04-12] MEDS: INSULIN DETEMIR FLEXPEN/FLEX TOUCH 100 UNITS/ML 3ML SQ SCH (21:12)
[2018-04-12] MEDS: TAMSULOSIN HCL 0.4 MG CAP PO SCH (21:19)
[2018-04-12] MEDS: DONEPEZIL HCL 10 MG TAB PO SCH (21:20)
[2018-04-12] MEDS: SIMVASTATIN 10 MG TAB PO SCH (21:21)
[2018-04-12] MEDS: MIRTAZAPINE TAB 15 MG TAB PO SCH (21:24)
[2018-04-13] MEDS: CHECK FENTANYL PATCH PLACEMENT SCH ×4 (00:21→23:53)
[2018-04-13] MEDS: INSULIN ASPART 100 UNITS/ML 3 ML PEN SC SCH ×5 (00:41→23:53)
[2018-04-13] MEDS: CIPROFLOXACIN 400 MG/200 ML BAG IV SCH ×2 (02:32→17:31)
[2018-04-13] MEDS: SODIUM CHLORIDE 0.45 % 1,000 ML IV SCH ×2 (04:28→17:28)
[2018-04-13] MEDS: metroNIDAZOLE 500 MG/100 ML BAG IV SCH ×3 (05:45→23:53)
--- NOTE | 2018-04-13 07:12 | XRay Report ---
XR KUB CLINICAL HISTORY: 77 years-old Male presenting with abdominal distention. TECHNIQUE: Single supine view of the abdomen was obtained. COMPARISON: CT from 04/11/2018 and plain radiograph from 04/11/2018. FINDINGS: Cholecystectomy clips noted. Mild gaseous distention of the colon, which is less distended than on th e prior exam. The presence of underlying wall thickening of the rectosigmoid colon is not appreciated on this radiograph. Nonobstructive bowel gas pattern. No gross pneumoperitoneum. Allowing for bowel gas and stool, no calcifications to suggest nephrolithiasis. Degenerative changes of the spine. Degenerative changes of the hips. Lung bases clear. IMPRESSION: 1. No bowel obstruction or gross free air. Decreased gaseous distention of bowel. Electronically signed by: Mitchell Santana M.D. 04/13/2018 7:10 AM
[2018-04-13 07:34] LABS: Basophils # (auto) 0.02 K/uL (0-0.2); Basophils % (auto) 0.1 %; Eosinophils # (auto) 0.16 K/uL (0-0.5); Eosinophils % (auto) 1.1 %; Hematocrit (blood only) 35.9 % (42-52); Hemoglobin 11.4 g/dL (14.0-18.0); Immature Granulocytes # (auto) 0.06 K/uL (0.00-0.02); Immature Granulocytes % (auto) 0.4 %; Lymphocytes # (auto) 1.14 K/uL (1.2-3.4); Lymphocytes % (auto) 7.5 %; Mean Corpuscular Hgb Conc 31.8 g/dL (32-36); Mean Corpuscular Volume 91.3 fL (80-100); Mean Platelet Volume 10.6 fL (7.4-10.4); Monocytes # (auto) 1.24 K/uL (0.11-0.59); Monocytes % (auto) 8.2 %; Neutrophils % (auto) 82.7 %; Platelet Count 231 K/uL (130-400); RDW Coefficient of Variation 13.2 % (11.5-14.5); RDW Standard Deviation 43.9 fL (36.4-46.3); Red Blood Count 3.93 M/uL (4.7-6.1); White Blood Count 15.12 K/uL (4.8-10.8)
[2018-04-13] MEDS: FLUTICASONE PROPIONATE NA SPR 16 GM BTL NAE SCH (07:42)
[2018-04-13] MEDS: AVODART-ORDER AWAITING ACTION SCH ×3 (07:47→23:43)
[2018-04-13] MEDS ORDERED: VANCOMYCIN HCL 1,500 MG in SODIUM CHLORIDE 0.9% 500 ML IV SCH (08:00)
[2018-04-13 08:11] LABS: BUN Creatinine Ratio 20.6 (10-20); Calcium 7.9 mg/dl (8.5-10.1); Creatinine Clr Calc Pharmacy 108.8 ml/min; Est GFR (African American) 103.3; Est GFR (Non-African American) 89.1; Potassium 3.7 mmol/L (3.5-5.1)
[2018-04-13] MEDS: INSULIN DETEMIR FLEXPEN/FLEX TOUCH 100 UNITS/ML 3ML SQ SCH ×2 (09:25→20:43)
[2018-04-13] MEDS: BACLOFEN 10 MG TAB PO SCH ×3 (11:09→20:09)
[2018-04-13] MEDS: ENTACAPONE 200 MG TAB PO SCH ×4 (11:09→20:12)
[2018-04-13] MEDS: CARBIDOPA/LEVODOPA 25/100MG TAB PO SCH ×4 (11:10→20:11)
[2018-04-13] MEDS: ROPINIROLE HCL 0.25 MG TABLET PO SCH ×3 (11:10→20:13)
[2018-04-13] MEDS: ONDANSETRON INJ 2 MG/ML 2 ML VIAL IV PRN (11:21)
--- NOTE | 2018-04-13 12:18 | Gastroenterology Progress Note ---
Date of Service April 13, 2018 Assessment & Plan (1) Proctocolitis: His rectal bleeding is most suggestive of a stercoral ulcer/colitis and his constipation is now improved with the colonoscopy prep. Also considered is ischemic colitis. Plan: Colonoscopy today. Further recommendations to follow. Present on Admission?: Yes (2) Chronic constipation: Subjective Mr. Raymond Jackson is a 77 yr old male with a hx of Parkinson's, DM, CVA, HTN, BPH, GERD and depression. [facility] was [facility] to [facility] on 04/11 for bloody BMs, having passed 4 with bright red blood yesterday afternoon. Non contrast CT was suggestive of severe bowel wall thickening of the sigmoid and rectum. Hb on arrival was 12.9 and today 11.4. BUN 15, Cr 0.75. KUB today with decreased gasseous distention. Constitutional: + fatigue and + weakness; no fever, no chills and no body aches Eyes: no problem reported Ear, Nose, Mouth, Throat: no pain with swallowing Respiratory: no cough and no chest congestion Cardiovascular: no chest pain Gastrointestinal: + bloating; no abdominal pain, no nausea, no vomiting and no coffee ground emesis Genitourinary (Male): no dysuria and no hematuria Integumentary: no rash and no lesions Neurologic: no tremor(s) and no confusion Psychiatric: no behavioral changes, no depression and no hopelessness Endocrine: + fatigue; no polydipsia, no polyphagia, no polyuria, no cold intolerance and no heat intolerance Hematologic / Lymphatic: no easy bleeding and no easy bruising Allergy / Immunological: no problem reported Physical Exam Vital Signs (Past 24 Hours): Last Vital Signs Temp 37.1 C 04/13/18 08:41 Pulse 68 04/13/18 08:41 Resp 20 04/13/18 08:41 BP 160/71 H 04/13/18 08:41 Pulse Ox 93 04/13/18 08:41 Constitutional: well developed, well nourished, + acute distress, + obese and cooperative Eyes: PERRL, conjunctivae normal, anicteric sclerae Respiratory: normal respiratory effort, lungs clear to auscultation normal respiratory effort and able to speak in complete sentences; no respiratory distress, no labored breathing, does not use accessory muscles and no cough Cardiovascular: RRR, no murmur, no edema Gastrointestinal (Abdomen): normal bowel sounds, soft, nontender, no hepatosplenomegaly Percussion/Palpation: abdomen not rigid Skin: no rashes, warm and dry normal turgor Neurologic: PERRL, EOMI, accommodation nl, no face palsy, no dysarthria awake; not confused Psychiatric: A+Ox3, euthymic affect Orientation: alert, oriented x 3 and cooperative Lymphatic: no cervical or axillary lymphadenopathy
--- NOTE | 2018-04-13 12:59 | Anesthesiology Consultation ---
Date of Service April 13, 2018 Assessment & Plan Chart Review Chart Review: Acceptable Risk for Surgery and Patient NOT seen in Pre Admission Testing Consults Requested none ASA ASA4 Proposed Anesthesia Anesthesia Type: MAC Risk / Benefits Reviewed With: PT / POA / Parent / Guardian, Accepts Plan and Informed Consent Obtained NPO Date Last Intake of Fluids: 04/13/18 Time Last Intake of Fluids: 06:00 Date Last Intake of Solids: 04/11/18 Time Last Intake of Solids: 18:00 History Surgery Operation Date: 04/13/18 09:30 Proposed Procedures p Colonoscopy Dr Lim - Reuben Lim MD Height/Weight Height: 5 ft 10 in Weight: 120 kg Allergies Allergy/AdvReac Type Severity Reaction Status Date / Time capsaicin AdvReac Unknown RASH Verified 04/11/18 13:59 diclofenac AdvReac Unknown RASH Verified 04/11/18 13:59 Diclopak AdvReac Unknown RASH Verified 08/19/16 06:44 isopropyl alcohol AdvReac Unknown RASH Verified 04/11/18 13:59 propylene glycol AdvReac Unknown RASH Verified 04/11/18 13:59 Medications Home Medications Medication Instructions Recorded Confirmed Last Taken Saccharomyces boulardii 250 mg 250 mg PO QAM 10/24/17 04/11/18 Unknown capsule amlodipine 10 mg tablet 10 mg PO QAM 10/24/17 04/11/18 Unknown apomorphine 10 mg/mL subcutaneous 0.3 ml SQ DAILY PRN 10/24/17 04/11/18 Unknown cartridge baclofen 10 mg tablet 10 mg PO TID 10/24/17 04/11/18 Unknown balsalazide 750 mg capsule 1,500 mg PO TID cap 10/24/17 04/11/18 Unknown bromfenac 0.07 % eye drops 1 drops OP QAM 10/24/17 04/11/18 Unknown carbidopa 25 mg-levodopa 100 mg 2.5 tab PO QID tab 10/24/17 04/11/18 Unknown tablet carbidopa ER 50 mg-levodopa 200 mg 1 tab PO QAM tab 10/24/17 04/11/18 Unknown tablet,extended release citalopram 20 mg tablet 20 mg PO QAM 10/24/17 04/11/18 Unknown docusate sodium 100 mg capsule 100 mg PO BID PRN 10/24/17 04/11/18 Unknown donepezil 10 mg tablet 10 mg PO HS 10/24/17 04/11/18 Unknown dutasteride 0.5 mg capsule 0.5 mg PO HS 10/24/17 04/11/18 Unknown entacapone 200 mg tablet 200 mg PO QID 10/24/17 04/11/18 Unknown fentanyl 50 mcg/hr transdermal 1 patch TD Q72H 10/24/17 04/11/18 Unknown patch fluticasone 50 mcg/actuation nasal 2 sprays INTNAS QAM 10/24/17 04/11/18 Unknown spray,suspension gabapentin 600 mg tablet 1,200 mg PO HS tab 10/24/17 04/11/18 Unknown gabapentin 600 mg tablet 600 mg PO QAM tab 10/24/17 04/11/18 Unknown gatifloxacin 0.5 % eye drops 1 drops OPHTHALMIC (EYE) TID 10/24/17 04/11/18 Unknown insulin aspart U- 100 100 unit/mL 25 units SQ TIDM ml 10/24/17 04/11/18 Unknown subcutaneous solution insulin detemir (U-100) 100 45 units SQ Q12 ml 10/24/17 04/11/18 Unknown unit/mL (3 mL) subcutaneous pen lisinopril 10 mg tablet 10 mg PO QAM 10/24/17 04/11/18 Unknown lorazepam 0.5 mg tablet 0.5 mg PO DAILY PRN 10/24/17 04/11/18 Unknown magnesium oxide 400 mg capsule 400 mg PO BID cap 10/24/17 04/11/18 Unknown mirtazapine 15 mg tablet 15 mg PO HS 10/24/17 04/11/18 Unknown multivitamin tablet 1 tab PO QAM 10/24/17 04/11/18 Unknown nitroglycerin 0.4 mg sublingual 0.4 mg SL Q5M PRN 10/24/17 04/11/18 Unknown tablet ondansetron HCl 4 mg tablet 4 mg PO QAM PRN tab 10/24/17 04/11/18 Unknown oxycodone-acetaminophen 5 mg-325 1 tab PO DAILY PRN tab 10/24/17 04/11/18 Unknown mg tablet pantoprazole 40 mg tablet,delayed 40 mg PO BID 10/24/17 04/11/18 Unknown release polyethylene glycol 3350 17 gram 17 gm PO DAILY PRN 10/24/17 04/11/18 Unknown oral powder packet ranitidine 150 mg capsule 150 mg PO HS 10/24/17 04/11/18 Unknown ropinirole 0.25 mg tablet 0.25 mg PO TID 10/24/17 04/11/18 Unknown simvastatin 10 mg tablet 10 mg PO 10/24/17 04/11/18 Unknown tamsulosin 0.4 mg capsule 0.8 mg PO HS 10/24/17 04/11/18 Unknown trimethobenzamide 300 mg capsule 300 mg PO TID PRN 10/24/17 04/11/18 Unknown Active Medications Generic Name Dose Route Start Last Admin Trade Name Timoteoq PRN Reason Stop Dose Admin Amlodipine Besylate 10 mg 04/12/18 09:00 04/12/18 08:10 Norvasc PO 05/12/18 08:59 10 mg QAM BLAS Administration Baclofen 10 mg 04/11/18 23:00 04/13/18 11:09 Lioresal PO 05/11/18 22:59 Not Given TID BLAS Carbidopa/Levodopa 1 tab 04/12/18 09:00 04/12/18 08:08 Sinemet Cr 50/200mg PO 05/12/18 08:59 1 tab QAM BLAS Administration Carbidopa/Levodopa 2.5 tab 04/11/18 23:00 04/13/18 11:10 Sinemet 25/100 Mg PO 05/11/18 21:43 Not Given QID BLAS Citalopram Hydrobromide 20 mg 04/12/18 09:00 04/12/18 08:07 Celexa PO 05/12/18 08:59 20 mg QAM BLAS Administration Donepezil HCl 10 mg 04/11/18 21:44 04/12/18 21:20 Aricept PO 05/11/18 21:43 10 mg HS BLAS Administration Entacapone 200 mg 04/11/18 23:00 04/13/18 11:09 Comtan PO 05/11/18 22:59 Not Given QID BLAS Fentanyl 50 mcg 04/12/18 09:00 04/12/18 08:11 Duragesic TD 04/26/18 08:59 50 mcg Q72H BLAS Administration Fluticasone Propionate 2 sprays 04/13/18 09:00 04/13/18 07:42 Flonase FARHEEN 05/13/18 08:59 2 sprays QAM BLAS Administration Gabapentin 600 mg 04/12/18 09:00 04/12/18 08:08 Neurontin PO 05/12/18 08:59 600 mg QAM BLAS Administration Gabapentin 1,200 mg 04/11/18 23:00 04/12/18 21:21 Neurontin PO 05/11/18 22:59 1,200 mg HS BLAS Administration Ciprofloxacin 400 mg in 200 mls @ 100 mls/hr 04/12/18 14:00 04/13/18 04:45 Cipro IV 04/22/18 13:59 Infused Q12H BLAS Infusion Metronidazole 500 mg in 100 mls @ 100 mls/hr 04/12/18 14:00 04/13/18 06:45 Flagyl IV 04/22/18 13:59 Infused Q8H BLAS Infusion Sodium Chloride 1,000 mls @ 80 mls/hr 04/12/18 14:15 04/13/18 04:28 1/2 Nss IV 05/12/18 14:14 80 mls/hr .[id number] BLAS Administration Insulin Aspart 0 units 04/12/18 00:00 04/13/18 12:52 Novolog Flexpen SC 05/12/18 00:00 6 units Q6 BLAS Administration Insulin Detemir 20 units 04/12/18 21:00 04/13/18 09:25 Levemir Flextouch SQ 05/12/18 20:59 20 units BID BLAS Administration Lisinopril 10 mg 04/12/18 09:00 04/12/18 08:07 Zestril PO 05/12/18 08:59 10 mg QAM BLAS Administration Mirtazapine 15 mg 04/11/18 23:00 04/12/18 21:24 Remeron PO 05/11/18 22:59 15 mg HS BLAS Administration Miscellaneous 1 ea 04/12/18 00:00 04/13/18 07:47 Order Awaiting Action N/A 05/12/18 00:00 Not Given QS BLAS Miscellaneous 1 ea 04/12/18 00:00 04/13/18 07:52 Order Awaiting Action N/A 05/12/18 00:00 Not Given QS BLAS Miscellaneous 1 ea 04/12/18 00:00 04/13/18 07:47 Order Awaiting Action N/A 05/12/18 00:00 Not Given QS BLAS Miscellaneous 1 ea 04/12/18 00:00 04/13/18 07:47 Order Awaiting Action N/A 05/12/18 00:00 Not Given QS BLAS Miscellaneous 1 ea 04/12/18 00:00 04/13/18 07:46 Fentanyl Patch Check Placement N/A 05/12/18 00:00 1 ea QS BLAS Administration Miscellaneous 1 ea 04/12/18 08:59 04/12/18 08:12 Fentanyl Patch Remove & Waste N/A 05/12/18 08:58 1 ea [id number] BLAS Administration Miscellaneous 1 ea 04/12/18 00:00 04/13/18 07:52 Order Awaiting Action N/A 05/12/18 00:00 Not Given QS BLAS Ondansetron HCl 4 mg 04/11/18 21:44 04/13/18 11:21 Zofran IV 05/11/18 21:43 4 mg Q6H PRN Administration Nausea Pantoprazole Sodium 40 mg 04/11/18 23:00 04/12/18 21:21 Protonix PO 05/11/18 22:59 40 mg BID BLAS Administration Ranitidine HCl 150 mg 04/11/18 23:00 04/12/18 21:21 Zantac PO 05/11/18 22:59 150 mg HS BLAS Administration Ropinirole HCl 0.25 mg 04/11/18 23:00 04/13/18 11:10 Requip PO 05/11/18 22:59 Not Given TID BLAS Simvastatin 10 mg 04/11/18 23:00 04/12/18 21:21 Zocor PO 05/11/18 22:59 10 mg HS BLAS Administration Tamsulosin HCl 0.8 mg 04/11/18 23:00 04/12/18 21:19 Flomax PO 05/11/18 22:59 0.8 mg HS BLAS Administration Past Medical History Medical History Flexion contracture (Chronic) Right upper extremity Chronic acquired lymphedema (Chronic 10/29/10) Hypertensive disorder, systemic arterial (Chronic 10/29/10) Morbid obesity (Chronic 10/29/10) Obstructive sleep apnea syndrome (Acute 10/29/10) Neuropathy (Chronic 09/28/12) Hyperlipidemia (Chronic) Coronary artery disease (Chronic 10/29/10) Past Anesthesia History No Hx of Anesthesia Complications and No Family Hx of Anesthesia Complications History of PONV No Motion Sickness Screening History of Motion Sickness: No Social History Smoking Status: Never smoker Do You Dip or Chew Tobacco: No Hx Alcohol Use: No Hx Substance Use: No substance use type: does not use Exercise / Class Metabolic Activity III < 4 Walking/Shop/Light housework Physical Exam Vital Signs Last Vital Signs Temp 37.1 C 04/13/18 08:41 Pulse 68 04/13/18 08:41 Resp 20 04/13/18 08:41 BP 160/71 H 04/13/18 08:41 Pulse Ox 93 04/13/18 08:41 ENMT Mouth: + dentures Thyromental Distance: > or= 3.5 Finger Breadths Mallampati Class: II Neck normal visual inspection and trachea midline; neck extension not limited Respiratory normal respiratory effort Auscultation: lungs clear to auscultation bilaterally Cardiovascular Rate/Rhythm: regular rate and regular rhythm Heart Sounds: no murmur Vessels: no carotid bruit Musculoskeletal Spine: normal cervical ROM Neurologic moves all extremities Motor/Sensory: no sensory deficit Psychiatric Orientation: alert and oriented x 3 Testing Electrocardiogram Date: 04/11/18 Findings: + NSR @ (at 73;NS ST & T wave abnormality) Laboratory Results 04/13/18 07:16 04/13/18 07:16 Blood Type O Positive 04/11/18 11:40 Antibody Screen NEGATIVE 04/11/18 11:40 PT 11.1 Seconds (9.0-12.0) 04/11/18 10:25 INR 1.1 (0.9-1.1) 04/11/18 10:25 APTT 27.0 Seconds (21.0-31.0) 04/11/18 10:25 04/11/18 15:45 Blood Culture - Final Blood Coag neg staph not lugdunensis 04/11/18 15:36 Blood Culture - Preliminary Blood No growth to date. 04/13/18 04/13/18 12:49 05:42 POC Glucose 299 H 221 H
[2018-04-13] MEDS ORDERED: INSULIN DETEMIR FLEXPEN/FLEX TOUCH 100 UNITS/ML 3ML SQ SCH (13:23)
[2018-04-13] MEDS ORDERED: INSULIN GLARGINE SOLOSTAR 100 UNITS/ML 3 ML PEN SC ONE (13:23)
[2018-04-13] MEDS: PANTOprazole 40 MG TAB PO SCH ×2 (14:28→20:11)
[2018-04-13] MEDS ORDERED: PROPOFOL IV EMULSION 10 MG/ML 20 ML VIAL IV ONE (15:21)
--- NOTE | 2018-04-13 15:25 | GI REPORT ---
Patient Name: Raymond Jackson Procedure Date: 04/13/2018 2:45 PM Date of : 1940 Admit Type: Inpatient Age: 77 Gender: Male Attending MD: Reuben Lim MD Procedure: Colonoscopy Providers: Reuben Lim MD Referring MD: [facility] Indications: Rectal bleeding Medicines: Monitored Anesthesia Care Complications: No immediate complications. Estimated blood loss: None. Estimated Blood Loss: Estimated blood loss: none. Procedure: Pre-Anesthesia Assessment: - Prior to the procedure, a History and Physical was performed, and patient medications, allergies and sensitivities were reviewed. The patient's tolerance of previous anesthesia was reviewed. - ASA Grade Assessment: IV - A patient with severe systemic disease that is a constant threat to life. After I obtained informed consent, the scope was passed under direct vision. Throughout the procedure, the patient's blood pressure, pulse, and oxygen saturations were monitored continuously. The Colonoscope was introduced through the anus with the intention of advancing to the cecum. The scope was advanced to the ascending colon before the procedure was aborted. Medications were given. The colonoscopy was performed with ease. The patient tolerated the procedure well. The quality of the bowel preparation was fair. The bowel preparation used was polyethylene glycol (PEG). Findings: Segmental severe inflammation characterized by deep ulcerations and serpentine ulcerations was found from rectum to descending colon. There are areas of circumfirential ulceration in the sigmoid. Biopsies were taken with a cold forceps for histology. Normal mucosa was found from splenic flexure to ascending colon. Impression: - Preparation of the colon was fair. - Segmental severe inflammation was found from rectum to descending colon secondary to ischemic colitis. Biopsied. - Normal mucosa from splenic flexure to ascending colon. Recommendation: - Await pathology results. - Return patient to [facility] for [facility] care. Reuben Lim M.D. Reuben Lim MD 04/13/2018 3:24:39 PM This report has been signed electronically. Note Initiated On: 04/13/2018 2:45 PM Number of Addenda: 0 I attest to the content of the Intraoperative Record and orders documented therein, exceptions below {[id number]}
--- NOTE | 2018-04-13 15:26 | Anesthesiology Progress Note ---
Date of Service April 13, 2018 Anesthesia Post Procedure Vital Signs Vital Signs: Temp Pulse Pulse Resp BP Pulse Ox 04/13/18 13:10 37.2 C 62 16 166/76 H 97 04/13/18 08:41 37.1 C 68 20 160/71 H 93 04/13/18 00:07 36.9 C 79 20 136/74 95 Pain Intensity Abdomen: Pain Intensity: 5 Notes Mental Status: alert / awake / arousable Patient Amnestic to Procedure: Yes Nausea / Vomiting: adequately controlled Pain: adequately controlled Airway Patency, RR, SpO2: stable & adequate BP & HR: stable & adequate Hydration State: stable & adequate Anesthetic Complications: no major complications apparent
[2018-04-13] MEDS ORDERED: OPTIRAY 320 125ml IV PRN (16:42)
--- NOTE | 2018-04-13 17:09 | CT Scan Report ---
CT angio abdomen pelvis w con CLINICAL HISTORY: 77 years-old Male with severe ischemic colitis acute severe ischemic colitis COMPARISON STUDY: CT abdomen and pelvis 04/11/2017 TECHNIQUE: Following the IV administration of 120 cc of Optiray 320, CT angiogram of the abdomen and pelvis was performed from the lung bases the proximal femora. Images are reviewed in the axial, sagit khang, and coronal planes. 3-D MIPS images are created and assessed. IV contrast was administered witho ut complication. A dose lowering technique was utilized adhering to the principles of ALARA. All cindy surements were obtained according to NASCET criteria. CT DOSE: 1922.00 mGy.cm FINDINGS: CTA: Mild multichamber cardiac enlargement. Coronary arterial calcifications are noted. Trace pericardial effusion. Ascending thoracic aorta demonstrates moderate mixed plaque formation. There is no abdomina l aortic aneurysm or dissection. Moderate mixed plaque formation about the aorta and proximal branch vessels. Celiac trunk and superior mesenteric arteries appear patent. Mixed plaque relation of the or igin the bilateral renal arteries without high-grade stenosis. Dual renal arterial supply to the righ t kidney. The inferior mesenteric artery also appears patent. Bilateral iliac and femoral arteries ap pear patent. CT ABDOMEN/PELVIS: Trace pleural effusions. Minimal subsegmental dependent bibasilar atelectasis. There is no pneumatosi s or pneumoperitoneum identified. Prior cholecystectomy. Heterogeneous appearance of the liver redemo nstrated, most pronounced in the left hepatic lobe and inferior right hepatic lobe. Spleen is unremar kable. Moderate generalized pancreatic atrophy. Mild thickening of the adrenal glands. Mild to modera te bilateral perinephric stranding. No renal or ureteral calculi or obstructive uropathy. Mild to mod erate urinary bladder distention. Calcifications noted about the central prostate. IVC appears unrema rkable. Scattered mildly prominent periaortic lymph nodes. Gaseous distention of the distal esophagus with mild nonspecific distal esophageal wall thickening. N o small bowel obstruction. Severe circumferential wall thickening with mucosal hyperemia is noted abo ut the sigmoid and rectum with pericolonic inflammation and trace free fluid, similar to slightly pro gressed from comparison study. No drainable fluid collection. Terminal ileum is unremarkable. Trace f ree fluid about the abdomen. Mild subcutaneous edema about the body wall. Bones appear to be intact. Demineralized appearance of the bones. IMPRESSION: 1. Marked circumferential wall thickening with mucosal hyperemia extends from the proximal sigmoid co estela through the sigmoid. This appears similar to slightly progressed from comparison study dated 2018. Associated pericolic inflammation with trace abdominopelvic ascites. Findings are compatible wi th a nonspecific colitis. 2. No pneumatosis or pneumoperitoneum. 3. CTA portion of the exam demonstrates moderate mixed atheromatous and atherosclerotic plaquing with out aneurysm, dissection, high-grade stenosis or proximal branch occlusion. 4. Heterogeneous appearance of the liver, most pronounced in the left hepatic lobe is nonspecific and likely reflects hepatic steatosis. Areas of hepatic infarction considered less likely. Correlate wit h LFTs. 5. Prior cholecystectomy. 6. Additional findings as above. The above report was generated using voice recognition software. It may contain grammatical, syntax o r spelling errors. Electronically signed by: Puneet Pihpps M.D. 04/13/2018 5:08 PM
[2018-04-13] MEDS: CITALOPRAM 20 MG TAB PO SCH (17:24)
[2018-04-13] MEDS: LISINOPRIL 10 MG TAB PO SCH (17:25)
[2018-04-13] MEDS: GABAPENTIN 600 MG TAB PO SCH ×2 (17:25→20:10)
[2018-04-13] MEDS: AMLODIPINE BESYLATE 5 MG TAB PO SCH (17:25)
[2018-04-13] MEDS: CARBIDOPA/LEVODOPA 50/200MG EXT REL TAB PO SCH (17:27)
--- NOTE | 2018-04-13 18:41 | Hospitalist Progress Note ---
Date of Service April 13, 2018 Assessment & Plan (1) Proctocolitis: This patient is a 77 y/o m hx Parkinson's, DM II, CAD, Chronic neck pain, HTN, HLD, CAD, JORGE LUIS, morbidly obese who presents with rectal bleeding. He was constipated for 1 week and has chronic constipation. He was given a bowel regimen and then had a grossly bloody bowel movements along with left lower quadrant abdominal pain. He is also having some nausea without vomiting.. A CT of the abdomen demonstrated severe proctocolitis. Ischemic colitis is now confirmed as below on colonoscopy He has a history of colitis and C. difficile diarrhea. He is also currently on balsalazide listed as a "anti-inflammatory" on his [facility] records. -Continue Cipro/Flagyl -Check stool culture when can give sample -Hemoglobin with slight drop as below-follow CBC -Consult GI appreciated -Pain control with morphine as needed and home pain meds -Can have clear liquids diet today -Continue IV fluids (2) Ischemic colitis: Colonoscopy with evidence of severe ischemic colitis-this is the cause of his pain and rectal bleeding CTA abd/pel without significant stenosis -consult Vascular Surgery not needed now as CTA negative for significant stenosis -consult Gen Surgery in case of complications or perforation, infection- discussed case on the phone with Dr. Chowdary -trend lactate, CMP, CBC-WBC count now coming down, lactate has been normal all lung If in pain is improved and abd exam improved today -follow clinically -Continue IV Cipro and Flagyl (3) Rectal bleeding: Secondary to colitis With hemoglobin drop of about 3 g since admission -Follow CBC -GI consult appreciated (4) Abdominal pain: In the left lower quadrant-secondary to his severe [id number]-[id number] today -Pain control as needed -Treating with antibiotics as above (5) Coronary artery disease: - no evidence of ACS - cont Statin and NTG as need - -aspirin on hold for rectal bleeding He does not take a beta-cruz (6) Parkinson's disease: Fairly severe, bedbound and requires hoist lift to chair -Cont Sinemet, Ropinirole, Copaxone, baclofen, donepezil -Continue pain control with fentanyl patches, gabapentin (7) Acute blood loss anemia: Hemoglobin dropped from 14 down to 11 secondary to rectal bleeding and stable today -Follow CBC -Consult GI -Transfuse if continues to drop less than 8 -Check orthostatics (8) Diabetes mellitus: On long-term insulin, here with hyperglycemia-was on decreased doses of insulin secondary to being n.p.o. -Increase Lantus back to 30 units twice daily now that is taking clears -Continue NovoLog sliding scale Hemoglobin A1c 7.3 and [id number] (9) Obstructive sleep apnea syndrome: Continue home CPAP (10) Neuropathy: -Continue home gabapentin (11) Hyperlipidemia: -Continue statin (12) History of stroke: With residual right-sided weakness -Holding aspirin for rectal bleeding-can likely restart tomorrow -Continue statin (13) HTN (hypertension), benign: Blood pressures are mildly elevated -Continue home amlodipine, lisinopril (14) Depression: Stable -Continue home mirtazapine, Celexa (15) BPH (benign prostatic hyperplasia): Stable -Continue tamsulosin and dutasteride (16) GERD (gastroesophageal reflux disease): Continue H2 cruz and PPI (17) DVT prophylaxis: SCDs only given rectal bleeding Disposition-remain on medical floor Eventually back to [facility] Subjective Patient reports he is feeling much better today. Left lower quadrant pain is improved. No further bloody bowel movements. He complete his colonoscopy today and has significant ischemic colitis visualized. I discussed the case with the GI nurse practitioner in the general surgeon. Patient denies nausea and is tolerating clears diet. No chest pain or shortness of breath. Review of Systems All systems reviewed & are unremarkable except as noted in HPI & below Physical Exam Vital Signs (Past 24 Hours): Last Vital Signs Temp 36.9 C 04/13/18 16:00 Pulse 67 04/13/18 16:00 Resp 20 04/13/18 16:00 BP 159/64 H 04/13/18 16:00 Pulse Ox 95 04/13/18 16:00 Constitutional: WD/WN, vitals as above + obese Eyes: PERRL, conjunctivae normal, anicteric sclerae ENMT: Ears: no hearing impairment Neck: trachea midline, no thyromegaly Respiratory: normal respiratory effort, lungs clear to auscultation Cardiovascular: RRR, no murmur, no edema Gastrointestinal (Abdomen): Inspection/Auscultation: + abdomen distended (Mildly) and normal bowel sounds Percussion/Palpation: + abdomen tender (Left lower quadrant without guarding or rebound tenderness) and abdomen soft Musculoskeletal: Extremities: + extremities abnormal to inspection (Flexion contracture in the right hand and wrist), no cyanosis and no clubbing Skin: no rashes, warm and dry Neurologic: + focal motor deficit (Weakness in the right upper extremity) and awake Psychiatric: A+Ox3, euthymic affect Results & Data Laboratory Results 04/14/18 04/13/18 04/13/18 Range/Units 05:28 23:46 18:48 WBC 12.91 H (4.8-10.8) K/uL RBC 3.90 L (4.7-6.1) M/uL Hgb 11.4 L (14.0-18.0) g/dL Hct 35.3 L (42-52) % MCV 90.5 (80-100) fL MCH 29.2 (25-34) pg MCHC 32.3 (32-36) g/dL RDW Std Deviation 43.1 (36.4-46.3) fL RDW Coeff of Lucie 13.1 (11.5-14.5) % Plt Count 247 (130-400) K/uL MPV 10.7 H (7.4-10.4) fL Immature Gran % (Auto) 0.5 % Neut % (Auto) 85.9 % Lymph % (Auto) 6.5 % [place] % (Auto) 6.5 % Eos % (Auto) 0.5 % Baso % (Auto) 0.1 % Immature Gran # (Auto) 0.06 H (0.00-0.02) K/uL Neut # (Auto) 11.10 H (1.4-6.5) K/uL Lymph # (Auto) 0.84 L (1.2-3.4) K/uL [place] # (Auto) 0.84 H (0.11-0.59) K/uL Eos # (Auto) 0.06 (0-0.5) K/uL Baso # (Auto) 0.01 (0-0.2) K/uL Sodium (136-145) mmol/L Potassium (3.5-5.1) mmol/L Chloride (98-107) mmol/L Carbon Dioxide (21-32) mmol/L Anion Gap (3-11) BUN (7-18) mg/dl Creatinine (0.6-1.4) mg/dl Est Cr Clr Drug Dosing ml/min Est GFR ( Amer) Est GFR (Non-Af Amer) BUN/Creatinine Ratio (10-20) Glucose (70-99) mg/dl POC Glucose 159 H 177 H (70-99) Lactate (0.4-2.0) mmol/L Calcium (8.5-10.1) mg/dl Total Bilirubin (0.2-1) mg/dl AST (15-37) U/L ALT (12-78) U/L Alkaline Phosphatase (45-117) U/L Total Protein (6.4-8.2) gm/dl Albumin (3.4-5.0) gm/dl Globulin (2.5-4.0) gm/dl Albumin/Globulin Ratio (0.9-2) Bld Cult Staph aureus PCR Blood Culture MRSA PCR 04/13/18 04/13/18 04/13/18 Range/Units 18:48 18:48 15:45 WBC (4.8-10.8) K/uL RBC (4.7-6.1) M/uL Hgb (14.0-18.0) g/dL Hct (42-52) % MCV (80-100) fL MCH (25-34) pg MCHC (32-36) g/dL RDW Std Deviation (36.4-46.3) fL RDW Coeff of Lucie (11.5-14.5) % Plt Count (130-400) K/uL MPV (7.4-10.4) fL Immature Gran % (Auto) % Neut % (Auto) % Lymph % (Auto) % [place] % (Auto) % Eos % (Auto) % Baso % (Auto) % Immature Gran # (Auto) (0.00-0.02) K/uL Neut # (Auto) (1.4-6.5) K/uL Lymph # (Auto) (1.2-3.4) K/uL [place] # (Auto) (0.11-0.59) K/uL Eos # (Auto) (0-0.5) K/uL Baso # (Auto) (0-0.2) K/uL Sodium 137 (136-145) mmol/L Potassium 3.6 (3.5-5.1) mmol/L Chloride 105 (98-107) mmol/L Carbon Dioxide 24 (21-32) mmol/L Anion Gap 8.0 (3-11) BUN 12 (7-18) mg/dl Creatinine 0.76 (0.6-1.4) mg/dl Est Cr Clr Drug Dosing 107.4 ml/min Est GFR ( Amer) 102.7 Est GFR (Non-Af Amer) 88.6 BUN/Creatinine Ratio 16.0 (10-20) Glucose 277 H (70-99) mg/dl POC Glucose (70-99) Lactate 1.5 (0.4-2.0) mmol/L Calcium 8.1 L (8.5-10.1) mg/dl Total Bilirubin 0.5 (0.2-1) mg/dl AST 10 L (15-37) U/L ALT < 6 L (12-78) U/L Alkaline Phosphatase 51 (45-117) U/L Total Protein 6.0 L (6.4-8.2) gm/dl Albumin 2.6 L (3.4-5.0) gm/dl Globulin 3.4 (2.5-4.0) gm/dl Albumin/Globulin Ratio 0.8 L (0.9-2) Bld Cult Staph aureus PCR Cancelled Blood Culture MRSA PCR Cancelled 04/13/18 04/13/18 04/13/18 Range/Units 12:49 07:16 07:16 WBC 15.12 H (4.8-10.8) K/uL RBC 3.93 L (4.7-6.1) M/uL Hgb 11.4 L (14.0-18.0) g/dL Hct 35.9 L (42-52) % MCV 91.3 (80-100) fL MCH 29.0 (25-34) pg MCHC 31.8 L (32-36) g/dL RDW Std Deviation 43.9 (36.4-46.3) fL RDW Coeff of Lucie 13.2 (11.5-14.5) % Plt Count 231 (130-400) K/uL MPV 10.6 H (7.4-10.4) fL Immature Gran % (Auto) 0.4 % Neut % (Auto) 82.7 % Lymph % (Auto) 7.5 % [place] % (Auto) 8.2 % Eos % (Auto) 1.1 % Baso % (Auto) 0.1 % Immature Gran # (Auto) 0.06 H (0.00-0.02) K/uL Neut # (Auto) 12.50 H (1.4-6.5) K/uL Lymph # (Auto) 1.14 L (1.2-3.4) K/uL [place] # (Auto) 1.24 H (0.11-0.59) K/uL Eos # (Auto) 0.16 (0-0.5) K/uL Baso # (Auto) 0.02 (0-0.2) K/uL Sodium 136 (136-145) mmol/L Potassium 3.7 (3.5-5.1) mmol/L Chloride 103 (98-107) mmol/L Carbon Dioxide 27 (21-32) mmol/L Anion Gap 6.0 (3-11) BUN 15 (7-18) mg/dl Creatinine 0.75 (0.6-1.4) mg/dl Est Cr Clr Drug Dosing 108.8 ml/min Est GFR ( Amer) 103.3 Est GFR (Non-Af Amer) 89.1 BUN/Creatinine Ratio 20.6 H (10-20) Glucose 218 H (70-99) mg/dl POC Glucose 299 H (70-99) Lactate (0.4-2.0) mmol/L Calcium 7.9 L (8.5-10.1) mg/dl Total Bilirubin (0.2-1) mg/dl AST (15-37) U/L ALT (12-78) U/L Alkaline Phosphatase (45-117) U/L Total Protein (6.4-8.2) gm/dl Albumin (3.4-5.0) gm/dl Globulin (2.5-4.0) gm/dl Albumin/Globulin Ratio (0.9-2) Bld Cult Staph aureus PCR Blood Culture MRSA PCR Diagnostic Findings CT angio abdomen pelvis w con CLINICAL HISTORY: 77 years-old Male with severe ischemic colitis acute severe ischemic colitis COMPARISON STUDY: CT abdomen and pelvis 04/11/2017 TECHNIQUE: Following the IV administration of 120 cc of Optiray 320, CT angiogram of the abdomen and pelvis was performed from the lung bases the proximal femora. Images are reviewed in the axial, sagittal, and coronal planes. 3-D MIPS images are created and assessed. IV contrast was administered without complication. A dose lowering technique was utilized adhering to the principles of ALARA. All measurements were obtained according to NASCET criteria. CT DOSE: 1922.00 mGy.cm FINDINGS: CTA: Mild multichamber cardiac enlargement. Coronary arterial calcifications are noted. Trace pericardial effusion. Ascending thoracic aorta demonstrates moderate mixed plaque formation. There is no abdominal aortic aneurysm or dissection. Moderate mixed plaque formation about the aorta and proximal branch vessels. Celiac trunk and superior mesenteric arteries appear patent. Mixed plaque relation of the origin the bilateral renal arteries without high-grade stenosis. Dual renal arterial supply to the right kidney. The inferior mesenteric artery also appears patent. Bilateral iliac and femoral arteries appear patent. CT ABDOMEN/PELVIS: Trace pleural effusions. Minimal subsegmental dependent bibasilar atelectasis. There is no pneumatosis or pneumoperitoneum identified. Prior cholecystectomy. Heterogeneous appearance of the liver redemonstrated, most pronounced in the left hepatic lobe and inferior right hepatic lobe. Spleen is unremarkable. Moderate generalized pancreatic atrophy. Mild thickening of the adrenal glands. Mild to moderate bilateral perinephric stranding. No renal or ureteral calculi or obstructive uropathy. Mild to moderate urinary bladder distention. Calcifications noted about the central prostate. IVC appears unremarkable. Scattered mildly prominent periaortic lymph nodes. Gaseous distention of the distal esophagus with mild nonspecific distal esophageal wall thickening. No small bowel obstruction. Severe circumferential wall thickening with mucosal hyperemia is noted about the sigmoid and rectum with pericolonic inflammation and trace free fluid, similar to slightly progressed from comparison study. No drainable fluid collection. Terminal ileum is unremarkable. Trace free fluid about the abdomen. Mild subcutaneous edema about the body wall. Bones appear to be intact. Demineralized appearance of the bones. IMPRESSION: 1. Marked circumferential wall thickening with mucosal hyperemia extends from the proximal sigmoid colon through the sigmoid. This appears similar to slightly progressed from comparison study dated 04/11/2018. Associated pericolic inflammation with trace abdominopelvic ascites. Findings are compatible with a nonspecific colitis. 2. No pneumatosis or pneumoperitoneum. 3. CTA portion of the exam demonstrates moderate mixed atheromatous and atherosclerotic plaquing without aneurysm, dissection, high-grade stenosis or proximal branch occlusion. 4. Heterogeneous appearance of the liver, most pronounced in the left hepatic lobe is nonspecific and likely reflects hepatic steatosis. Areas of hepatic infarction considered less likely. Correlate with LFTs. 5. Prior cholecystectomy. 6. Additional findings as above.
[2018-04-13 18:57] LABS: Basophils # (auto) 0.01 K/uL (0-0.2); Basophils % (auto) 0.1 %; Eosinophils # (auto) 0.06 K/uL (0-0.5); Eosinophils % (auto) 0.5 %; Hematocrit (blood only) 35.3 % (42-52); Hemoglobin 11.4 g/dL (14.0-18.0); Immature Granulocytes # (auto) 0.06 K/uL (0.00-0.02); Immature Granulocytes % (auto) 0.5 %; Lymphocytes # (auto) 0.84 K/uL (1.2-3.4); Lymphocytes % (auto) 6.5 %; Mean Corpuscular Hgb Conc 32.3 g/dL (32-36); Mean Corpuscular Volume 90.5 fL (80-100); Mean Platelet Volume 10.7 fL (7.4-10.4); Monocytes # (auto) 0.84 K/uL (0.11-0.59); Monocytes % (auto) 6.5 %; Neutrophils % (auto) 85.9 %; Platelet Count 247 K/uL (130-400); RDW Coefficient of Variation 13.1 % (11.5-14.5); RDW Standard Deviation 43.1 fL (36.4-46.3); White Blood Count 12.91 K/uL (4.8-10.8)
[2018-04-13 19:15] LABS: Alanine Aminotransferase < 6 U/L (12-78); Albumin Level 2.6 gm/dl (3.4-5.0); Aspartate Aminotransferase 10 U/L (15-37); Blood Urea Nitrogen 12 mg/dl (7-18); Calcium 8.1 mg/dl (8.5-10.1); Carbon Dioxide 24 mmol/L (21-32); Chloride 105 mmol/L (98-107); Creatinine Clr Calc Pharmacy 107.4 ml/min; Est GFR (African American) 102.7; Est GFR (Non-African American) 88.6; Glucose 277 mg/dl (70-99); Potassium 3.6 mmol/L (3.5-5.1); Sodium 137 mmol/L (136-145)
[2018-04-13 19:29] LABS: Albumin Globulin Ratio 0.8 (0.9-2); Alkaline Phosphatase 51 U/L (45-117); Bilirubin,Total 0.5 mg/dl (0.2-1); Globulin 3.4 gm/dl (2.5-4.0)
--- NOTE | 2018-04-13 19:42 | Surgery Consultation ---
Date of Consultation April 13, 2018 Assessment & Plan (1) Ischemic colitis: 77-year-old male with ischemic colitis. No evidence of perforation, continued bleeding, or peritonitis at this time. No surgical intervention indicated at this time Continue supportive care, maintaining normotension and avoid hypotension Continue antibiotics Diet per GI Surgery will continue to follow, call with questions or concerns Plan of care discussed the patient, all questions were answered, the patient exp ressed understanding agrees the plan of care as stated. Present on Admission?: Yes History of Present Illness Attending Physician: María Jeffers MD History of Present Illness 77-year-old male with multiple medical problems admitted for lower GI bleed and proctocolitis. He was in his usual state of health but suffering from some constipation when he had a large bloody bowel movements a few days ago. CT scan showed some nonspecific proctocolitis, he had a mild leukocytosis and a normal lactate and he was admitted to the floor for observation. He underwent colonoscopy today and showed significant inflammation and ulceration in his sigmoid colon and rectum. Overall he feels better than when he came in and denies any further bloody bowel movements. He has never had this problem before but he has suffered from colitis in the past. History of open cholecystectomy, otherwise no abdominal surgery. Allergies Allergy/AdvReac Type Severity Reaction Status Date / Time capsaicin AdvReac Unknown RASH Verified 04/11/18 13:59 diclofenac AdvReac Unknown RASH Verified 04/11/18 13:59 Diclopak AdvReac Unknown RASH Verified 08/19/16 06:44 isopropyl alcohol AdvReac Unknown RASH Verified 04/11/18 13:59 propylene glycol AdvReac Unknown RASH Verified 04/11/18 13:59 Home Medications Home Medications Medication Instructions Recorded Confirmed Type Saccharomyces boulardii 250 mg 250 mg PO QAM 10/24/17 04/11/18 History capsule amlodipine 10 mg tablet 10 mg PO QAM 10/24/17 04/11/18 History apomorphine 10 mg/mL subcutaneous 0.3 ml SQ DAILY PRN 10/24/17 04/11/18 History cartridge baclofen 10 mg tablet 10 mg PO TID 10/24/17 04/11/18 History balsalazide 750 mg capsule 1,500 mg PO TID cap 10/24/17 04/11/18 History bromfenac 0.07 % eye drops 1 drops OP QAM 10/24/17 04/11/18 History carbidopa 25 mg-levodopa 100 mg 2.5 tab PO QID tab 10/24/17 04/11/18 History tablet carbidopa ER 50 mg-levodopa 200 mg 1 tab PO QAM tab 10/24/17 04/11/18 History tablet,extended release citalopram 20 mg tablet 20 mg PO QAM 10/24/17 04/11/18 History docusate sodium 100 mg capsule 100 mg PO BID PRN 10/24/17 04/11/18 History donepezil 10 mg tablet 10 mg PO HS 10/24/17 04/11/18 History dutasteride 0.5 mg capsule 0.5 mg PO HS 10/24/17 04/11/18 History entacapone 200 mg tablet 200 mg PO QID 10/24/17 04/11/18 History fentanyl 50 mcg/hr transdermal 1 patch TD Q72H 10/24/17 04/11/18 History patch fluticasone 50 mcg/actuation nasal 2 sprays INTNAS QAM 10/24/17 04/11/18 History spray,suspension gabapentin 600 mg tablet 1,200 mg PO HS tab 10/24/17 04/11/18 History gabapentin 600 mg tablet 600 mg PO QAM tab 10/24/17 04/11/18 History gatifloxacin 0.5 % eye drops 1 drops OPHTHALMIC (EYE) TID 10/24/17 04/11/18 History insulin aspart U- 100 100 unit/mL 25 units SQ TIDM ml 10/24/17 04/11/18 History subcutaneous solution insulin detemir (U-100) 100 45 units SQ Q12 ml 10/24/17 04/11/18 History unit/mL (3 mL) subcutaneous pen lisinopril 10 mg tablet 10 mg PO QAM 10/24/17 04/11/18 History lorazepam 0.5 mg tablet 0.5 mg PO DAILY PRN 10/24/17 04/11/18 History magnesium oxide 400 mg capsule 400 mg PO BID cap 10/24/17 04/11/18 History mirtazapine 15 mg tablet 15 mg PO HS 10/24/17 04/11/18 History multivitamin tablet 1 tab PO QAM 10/24/17 04/11/18 History nitroglycerin 0.4 mg sublingual 0.4 mg SL Q5M PRN 10/24/17 04/11/18 History tablet ondansetron HCl 4 mg tablet 4 mg PO QAM PRN tab 10/24/17 04/11/18 History oxycodone-acetaminophen 5 mg-325 1 tab PO DAILY PRN tab 10/24/17 04/11/18 History mg tablet pantoprazole 40 mg tablet,delayed 40 mg PO BID 10/24/17 04/11/18 History release polyethylene glycol 3350 17 gram 17 gm PO DAILY PRN 10/24/17 04/11/18 History oral powder packet ranitidine 150 mg capsule 150 mg PO HS 10/24/17 04/11/18 History ropinirole 0.25 mg tablet 0.25 mg PO TID 10/24/17 04/11/18 History simvastatin 10 mg tablet 10 mg PO HS 10/24/17 04/11/18 History tamsulosin 0.4 mg capsule 0.8 mg PO HS 10/24/17 04/11/18 History trimethobenzamide 300 mg capsule 300 mg PO TID PRN 10/24/17 04/11/18 History Patient History Medical History Flexion contracture (Chronic) Right upper extremity Chronic acquired lymphedema (Chronic 10/29/10) Hypertensive disorder, systemic arterial (Chronic 10/29/10) Morbid obesity (Chronic 10/29/10) Obstructive sleep apnea syndrome (Acute 10/29/10) Neuropathy (Chronic 09/28/12) Hyperlipidemia (Chronic) Coronary artery disease (Chronic 10/29/10) Social History Communication Ability: Effective Beliefs That Will Affect Care: None marital status: Current Living Situation: Longterm current occupational status: retired Other Information That Helps Us Care for You: No Feels Safe at Home: Yes Safety Concerns: Feels Safe At This Time Smoking Status: Never smoker Hx Alcohol Use: No Hx Substance Use: No Review of Systems 10 point review of systems was completed and negative except as above Physical Exam Vital Signs (Past 24 Hours): Last Vital Signs Temp 36.9 C 04/13/18 16:00 Pulse 67 04/13/18 16:00 Resp 20 04/13/18 16:00 BP 159/64 H 04/13/18 16:00 Pulse Ox 95 04/13/18 16:00 Constitutional: WD/WN, vitals as above Obese Eyes: PERRL, conjunctivae normal, anicteric sclerae ENMT: external ear and nose normal, oropharynx normal Neck: trachea midline, no thyromegaly Respiratory: normal respiratory effort, lungs clear to auscultation Cardiovascular: RRR, no murmur, no edema Gastrointestinal (Abdomen): Obese, soft, mildly tender to palpation in the left lower quadrant, no peritonitis. Fela incision and right upper quadrant. Musculoskeletal: no cyanosis or clubbing, extremities motor strength 5/5 Skin: no rashes, warm and dry Neurologic: PERRL, EOMI, accommodation nl, no face palsy, no dysarthria Psychiatric: A+Ox3, euthymic affect Lymphatic: no cervical or axillary lymphadenopathy Results & Data Laboratory Results Laboratory Results - last 24 hr 04/13/18 04/13/18 04/13/18 00:13 05:42 07:16 WBC 15.12 H RBC 3.93 L Hgb 11.4 L Hct 35.9 L MCV 91.3 MCH 29.0 MCHC 31.8 L RDW Std Deviation 43.9 RDW Coeff of Lucie 13.2 Plt Count 231 MPV 10.6 H Immature Gran % (Auto) 0.4 Neut % (Auto) 82.7 Lymph % (Auto) 7.5 Wagoner % (Auto) 8.2 Eos % (Auto) 1.1 Baso % (Auto) 0.1 Immature Gran # (Auto) 0.06 H Neut # (Auto) 12.50 H Lymph # (Auto) 1.14 L Wagoner # (Auto) 1.24 H Eos # (Auto) 0.16 Baso # (Auto) 0.02 Sodium Potassium Chloride Carbon Dioxide Anion Gap BUN Creatinine Est Cr Clr Drug Dosing Est GFR ( Amer) Est GFR (Non-Af Amer) BUN/Creatinine Ratio Glucose POC Glucose 205 H 221 H Lactate Calcium Total Bilirubin AST ALT Alkaline Phosphatase Total Protein Albumin Globulin Albumin/Globulin Ratio Bld Cult Staph aureus PCR Blood Culture MRSA PCR 04/13/18 04/13/18 04/13/18 07:16 12:49 15:45 WBC RBC Hgb Hct MCV MCH MCHC RDW Std Deviation RDW Coeff of Lucie Plt Count MPV Immature Gran % (Auto) Neut % (Auto) Lymph % (Auto) Wagoner % (Auto) Eos % (Auto) Baso % (Auto) Immature Gran # (Auto) Neut # (Auto) Lymph # (Auto) Wagoner # (Auto) Eos # (Auto) Baso # (Auto) Sodium 136 Potassium 3.7 Chloride 103 Carbon Dioxide 27 Anion Gap 6.0 BUN 15 Creatinine 0.75 Est Cr Clr Drug Dosing 108.8 Est GFR ( Amer) 103.3 Est GFR (Non-Af Amer) 89.1 BUN/Creatinine Ratio 20.6 H Glucose 218 H POC Glucose 299 H Lactate Calcium 7.9 L Total Bilirubin AST ALT Alkaline Phosphatase Total Protein Albumin Globulin Albumin/Globulin Ratio Bld Cult Staph aureus PCR Cancelled Blood Culture MRSA PCR Cancelled 04/13/18 04/13/18 04/13/18 18:48 18:48 18:48 WBC 12.91 H RBC 3.90 L Hgb 11.4 L Hct 35.3 L MCV 90.5 MCH 29.2 MCHC 32.3 RDW Std Deviation 43.1 RDW Coeff of Lucie 13.1 Plt Count 247 MPV 10.7 H Immature Gran % (Auto) 0.5 Neut % (Auto) 85.9 Lymph % (Auto) 6.5 Wagoner % (Auto) 6.5 Eos % (Auto) 0.5 Baso % (Auto) 0.1 Immature Gran # (Auto) 0.06 H Neut # (Auto) 11.10 H Lymph # (Auto) 0.84 L Wagoner # (Auto) 0.84 H Eos # (Auto) 0.06 Baso # (Auto) 0.01 Sodium 137 Potassium 3.6 Chloride 105 Carbon Dioxide 24 Anion Gap 8.0 BUN 12 Creatinine 0.76 Est Cr Clr Drug Dosing 107.4 Est GFR ( Amer) 102.7 Est GFR (Non-Af Amer) 88.6 BUN/Creatinine Ratio 16.0 Glucose 277 H POC Glucose Lactate 1.5 Calcium 8.1 L Total Bilirubin 0.5 AST 10 L ALT < 6 L Alkaline Phosphatase 51 Total Protein 6.0 L Albumin 2.6 L Globulin 3.4 Albumin/Globulin Ratio 0.8 L Bld Cult Staph aureus PCR Blood Culture MRSA PCR Diagnostic Findings CT angio abdomen pelvis w con CLINICAL HISTORY: 77 years-old Male with severe ischemic colitis acute severe ischemic colitis COMPARISON STUDY: CT abdomen and pelvis 04/11/2017 TECHNIQUE: Following the IV administration of 120 cc of Optiray 320, CT angiogram of the abdomen and pelvis was performed from the lung bases the proximal femora. Images are reviewed in the axial, sagittal, and coronal planes. 3-D MIPS images are created and assessed. IV contrast was administered without complication. A dose lowering technique was utilized adhering to the principles of ALARA. All measurements were obtained according to NASCET criteria. CT DOSE: 1922.00 mGy.cm FINDINGS: CTA: Mild multichamber cardiac enlargement. Coronary arterial calcifications are noted. Trace pericardial effusion. Ascending thoracic aorta demonstrates moderate mixed plaque formation. There is no abdominal aortic aneurysm or dissection. Moderate mixed plaque formation about the aorta and proximal branch vessels. Celiac trunk and superior mesenteric arteries appear patent. Mixed plaque relation of the origin the bilateral renal arteries without high-grade stenosis. Dual renal arterial supply to the right kidney. The inferior mesente wesly artery also appears patent. Bilateral iliac and femoral arteries appear patent. CT ABDOMEN/PELVIS: Trace pleural effusions. Minimal subsegmental dependent bibasilar atelectasis. There is no pneumatosis or pneumoperitoneum identified. Prior cholecystectomy. Heterogeneous appearance of the liver redemonstrated, most pronounced in the left hepatic lobe and inferior right hepatic lobe. Spleen is unremarkable. Moderate generalized pancreatic atrophy. Mild thickening of the adrenal glands. Mild to moderate bilateral perinephric stranding. No renal or ureteral calculi or obstructive uropathy. Mild to moderate urinary bladder distention. Calcifications noted about the central prostate. IVC appears unremarkable. Scattered mildly prominent periaortic lymph nodes. Gaseous distention of the distal esophagus with mild nonspecific distal esophageal wall thickening. No small bowel obstruction. Severe circumferential wall thickening with mucosal hyperemia is noted about the sigmoid and rectum w ith pericolonic inflammation and trace free fluid, similar to slightly progressed from comparison study. No drainable fluid collection. Terminal ileum is unremarkable. Trace free fluid about the abdomen. Mild subcutaneous edema about the body wall. Bones appear to be intact. Demineralized appearance of the bones. IMPRESSION: 1. Marked circumferential wall thickening with mucosal hyperemia extends from the proximal sigmoid colon through the sigmoid. This appears similar to slightly progressed from comparison study dated 04/11/2018. Associated pericolic inflammation with trace abdominopelvic ascites. Findings are compatible with a nonspecific colitis. 2. No pneumatosis or pneumoperitoneum. 3. CTA portion of the exam demonstrates moderate mixed atheromatous and atherosclerotic plaquing without aneurysm, dissection, high-grade stenosis or proximal branch occlusion. 4. Heterogeneous appearance of the liver, most pronounced in the left hepatic lobe is nonspecific and likely reflects hepatic steatosis. Areas of hepatic infarction considered less likely. Correlate with LFTs. 5. Prior cholecystectomy. 6. Additional findings as above. The above report was generated using voice recognition software. It may contain grammatical, syntax or spelling errors.
[2018-04-13] MEDS: TAMSULOSIN HCL 0.4 MG CAP PO SCH (20:08)
[2018-04-13] MEDS: DONEPEZIL HCL 10 MG TAB PO SCH (20:10)
[2018-04-13] MEDS: SIMVASTATIN 10 MG TAB PO SCH (20:10)
[2018-04-13] MEDS: MIRTAZAPINE TAB 15 MG TAB PO SCH (20:13)
[2018-04-14] MEDS: CIPROFLOXACIN 400 MG/200 ML BAG IV SCH ×2 (01:53→13:03)
[2018-04-14] MEDS: SODIUM CHLORIDE 0.45 % 1,000 ML IV SCH ×2 (05:25→20:35)
[2018-04-14] MEDS: INSULIN ASPART 100 UNITS/ML 3 ML PEN SC SCH ×3 (05:30→17:51)
[2018-04-14 07:29] LABS: Basophils # (auto) 0.01 K/uL (0-0.2); Basophils % (auto) 0.1 %; Eosinophils # (auto) 0.27 K/uL (0-0.5); Eosinophils % (auto) 2.6 %; Hematocrit (blood only) 35.2 % (42-52); Hemoglobin 11.2 g/dL (14.0-18.0); Immature Granulocytes # (auto) 0.05 K/uL (0.00-0.02); Immature Granulocytes % (auto) 0.5 %; Lymphocytes # (auto) 1.27 K/uL (1.2-3.4); Lymphocytes % (auto) 12.1 %; Mean Corpuscular Hgb Conc 31.8 g/dL (32-36); Mean Platelet Volume 10.3 fL (7.4-10.4); Monocytes # (auto) 1.03 K/uL (0.11-0.59); Monocytes % (auto) 9.8 %; Neutrophils # (auto) 7.85 K/uL (1.4-6.5); Neutrophils % (auto) 74.9 %; Platelet Count 243 K/uL (130-400); RDW Coefficient of Variation 13.1 % (11.5-14.5); RDW Standard Deviation 43.4 fL (36.4-46.3); Red Blood Count 3.87 M/uL (4.7-6.1); White Blood Count 10.48 K/uL (4.8-10.8)
[2018-04-14] MEDS ORDERED: VANCOMYCIN TROUGH ONE (07:30)
[2018-04-14] MEDS: metroNIDAZOLE 500 MG/100 ML BAG IV SCH ×3 (08:14→23:35)
[2018-04-14] MEDS: CITALOPRAM 20 MG TAB PO SCH (08:16)
[2018-04-14] MEDS: ENTACAPONE 200 MG TAB PO SCH ×4 (08:16→20:40)
[2018-04-14] MEDS: BACLOFEN 10 MG TAB PO SCH ×3 (08:16→20:41)
[2018-04-14] MEDS: ROPINIROLE HCL 0.25 MG TABLET PO SCH ×3 (08:17→20:42)
[2018-04-14] MEDS: GABAPENTIN 600 MG TAB PO SCH ×2 (08:17→20:41)
[2018-04-14] MEDS: PANTOprazole 40 MG TAB PO SCH ×2 (08:17→20:42)
[2018-04-14] MEDS: AMLODIPINE BESYLATE 5 MG TAB PO SCH (08:17)
[2018-04-14] MEDS: CARBIDOPA/LEVODOPA 25/100MG TAB PO SCH ×4 (08:21→20:43)
[2018-04-14] MEDS: CARBIDOPA/LEVODOPA 50/200MG EXT REL TAB PO SCH (08:22)
[2018-04-14] MEDS: LISINOPRIL 10 MG TAB PO SCH (08:22)
[2018-04-14] MEDS: FLUTICASONE PROPIONATE NA SPR 16 GM BTL NAE SCH (08:22)
[2018-04-14 08:24] LABS: Alanine Aminotransferase 7 U/L (12-78); Albumin Level 2.7 gm/dl (3.4-5.0); Alkaline Phosphatase 51 U/L (45-117); BUN Creatinine Ratio 14.4 (10-20); Bilirubin,Total 0.5 mg/dl (0.2-1); Blood Urea Nitrogen 12 mg/dl (7-18); Carbon Dioxide 28 mmol/L (21-32); Chloride 106 mmol/L (98-107); Creatinine Clr Calc Pharmacy 99.5 ml/min; Est GFR (African American) 99.6; Est GFR (Non-African American) 85.9; Glucose 146 mg/dl (70-99); Sodium 139 mmol/L (136-145); Total Protein 6.1 gm/dl (6.4-8.2)
[2018-04-14] MEDS: CHECK FENTANYL PATCH PLACEMENT SCH ×3 (08:24→23:35)
[2018-04-14] MEDS: INSULIN DETEMIR FLEXPEN/FLEX TOUCH 100 UNITS/ML 3ML SQ SCH ×2 (08:24→20:46)
[2018-04-14] MEDS: AVODART-ORDER AWAITING ACTION SCH ×2 (08:34→16:37)
[2018-04-14] MEDS: ONDANSETRON INJ 2 MG/ML 2 ML VIAL IV PRN ×2 (08:53→16:30)
[2018-04-14 08:54] LABS: Potassium 3.4 mmol/L (3.5-5.1)
[2018-04-14 08:59] LABS: Bilirubin Direct 0.1 mg/dl (0-0.2)
--- NOTE | 2018-04-14 09:13 | Surgery Progress Note ---
Date of Service April 14, 2018 Assessment & Plan (1) Ischemic colitis: 77-year-old male with suspected ischemic colitis. No evidence of perforation, continued bleeding, or peritonitis at this time. WBC improving No surgical intervention indicated at this time Continue supportive care, maintaining normotension and avoid hypotension Continue antibiotics Diet per GI Dr. Rodriguez covering over the weekend, surgery will continue to follow, call with questions or concerns Subjective 77-year-old male with a proctocolitis. Overall unchanged from last night. He did try clear liquids this morning, and did have some nausea just before entering the room. His pain is overall unchanged. Physical Exam Vital Signs (Past 24 Hours): Last Vital Signs Temp 36.5 C 04/14/18 07:18 Pulse 57 L 04/14/18 07:18 Resp 20 04/14/18 07:18 BP 166/72 H 04/14/18 07:18 Pulse Ox 97 04/14/18 07:18 Constitutional: WD/WN, vitals as above no acute distress Gastrointestinal (Abdomen): Abdomen obese, soft, moderately distended, tender to palpation in the left lower quadrant with no guarding or rebound. Exam unchanged from yesterday. Results & Data Laboratory Results Laboratory Results - last 24 hr 04/13/18 04/13/18 04/13/18 12:49 18:48 18:48 WBC RBC Hgb Hct MCV MCH MCHC RDW Std Deviation RDW Coeff of Lucie Plt Count MPV Immature Gran % (Auto) Neut % (Auto) Lymph % (Auto) Cooper % (Auto) Eos % (Auto) Baso % (Auto) Immature Gran # (Auto) Neut # (Auto) Lymph # (Auto) Cooper # (Auto) Eos # (Auto) Baso # (Auto) Sodium 137 Potassium 3.6 Chloride 105 Carbon Dioxide 24 Anion Gap 8.0 BUN 12 Creatinine 0.76 Est Cr Clr Drug Dosing 107.4 Est GFR ( Amer) 102.7 Est GFR (Non-Af Amer) 88.6 BUN/Creatinine Ratio 16.0 Glucose 277 H POC Glucose 299 H Lactate 1.5 Calcium 8.1 L Magnesium Total Bilirubin 0.5 Direct Bilirubin AST 10 L ALT < 6 L Alkaline Phosphatase 51 Total Protein 6.0 L Albumin 2.6 L Globulin 3.4 Albumin/Globulin Ratio 0.8 L 04/13/18 04/13/18 04/14/18 18:48 23:46 05:28 WBC 12.91 H RBC 3.90 L Hgb 11.4 L Hct 35.3 L MCV 90.5 MCH 29.2 MCHC 32.3 RDW Std Deviation 43.1 RDW Coeff of Lucie 13.1 Plt Count 247 MPV 10.7 H Immature Gran % (Auto) 0.5 Neut % (Auto) 85.9 Lymph % (Auto) 6.5 Cooper % (Auto) 6.5 Eos % (Auto) 0.5 Baso % (Auto) 0.1 Immature Gran # (Auto) 0.06 H Neut # (Auto) 11.10 H Lymph # (Auto) 0.84 L Cooper # (Auto) 0.84 H Eos # (Auto) 0.06 Baso # (Auto) 0.01 Sodium Potassium Chloride Carbon Dioxide Anion Gap BUN Creatinine Est Cr Clr Drug Dosing Est GFR ( Amer) Est GFR (Non-Af Amer) BUN/Creatinine Ratio Glucose POC Glucose 177 H 159 H Lactate Calcium Magnesium Total Bilirubin Direct Bilirubin AST ALT Alkaline Phosphatase Total Protein Albumin Globulin Albumin/Globulin Ratio 04/14/18 04/14/18 04/14/18 07:21 07:21 07:21 WBC 10.48 RBC 3.87 L Hgb 11.2 L Hct 35.2 L MCV 91.0 MCH 28.9 MCHC 31.8 L RDW Std Deviation 43.4 RDW Coeff of Lucie 13.1 Plt Count 243 MPV 10.3 Immature Gran % (Auto) 0.5 Neut % (Auto) 74.9 Lymph % (Auto) 12.1 Cooper % (Auto) 9.8 Eos % (Auto) 2.6 Baso % (Auto) 0.1 Immature Gran # (Auto) 0.05 H Neut # (Auto) 7.85 H Lymph # (Auto) 1.27 Cooper # (Auto) 1.03 H Eos # (Auto) 0.27 Baso # (Auto) 0.01 Sodium 139 Potassium Chloride 106 Carbon Dioxide 28 Anion Gap 5.0 BUN 12 Creatinine 0.82 Est Cr Clr Drug Dosing 99.5 Est GFR ( Amer) 99.6 Est GFR (Non-Af Amer) 85.9 BUN/Creatinine Ratio 14.4 Glucose 146 H POC Glucose Lactate 0.9 Calcium 8.0 L Magnesium TNP Total Bilirubin 0.5 Direct Bilirubin AST ALT 7 L Alkaline Phosphatase 51 Total Protein 6.1 L Albumin 2.7 L Globulin Albumin/Globulin Ratio 04/14/18 08:29 WBC RBC Hgb Hct MCV MCH MCHC RDW Std Deviation RDW Coeff of Lucie Plt Count MPV Immature Gran % (Auto) Neut % (Auto) Lymph % (Auto) Cooper % (Auto) Eos % (Auto) Baso % (Auto) Immature Gran # (Auto) Neut # (Auto) Lymph # (Auto) Cooper # (Auto) Eos # (Auto) Baso # (Auto) Sodium Potassium 3.4 L Chloride Carbon Dioxide Anion Gap BUN Creatinine Est Cr Clr Drug Dosing Est GFR ( Amer) Est GFR (Non-Af Amer) BUN/Creatinine Ratio Glucose POC Glucose Lactate Calcium Magnesium Total Bilirubin Direct Bilirubin 0.1 AST 9 L ALT Alkaline Phosphatase Total Protein Albumin Globulin Albumin/Globulin Ratio
--- NOTE | 2018-04-14 13:05 | Gastroenterology Progress Note ---
Date of Service April 14, 2018 Assessment & Plan (1) Proctocolitis: Colonoscopy findings with ischemic colitis. Appreciate Vascular Surgery opinion. No further GI procedures planned. Will colonoscopy path when available. Further management by primary hospitalists and vascular surgery. GI will sign off. (2) Chronic constipation: Supervising Physician Co-Signing Physician Notes I have seen and examined the patient and discussed the management with CHAMP Oswald. I agree with the further plan of care as documented in José Manuel's assessment and plan. Subjective Mr. Raymond Jackson is a 77 yr old male with a hx of Parkinson's, DM, CVA, HTN, BPH, GERD and depression admitted for bloody BMs that passed on 04/12/18. Non contrast CT was suggestive of severe bowel wall thickening of the sigmoid and rectum. Colonoscopy yesterday with ischemic colitis. Today, pt continues with some abdominal bloating, but improved, no nausea and no further bloody BMs since prior to colonsocopy. Constitutional: + fatigue and + weakness; no fever, no chills and no body aches Gastrointestinal: + bloating; no abdominal pain, no nausea, no vomiting and no coffee ground emesis Endocrine: + fatigue; no polydipsia, no polyphagia, no polyuria, no cold intolerance and no heat intolerance Physical Exam Vital Signs (Past 24 Hours): Last Vital Signs Temp 36.5 C 04/14/18 07:18 Pulse 57 L 04/14/18 07:18 Resp 20 04/14/18 07:18 BP 166/72 H 04/14/18 07:18 Pulse Ox 97 04/14/18 07:18 Constitutional: well developed, well nourished, + acute distress, + obese and cooperative Eyes: PERRL, conjunctivae normal, anicteric sclerae Respiratory: normal respiratory effort, lungs clear to auscultation normal respiratory effort and able to speak in complete sentences; no respiratory distress, no labored breathing, does not use accessory muscles and no cough Cardiovascular: RRR, no murmur, no edema Gastrointestinal (Abdomen): Inspection/Auscultation: + abdomen distended (mild) and normal bowel sounds Percussion/Palpation: abdomen not rigid moderate LLQ abdominal tenderness Skin: no rashes, warm and dry normal turgor Neurologic: PERRL, EOMI, accommodation nl, no face palsy, no dysarthria awake; not confused Psychiatric: A+Ox3, euthymic affect Orientation: alert, oriented x 3 and cooperative Lymphatic: no cervical or axillary lymphadenopathy
[2018-04-14] MEDS: DONEPEZIL HCL 10 MG TAB PO SCH (20:39)
[2018-04-14] MEDS: TAMSULOSIN HCL 0.4 MG CAP PO SCH (20:40)
[2018-04-14] MEDS: MIRTAZAPINE TAB 15 MG TAB PO SCH (20:42)
[2018-04-14] MEDS: SIMVASTATIN 10 MG TAB PO SCH (20:44)
--- NOTE | 2018-04-14 22:02 | Hospitalist Progress Note ---
Date of Service April 14, 2018 Assessment & Plan (1) Proctocolitis: This patient is a 77 y/o m hx Parkinson's, DM II, CAD, Chronic neck pain, HTN, HLD, CAD, JORGE LUIS, morbidly obese who presents with rectal bleeding. He was constipated for 1 week and has chronic constipation. He was given a bowel regimen and then had a grossly bloody bowel movements along with left lower quadrant abdominal pain. He is also having some nausea without vomiting.. A CT of the abdomen demonstrated severe proctocolitis. Ischemic colitis is now confirmed as below on colonoscopy He has a history of colitis and C. difficile diarrhea. He is also currently on balsalazide listed as a "anti-inflammatory" on his intermediate records. -Continue Cipro/Flagyl-today is day #3 -Stool culture and C. difficile ordered-but sample never collected -Hemoglobin with slight drop as below-follow CBC -Consult GI appreciated-with colonoscopy as below with ischemic colitis-have now signed off -Pain control with morphine as needed and home pain meds -Continue clear liquids diet today -Continue IV fluids but reduce down to 50 mL's per hour (2) Ischemic colitis: Colonoscopy with evidence of severe ischemic colitis-this is the cause of his pain and rectal bleeding CTA abd/pel without significant stenosis -consult Vascular Surgery not needed now as CTA negative for significant stenosis -consult Gen Surgery in case of complications or perforation, infection- discussed case with Dr. Chowdary -trend lactate, CMP, CBC-leukocytosis now resolved, lactate remains normal -follow clinically -Continue IV Cipro and Flagyl-day #3 -Okay to restart aspirin 81 mg daily (3) Rectal bleeding: Secondary to colitis With hemoglobin drop of about 3 g since admission but hemoglobin now stable for 2 days -Follow CBC -GI consult appreciated -Okay to restart aspirin as above (4) Abdominal pain: In the left lower quadrant-secondary to his ischemic colitis [id number] today -Pain control as needed -Treating with antibiotics as above (5) Coronary artery disease: - no evidence of ACS - cont Statin and NTG as need - -restart aspirin He does not take a beta-cruz (6) Parkinson's disease: Fairly severe, bedbound and requires hoist lift to chair -Cont Sinemet, Ropinirole, entacapone, baclofen, donepezil -Continue pain control with fentanyl patches, gabapentin (7) Acute blood loss anemia: Hemoglobin dropped from 14 down to 11 secondary to rectal bleeding and remains stable today -Follow CBC -Consult GI -Transfuse if continues to drop less than 8 (8) Diabetes mellitus: On long-term insulin, here with hyperglycemia-was on decreased doses of insulin secondary to being n.p.o., hyperglycemia improved but still persists intermittently -Increase Levemir again to 32 units twice daily -Continue NovoLog sliding scale and tighten down Hemoglobin A1c 7.3 and [id number] (9) Obstructive sleep apnea syndrome: Continue home CPAP (10) Neuropathy: -Continue home gabapentin (11) Hyperlipidemia: -Continue statin (12) History of stroke: With residual right-sided weakness -Restarting aspirin -Continue statin (13) HTN (hypertension), benign: Blood pressures now controlled -Continue home amlodipine, lisinopril (14) Depression: Stable -Continue home mirtazapine, Celexa (15) BPH (benign prostatic hyperplasia): Stable -Continue tamsulosin and replace home dutasteride with finasteride 5 mg daily (16) GERD (gastroesophageal reflux disease): Continue H2 cruz and PPI (17) DVT prophylaxis: SCDs only given rectal bleeding Disposition-remain on medical floor Eventually back to intermediate, likely needs 2-3 more days of recovery here Subjective Patient reports some nausea today, pain is improved but still present at about a 6 out of 10 in the left lower quadrant. No further rectal bleeding. Remains afebrile. No chest pain or shortness of breath. Review of Systems All systems reviewed & are unremarkable except as noted in HPI & below Physical Exam Vital Signs (Past 24 Hours): Last Vital Signs Temp 36.8 C 04/14/18 15:48 Pulse 53 L 04/14/18 15:48 Resp 18 04/14/18 15:48 BP 116/65 04/14/18 15:48 Pulse Ox 95 04/14/18 15:48 Constitutional: WD/WN, vitals as above + obese Eyes: PERRL, conjunctivae normal, anicteric sclerae ENMT: Ears: no hearing impairment Neck: trachea midline, no thyromegaly Respiratory: normal respiratory effort, lungs clear to auscultation Cardiovascular: RRR, no murmur, no edema Gastrointestinal (Abdomen): Inspection/Auscultation: normal bowel sounds Percussion/Palpation: + abdomen tender (Left lower quadrant without guarding or rebound tenderness) and abdomen soft Musculoskeletal: Extremities: + extremities abnormal to inspection (Flexion contracture in the right hand and wrist), no cyanosis and no clubbing Skin: no rashes, warm and dry Neurologic: + focal motor deficit (Weakness in the right upper extremity) and awake Psychiatric: A+Ox3, euthymic affect Results & Data Laboratory Results 04/14/18 04/14/18 04/14/18 Range/Units 20:38 17:50 11:54 WBC (4.8-10.8) K/uL RBC (4.7-6.1) M/uL Hgb (14.0-18.0) g/dL Hct (42-52) % MCV (80-100) fL MCH (25-34) pg MCHC (32-36) g/dL RDW Std Deviation (36.4-46.3) fL RDW Coeff of Lucie (11.5-14.5) % Plt Count (130-400) K/uL MPV (7.4-10.4) fL Immature Gran % (Auto) % Neut % (Auto) % Lymph % (Auto) % [place] % (Auto) % Eos % (Auto) % Baso % (Auto) % Immature Gran # (Auto) (0.00-0.02) K/uL Neut # (Auto) (1.4-6.5) K/uL Lymph # (Auto) (1.2-3.4) K/uL [place] # (Auto) (0.11-0.59) K/uL Eos # (Auto) (0-0.5) K/uL Baso # (Auto) (0-0.2) K/uL Sodium (136-145) mmol/L Potassium (3.5-5.1) mmol/L Chloride (98-107) mmol/L Carbon Dioxide (21-32) mmol/L Anion Gap (3-11) BUN (7-18) mg/dl Creatinine (0.6-1.4) mg/dl Est Cr Clr Drug Dosing ml/min Est GFR ( Amer) Est GFR (Non-Af Amer) BUN/Creatinine Ratio (10-20) Glucose (70-99) mg/dl POC Glucose 177 H 181 H 217 H (70-99) Lactate (0.4-2.0) mmol/L Calcium (8.5-10.1) mg/dl Magnesium Total Bilirubin (0.2-1) mg/dl Direct Bilirubin (0-0.2) mg/dl AST (15-37) U/L ALT (12-78) U/L Alkaline Phosphatase (45-117) U/L Total Protein (6.4-8.2) gm/dl Albumin (3.4-5.0) gm/dl 04/14/18 04/14/18 04/14/18 Range/Units 08:29 07:21 07:21 WBC (4.8-10.8) K/uL RBC (4.7-6.1) M/uL Hgb (14.0-18.0) g/dL Hct (42-52) % MCV (80-100) fL MCH (25-34) pg MCHC (32-36) g/dL RDW Std Deviation (36.4-46.3) fL RDW Coeff of Lucie (11.5-14.5) % Plt Count (130-400) K/uL MPV (7.4-10.4) fL Immature Gran % (Auto) % Neut % (Auto) % Lymph % (Auto) % [place] % (Auto) % Eos % (Auto) % Baso % (Auto) % Immature Gran # (Auto) (0.00-0.02) K/uL Neut # (Auto) (1.4-6.5) K/uL Lymph # (Auto) (1.2-3.4) K/uL [place] # (Auto) (0.11-0.59) K/uL Eos # (Auto) (0-0.5) K/uL Baso # (Auto) (0-0.2) K/uL Sodium 139 (136-145) mmol/L Potassium 3.4 L (3.5-5.1) mmol/L Chloride 106 (98-107) mmol/L Carbon Dioxide 28 (21-32) mmol/L Anion Gap 5.0 (3-11) BUN 12 (7-18) mg/dl Creatinine 0.82 (0.6-1.4) mg/dl Est Cr Clr Drug Dosing 99.5 ml/min Est GFR ( Amer) 99.6 Est GFR (Non-Af Amer) 85.9 BUN/Creatinine Ratio 14.4 (10-20) Glucose 146 H (70-99) mg/dl POC Glucose (70-99) Lactate 0.9 (0.4-2.0) mmol/L Calcium 8.0 L (8.5-10.1) mg/dl Magnesium TNP Total Bilirubin 0.5 (0.2-1) mg/dl Direct Bilirubin 0.1 (0-0.2) mg/dl AST 9 L (15-37) U/L ALT 7 L (12-78) U/L Alkaline Phosphatase 51 (45-117) U/L Total Protein 6.1 L (6.4-8.2) gm/dl Albumin 2.7 L (3.4-5.0) gm/dl 04/14/18 04/14/18 04/13/18 Range/Units 07:21 05:28 23:46 WBC 10.48 (4.8-10.8) K/uL RBC 3.87 L (4.7-6.1) M/uL Hgb 11.2 L (14.0-18.0) g/dL Hct 35.2 L (42-52) % MCV 91.0 (80-100) fL MCH 28.9 (25-34) pg MCHC 31.8 L (32-36) g/dL RDW Std Deviation 43.4 (36.4-46.3) fL RDW Coeff of Lucie 13.1 (11.5-14.5) % Plt Count 243 (130-400) K/uL MPV 10.3 (7.4-10.4) fL Immature Gran % (Auto) 0.5 % Neut % (Auto) 74.9 % Lymph % (Auto) 12.1 % [place] % (Auto) 9.8 % Eos % (Auto) 2.6 % Baso % (Auto) 0.1 % Immature Gran # (Auto) 0.05 H (0.00-0.02) K/uL Neut # (Auto) 7.85 H (1.4-6.5) K/uL Lymph # (Auto) 1.27 (1.2-3.4) K/uL [place] # (Auto) 1.03 H (0.11-0.59) K/uL Eos # (Auto) 0.27 (0-0.5) K/uL Baso # (Auto) 0.01 (0-0.2) K/uL Sodium (136-145) mmol/L Potassium (3.5-5.1) mmol/L Chloride (98-107) mmol/L Carbon Dioxide (21-32) mmol/L Anion Gap (3-11) BUN (7-18) mg/dl Creatinine (0.6-1.4) mg/dl Est Cr Clr Drug Dosing ml/min Est GFR ( Amer) Est GFR (Non-Af Amer) BUN/Creatinine Ratio (10-20) Glucose (70-99) mg/dl POC Glucose 159 H 177 H (70-99) Lactate (0.4-2.0) mmol/L Calcium (8.5-10.1) mg/dl Magnesium Total Bilirubin (0.2-1) mg/dl Direct Bilirubin (0-0.2) mg/dl AST (15-37) U/L ALT (12-78) U/L Alkaline Phosphatase (45-117) U/L Total Protein (6.4-8.2) gm/dl Albumin (3.4-5.0) gm/dl Blood cultures-remain no growth to date Pathology from colonoscopy with evidence of ischemic colitis
[2018-04-15] MEDS: INSULIN ASPART 100 UNITS/ML 3 ML PEN SC SCH ×5 (00:17→20:32)
[2018-04-15] MEDS: CIPROFLOXACIN 400 MG/200 ML BAG IV SCH (02:25)
[2018-04-15] MEDS: metroNIDAZOLE 500 MG/100 ML BAG IV SCH (07:53)
[2018-04-15] MEDS: CHECK FENTANYL PATCH PLACEMENT SCH ×2 (07:53→16:42)
[2018-04-15] MEDS: CARBIDOPA/LEVODOPA 50/200MG EXT REL TAB PO SCH (07:55)
[2018-04-15] MEDS: FINASTERIDE 5 MG TAB PO SCH (07:55)
[2018-04-15] MEDS: BACLOFEN 10 MG TAB PO SCH ×3 (07:55→20:28)
[2018-04-15] MEDS: ASPIRIN 81 MG ECTAB PO SCH (07:55)
[2018-04-15] MEDS: ROPINIROLE HCL 0.25 MG TABLET PO SCH ×3 (07:55→20:28)
[2018-04-15] MEDS: AMLODIPINE BESYLATE 5 MG TAB PO SCH (07:56)
[2018-04-15] MEDS: CARBIDOPA/LEVODOPA 25/100MG TAB PO SCH ×4 (07:56→20:27)
[2018-04-15] MEDS: LISINOPRIL 10 MG TAB PO SCH (07:56)
[2018-04-15] MEDS: CITALOPRAM 20 MG TAB PO SCH (07:56)
[2018-04-15] MEDS: GABAPENTIN 600 MG TAB PO SCH ×2 (07:57→20:31)
[2018-04-15] MEDS: ENTACAPONE 200 MG TAB PO SCH ×4 (07:57→20:26)
[2018-04-15] MEDS: PANTOprazole 40 MG TAB PO SCH ×2 (07:57→20:31)
[2018-04-15] MEDS: FLUTICASONE PROPIONATE NA SPR 16 GM BTL NAE SCH (07:58)
[2018-04-15] MEDS: fentaNYL 50 MCG/HR TDSY TD SCH (08:09)
[2018-04-15] MEDS ORDERED: INSULIN DETEMIR FLEXPEN/FLEX TOUCH 100 UNITS/ML 3ML SQ SCH (09:00)
[2018-04-15 10:29] LABS: Basophils # (auto) 0.02 K/uL (0-0.2); Basophils % (auto) 0.2 %; Eosinophils # (auto) 0.21 K/uL (0-0.5); Eosinophils % (auto) 2.4 %; Hemoglobin 11.3 g/dL (14.0-18.0); Immature Granulocytes # (auto) 0.08 K/uL (0.00-0.02); Immature Granulocytes % (auto) 0.9 %; Lymphocytes # (auto) 0.75 K/uL (1.2-3.4); Lymphocytes % (auto) 8.6 %; Mean Corpuscular Hgb Conc 32.3 g/dL (32-36); Mean Corpuscular Volume 90.7 fL (80-100); Mean Platelet Volume 10.2 fL (7.4-10.4); Monocytes # (auto) 0.56 K/uL (0.11-0.59); Monocytes % (auto) 6.4 %; Neutrophils # (auto) 7.12 K/uL (1.4-6.5); Neutrophils % (auto) 81.5 %; Platelet Count 243 K/uL (130-400); RDW Standard Deviation 43.1 fL (36.4-46.3); Red Blood Count 3.86 M/uL (4.7-6.1); White Blood Count 8.74 K/uL (4.8-10.8)
[2018-04-15 10:48] LABS: Alanine Aminotransferase < 6 U/L (12-78); Albumin Level 2.6 gm/dl (3.4-5.0); Aspartate Aminotransferase 11 U/L (15-37); BUN Creatinine Ratio 14.2 (10-20); Bilirubin Direct 0.1 mg/dl (0-0.2); Blood Urea Nitrogen 10 mg/dl (7-18); Calcium 7.8 mg/dl (8.5-10.1); Carbon Dioxide 25 mmol/L (21-32); Chloride 108 mmol/L (98-107); Creatinine Clr Calc Pharmacy 111.8 ml/min; Est GFR (African American) 104.4; Est GFR (Non-African American) 90.1; Glucose 239 mg/dl (70-99); Magnesium 1.8 mg/dl (1.8-2.4); Potassium 3.3 mmol/L (3.5-5.1); Sodium 139 mmol/L (136-145)
[2018-04-15 10:51] LABS: Alkaline Phosphatase 51 U/L (45-117); Bilirubin,Total 0.4 mg/dl (0.2-1); Phosphorus 2.9 mg/dl (2.5-4.9); Total Protein 6.1 gm/dl (6.4-8.2)
--- NOTE | 2018-04-15 13:17 | Surgery Progress Note ---
Date of Service April 15, 2018 pt feels better, passed some gas, less abdominal pain, no nausea, no vomiting, Assessment & Plan (1) Ischemic colitis: pt is stable, no bloody stool passed gas, continue treatment, will F/U Physical Exam Vital Signs (Past 24 Hours): Last Vital Signs Temp 36.4 C L 04/15/18 11:29 Pulse 56 L 04/15/18 11:29 Resp 12 04/15/18 11:29 BP 131/70 04/15/18 11:29 Pulse Ox 95 04/15/18 11:29 Constitutional: WD/WN, vitals as above Neck: trachea midline, no thyromegaly Respiratory: normal respiratory effort, lungs clear to auscultation Cardiovascular: RRR, no murmur, no edema Gastrointestinal (Abdomen): Percussion/Palpation: abdomen soft slightly tenderness periumbilical area, no distend. BS + Neurologic: awake Psychiatric: Orientation: alert and oriented x 3 Results & Data Laboratory Results Abnormal lab results 04/14/18 04/14/18 04/15/18 Range/Units 17:50 20:38 00:03 RBC (4.7-6.1) M/uL Hgb (14.0-18.0) g/dL Hct (42-52) % Immature Gran # (Auto) (0.00-0.02) K/uL Neut # (Auto) (1.4-6.5) K/uL Lymph # (Auto) (1.2-3.4) K/uL Potassium (3.5-5.1) mmol/L Chloride (98-107) mmol/L Glucose (70-99) mg/dl POC Glucose 181 H 177 H 157 H (70-99) Calcium (8.5-10.1) mg/dl AST (15-37) U/L ALT (12-78) U/L Total Protein (6.4-8.2) gm/dl Albumin (3.4-5.0) gm/dl 04/15/18 04/15/18 04/15/18 Range/Units 06:20 10:15 10:15 RBC 3.86 L (4.7-6.1) M/uL Hgb 11.3 L (14.0-18.0) g/dL Hct 35.0 L (42-52) % Immature Gran # (Auto) 0.08 H (0.00-0.02) K/uL Neut # (Auto) 7.12 H (1.4-6.5) K/uL Lymph # (Auto) 0.75 L (1.2-3.4) K/uL Potassium 3.3 L (3.5-5.1) mmol/L Chloride 108 H (98-107) mmol/L Glucose 239 H (70-99) mg/dl POC Glucose 147 H (70-99) Calcium 7.8 L (8.5-10.1) mg/dl AST 11 L (15-37) U/L ALT < 6 L (12-78) U/L Total Protein 6.1 L (6.4-8.2) gm/dl Albumin 2.6 L (3.4-5.0) gm/dl 04/15/18 Range/Units 11:45 RBC (4.7-6.1) M/uL Hgb (14.0-18.0) g/dL Hct (42-52) % Immature Gran # (Auto) (0.00-0.02) K/uL Neut # (Auto) (1.4-6.5) K/uL Lymph # (Auto) (1.2-3.4) K/uL Potassium (3.5-5.1) mmol/L Chloride (98-107) mmol/L Glucose (70-99) mg/dl POC Glucose 230 H (70-99) Calcium (8.5-10.1) mg/dl AST (15-37) U/L ALT (12-78) U/L Total Protein (6.4-8.2) gm/dl Albumin (3.4-5.0) gm/dl
[2018-04-15] MEDS: SODIUM CHLORIDE 0.45 % 1,000 ML IV SCH (14:15)
[2018-04-15] MEDS: metroNIDAZOLE 500 MG TAB PO SCH ×2 (14:15→20:29)
[2018-04-15] MEDS ORDERED: Nursing to Pharmacy Communication ONE (14:42)
[2018-04-15] MEDS ORDERED: POTASSIUM CHLORIDE 20 MEQ TABCR PO ONE (15:00)
[2018-04-15] MEDS ORDERED: NURSING DECISION MEDICATION ONE (15:26)
[2018-04-15] MEDS: CIPROFLOXACIN 500 MG TAB PO SCH (15:55)
--- NOTE | 2018-04-15 15:56 | Hospitalist Progress Note ---
Date of Service April 15, 2018 Assessment & Plan (1) Proctocolitis: This patient is a 77 y/o m hx Parkinson's, DM II, CAD, Chronic neck pain, HTN, HLD, CAD, JORGE LUIS, morbidly obese who presents with rectal bleeding. He was constipated for 1 week and has chronic constipation. He was given a bowel regimen and then had a grossly bloody bowel movements along with left lower quadrant abdominal pain. He is also having some nausea without vomiting.. A CT of the abdomen demonstrated severe proctocolitis. Ischemic colitis is now confirmed as below on colonoscopy He has a history of colitis and C. difficile diarrhea. He is also currently on balsalazide listed as a "anti-inflammatory" on his [facility] records. -Continue Cipro/Flagyl-today is day #4 more so at this point for prophylaxis given ischemic colitis -Stool culture collected today and pending -Hemoglobin with slight drop initially but now stabilized for several days at 11.3 -Consult GI appreciated-with colonoscopy as below with ischemic colitis-have now signed off -Pain control with morphine as needed and home pain meds -Advance diet to full liquids today -Continue IV fluids at 50 mL's per hour (2) Ischemic colitis: Colonoscopy with evidence of severe ischemic colitis-this is the cause of his pain and rectal bleeding CTA abd/pel without significant stenosis Lactate continues to be normal Leukocytosis has resolved -consult Vascular Surgery not needed as CTA negative for significant stenosis -consult Gen Surgery in case of complications or perforation, infection- appreciate general surgery following along -Continue to trend lactate, CMP, CBC -follow clinically -Continue IV Cipro and Flagyl-day #4 -No further rectal bleeding-his aspirin 81 mg daily was restarted on 04/15 -Slowly advance diet as tolerated-to full liquids today (3) Rectal bleeding: Secondary to colitis With hemoglobin drop of about 3 g since admission but hemoglobin now stable for several days -Follow CBC -GI consult appreciated -Have restarted aspirin (4) Abdominal pain: In the left lower quadrant-secondary to his ischemic colitis [id number] to stable today -Pain control as needed -Treating with antibiotics as above (5) Coronary artery disease: - no evidence of ACS - cont Statin and NTG as need - -continue aspirin was held initially He does not take a beta-cruz (6) Parkinson's disease: Fairly severe, bedbound and requires hoist lift to chair -Cont Sinemet, Ropinirole, entacapone, baclofen, donepezil -Continue pain control with fentanyl patches, gabapentin (7) Acute blood loss anemia: Hemoglobin dropped from 14 down to 11 secondary to rectal bleeding and remains stable today as above -Follow CBC -Consult GI appreciated -Transfuse if continues to drop less than 8 (8) Diabetes mellitus: On long-term insulin, here with persistent hyperglycemia -Increase Levemir again to 35 units twice daily (home dose is 46 units twice daily but he is not taking in that much p.o. tsai) -Continue NovoLog sliding scale and tighten down again today Hemoglobin A1c 7.3 and [id number] (9) Obstructive sleep apnea syndrome: Continue home CPAP (10) Neuropathy: -Continue home gabapentin (11) Hyperlipidemia: -Continue statin (12) History of stroke: With residual right-sided weakness -Have since restarted aspirin 81 mg daily -Continue statin (13) HTN (hypertension), benign: Blood pressures controlled -Continue home amlodipine, lisinopril (14) Depression: Stable -Continue home mirtazapine, Celexa (15) BPH (benign prostatic hyperplasia): He reports having some straining to urinate today -Continue tamsulosin and replaced home dutasteride with finasteride 5 mg daily due to formulary availability -Order bladder scan every shift and straight cath for postvoid residual greater than 400 mL's (16) GERD (gastroesophageal reflux disease): Continue H2 cruz and PPI (17) DVT prophylaxis: SCDs only given rectal bleeding Disposition-remain on medical floor Eventually back to shelter, likely needs 2-3 more days of recovery here Subjective Patient reports still having left lower quadrant pain that is about a 4 5 out of 10 in severity. Still occasional nausea. He is tolerating clears, no vomiting. He had a small bowel movement today as per nursing that was nonbloody and was sent for stool culture. He denies chest pain or shortness of breath. His is at the bedside today we reviewed his diagnosis and plan of care. The patient has no other concerns. Review of Systems All systems reviewed & are unremarkable except as noted in HPI & below Physical Exam Vital Signs (Past 24 Hours): Last Vital Signs Temp 36.8 C 04/15/18 15:50 Pulse 62 04/15/18 15:50 Resp 12 04/15/18 15:50 BP 123/59 L 04/15/18 15:50 Pulse Ox 95 04/15/18 15:50 Constitutional: WD/WN, vitals as above + obese Eyes: PERRL, conjunctivae normal, anicteric sclerae ENMT: Ears: no hearing impairment Mouth: no oral mucosal abnormality Neck: trachea midline, no thyromegaly Respiratory: normal respiratory effort, lungs clear to auscultation Cardiovascular: RRR, no murmur, no edema Gastrointestinal (Abdomen): Inspection/Auscultation: normal bowel sounds Percussion/Palpation: + abdomen tender (Left lower quadrant without guarding or rebound tenderness) and abdomen soft Musculoskeletal: Extremities: + extremities abnormal to inspection (Flexion contracture in the right hand and wrist), no cyanosis and no clubbing Skin: no rashes, warm and dry Neurologic: + focal motor deficit (Weakness in the right upper extremity) and awake Psychiatric: A+Ox3, euthymic affect Results & Data Laboratory Results 04/15/18 04/15/18 04/15/18 Range/Units 11:45 10:15 10:15 WBC (4.8-10.8) K/uL RBC (4.7-6.1) M/uL Hgb (14.0-18.0) g/dL Hct (42-52) % MCV (80-100) fL MCH (25-34) pg MCHC (32-36) g/dL RDW Std Deviation (36.4-46.3) fL RDW Coeff of Lucie (11.5-14.5) % Plt Count (130-400) K/uL MPV (7.4-10.4) fL Immature Gran % (Auto) % Neut % (Auto) % Lymph % (Auto) % [place] % (Auto) % Eos % (Auto) % Baso % (Auto) % Immature Gran # (Auto) (0.00-0.02) K/uL Neut # (Auto) (1.4-6.5) K/uL Lymph # (Auto) (1.2-3.4) K/uL [place] # (Auto) (0.11-0.59) K/uL Eos # (Auto) (0-0.5) K/uL Baso # (Auto) (0-0.2) K/uL Sodium 139 (136-145) mmol/L Potassium 3.3 L (3.5-5.1) mmol/L Chloride 108 H (98-107) mmol/L Carbon Dioxide 25 (21-32) mmol/L Anion Gap 6.0 (3-11) BUN 10 (7-18) mg/dl Creatinine 0.73 (0.6-1.4) mg/dl Est Cr Clr Drug Dosing 111.8 ml/min Est GFR ( Amer) 104.4 Est GFR (Non-Af Amer) 90.1 BUN/Creatinine Ratio 14.2 (10-20) Glucose 239 H (70-99) mg/dl POC Glucose 230 H (70-99) Lactate 1.0 (0.4-2.0) mmol/L Calcium 7.8 L (8.5-10.1) mg/dl Phosphorus 2.9 (2.5-4.9) mg/dl Magnesium 1.8 (1.8-2.4) mg/dl Total Bilirubin 0.4 (0.2-1) mg/dl Direct Bilirubin 0.1 (0-0.2) mg/dl AST 11 L (15-37) U/L ALT < 6 L (12-78) U/L Alkaline Phosphatase 51 (45-117) U/L Total Protein 6.1 L (6.4-8.2) gm/dl Albumin 2.6 L (3.4-5.0) gm/dl 04/15/18 04/15/18 04/15/18 Range/Units 10:15 06:20 00:03 WBC 8.74 (4.8-10.8) K/uL RBC 3.86 L (4.7-6.1) M/uL Hgb 11.3 L (14.0-18.0) g/dL Hct 35.0 L (42-52) % MCV 90.7 (80-100) fL MCH 29.3 (25-34) pg MCHC 32.3 (32-36) g/dL RDW Std Deviation 43.1 (36.4-46.3) fL RDW Coeff of Lucie 13.0 (11.5-14.5) % Plt Count 243 (130-400) K/uL MPV 10.2 (7.4-10.4) fL Immature Gran % (Auto) 0.9 % Neut % (Auto) 81.5 % Lymph % (Auto) 8.6 % [place] % (Auto) 6.4 % Eos % (Auto) 2.4 % Baso % (Auto) 0.2 % Immature Gran # (Auto) 0.08 H (0.00-0.02) K/uL Neut # (Auto) 7.12 H (1.4-6.5) K/uL Lymph # (Auto) 0.75 L (1.2-3.4) K/uL [place] # (Auto) 0.56 (0.11-0.59) K/uL Eos # (Auto) 0.21 (0-0.5) K/uL Baso # (Auto) 0.02 (0-0.2) K/uL Sodium (136-145) mmol/L Potassium (3.5-5.1) mmol/L Chloride (98-107) mmol/L Carbon Dioxide (21-32) mmol/L Anion Gap (3-11) BUN (7-18) mg/dl Creatinine (0.6-1.4) mg/dl Est Cr Clr Drug Dosing ml/min Est GFR ( Amer) Est GFR (Non-Af Amer) BUN/Creatinine Ratio (10-20) Glucose (70-99) mg/dl POC Glucose 147 H 157 H (70-99) Lactate (0.4-2.0) mmol/L Calcium (8.5-10.1) mg/dl Phosphorus (2.5-4.9) mg/dl Magnesium (1.8-2.4) mg/dl Total Bilirubin (0.2-1) mg/dl Direct Bilirubin (0-0.2) mg/dl AST (15-37) U/L ALT (12-78) U/L Alkaline Phosphatase (45-117) U/L Total Protein (6.4-8.2) gm/dl Albumin (3.4-5.0) gm/dl 04/14/18 04/14/18 Range/Units 20:38 17:50 WBC (4.8-10.8) K/uL RBC (4.7-6.1) M/uL Hgb (14.0-18.0) g/dL Hct (42-52) % MCV (80-100) fL MCH (25-34) pg MCHC (32-36) g/dL RDW Std Deviation (36.4-46.3) fL RDW Coeff of Lucie (11.5-14.5) % Plt Count (130-400) K/uL MPV (7.4-10.4) fL Immature Gran % (Auto) % Neut % (Auto) % Lymph % (Auto) % [place] % (Auto) % Eos % (Auto) % Baso % (Auto) % Immature Gran # (Auto) (0.00-0.02) K/uL Neut # (Auto) (1.4-6.5) K/uL Lymph # (Auto) (1.2-3.4) K/uL [place] # (Auto) (0.11-0.59) K/uL Eos # (Auto) (0-0.5) K/uL Baso # (Auto) (0-0.2) K/uL Sodium (136-145) mmol/L Potassium (3.5-5.1) mmol/L Chloride (98-107) mmol/L Carbon Dioxide (21-32) mmol/L Anion Gap (3-11) BUN (7-18) mg/dl Creatinine (0.6-1.4) mg/dl Est Cr Clr Drug Dosing ml/min Est GFR ( Amer) Est GFR (Non-Af Amer) BUN/Creatinine Ratio (10-20) Glucose (70-99) mg/dl POC Glucose 177 H 181 H (70-99) Lactate (0.4-2.0) mmol/L Calcium (8.5-10.1) mg/dl Phosphorus (2.5-4.9) mg/dl Magnesium (1.8-2.4) mg/dl Total Bilirubin (0.2-1) mg/dl Direct Bilirubin (0-0.2) mg/dl AST (15-37) U/L ALT (12-78) U/L Alkaline Phosphatase (45-117) U/L Total Protein (6.4-8.2) gm/dl Albumin (3.4-5.0) gm/dl
[2018-04-15] MEDS ORDERED: INSULIN ASPART 100 UNITS/ML 3 ML PEN SC SCH (16:30)
[2018-04-15] MEDS: MIRTAZAPINE TAB 15 MG TAB PO SCH (20:28)
[2018-04-15] MEDS: TAMSULOSIN HCL 0.4 MG CAP PO SCH (20:29)
[2018-04-15] MEDS: INSULIN DETEMIR FLEXPEN/FLEX TOUCH 100 UNITS/ML 3ML SQ SCH (20:30)
[2018-04-15] MEDS: SIMVASTATIN 10 MG TAB PO SCH (20:31)
[2018-04-15] MEDS: DONEPEZIL HCL 10 MG TAB PO SCH (20:33)
[2018-04-16] MEDS: CHECK FENTANYL PATCH PLACEMENT SCH ×4 (00:34→23:31)
[2018-04-16 05:38] LABS: Basophils # (auto) 0.02 K/uL (0-0.2); Basophils % (auto) 0.3 %; Eosinophils # (auto) 0.39 K/uL (0-0.5); Eosinophils % (auto) 5.1 %; Hematocrit (blood only) 33.3 % (42-52); Hemoglobin 10.8 g/dL (14.0-18.0); Immature Granulocytes # (auto) 0.06 K/uL (0.00-0.02); Immature Granulocytes % (auto) 0.8 %; Lymphocytes # (auto) 1.34 K/uL (1.2-3.4); Lymphocytes % (auto) 17.5 %; Mean Corpuscular Hgb Conc 32.4 g/dL (32-36); Mean Corpuscular Volume 90.5 fL (80-100); Monocytes # (auto) 0.78 K/uL (0.11-0.59); Monocytes % (auto) 10.2 %; Neutrophils # (auto) 5.05 K/uL (1.4-6.5); Neutrophils % (auto) 66.1 %; Platelet Count 251 K/uL (130-400); RDW Coefficient of Variation 12.9 % (11.5-14.5); RDW Standard Deviation 42.7 fL (36.4-46.3); Red Blood Count 3.68 M/uL (4.7-6.1); White Blood Count 7.64 K/uL (4.8-10.8)
[2018-04-16 05:58] LABS: BUN Creatinine Ratio 14.6 (10-20); Calcium 7.7 mg/dl (8.5-10.1); Creatinine Clr Calc Pharmacy 127.5 ml/min; Est GFR (African American) 110.2; Est GFR (Non-African American) 95.1; Magnesium 1.7 mg/dl (1.8-2.4); Potassium 3.1 mmol/L (3.5-5.1)
[2018-04-16 05:59] LABS: Phosphorus 3.2 mg/dl (2.5-4.9)
[2018-04-16] MEDS: CITALOPRAM 20 MG TAB PO SCH (08:01)
[2018-04-16] MEDS: ROPINIROLE HCL 0.25 MG TABLET PO SCH ×3 (08:01→20:45)
[2018-04-16] MEDS: GABAPENTIN 600 MG TAB PO SCH ×2 (08:01→20:43)
[2018-04-16] MEDS: metroNIDAZOLE 500 MG TAB PO SCH ×3 (08:01→20:40)
[2018-04-16] MEDS: BACLOFEN 10 MG TAB PO SCH ×3 (08:02→20:43)
[2018-04-16] MEDS: CARBIDOPA/LEVODOPA 25/100MG TAB PO SCH ×4 (08:02→20:45)
[2018-04-16] MEDS: CARBIDOPA/LEVODOPA 50/200MG EXT REL TAB PO SCH (08:03)
[2018-04-16] MEDS: LISINOPRIL 10 MG TAB PO SCH (08:03)
[2018-04-16] MEDS: ENTACAPONE 200 MG TAB PO SCH ×4 (08:03→20:40)
[2018-04-16] MEDS: PANTOprazole 40 MG TAB PO SCH ×2 (08:03→20:44)
[2018-04-16] MEDS: CIPROFLOXACIN 500 MG TAB PO SCH ×2 (08:03→20:39)
[2018-04-16] MEDS: AMLODIPINE BESYLATE 5 MG TAB PO SCH (08:03)
[2018-04-16] MEDS: FLUTICASONE PROPIONATE NA SPR 16 GM BTL NAE SCH (08:04)
[2018-04-16] MEDS: ASPIRIN 81 MG ECTAB PO SCH (08:04)
[2018-04-16] MEDS: FINASTERIDE 5 MG TAB PO SCH (08:04)
[2018-04-16] MEDS: INSULIN DETEMIR FLEXPEN/FLEX TOUCH 100 UNITS/ML 3ML SQ SCH ×2 (08:05→20:42)
[2018-04-16] MEDS: INSULIN ASPART 100 UNITS/ML 3 ML PEN SC SCH ×4 (08:39→20:37)
[2018-04-16] MEDS ORDERED: POTASSIUM CHLORIDE 10 MEQ TABCR PO STA ×2 (09:14→15:26)
[2018-04-16] MEDS: POTASSIUM CHLORIDE 20 MEQ in SODIUM CHLORIDE 0.45 % 1,000 ML IV SCH (09:48)
[2018-04-16] MEDS: MAGNESIUM SULFATE / D5W 1 GM/100 ML BAG IV SCH ×2 (09:50→10:58)
[2018-04-16] MEDS: SODIUM CHLORIDE 0.45 % 1,000 ML IV SCH (12:08)
--- NOTE | 2018-04-16 16:41 | Surgery Progress Note ---
Date of Service April 16, 2018 doing fine, less LLQ pain, no nausea, no vomiting, he tolerated diet, Assessment & Plan (1) Ischemic colitis: pt is stable, no bloody stool passed gas, continue treatment, will F/U 04/16/2018, continue treatment, wii F/U Physical Exam Vital Signs (Past 24 Hours): Last Vital Signs Temp 36.9 C 04/16/18 15:46 Pulse 57 L 04/16/18 15:46 Resp 16 04/16/18 15:46 BP 136/76 04/16/18 15:46 Pulse Ox 94 04/16/18 15:46 Constitutional: WD/WN, vitals as above Neck: trachea midline, no thyromegaly Respiratory: normal respiratory effort, lungs clear to auscultation Cardiovascular: RRR, no murmur, no edema Gastrointestinal (Abdomen): Percussion/Palpation: abdomen soft Neurologic: awake Psychiatric: Orientation: alert and oriented x 3
--- NOTE | 2018-04-16 20:24 | Hospitalist Progress Note ---
Date of Service April 16, 2018 Assessment & Plan (1) Ischemic colitis: clinically improved advance diet to low fiber in AM appreciate gen surg consult cont cipro/flagyl, day #6 of abx plan 10-day course (2) Diabetes mellitus: adjust novolog sliding scale leave levemir as is as AM BSGs are at target (3) Parkinson's disease: cont home meds patient is largely bed-bound at the [facility] none the less will ask PT,OT to see (4) HTN (hypertension), benign: adequate control at this time (5) BPH (benign prostatic hyperplasia): cont outpatient meds (6) GERD (gastroesophageal reflux disease): (7) Chronic constipation: holding meds in light of ischemic colitis resume bowel regimen at d/c (8) Neuropathy: cont outpatient meds (9) Hypokalemia: replete, repeat BMP am (10) Hypomagnesemia: replete, repeat level in am (11) Chronic pain syndrome: cont fentanyl patch (12) Scrotal edema: likely due to IVF in setting of bed-bound status and low albumin follow for now voiding w/o difficulty scrotal support (13) DVT prophylaxis: SCDs; no chemical means due to recent bloody stools Subjective pt's pain is much better than at admission less stools today no january blood tolerating full liquids without any nausea, emesis or worsening of abdominal pain Constitutional: no fever Respiratory: no cough and no dyspnea Cardiovascular: no chest pain scrotal edema Physical Exam Vital Signs (Past 24 Hours): Last Vital Signs Temp 36.9 C 04/16/18 15:46 Pulse 57 L 04/16/18 15:46 Resp 16 04/16/18 15:46 BP 136/76 04/16/18 15:46 Pulse Ox 94 04/16/18 15:46 Constitutional: well developed, well nourished and + obese; no acute distress and not ill appearing ENMT: external ear and nose normal, oropharynx normal Respiratory: normal respiratory effort, lungs clear to auscultation Cardiovascular: RRR, no murmur, no edema Heart Sounds: normal S1 and normal S2 Vessels: posterior tibial pulses present and dorsalis pedis pulses present; no JVD Gastrointestinal (Abdomen): Inspection/Auscultation: + abdomen distended (very mild ) and normal bowel sounds Percussion/Palpation: + abdomen tender (scant - LLQ) and abdomen soft; no hepatosplenomegaly Psychiatric: A+Ox3, euthymic affect Genitourinary: mild scrotal edema --- urethral meatus is very patent however Results & Data Laboratory Results Laboratory Results - last 24 hr 04/15/18 04/16/18 04/16/18 20:11 05:21 05:21 WBC 7.64 RBC 3.68 L Hgb 10.8 L Hct 33.3 L MCV 90.5 MCH 29.3 MCHC 32.4 RDW Std Deviation 42.7 RDW Coeff of Lucie 12.9 Plt Count 251 MPV 10.0 Immature Gran % (Auto) 0.8 Neut % (Auto) 66.1 Lymph % (Auto) 17.5 [place] % (Auto) 10.2 Eos % (Auto) 5.1 Baso % (Auto) 0.3 Immature Gran # (Auto) 0.06 H Neut # (Auto) 5.05 Lymph # (Auto) 1.34 [place] # (Auto) 0.78 H Eos # (Auto) 0.39 Baso # (Auto) 0.02 Sodium 141 Potassium 3.1 L Chloride 111 H Carbon Dioxide 24 Anion Gap 6.0 BUN 9 Creatinine 0.64 Est Cr Clr Drug Dosing 127.5 Est GFR ( Amer) 110.2 Est GFR (Non-Af Amer) 95.1 BUN/Creatinine Ratio 14.6 Glucose 102 H POC Glucose 195 H Lactate Calcium 7.7 L Phosphorus 3.2 Magnesium 1.7 L 04/16/18 04/16/18 04/16/18 05:25 08:07 11:39 WBC RBC Hgb Hct MCV MCH MCHC RDW Std Deviation RDW Coeff of Lucie Plt Count MPV Immature Gran % (Auto) Neut % (Auto) Lymph % (Auto) [place] % (Auto) Eos % (Auto) Baso % (Auto) Immature Gran # (Auto) Neut # (Auto) Lymph # (Auto) [place] # (Auto) Eos # (Auto) Baso # (Auto) Sodium Potassium Chloride Carbon Dioxide Anion Gap BUN Creatinine Est Cr Clr Drug Dosing Est GFR ( Amer) Est GFR (Non-Af Amer) BUN/Creatinine Ratio Glucose POC Glucose 110 H 181 H Lactate 0.7 Calcium Phosphorus Magnesium 04/16/18 04/16/18 16:30 20:06 WBC RBC Hgb Hct MCV MCH MCHC RDW Std Deviation RDW Coeff of Lucie Plt Count MPV Immature Gran % (Auto) Neut % (Auto) Lymph % (Auto) [place] % (Auto) Eos % (Auto) Baso % (Auto) Immature Gran # (Auto) Neut # (Auto) Lymph # (Auto) [place] # (Auto) Eos # (Auto) Baso # (Auto) Sodium Potassium Chloride Carbon Dioxide Anion Gap BUN Creatinine Est Cr Clr Drug Dosing Est GFR ( Amer) Est GFR (Non-Af Amer) BUN/Creatinine Ratio Glucose POC Glucose 146 H 213 H Lactate Calcium Phosphorus Magnesium
[2018-04-16] MEDS: DONEPEZIL HCL 10 MG TAB PO SCH (20:39)
[2018-04-16] MEDS: TAMSULOSIN HCL 0.4 MG CAP PO SCH (20:41)
[2018-04-16] MEDS: SIMVASTATIN 10 MG TAB PO SCH (20:44)
[2018-04-16] MEDS: MIRTAZAPINE TAB 15 MG TAB PO SCH (20:45)
[2018-04-17] MEDS: POTASSIUM CHLORIDE 20 MEQ in SODIUM CHLORIDE 0.45 % 1,000 ML IV SCH (04:08)
[2018-04-17 06:59] LABS: Hemoglobin 11.9 g/dL (14.0-18.0); Mean Corpuscular Hgb Conc 32.2 g/dL (32-36); Mean Corpuscular Volume 89.8 fL (80-100); Mean Platelet Volume 10.2 fL (7.4-10.4); Platelet Count 275 K/uL (130-400); RDW Coefficient of Variation 13.1 % (11.5-14.5); Red Blood Count 4.12 M/uL (4.7-6.1)
[2018-04-17 07:31] LABS: BUN Creatinine Ratio 10.7 (10-20); Calcium 8.1 mg/dl (8.5-10.1); Creatinine Clr Calc Pharmacy 113.7 ml/min; Est GFR (African American) 108.2; Est GFR (Non-African American) 93.3; Magnesium 1.8 mg/dl (1.8-2.4); Potassium 3.5 mmol/L (3.5-5.1)
[2018-04-17] MEDS: ONDANSETRON INJ 2 MG/ML 2 ML VIAL IV PRN (08:00)
[2018-04-17] MEDS: LISINOPRIL 10 MG TAB PO SCH (08:02)
[2018-04-17] MEDS: PANTOprazole 40 MG TAB PO SCH ×2 (08:03→20:51)
[2018-04-17] MEDS: FINASTERIDE 5 MG TAB PO SCH (08:03)
[2018-04-17] MEDS: CITALOPRAM 20 MG TAB PO SCH (08:03)
[2018-04-17] MEDS: CARBIDOPA/LEVODOPA 50/200MG EXT REL TAB PO SCH (08:03)
[2018-04-17] MEDS: BACLOFEN 10 MG TAB PO SCH ×3 (08:03→20:52)
[2018-04-17] MEDS: AMLODIPINE BESYLATE 5 MG TAB PO SCH (08:03)
[2018-04-17] MEDS: ASPIRIN 81 MG ECTAB PO SCH (08:04)
[2018-04-17] MEDS: ROPINIROLE HCL 0.25 MG TABLET PO SCH ×3 (08:04→20:44)
[2018-04-17] MEDS: metroNIDAZOLE 500 MG TAB PO SCH ×3 (08:04→20:51)
[2018-04-17] MEDS: CARBIDOPA/LEVODOPA 25/100MG TAB PO SCH ×4 (08:05→20:43)
[2018-04-17] MEDS: CIPROFLOXACIN 500 MG TAB PO SCH ×2 (08:06→20:53)
[2018-04-17] MEDS: ENTACAPONE 200 MG TAB PO SCH ×4 (08:06→20:52)
[2018-04-17] MEDS: GABAPENTIN 600 MG TAB PO SCH ×2 (08:06→20:51)
[2018-04-17] MEDS: FLUTICASONE PROPIONATE NA SPR 16 GM BTL NAE SCH (08:07)
[2018-04-17] MEDS: CHECK FENTANYL PATCH PLACEMENT SCH ×3 (08:07→23:44)
[2018-04-17] MEDS: INSULIN DETEMIR FLEXPEN/FLEX TOUCH 100 UNITS/ML 3ML SQ SCH ×2 (08:58→20:48)
[2018-04-17] MEDS: INSULIN ASPART 100 UNITS/ML 3 ML PEN SC SCH ×4 (09:00→20:46)
[2018-04-17] MEDS ORDERED: ONDANSETRON INJ 2 MG/ML 2 ML VIAL IV STA (11:57)
--- NOTE | 2018-04-17 20:08 | Hospitalist Progress Note ---
Date of Service April 17, 2018 Assessment & Plan (1) Ischemic colitis: clinically improved cont cipro/flagyl, day #7 of abx plan 10-day course unfortunately didn't tolerate regular diet this am cont full liquids rest of today if stable overnight then retrial of regular diet tomorrow (2) Diabetes mellitus: improved with adjustment of novolog sliding scale leave levemir as is (3) Parkinson's disease: cont home meds patient is largely bed-bound at the [facility] cont Pt and Ot (4) HTN (hypertension), benign: controlled (5) BPH (benign prostatic hyperplasia): cont outpatient meds PVRs are <50cc (6) GERD (gastroesophageal reflux disease): Continue H2 cruz and PPI (7) Chronic constipation: holding meds in light of ischemic colitis resume bowel regimen at d/c (8) Neuropathy: cont outpatient meds (9) Hypokalemia: resolved (10) Hypomagnesemia: resolved (11) Chronic pain syndrome: cont fentanyl patch (12) Scrotal edema: no change scrotal support (13) DVT prophylaxis: SCDs; no chemical means due to recent bloody stools stop IVF updated this evening hopefully dc to SNF next 48 hours Subjective patient tried eating solids for breakfast today and shortly after had LLQ abd pain and nausea changed back to full liquids and did fine w/ this the rest of the day only 1 small stool today no gross blood no vomiting Constitutional: no fever and no chills Respiratory: no cough and no dyspnea Cardiovascular: no chest pain Physical Exam Vital Signs (Past 24 Hours): Last Vital Signs Temp 36.7 C 04/17/18 15:07 Pulse 54 L 04/17/18 15:07 Resp 18 04/17/18 15:07 BP 126/70 04/17/18 15:07 Pulse Ox 94 04/17/18 15:07 Constitutional: well developed, well nourished and + obese; no acute distress and not ill appearing ENMT: external ear and nose normal, oropharynx normal Respiratory: normal respiratory effort, lungs clear to auscultation Cardiovascular: RRR, no murmur, no edema Heart Sounds: normal S1 and normal S2 Vessels: posterior tibial pulses present and dorsalis pedis pulses present; no JVD Gastrointestinal (Abdomen): Inspection/Auscultation: + abdomen distended (mild/moderate) and normal bowel sounds Percussion/Palpation: + abdomen tender (LLQ - mild); no hepatosplenomegaly Psychiatric: A+Ox3, euthymic affect Results & Data Laboratory Results Laboratory Results - last 24 hr 04/16/18 04/17/18 04/17/18 20:06 06:45 06:45 WBC 6.70 RBC 4.12 L Hgb 11.9 L Hct 37.0 L MCV 89.8 MCH 28.9 MCHC 32.2 RDW Std Deviation 43.0 RDW Coeff of Lucie 13.1 Plt Count 275 MPV 10.2 Sodium 140 Potassium 3.5 Chloride 109 H Carbon Dioxide 23 Anion Gap 8.0 BUN 7 Creatinine 0.67 Est Cr Clr Drug Dosing 113.7 Est GFR ( Amer) 108.2 Est GFR (Non-Af Amer) 93.3 BUN/Creatinine Ratio 10.7 Glucose 128 H POC Glucose 213 H Calcium 8.1 L Magnesium 1.8 04/17/18 04/17/18 04/17/18 07:57 11:16 16:32 WBC RBC Hgb Hct MCV MCH MCHC RDW Std Deviation RDW Coeff of Lucie Plt Count MPV Sodium Potassium Chloride Carbon Dioxide Anion Gap BUN Creatinine Est Cr Clr Drug Dosing Est GFR ( Amer) Est GFR (Non-Af Amer) BUN/Creatinine Ratio Glucose POC Glucose 140 H 198 H 153 H Calcium Magnesium
[2018-04-17] MEDS: DONEPEZIL HCL 10 MG TAB PO SCH (20:51)
[2018-04-17] MEDS: MIRTAZAPINE TAB 15 MG TAB PO SCH (20:53)
[2018-04-17] MEDS: SIMVASTATIN 10 MG TAB PO SCH (20:54)
[2018-04-17] MEDS: TAMSULOSIN HCL 0.4 MG CAP PO SCH (20:54)
[2018-04-18 06:54] LABS: BUN Creatinine Ratio 8.8 (10-20); Est GFR (African American) 106.2; Est GFR (Non-African American) 91.7; Potassium 3.3 mmol/L (3.5-5.1)
[2018-04-18] MEDS: PANTOprazole 40 MG TAB PO SCH ×2 (08:28→21:25)
[2018-04-18] MEDS: ASPIRIN 81 MG ECTAB PO SCH (08:28)
[2018-04-18] MEDS: CITALOPRAM 20 MG TAB PO SCH (08:28)
[2018-04-18] MEDS: FINASTERIDE 5 MG TAB PO SCH (08:28)
[2018-04-18] MEDS: metroNIDAZOLE 500 MG TAB PO SCH ×2 (08:28→12:58)
[2018-04-18] MEDS: LISINOPRIL 10 MG TAB PO SCH (08:28)
[2018-04-18] MEDS: AMLODIPINE BESYLATE 5 MG TAB PO SCH (08:28)
[2018-04-18] MEDS: BACLOFEN 10 MG TAB PO SCH ×3 (08:28→21:25)
[2018-04-18] MEDS: ENTACAPONE 200 MG TAB PO SCH ×4 (08:28→21:24)
[2018-04-18] MEDS: GABAPENTIN 600 MG TAB PO SCH ×2 (08:28→21:24)
[2018-04-18] MEDS: CIPROFLOXACIN 500 MG TAB PO SCH (08:28)
[2018-04-18] MEDS: CARBIDOPA/LEVODOPA 25/100MG TAB PO SCH ×4 (08:29→21:25)
[2018-04-18] MEDS: CHECK FENTANYL PATCH PLACEMENT SCH ×3 (08:29→23:21)
[2018-04-18] MEDS: FLUTICASONE PROPIONATE NA SPR 16 GM BTL NAE SCH (08:30)
[2018-04-18] MEDS: ROPINIROLE HCL 0.25 MG TABLET PO SCH ×3 (08:30→21:24)
[2018-04-18] MEDS: CARBIDOPA/LEVODOPA 50/200MG EXT REL TAB PO SCH (08:30)
[2018-04-18] MEDS: fentaNYL 50 MCG/HR TDSY TD SCH (08:31)
[2018-04-18] MEDS: INSULIN ASPART 100 UNITS/ML 3 ML PEN SC SCH ×4 (08:34→21:31)
[2018-04-18] MEDS: INSULIN DETEMIR FLEXPEN/FLEX TOUCH 100 UNITS/ML 3ML SQ SCH ×2 (08:35→21:37)
[2018-04-18] MEDS: ONDANSETRON INJ 2 MG/ML 2 ML VIAL IV PRN ×2 (08:52→18:32)
[2018-04-18] MEDS ORDERED: POTASSIUM CHLORIDE 10 MEQ TABCR PO ONE (09:00)
[2018-04-18] MEDS: AMOXICILLIN/CLAVULANATE 875 MG TAB PO SCH (19:03)
[2018-04-18] MEDS: SIMVASTATIN 10 MG TAB PO SCH (21:24)
[2018-04-18] MEDS: MIRTAZAPINE TAB 15 MG TAB PO SCH (21:25)
[2018-04-18] MEDS: TAMSULOSIN HCL 0.4 MG CAP PO SCH (21:25)
[2018-04-18] MEDS: DONEPEZIL HCL 10 MG TAB PO SCH (21:25)
--- NOTE | 2018-04-18 21:27 | Hospitalist Progress Note ---
Date of Service April 18, 2018 Assessment & Plan (1) Ischemic colitis: Overall the patient appears clinically improved. I question if some of his nausea is from his Flagyl. He only has 3 days remaining of antibiotics. In the event the Flagyl is the major contributor of his nausea will stop the Cipro Flagyl and change him to Augmentin. Since he has tolerated the full liquid diet since yesterday we will advance him to a low fiber diet this evening. If he continues to tolerate low fiber diet through tomorrow I believe he can be discharged on oral antibiotics on Tuesday. Plan to repeat his blood work in the morning next Present on Admission?: Yes (2) Diabetes mellitus: Uncontrolled. Will increase his Levemir to 40 units twice daily. Adjust NovoLog sliding scale. (3) Parkinson's disease: cont home meds [facility] Pt and Ot (4) HTN (hypertension), benign: controlled (5) BPH (benign prostatic hyperplasia): cont outpatient meds PVRs are <50cc Has mild scrotal edema but this is not interfering with voiding (6) GERD (gastroesophageal reflux disease): Continue H2 cruz and PPI (7) Chronic constipation: holding meds in light of ischemic colitis resume bowel regimen at d/c or shortly thereafter (8) Neuropathy: cont outpatient meds (9) Hypokalemia: Ongoing Replace with oral potassium and repeat level in morning (10) Hypomagnesemia: resolved (11) Chronic pain syndrome: cont fentanyl patch (12) Scrotal edema: no change in physical exam findings Continue scrotal support (13) DVT prophylaxis: SCDs; no chemical means due to recent bloody stools was updated on April 17 I am hopeful for discharge back to the [facility] on Tuesday, April 19 Subjective The patient tolerated full liquid diet this morning at breakfast time as well as at lunchtime. He states he had some mild nausea with eating lunch but never had vomiting. He also noted that when he takes certain medications this causes nausea as well. He has had one stool today and this was loose. No january blood. Denies any significant abdominal pain. No other new complaints. Constitutional: no fever and no chills Respiratory: no cough and no dyspnea Cardiovascular: no chest pain Gastrointestinal: + abdominal pain, + nausea and + diarrhea/loose stools; no vomiting, no constipation and no blood in stools Physical Exam Vital Signs (Past 24 Hours): Last Vital Signs Temp 36.7 C 04/18/18 15:00 Pulse 56 L 04/18/18 15:00 Resp 18 04/18/18 15:00 BP 150/69 H 04/18/18 15:00 Pulse Ox 95 04/18/18 15:00 Constitutional: well developed, well nourished and + obese; no acute distress and not ill appearing ENMT: external ear and nose normal, oropharynx normal Respiratory: normal respiratory effort, lungs clear to auscultation Cardiovascular: RRR, no murmur, no edema Heart Sounds: normal S1 and normal S2 Vessels: posterior tibial pulses present and dorsalis pedis pulses present; no JVD Gastrointestinal (Abdomen): Inspection/Auscultation: + abdomen distended (mild/moderate) and normal bowel sounds Percussion/Palpation: + abdomen tender (LLQ - minimal); no hepatosplenomegaly Psychiatric: A+Ox3, euthymic affect Genitourinary: + edematous scrotum Results & Data Laboratory Results Laboratory Results - last 24 hr 04/18/18 04/18/18 04/18/18 05:53 07:52 11:29 Sodium 140 Potassium 3.3 L Chloride 108 H Carbon Dioxide 24 Anion Gap 8.0 BUN 6 L Creatinine 0.70 Est Cr Clr Drug Dosing 107.0 Est GFR ( Amer) 106.2 Est GFR (Non-Af Amer) 91.7 BUN/Creatinine Ratio 8.8 L Glucose 181 H POC Glucose 203 H 232 H Calcium 8.0 L 04/18/18 04/18/18 16:22 20:37 Sodium Potassium Chloride Carbon Dioxide Anion Gap BUN Creatinine Est Cr Clr Drug Dosing Est GFR ( Amer) Est GFR (Non-Af Amer) BUN/Creatinine Ratio Glucose POC Glucose 180 H 266 H Calcium
[2018-04-19 06:40] LABS: Hematocrit (blood only) 36.3 % (42-52); Hemoglobin 11.7 g/dL (14.0-18.0); Mean Corpuscular Hgb Conc 32.2 g/dL (32-36); Mean Corpuscular Volume 90.1 fL (80-100); Mean Platelet Volume 10.2 fL (7.4-10.4); Platelet Count 264 K/uL (130-400); RDW Standard Deviation 42.2 fL (36.4-46.3); Red Blood Count 4.03 M/uL (4.7-6.1); White Blood Count 6.12 K/uL (4.8-10.8)
[2018-04-19 07:17] LABS: BUN Creatinine Ratio 10.8 (10-20); Calcium 7.9 mg/dl (8.5-10.1); Creatinine Clr Calc Pharmacy 94.3 ml/min; Est GFR (African American) 101.1; Est GFR (Non-African American) 87.2; Magnesium 1.6 mg/dl (1.8-2.4); Potassium 3.5 mmol/L (3.5-5.1)
[2018-04-19] MEDS: AMOXICILLIN/CLAVULANATE 875 MG TAB PO SCH ×2 (08:12→18:29)
[2018-04-19] MEDS: PANTOprazole 40 MG TAB PO SCH ×2 (08:13→21:52)
[2018-04-19] MEDS: CITALOPRAM 20 MG TAB PO SCH (08:13)
[2018-04-19] MEDS: BACLOFEN 10 MG TAB PO SCH ×3 (08:13→21:47)
[2018-04-19] MEDS: ENTACAPONE 200 MG TAB PO SCH ×4 (08:13→21:51)
[2018-04-19] MEDS: CARBIDOPA/LEVODOPA 50/200MG EXT REL TAB PO SCH (08:13)
[2018-04-19] MEDS: ASPIRIN 81 MG ECTAB PO SCH (08:14)
[2018-04-19] MEDS: AMLODIPINE BESYLATE 5 MG TAB PO SCH (08:14)
[2018-04-19] MEDS: GABAPENTIN 600 MG TAB PO SCH ×2 (08:15→21:46)
[2018-04-19] MEDS: ROPINIROLE HCL 0.25 MG TABLET PO SCH ×3 (08:15→21:55)
[2018-04-19] MEDS: LISINOPRIL 10 MG TAB PO SCH (08:15)
[2018-04-19] MEDS: FINASTERIDE 5 MG TAB PO SCH (08:15)
[2018-04-19] MEDS: INSULIN DETEMIR FLEXPEN/FLEX TOUCH 100 UNITS/ML 3ML SQ SCH ×2 (08:16→21:47)
[2018-04-19] MEDS: FLUTICASONE PROPIONATE NA SPR 16 GM BTL NAE SCH (08:16)
[2018-04-19] MEDS: CARBIDOPA/LEVODOPA 25/100MG TAB PO SCH ×4 (08:17→21:55)
[2018-04-19] MEDS: INSULIN ASPART 100 UNITS/ML 3 ML PEN SC SCH ×4 (08:19→21:53)
[2018-04-19] MEDS: CHECK FENTANYL PATCH PLACEMENT SCH ×2 (08:19→17:28)
[2018-04-19] MEDS: ONDANSETRON INJ 2 MG/ML 2 ML VIAL IV PRN (08:48)
[2018-04-19] MEDS: MAGNESIUM SULFATE / D5W 1 GM/100 ML BAG IV SCH ×2 (11:10→12:03)
--- NOTE | 2018-04-19 21:41 | Hospitalist Progress Note ---
Date of Service April 19, 2018 Assessment & Plan (1) Ischemic colitis: resolving. tolerating regular food. finish augmentin - day #1/3. GI saw patient today - they are happy w/ how he is doing from GI perspective. ok for d/c from their perspective. (2) Diabetes mellitus: still uncontrolled adjust levemir again and novolog (3) Parkinson's disease: cont home meds patient is largely bed-bound at the care home cont Pt and Ot (4) HTN (hypertension), benign: controlled (5) BPH (benign prostatic hyperplasia): cont outpatient meds PVRs are <50cc Has mild scrotal edema but this is not interfering with voiding (6) GERD (gastroesophageal reflux disease): Continue H2 cruz and PPI (7) Chronic constipation: holding meds in light of ischemic colitis resume bowel regimen at d/c or shortly thereafter (8) Neuropathy: cont outpatient meds (9) Hypokalemia: resolved (10) Hypomagnesemia: replace 2 grams mag sulfate x 1 repeat Mag level am (11) Chronic pain syndrome: cont fentanyl patch (12) Scrotal edema: no change in physical exam findings Continue scrotal support (13) DVT prophylaxis: SCDs; no chemical means due to recent bloody stools updated this evening by phone d/c to SNF - likely in am Subjective pt w/ minimal LLQ abd discomfort scant nausea eating 100% of regular meals no vomiting no new issues Constitutional: no fever Respiratory: no dyspnea Cardiovascular: no chest pain Physical Exam Vital Signs (Past 24 Hours): Last Vital Signs Temp 36.7 C 04/19/18 16:00 Pulse 58 L 04/19/18 16:00 Resp 18 04/19/18 16:00 BP 124/62 04/19/18 16:00 Pulse Ox 94 04/19/18 16:00 Constitutional: well developed, well nourished and + obese; no acute distress and not ill appearing ENMT: external ear and nose normal, oropharynx normal Respiratory: normal respiratory effort, lungs clear to auscultation Cardiovascular: RRR, no murmur, no edema Heart Sounds: normal S1 and normal S2 Vessels: posterior tibial pulses present and dorsalis pedis pulses present; no JVD Gastrointestinal (Abdomen): Inspection/Auscultation: + abdomen distended (mild/moderate -- no change from yesterday) and normal bowel sounds Percussion/Palpation: + abdomen tender (LLQ - scant); no hepatosplenomegaly Psychiatric: A+Ox3, euthymic affect Genitourinary: + edematous scrotum (no change) Results & Data Laboratory Results Laboratory Results - last 24 hr 04/19/18 04/19/18 04/19/18 06:19 06:19 07:38 WBC 6.12 RBC 4.03 L Hgb 11.7 L Hct 36.3 L MCV 90.1 MCH 29.0 MCHC 32.2 RDW Std Deviation 42.2 RDW Coeff of Lucie 13.0 Plt Count 264 MPV 10.2 Sodium 138 Potassium 3.5 Chloride 106 Carbon Dioxide 25 Anion Gap 7.0 BUN 9 Creatinine 0.79 Est Cr Clr Drug Dosing 94.3 Est GFR ( Amer) 101.1 Est GFR (Non-Af Amer) 87.2 BUN/Creatinine Ratio 10.8 Glucose 227 H POC Glucose 232 H Calcium 7.9 L Magnesium 1.6 L 04/19/18 04/19/18 04/19/18 11:46 16:50 19:56 WBC RBC Hgb Hct MCV MCH MCHC RDW Std Deviation RDW Coeff of Lucie Plt Count MPV Sodium Potassium Chloride Carbon Dioxide Anion Gap BUN Creatinine Est Cr Clr Drug Dosing Est GFR ( Amer) Est GFR (Non-Af Amer) BUN/Creatinine Ratio Glucose POC Glucose 297 H 280 H 247 H Calcium Magnesium
[2018-04-19] MEDS: MIRTAZAPINE TAB 15 MG TAB PO SCH (21:49)
[2018-04-19] MEDS: TAMSULOSIN HCL 0.4 MG CAP PO SCH (21:50)
[2018-04-19] MEDS: DONEPEZIL HCL 10 MG TAB PO SCH (21:51)
[2018-04-19] MEDS: SIMVASTATIN 10 MG TAB PO SCH (21:54)
[2018-04-20] MEDS: CHECK FENTANYL PATCH PLACEMENT SCH ×3 (00:07→16:24)
[2018-04-20] MEDS: CITALOPRAM 20 MG TAB PO SCH (08:45)
[2018-04-20] MEDS: AMOXICILLIN/CLAVULANATE 875 MG TAB PO SCH ×2 (08:45→16:27)
[2018-04-20] MEDS: FLUTICASONE PROPIONATE NA SPR 16 GM BTL NAE SCH (08:46)
[2018-04-20] MEDS: LISINOPRIL 10 MG TAB PO SCH (08:46)
[2018-04-20] MEDS: ASPIRIN 81 MG ECTAB PO SCH (08:46)
[2018-04-20] MEDS: ENTACAPONE 200 MG TAB PO SCH ×4 (08:46→20:35)
[2018-04-20] MEDS: CARBIDOPA/LEVODOPA 25/100MG TAB PO SCH ×4 (08:46→20:34)
[2018-04-20] MEDS: BACLOFEN 10 MG TAB PO SCH ×3 (08:46→20:35)
[2018-04-20] MEDS: GABAPENTIN 600 MG TAB PO SCH ×2 (08:46→20:35)
[2018-04-20] MEDS: PANTOprazole 40 MG TAB PO SCH ×2 (08:47→20:35)
[2018-04-20] MEDS: ROPINIROLE HCL 0.25 MG TABLET PO SCH ×3 (08:47→20:36)
[2018-04-20] MEDS: AMLODIPINE BESYLATE 5 MG TAB PO SCH (08:48)
[2018-04-20] MEDS: ONDANSETRON INJ 2 MG/ML 2 ML VIAL IV PRN ×2 (08:48→16:37)
[2018-04-20] MEDS: CARBIDOPA/LEVODOPA 50/200MG EXT REL TAB PO SCH (08:48)
[2018-04-20] MEDS: INSULIN DETEMIR FLEXPEN/FLEX TOUCH 100 UNITS/ML 3ML SQ SCH ×3 (08:48→20:38)
[2018-04-20] MEDS: FINASTERIDE 5 MG TAB PO SCH (08:48)
[2018-04-20] MEDS: INSULIN ASPART 100 UNITS/ML 3 ML PEN SC SCH ×4 (08:49→20:39)
[2018-04-20 10:36] LABS: BUN Creatinine Ratio 12.8 (10-20); Calcium 8.5 mg/dl (8.5-10.1); Creatinine Clr Calc Pharmacy 92.4 ml/min; Est GFR (African American) 100.1; Est GFR (Non-African American) 86.3; Magnesium 1.7 mg/dl (1.8-2.4); Potassium 3.6 mmol/L (3.5-5.1)
[2018-04-20 10:59] LABS: Beta-Hydroxybutyrate 4.52 mg/dl (0.2-2.81)
[2018-04-20 16:42] LABS: Appearance Urine Clear (Clear); Bilirubin Urine Negative (Negative); Blood Urine Negative (Negative); Color Urine Dark Yellow; Glucose Urine UA 3+ (Negative); Ketones Urine 1+ (Negative); Leukocyte Esterase Urine Negative (Negative); Nitrite Urine Negative (Negative); Protein Urine Negative (Negative); Specific Gravity Urine 1.025 (1.000-1.030); Urobilinogen Urine Negative (Negative); pH Urine 6.5 (4.5-7.5)
[2018-04-20] MEDS ORDERED: LOPERAMIDE HCL 2 MG CAP PO PRN (19:59)
[2018-04-20] MEDS ORDERED: LOPERAMIDE HCL 2 MG CAP PO STA ×2 (19:59)
[2018-04-20] MEDS: TAMSULOSIN HCL 0.4 MG CAP PO SCH (20:35)
[2018-04-20] MEDS: DONEPEZIL HCL 10 MG TAB PO SCH (20:35)
[2018-04-20] MEDS: SIMVASTATIN 10 MG TAB PO SCH (20:35)
[2018-04-20] MEDS: MIRTAZAPINE TAB 15 MG TAB PO SCH (20:35)
--- NOTE | 2018-04-20 20:44 | Hospitalist Progress Note ---
Date of Service April 20, 2018 Assessment & Plan (1) Ischemic colitis: resolved clinically. tolerating regular food. finish augmentin - day #2/3. GI saw patient yesterday - they are happy w/ how he is doing from GI perspective. ok for d/c from their perspective. (2) Diabetes mellitus: still uncontrolled adjust levemir again and novolog further (3) Parkinson's disease: cont home meds [facility] and Ot (4) HTN (hypertension), benign: controlled (5) BPH (benign prostatic hyperplasia): cont outpatient meds PVRs have been <50cc Has mild scrotal edema but this is not interfering with voiding (6) GERD (gastroesophageal reflux disease): Continue H2 cruz and PPI (7) Chronic constipation: holding meds in light of ischemic colitis resume bowel regimen at d/c (8) Neuropathy: cont outpatient meds (9) Hypokalemia: resolved (10) Hypomagnesemia: replace once again level 1.7 today (11) Chronic pain syndrome: cont fentanyl patch (12) Scrotal edema: no change in physical exam findings Continue scrotal support no evidence of balanitis dysuria --- check u/a and urine cx to r/o UTI (13) DVT prophylaxis: SCDs; no chemical means due to recent bloody stools updated yesterday by phone d/c likely in am Subjective pt c/o dysuria states it "has been going on a few days" when asked why he hadn't mentioned it he just shook his head still c/o nausea but nearly consuming 100% of meals in fact he was raving about the meatloaf he had last night no emesis stools are liquid, 1-2 x's each day, but no blood scant LLQ pain in abdomen Constitutional: no fever Respiratory: no cough and no dyspnea Cardiovascular: no chest pain Physical Exam Vital Signs (Past 24 Hours): Last Vital Signs Temp 36.6 C 04/20/18 15:28 Pulse 60 04/20/18 15:28 Resp 14 04/20/18 15:28 BP 147/89 H 04/20/18 15:28 Pulse Ox 97 04/20/18 15:28 Constitutional: well developed, well nourished and + obese; no acute distress and not ill appearing ENMT: external ear and nose normal, oropharynx normal Respiratory: normal respiratory effort, lungs clear to auscultation Cardiovascular: RRR, no murmur, no edema Heart Sounds: normal S1 and normal S2 Vessels: posterior tibial pulses present and dorsalis pedis pulses present; no JVD Gastrointestinal (Abdomen): Inspection/Auscultation: + abdomen distended (mild/moderate -- no change from yesterday) and normal bowel sounds Percussion/Palpation: + abdomen tender (LLQ - scant); no hepatosplenomegaly Psychiatric: A+Ox3, euthymic affect Genitourinary: + edematous scrotum (no change) head of penis w/o balanitis Results & Data Laboratory Results FSBS >200 BMP wnl
[2018-04-21] MEDS: CHECK FENTANYL PATCH PLACEMENT SCH ×2 (00:04→10:49)
[2018-04-21] MEDS: INSULIN ASPART 100 UNITS/ML 3 ML PEN SC SCH ×2 (10:44→12:27)
[2018-04-21] MEDS: INSULIN DETEMIR FLEXPEN/FLEX TOUCH 100 UNITS/ML 3ML SQ SCH ×2 (10:46→12:25)
[2018-04-21] MEDS: LISINOPRIL 10 MG TAB PO SCH (10:53)
[2018-04-21] MEDS: CARBIDOPA/LEVODOPA 50/200MG EXT REL TAB PO SCH (10:54)
[2018-04-21] MEDS: ROPINIROLE HCL 0.25 MG TABLET PO SCH (10:54)
[2018-04-21] MEDS: CARBIDOPA/LEVODOPA 25/100MG TAB PO SCH (10:55)
[2018-04-21] MEDS: AMLODIPINE BESYLATE 5 MG TAB PO SCH (10:56)
[2018-04-21] MEDS: PANTOprazole 40 MG TAB PO SCH (10:56)
[2018-04-21] MEDS: FINASTERIDE 5 MG TAB PO SCH (10:56)
[2018-04-21] MEDS: GABAPENTIN 600 MG TAB PO SCH (10:57)
[2018-04-21] MEDS: FLUTICASONE PROPIONATE NA SPR 16 GM BTL NAE SCH (10:57)
[2018-04-21] MEDS: BACLOFEN 10 MG TAB PO SCH (10:57)
[2018-04-21] MEDS: AMOXICILLIN/CLAVULANATE 875 MG TAB PO SCH (10:58)
[2018-04-21] MEDS: ASPIRIN 81 MG ECTAB PO SCH (10:58)
[2018-04-21] MEDS: ENTACAPONE 200 MG TAB PO SCH (10:58)
[2018-04-21] MEDS: CITALOPRAM 20 MG TAB PO SCH (10:58)
[2018-04-21] MEDS: fentaNYL 50 MCG/HR TDSY TD SCH (11:10)
--- NOTE | 2018-04-21 11:17 | Discharge Summary ---
Date of Service April 21, 2018 Admission HPI Per Admitting Provider 77 y/o m hx Parkinson's, DM II, CAD, Chronic neck pain, HTN, HLD, CAD, JORGE LUIS, morbidly obese. Pt presents with rectal bleeding. [facility] in a [facility] where it was reported that he had 4 grossly bloody bowel movements starting at 2:00 PM. He states he has some mild abdominal pain and has otherwise been asymptomatic. He denies nausea, vomiting or fevers. He is normally constipated and has a history of hemorrhoids, although he denies a history of GI bleeding. A CT of the abdomen demonstrated severe proctocolitis. PMH: 1) Morbid obesity 2) HTN 3) HLD 4) CAD 5) Chronic neck pain 6) Parkinson's disease 7) Dementia 8) BPH 9) Diverticulitis 10) JORGE LUIS 11) Glaucoma 12) DM II Surgical: 1) Neck fusion 2) Coronary stents Social: Does not smoke or drink - resides in [facility] Family: Noncontributory Principal Diagnosis Ischemic colitis Discharge Exam Constitutional WD/WN, vitals as above + obese Eyes PERRL, conjunctivae normal, anicteric sclerae ENMT Ears: no hearing impairment Mouth: no oral mucosal abnormality Neck trachea midline, no thyromegaly Respiratory normal respiratory effort, lungs clear to auscultation Cardiovascular RRR, no murmur, no edema Gastrointestinal (Abdomen) Inspection/Auscultation: normal bowel sounds Percussion/Palpation: + abdomen tender (Left lower quadrant without guarding or rebound tenderness) and abdomen soft Musculoskeletal Extremities: + extremities abnormal to inspection (Flexion contracture in the right hand and wrist), no cyanosis and no clubbing Skin no rashes, warm and dry Neurologic + focal motor deficit (Weakness in the right upper extremity) and awake Psychiatric A+Ox3, euthymic affect Discharge Data Allergies Allergy/AdvReac Type Severity Reaction Status Date / Time capsaicin AdvReac Unknown RASH Verified 04/11/18 13:59 diclofenac AdvReac Unknown RASH Verified 04/11/18 13:59 Diclopak AdvReac Unknown RASH Verified 08/19/16 06:44 isopropyl alcohol AdvReac Unknown RASH Verified 04/11/18 13:59 propylene glycol AdvReac Unknown RASH Verified 04/11/18 13:59 Consultations 04/11/18 14:36 ED Decision to Admit Stat 04/12/18 14:10 Consult Gastroenterology Routine 04/13/18 18:29 Consult General Surgery Routine Procedures Performed Operation Date: 04/13/18 09:30 Actual Procedures p Colonoscopy Biopsy Cytology - Reuben Lim MD Ordered Studies 04/11/18 13:20 CT abd pelvis IV con only Stat 04/13/18 15:52 CT angio abdomen pelvis w con Urgent Hospital Course (1) Ischemic colitis: resolved clinically except for some mild left lower quadrant pain tolerating regular food with some intermittent nausea. He received IV Cipro and Flagyl for many days and then finished his antibiotic course with Augmentin-his last dose will be on the evening of 04/21 GI saw patient again in follow-up on 04/19- they are happy w/ how he is doing from GI perspective. ok for d/c from their perspective. We will have the patient follow-up with gastroenterology within 1 month (2) Diabetes mellitus: Had issues with hyperglycemia while here which improved by the time of discharge Continue home dosing of Levemir and NovoLog on discharge (3) Parkinson's disease: cont home meds patient is largely [facility] at the [facility] cont Pt and Ot (4) HTN (hypertension), benign: controlled -Continue amlodipine 10 mg daily, lisinopril 10 mg daily (5) BPH (benign prostatic hyperplasia): cont outpatient meds PVRs have been <50cc Has mild scrotal edema but this is not interfering with voiding -Continue tamsulosin and dutasteride on discharge (6) GERD (gastroesophageal reflux disease): Continue H2 cruz and PPI (7) Chronic constipation: holding meds in light of ischemic colitis resume bowel regimen at d/c (8) Neuropathy: cont outpatient meds with gabapentin (9) Hypokalemia: resolved (10) Hypomagnesemia: Replaced and resolved (11) Chronic pain syndrome: cont fentanyl patch as chronic medication He has not required any oxycodone or IV morphine in many days-oxycodone discontinued upon discharge (12) Scrotal edema: no change in physical exam findings Continue scrotal support no evidence of balanitis dysuria --- urinalysis was negative for signs of infection -Should follow as an outpatient (13) DVT prophylaxis: SCDs; no chemical means due to recent bloody stools Disposition-stable for discharge to [facility] today Total Time Total Time Spent Total Time Spent (In Minutes): Greater than 30 minutes Total Time Includes: Examination of the Patient, Discharge Planning and Medication Reconciliation Discharge Plan Discharge Items Patient Disposition: [facility] Reason For Visit: RECTAL BLEEDING Discharge Diagnosis: Ischemic colitis Condition: Fair Discharge Goals: Decrease discomfort, Diagnostic testing, Improve disease control and Learn about illness Activity: Resume your previous activity Lifting: Gradually increase as tolerated Bathing: No limitations Exercise/Sports: As tolerated Non-emergency contact: Primary Care Provider and Hot Knife Cutter Follow-up/Referrals: Orlando Powers [Primary Care Provider] - Reuben Lim MD [Physician] - (Please follow-up with GI within 1 month) Diet: Carb Consistent or DM2 and Low Fiber Addtl Provider Instructions: Mr. Jackson was admitted with rectal bleeding and found to have ischemic colitis of the left colon and rectum. He was treated with pain medication, antibiotics, IV fluids, and bowel rest. His diet was advanced as tolerated. He still has some persistent mild intermittent nausea but has been eating most all of his meals. He can continue Zofran as needed for nausea, and has 1 more dose of Augmentin for the evening of 04/21/18. He should follow-up with gastroenterology within a month. Prescriptions: New amoxicillin-pot clavulanate 875-125 mg Tablet 1 tab PO BIDM 1 Days Qty: 1 RF: 0 loperamide 2 mg Capsule 2 mg PO Q2H PRN (Reason: loose stool) Qty: 30 RF: 0 aspirin [Ecotrin Low Strength] 81 mg Tablet,Delayed Release (Dr/Ec) 81 mg PO QAM Qty: 30 RF: 0 ondansetron HCl [Zofran] 4 mg tablet 4 mg PO Q8H PRN (Reason: nausea and vomiting) 5 Days RF: 0 Continued multivitamin tablet 1 tab PO QAM RF: 0 fentanyl 50 mcg/hr patch 72 hour 1 patch TD Q72H RF: 0 gabapentin 600 mg tablet 1,200 mg PO HS RF: 0 gabapentin 600 mg tablet 600 mg PO QAM RF: 0 polyethylene glycol 3350 [Miralax] 17 gram powder in packet 17 gm PO DAILY PRN (Reason: Constipation) RF: 0 donepezil [Aricept] 10 mg tablet 10 mg PO HS RF: 0 ondansetron HCl [Zofran] 4 mg tablet 4 mg PO QAM PRN (Reason: Nausea) RF: 0 carbidopa-levodopa [Sinemet CR] 50-200 mg tablet extended release 1 tab PO QAM RF: 0 simvastatin [Zocor] 10 mg tablet 10 mg PO HS RF: 0 entacapone [Comtan] 200 mg tablet 200 mg PO QID RF: 0 citalopram 20 mg tablet 20 mg PO QAM RF: 0 lorazepam [Ativan] 0.5 mg tablet 0.5 mg PO DAILY PRN (Reason: Anxiety) RF: 0 tamsulosin 0.4 mg capsule 0.8 mg PO HS RF: 0 ropinirole 0.25 mg tablet 0.25 mg PO TID RF: 0 baclofen 10 mg tablet 10 mg PO TID RF: 0 amlodipine 10 mg tablet 10 mg PO QAM RF: 0 insulin aspart U-100 [Novolog U-100 Insulin aspart] 100 unit/mL solution 25 units SQ TIDM RF: 0 pantoprazole [Protonix] 40 mg tablet,delayed release (DR/EC) 40 mg PO BID RF: 0 lisinopril 10 mg tablet 10 mg PO QAM RF: 0 nitroglycerin [Nitrostat] 0.4 mg tablet, sublingual 0.4 mg SL Q5M PRN (Reason: Chest Pain) RF: 0 docusate sodium [Colace] 100 mg capsule 100 mg PO BID PRN (Reason: Constipation) RF: 0 balsalazide [Colazal] 750 mg capsule 1,500 mg PO TID RF: 0 ranitidine HCl 150 mg capsule 150 mg PO HS RF: 0 mirtazapine [Remeron] 15 mg tablet 15 mg PO HS RF: 0 carbidopa-levodopa [Sinemet] 25-100 mg tablet 2.5 tab PO QID RF: 0 fluticasone [Allergy Relief (fluticasone)] 50 mcg/actuation spray,suspension 2 sprays INTNAS QAM RF: 0 trimethobenzamide [Tigan] 300 mg capsule 300 mg PO TID PRN (Reason: Nausea) RF: 0 dutasteride [Avodart] 0.5 mg capsule 0.5 mg PO HS RF: 0 Saccharomyces boulardii [Florastor] 250 mg capsule 250 mg PO QAM RF: 0 apomorphine [APOKYN] 10 mg/mL cartridge 0.3 ml SQ DAILY PRN (Reason: PARKINSON SYMPTOMS) RF: 0 insulin detemir U-100 [Levemir FlexTouch U-100 Insuln] 100 unit/mL (3 mL) insulin pen 45 units SQ Q12 RF: 0 gatifloxacin [Zymaxid] 0.5 % drops 1 drops ophthalmic (eye) TID RF: 0 magnesium oxide 400 mg capsule 400 mg PO BID RF: 0 bromfenac [Prolensa] 0.07 % drops 1 drops OP QAM RF: 0 aspirin [Aspirin Low Dose] 81 mg Tablet,Delayed Release (Dr/Ec) 81 mg PO DAILY RF: 0 Discontinued oxycodone-acetaminophen [Percocet] 5-325 mg tablet 1 tab PO DAILY PRN (Reason: Pain) RF: 0 Stand-Alone Forms: [facility] Discharge Orders: Discharge Order (Routine); Ordered 04/21/18 Ordered By: María Jeffers Skilled Items Patient informed of condition?: Yes DNR: No Discharge Level of Care: Skilled Communicable Disease: No Discharge Prognosis: Improving Admission Data Admit Date/Time: 04/11/18 20:16 Attending Provider: María Jeffers Admit Provider: Venu Ballard Primary Care Provider: Orlando Powers Other Providers: Venu Ballard ; Reuben Lim ; Micky Chowdary Service: Medical Other Pending Studies at Discharge: No
== END 2018-04-21 12:00 | DRG 394 ==
LOC: ED 10:12 → SUATTDRO 20:16 → 4E 20:16